=== PATIENT | male | born 1990 | race Caucasian/White ===

== ENCOUNTER 2017-06-13 10:48 | Emergency (ER) | payer OTHER ==
[~2017-06-13] VITALS: Ht 180.3 cm; Wt 117.5 kg
[2017-06-13 10:53] VITALS: BP 128/77; PULSE 64; TEMP 36.7; O2SAT 97; Ht 180.3 cm; Wt 117.5 kg
--- NOTE | 2017-06-13 11:27 | DIAGNOSTIC IMAGING REPORT ---
RIGHT HAND 3 VIEWS HISTORY: Right hand pain. R hand injury Right COMPARISON: None. FINDINGS: There is no fracture or dislocation. Mild soft tissue swelling. No radiopaque foreign bodies. IMPRESSION: No fractures. Electronically signed by: Ole Harman M.D. 06/13/2017 11:26 AM Dictated Date/Time: 06/13/2017 11:24 AM
--- NOTE | 2017-06-13 15:48 | EMERGENCY ROOM VISIT NOTE ---
History First contact with patient: 11:00 Chief Complaint: FINGER PAIN Stated Complaint: FINGERS SHUT IN GARAGE DOOR-WORK RELATED INJURY History of Present Illness The patient is a 27 year old male who presents to the Emergency Room with complaints of injuries after he got his fingers shut in a garage door. This injury did happen at work this morning around 10 AM. He complains of pain of the right second, third and fourth fingers. He denies any pain extending into the fingers or hand. The patient is [id number], and rates his discomfort an 8 out of 10. Review of Systems 10 system review was performed and was negative except for pertinent positives and negatives as indicated in history of present illness Past Medical/Surgical History Medical Problems: (1) No significant past medical history Surgical Problems: (1) No history of previous surgery Family History FH: cancer FH: diabetes mellitus FH: heart disease FH: hypertension Social History Smoking Status: Current Every Day Smoker Alcohol Use: occasionally Marital Status: single Housing Status: lives with family Occupation Status: employed Current/Historical Medications No Active Prescriptions or Reported Meds Physical Exam Vital Signs Date Time Temp Pulse Resp B/P (MAP) Pulse Ox O2 Delivery O2 Flow Rate FiO2 06/13/17 10:53 36.7 64 18 128/77 97 Room Air Pain Rating (0-10): 3.0 Physical Exam CONSTITUTIONAL: Healthy and well nourished. Alert and oriented X 3 with positive affect. Patient appears in mild discomfort from pain. HEENT: Normocephalic, atraumatic. Pupils equal, round and reactive. NECK: Full active range of motion without discomfort. MUSCULOSKELETAL: Examination of the right hand shows mild edema and erythema of the fingertips. However, there is no lacerations or subluxations of the fingertips or nail plates. The refill is less than 2 second of all fingers. INTEGUMENTARY: No rash or other significant dermatologic conditions noted. NEUROLOGIC: Fingertips of the left hand are sensory intact. Medical Decision & Procedures ER Provider Diagnostic Interpretation: My interpretation of right hand x-rays does not show any obvious tuft fractures or DIP dislocations. Radiologist report is as follows: RIGHT HAND 3 VIEWS HISTORY: Right hand pain. R hand injury Right COMPARISON: None. FINDINGS: There is no fracture or dislocation. Mild soft tissue swelling. No radiopaque foreign bodies. IMPRESSION: No fractures. ED Course Patient history and physical exam were performed. Nurse's notes were reviewed. Vital signs were reviewed and were normal. The patient refused any analgesics while in the emergency department. X-rays of the right hand does not show any acute fractures or dislocations. The patient was encouraged to intermittently apply ice. Ibuprofen and Tylenol in alternating fashion as needed for additional pain relief. He was encouraged to follow-up with his Worker's Compensation approved orthopedic surgeon as needed for any persistent pain. The patient was happy with plan of care, voiced understanding of all discharge instructions, and rated his pain a 4 out of 10 at the conclusion of my exam. Medical Decision Medication Reconcilliation Current Medication List: was personally reviewed by me Blood Pressure Screening Patient's blood pressure: Normal blood pressure Impression Primary Impression: Contusion of multiple sites of right hand and fingers Additional Impression: Work related injury Departure Information Dispostion Home / Self-Care Condition GOOD Prescriptions No Active Prescriptions or Reported Meds Forms HOME CARE DOCUMENTATION FORM, IMPORTANT VISIT INFORMATION Patient Instructions My [facility] Additional Instructions Intermittently apply ice for swelling and pain. Perform range of motion exercises to prevent stiffness. Ibuprofen 800 mg and/or Tylenol 1000 mg every 8 hours. You may also alternate these medications for more effective pain relief: Ibuprofen --4 HRS--> Tylenol --4 HRS--> ibuprofen --4 HRS--> Tylenol .... Follow-up with your Worker's Compensation approved orthopedic surgeon if symptoms are not improving within the next 4-5 days. FOR WORK: Limited use of right hand as tolerated until swelling and pain improves. Problem Qualifiers Primary Impression: Contusion of multiple sites of right hand and fingers Encounter type: initial encounter Qualified Codes: S60.221A - Contusion of right hand, initial encounter; S60.00XA - Contusion of unspecified finger without damage to nail, initial encounter
== END 2017-06-13 11:56 | disposition home or self-care (01) ==
LOC: C.EDB 10:50 → C.EDD 11:56
DX: S60.221A Contusion of right hand, initial encounter (principal); W23.1XXA Caught, crushed, jammed, or pinched between stationary objects, initial encounter; Y99.0 Civilian activity done for income or pay; Y92.89 Other specified places as the place of occurrence of the external cause; Z80.9 Family history of malignant neoplasm, unspecified; Z83.3 Family history of diabetes mellitus; Z82.49 Family history of ischemic heart disease and other diseases of the circulatory system; F17.210 Nicotine dependence, cigarettes, uncomplicated

== ENCOUNTER 2023-08-13 19:34 | Inpatient (IN) ==
[2023-08-13] MEDS ORDERED: SODIUM CHLORIDE 0.9% 2,000 ML IV ONE (20:48)
--- NOTE | 2023-08-13 20:51 | Emergency Department Note ---
Impression & Plan Cough, Shortness of breath, Multifocal pneumonia, Fever, Non-ST elevation GA (NSTEMI), Thrombocytopenia ED Provider Note HISTORY OF PRESENT ILLNESS: Patient is a 33-year-old male presenting with shortness of breath, cough and dizziness. Patient reports that he had laboratory work-up done yesterday for monitoring of his chemotherapy treatment and was called today that his platelet count was very low. He was referred to the emergency department given his symptoms of lightheadedness, shortness of breath and cough. Cancer doctor was concerned he may have pneumonia or PE. Patient denies any DVT or PE history. Denies any anticoagulation use. He denies any measured fevers at home, but reports he has been having episodes of feeling hot and then cold. His last dose of chemotherapy was an oral agent last night. He supposed to be on it all week, but was instructed by his oncologist to stop as of yesterday. Patient denies any chest pain. Denies any abdominal pain or diarrhea. He does report some nausea and a few episodes of vomiting earlier today. He took a Zofran just prior to arrival. ROS: as above PHYSICAL EXAM: Constitutional: Patient appears in no acute distress. HENT: Head: Normocephalic and atraumatic. Eyes: EOMI, PERRL Mouth/Throat: Mucous membranes moist. Neck: Trachea midline. Neck supple. Cardiovascular: Tachycardic with regular rhythm. No murmurs, rubs or gallops. Intact distal pulses. Pulmonary/Chest: No respiratory distress. Breath sounds clear and equal bilaterally. No wheezes or rales. Abdominal: Abdomen soft, no tenderness, rebound or guarding. Musculoskeletal: No edema, tenderness or deformity noted. Skin: Warm and dry. No rash, erythema, pallor or cyanosis Psychiatric: Appropriate mood and affect for situation. Neurological: Alert and keenly responsive. CN II-XII grossly intact, moving all extremities equally and fully. MDM: - Vitals signs showed fever. - History obtained via patient. Patient presents with cough, shortness of breath and dizziness. Patient reports he had lab work done yesterday that showed his platelet count was low. His chemotherapy doctor recommended he stop his oral chemo. Patient states for the last few days he has been having a cough, shortness of breath and feeling lightheaded. He reports subjective fevers at home. He denies any chest pain. Denies any abdominal pain or diarrhea. Reports nausea and a few episodes of vomiting earlier today. - Chronic conditions affecting care: [id number]; brain tumor - Differential diagnoses include, but are not limited to: ACS; pneumonia; pulmonary embolism; pulmonary edema; intracranial hemorrhage - Order placed for continuous cardiac monitoring. At this time, monitor showed rate of 80 bpm with normal sinus rhythm, per my interpretation. - External medical records reviewed. Neuro-oncology note dated 08/13/2023 was reviewed. Patient was recommended to present to the ER for further evaluation given his cough, lightheadedness and shortness of breath. He is noted to be on Lomustine and procarbazine, which the pharmacist notes have pulmonary toxicity risks. - EKG reviewed by myself showed normal sinus rhythm. Rate tachycardic at 106 bpm. QTc 417. No acute ischemic changes. - Laboratory workup interpreted by myself showed normal WBC; thrombocytopenia (plt 92); stable electrolytes; normal lactate; normal BNP; elevated troponin (29.8); normal lipase - CXR showed concern for right-sided pneumonia, per my interpretation - Biofire negative - CT head wo contrast negative for intracranial pathology. - CT PE negative for PE, but noted to have multifocal pneumonia. - Blood cultures obtained. - Patient given 2.5L NS. Based on patient's ideal body weight, his sepsis fluid volume resuscitation was reviewed 2427 mL. IV vancomycin and cefepime ordered for antibiotic coverage. - Given patient's immunocompromise state and multifocal pneumonia on CT scan, will admit for IV antibiotics - Discussed was had with resident care provider about need for admission. - Hospitalist consulted for admission - [facility]. ASSESSMENT AND PLAN: Diagnosis: Cough; shortness of breath; multifocal pneumonia; fever; NSTEMI; thrombocytopenia Plan: Admit Past Med/Surg History Medical History Brain cancer Status postcraniotomy, radiation and chemotherapy Xcghqow-Ciojz-Sicck disease GERD (gastroesophageal reflux disease) Surgical History History of craniotomy Social History Smoking Status: Former smoker Tobacco Type: Cigarettes Cigarettes Per Day: 1 pack; Hx Alcohol Use: Yes Hx Substance Use: No Current Living Situation: Family Feels Safe at Home: Yes Allergies Allergies Allergy/AdvReac Type Severity Reaction Status Date / Time No Known Allergies Allergy Unverified 08/13/23 20:35 Home Meds Home Medications Medication Instructions Recorded Confirmed docusate sodium 50 mg capsule 50 mg PO AMHS 08/13/23 08/13/23 levetiracetam 750 mg tablet 1,125 mg PO AMHS 08/13/23 08/13/23 lomustine 100 mg capsule 200 mg PO .EVERY 6 WEEKS 08/13/23 08/13/23 (Gleostine) omeprazole 40 mg capsule,delayed 40 mg PO QAM 08/13/23 08/13/23 release ondansetron HCl 8 mg tablet 8 mg PO Q8 PRN Nausea 08/13/23 08/13/23 procarbazine 50 mg capsule 150 mg PO UD 08/13/23 08/13/23 (Matulane) prochlorperazine maleate 10 mg 10 mg PO Q6 PRN Nausea 08/13/23 08/13/23 tablet Results & Data (ED) Vital Signs Vital Signs - 24 hr 08/13/23 19:53 08/13/23 20:30 08/13/23 21:23 Temperature 38.6 C H Temperature Source Oral Pulse Rate 93 H 89 Pulse Rate [Radial] Respiratory Rate 16 Respiratory Effort / Characteristics Respiratory Depth Respiratory Pattern Blood Pressure 134/83 Blood Pressure [Left Arm] Blood Pressure Mean 100 Blood Pressure Mean [Left Arm] Pulse Oximetry 95 98 Oxygen Delivery Method Room Air Room Air Sepsis Recent Fever Within 48 Hours Yes Sepsis New/Unexplained Change in Mental Status No Sepsis Action Taken by Nursing No Action Required 08/13/23 21:37 08/13/23 23:00 08/14/23 01:00 Temperature Temperature Source Pulse Rate Pulse Rate [Radial] 85 80 92 H Respiratory Rate 17 18 17 Respiratory Effort / Characteristics Non-Labored Spontaneous Non-Labored Spontaneous Respiratory Depth Normal Normal Respiratory Pattern Regular Regular Blood Pressure Blood Pressure [Left Arm] 119/67 133/77 Blood Pressure Mean Blood Pressure Mean [Left Arm] 84 95 Pulse Oximetry 92 91 99 Oxygen Delivery Method Room Air Room Air Room Air Sepsis Recent Fever Within 48 Hours Sepsis New/Unexplained Change in Mental Status Sepsis Action Taken by Nursing Laboratory Data 08/13/23 20:19 08/13/23 20:19 Lab Results 08/13/23 08/13/23 08/13/23 Range/Units 20:19 20:20 21:11 WBC 8.39 (4.8-10.8) K/ul RBC 4.97 (4.70-6.10) M/uL Hgb 15.5 (14.0-18.0) g/dl Hct 43.5 (42.0-52.0) % MCV 87.5 (80.0-100.0) fL MCH 31.2 (25.0-34.0) pg MCHC 35.6 (32.0-36.0) g/dL RDW Std Deviation 38.4 (36.4-46.3) fL RDW Coeff of Domingo 12.1 (11.5-14.5) % Plt Count 92 L (130-400) K/uL MPV 10.4 (9.4-12.4) fL Immature Gran % (Auto) 0.1 % Neut % (Auto) 69.9 % Lymph % (Auto) 15.7 % [place] % (Auto) 13.5 % Eos % (Auto) 0.2 % Baso % (Auto) 0.6 % Neut # (Auto) 5.86 (1.40-6.50) K/uL Lymph # (Auto) 1.32 (1.20-3.40) K/uL [place] # (Auto) 1.13 H (0.11-0.59) K/uL Eos # (Auto) 0.02 (0.00-0.50) K/uL Baso # (Auto) 0.05 (0.00-0.20) K/uL Immature Gran # (Auto) 0.01 (0.01-0.20) K/uL Platelet Estimate Decreased L (Normal) PT 11.1 (9.0-12.0) Seconds INR 1.0 (0.9-1.1) APTT 31.1 H (21.0-31.0) Seconds PTT Ratio 1.1 Sodium 135 L (136-145) mmol/L Potassium 3.5 (3.5-5.1) mmol/L Chloride 102 (98-107) mmol/L Carbon Dioxide 23 (21-32) mmol/L Anion Gap 10 (3-11) BUN 15 (6-23) mg/dl Creatinine 1.07 (0.6-1.4) mg/dl Est Cr Clr Drug Dosing 135.3 ml/min Est GFR ( Amer) 106.6 ml/min Est GFR (Non-Af Amer) 92.0 ml/min BUN/Creatinine Ratio 14.0 (10-20) Glucose 103 H (70-99(Fasting)) mg/dl Lactate 1.3 (0.4-2.0) mmol/L Calcium 9.4 (8.6-10.3) mg/dl Total Bilirubin 1.1 H (0.2-1.0) mg/dl AST 21 (13-39) U/L ALT 32 (7-52) U/L Alkaline Phosphatase 90 (34-104) U/L Troponin I High Sens 29.8 H (0-20) pg/ml B-Natriuretic Peptide 4 (0-100) pg/ml Total Protein 7.8 (6.0-8.3) gm/dl Albumin 4.6 (3.4-5.0) gm/dl Globulin 3.2 (2.5-4.0) gm/dl Albumin/Globulin Ratio 1.4 (0.9-2) Lipase 6 L (11-82) U/L Procalcitonin < 0.05 (0-0.5) ng/ml Adenovirus (PCR) Not Detected (NotDetected) B. pertussis DNA (PCR) Not Detected (NotDetected) B.parapertussis DNA PCR Not Detected (NotDetected) C. pneumoniae DNA (PCR) Not Detected (NotDetected) Coronavirus OC43 (PCR) Not Detected (NotDetected) Coronavirus HKU1 (PCR) Not Detected (NotDetected) Coronavirus 229E (PCR) Not Detected (NotDetected) SARS-CoV-2 (PCR) Not Detected (NotDetected) Coronavirus NL63 (PCR) Not Detected (NotDetected) Human Metapneumovir PCR Not Detected (NotDetected) Influenza Type A (PCR) Not Detected (NotDetected) Influenza Type B (PCR) Not Detected (NotDetected) M. pneumoniae (PCR) Not Detected (NotDetected) Parainfluenza 1 (PCR) Not Detected (NotDetected) Parainfluenza 2 (PCR) Not Detected (NotDetected) Parainfluenza 3 (PCR) Not Detected (NotDetected) Parainfluenza 4 (PCR) Not Detected (NotDetected) RSV (PCR) Not Detected (NotDetected) Entero/Rhino (PCR) Not Detected (NotDetected) 08/13/23 Range/Units 22:34 WBC (4.8-10.8) K/ul RBC (4.70-6.10) M/uL Hgb (14.0-18.0) g/dl Hct (42.0-52.0) % MCV (80.0-100.0) fL MCH (25.0-34.0) pg MCHC (32.0-36.0) g/dL RDW Std Deviation (36.4-46.3) fL RDW Coeff of Domingo (11.5-14.5) % Plt Count (130-400) K/uL MPV (9.4-12.4) fL Immature Gran % (Auto) % Neut % (Auto) % Lymph % (Auto) % [place] % (Auto) % Eos % (Auto) % Baso % (Auto) % Neut # (Auto) (1.40-6.50) K/uL Lymph # (Auto) (1.20-3.40) K/uL [place] # (Auto) (0.11-0.59) K/uL Eos # (Auto) (0.00-0.50) K/uL Baso # (Auto) (0.00-0.20) K/uL Immature Gran # (Auto) (0.01-0.20) K/uL Platelet Estimate (Normal) PT (9.0-12.0) Seconds INR (0.9-1.1) APTT (21.0-31.0) Seconds PTT Ratio Sodium (136-145) mmol/L Potassium (3.5-5.1) mmol/L Chloride (98-107) mmol/L Carbon Dioxide (21-32) mmol/L Anion Gap (3-11) BUN (6-23) mg/dl Creatinine (0.6-1.4) mg/dl Est Cr Clr Drug Dosing ml/min Est GFR ( Amer) ml/min Est GFR (Non-Af Amer) ml/min BUN/Creatinine Ratio (10-20) Glucose (70-99(Fasting)) mg/dl Lactate (0.4-2.0) mmol/L Calcium (8.6-10.3) mg/dl Total Bilirubin (0.2-1.0) mg/dl AST (13-39) U/L ALT (7-52) U/L Alkaline Phosphatase (34-104) U/L Troponin I High Sens 29.3 H (0-20) pg/ml B-Natriuretic Peptide (0-100) pg/ml Total Protein (6.0-8.3) gm/dl Albumin (3.4-5.0) gm/dl Globulin (2.5-4.0) gm/dl Albumin/Globulin Ratio (0.9-2) Lipase (11-82) U/L Procalcitonin (0-0.5) ng/ml Adenovirus (PCR) (NotDetected) B. pertussis DNA (PCR) (NotDetected) B.parapertussis DNA PCR (NotDetected) C. pneumoniae DNA (PCR) (NotDetected) Coronavirus OC43 (PCR) (NotDetected) Coronavirus HKU1 (PCR) (NotDetected) Coronavirus 229E (PCR) (NotDetected) SARS-CoV-2 (PCR) (NotDetected) Coronavirus NL63 (PCR) (NotDetected) Human Metapneumovir PCR (NotDetected) Influenza Type A (PCR) (NotDetected) Influenza Type B (PCR) (NotDetected) M. pneumoniae (PCR) (NotDetected) Parainfluenza 1 (PCR) (NotDetected) Parainfluenza 2 (PCR) (NotDetected) Parainfluenza 3 (PCR) (NotDetected) Parainfluenza 4 (PCR) (NotDetected) RSV (PCR) (NotDetected) Entero/Rhino (PCR) (NotDetected) Administered Medications Vancomycin HCl 2,500 mg/ (Sodium Chloride) 550 mls @ 200 mls/hr IV NOW ONE Stop: 08/14/23 02:00 Last Admin: 08/13/23 23:33 Dose: 200 mls/hr Documented By: MAUDE Discontinued Medications Sodium Chloride (Nss) 2,000 mls @ 999 mls/hr IV .Q2H1M ONE Stop: 08/13/23 22:48 Last Infusion: 08/13/23 23:19 Dose: Infused Documented By: Admin: 08/13/23 21:17 Dose: 999 mls/hr Documented By: MAUDE Cefepime HCl (Maxipime) 2,000 mg in 20 mls @ 5 mls/min IV NOW STA; Protocol Stop: 08/13/23 23:19 Last Admin: 08/13/23 23:32 Dose: 5 mls/min Documented By: MAUDE Ioversol (Optiray 320 500ml) 112 ml IV ONCE ONE Stop: 08/13/23 21:50 Last Admin: 08/13/23 21:49 Dose: 112 ml Documented By: CHICO Imaging Data Radiologist's Impression: Chest CTA 08/13/23 21:04 Exam(s): CTA CHEST IV Amt: 112 ml optiray 320 EXAM: CT Angiography Chest With Intravenous Contrast CLINICAL HISTORY: Reason for exam: PE. TECHNIQUE: Axial computed tomographic angiography images of the chest with intravenous contrast. CTDI is 64.54 mGy and DLP is 961.59 mGy-cm. Automated exposure control was utilized for the study. A dose lowering technique was utilized adhering to the principles of ALARA. MIP reconstructed images were created and reviewed. COMPARISON: No relevant prior studies available. FINDINGS: Pulmonary arteries: No pulmonary embolism. Aorta: No acute findings. Normal caliber. No dissection. Lungs: Scattered airspace opacities involving the upper lobes and lower lobes consistent with pneumonia. Pleural space: Unremarkable. Heart: Unremarkable. Bones/joints: No acute fracture. Soft tissues: Unremarkable. Lymph nodes: Unremarkable. Liver: There is an ill-defined mass within hepatic segment 8 measuring 4.5 cm. IMPRESSION: 1. No pulmonary embolism. 2. Multifocal pneumonia. 3. There is an ill-defined mass within hepatic segment 8 measuring 4.5 cm. Consider characterization with dedicated MRI of the abdomen with contrast. Electronically signed by: Roshan Dahl MD 08/13/23 23:[address] 08/13/23 21:04 Exam(s): CT HEAD Without Contrast EXAM: CT Head Without Intravenous Contrast CLINICAL HISTORY: Reason for exam: dizziness; known brain CA. TECHNIQUE: Axial computed tomography images of the head/brain without intravenous contrast. CTDI is 21.37 mGy and DLP is 972.14 mGy-cm. Automated exposure control was utilized for the study. A dose lowering technique was utilized adhering to the principles of ALARA. COMPARISON: [place] [id number] FINDINGS: Brain: No intracranial hemorrhage, mass-effect, or cerebral edema. Encephalomalacia and calcifications in the inferior left frontal lobe. Ventricles: Unremarkable. Bones/joints: Chronic left frontotemporal craniotomy. Soft tissues: Unremarkable. Sinuses: No acute sinusitis. Mastoid air cells: Unremarkable as visualized. IMPRESSION: 1. No acute intracranial abnormality. 2. Postsurgical changes in the inferior left frontal lobe. Electronically signed by: Roshan Dahl MD 08/13/23 23:10 PM Discharge Plan Visit Data Chief Complaint: Chest Pain Stated Complaint: TESTING REQUEST, DIZZY, COUGH, CHEST CUEVAS, NAUSEA ED Provider: Fiordaliza Davidson Discharge Problem: Cough, Shortness of breath, Multifocal pneumonia, Fever, Non-ST elevation GA (NSTEMI), Thrombocytopenia Forms Stand Alone Forms: [facility] Prescriptions Prescriptions: No Action levetiracetam 750 mg tablet 1,125 mg PO AMHS Rx Instructions: 1.5 tablets in am and hs ondansetron HCl 8 mg tablet 8 mg PO Q8 PRN (Reason: Nausea) prochlorperazine maleate 10 mg tablet 10 mg PO Q6 PRN (Reason: Nausea) Matulane 50 mg capsule 150 mg PO UD Rx Instructions: 3 capsule dose at bedtime on days 8 through 21 every 42 days Gleostine 100 mg capsule 200 mg PO .EVERY 6 WEEKS Rx Instructions: take on an empty stomach at bed time. last dispensed 07/19/23 docusate sodium 50 mg Capsule 50 mg PO AMHS omeprazole 40 mg capsule,delayed release(DR/EC) 40 mg PO QAM Referrals Referrals: Dangelo Juárez DO [Primary Care Provider] -
[2023-08-13 20:55] LABS: Albumin Globulin Ratio 1.4 (0.9-2); Albumin Level 4.6 gm/dl (3.4-5.0); Bilirubin,Total 1.1 mg/dl (0.2-1.0); Calcium 9.4 mg/dl (8.6-10.3); Creatinine Clr Calc Pharmacy 135.3 ml/min; Est GFR (African American) 106.6 ml/min; Globulin 3.2 gm/dl (2.5-4.0); Potassium 3.5 mmol/L (3.5-5.1); Total Protein 7.8 gm/dl (6.0-8.3)
[2023-08-13 21:01] LABS: Troponin I High Sensitivity 29.8 pg/ml (0-20)
[2023-08-13 21:09] LABS: Basophils # (auto) 0.05 K/uL (0.00-0.20); Basophils % (auto) 0.6 %; Eosinophils # (auto) 0.02 K/uL (0.00-0.50); Eosinophils % (auto) 0.2 %; Hematocrit (blood only) 43.5 % (42.0-52.0); Hemoglobin 15.5 g/dl (14.0-18.0); Immature Granulocytes # (auto) 0.01 K/uL (0.01-0.20); Immature Granulocytes % (auto) 0.1 %; Lymphocytes # (auto) 1.32 K/uL (1.20-3.40); Lymphocytes % (auto) 15.7 %; Mean Corpuscular Hemoglobin 31.2 pg (25.0-34.0); Mean Corpuscular Hgb Conc 35.6 g/dL (32.0-36.0); Mean Corpuscular Volume 87.5 fL (80.0-100.0); Mean Platelet Volume 10.4 fL (9.4-12.4); Monocytes # (auto) 1.13 K/uL (0.11-0.59); Monocytes % (auto) 13.5 %; Neutrophils # (auto) 5.86 K/uL (1.40-6.50); Neutrophils % (auto) 69.9 %; Platelet Count 92 K/uL (130-400); Platelet Estimate Decreased (Normal); RDW Coefficient of Variation 12.1 % (11.5-14.5); RDW Standard Deviation 38.4 fL (36.4-46.3); Red Blood Count 4.97 M/uL (4.70-6.10); White Blood Count 8.39 K/ul (4.8-10.8)
[2023-08-13 21:27] LABS: Adenovirus PCR Not Detected (NotDetected); Bordetella parapertussis PCR Not Detected (NotDetected); Bordetella pertussis PCR Not Detected (NotDetected); Chlamydia pneumoniae PCR Not Detected (NotDetected); Coronavirus 229E PCR Not Detected (NotDetected); Coronavirus CoV-2 (COVID19)PCR Not Detected (NotDetected); Coronavirus HKU1 PCR Not Detected (NotDetected); Coronavirus NL63 PCR Not Detected (NotDetected); Coronavirus OC43PCR Not Detected (NotDetected); Human Metapneumovirus PCR Not Detected (NotDetected); Influenza A PCR Not Detected (NotDetected); Influenza B PCR Not Detected (NotDetected); Mycoplasma pneumoniae PCR Not Detected (NotDetected); Parainfluenza Virus 1 PCR Not Detected (NotDetected); Parainfluenza Virus 2 PCR Not Detected (NotDetected); Parainfluenza Virus 3 PCR Not Detected (NotDetected); Parainfluenza Virus 4 PCR Not Detected (NotDetected); Respiratory Syncytial VirusPCR Not Detected (NotDetected); Rhinovirus/Enterovirus PCR Not Detected (NotDetected)
[2023-08-13 21:42] LABS: Partial Thromboplastin Ratio 1.1; Partial Thromboplastin Time 31.1 Seconds (21.0-31.0); Prothrombin Time 11.1 Seconds (9.0-12.0)
[2023-08-13] MEDS ORDERED: OPTIRAY 320 500ml IV ONE (21:49)
--- NOTE | 2023-08-13 23:11 | CT Scan Report ---
Exam(s): CT HEAD Without Contrast EXAM: CT Head Without Intravenous Contrast CLINICAL HISTORY: Reason for exam: dizziness; known brain CA. TECHNIQUE: Axial computed tomography images of the head/brain without intravenous contrast. CTDI is 21.37 mGy and DLP is 972.14 mGy-cm. Automated exposure control was utilized for the study. A dose lowering technique was utilized adhering to the principles of ALARA. COMPARISON: [place] [id number] 18 FINDINGS: Brain: No intracranial hemorrhage, mass-effect, or cerebral edema. Encephalomalacia and calcifications in the inferior left frontal lobe. Ventricles: Unremarkable. Bones/joints: Chronic left frontotemporal craniotomy. Soft tissues: Unremarkable. Sinuses: No acute sinusitis. Mastoid air cells: Unremarkable as visualized. IMPRESSION: 1. No acute intracranial abnormality. 2. Postsurgical changes in the inferior left frontal lobe. Electronically signed by: Roshan Dahl MD 08/13/23 23:10 PM
--- NOTE | 2023-08-13 23:14 | CT Scan Report ---
Exam(s): CTA CHEST IV Amt: 112 ml optiray 320 EXAM: CT Angiography Chest With Intravenous Contrast CLINICAL HISTORY: Reason for exam: PE. TECHNIQUE: Axial computed tomographic angiography images of the chest with intravenous contrast. CTDI is 64.54 mGy and DLP is 961.59 mGy-cm. Automated exposure control was utilized for the study. A dose lowering technique was utilized adhering to the principles of ALARA. MIP reconstructed images were created and reviewed. COMPARISON: No relevant prior studies available. FINDINGS: Pulmonary arteries: No pulmonary embolism. Aorta: No acute findings. Normal caliber. No dissection. Lungs: Scattered airspace opacities involving the upper lobes and lower lobes consistent with pneumonia. Pleural space: Unremarkable. Heart: Unremarkable. Bones/joints: No acute fracture. Soft tissues: Unremarkable. Lymph nodes: Unremarkable. Liver: There is an ill-defined mass within hepatic segment 8 measuring 4.5 cm. IMPRESSION: 1. No pulmonary embolism. 2. Multifocal pneumonia. 3. There is an ill-defined mass within hepatic segment 8 measuring 4.5 cm. Consider characterization with dedicated MRI of the abdomen with contrast. Electronically signed by: Roshan Dahl MD 08/13/23 23:13 PM
[2023-08-13] MEDS ORDERED: VANCOMYCIN CONSULT ACTIVE PRN (23:16)
[2023-08-13] MEDS ORDERED: VANCOMYCIN HCL 2,500 MG in SODIUM CHLORIDE 0.9% 500 ML IV ONE (23:16)
[2023-08-13] MEDS ORDERED: CEFEPIME 2,000 MG/20 ML VIAL IV STA (23:16)
[2023-08-13] MEDS ORDERED: SODIUM CHLORIDE 0.9% 500 ML IV ONE (23:35)
--- NOTE | 2023-08-14 01:44 | History & Physical Report ---
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 Patient was feeling dizzy. Denies any headache. Vision is somewhat blurry. Has some runny nose. Has some sore throat from coughing. No nausea. No abdominal pain. Normal bowel and bladder movements. Currently resting comfortably and hemodynamics stable. Past medical history. As mentioned above. Past surgical history. 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 Quit smoking in August 2023. Smoked 1.75 packs a day for 12 years. Alcohol occasional. No drug use. Family history. Mother had prothrombin [id number]. Diabetes. Aunt and uncle has limb-girdle muscular dystrophy Allergies Allergy/AdvReac Type Severity Reaction Status Date / Time No Known Allergies Allergy Unverified 08/13/23 20:35 Home Medications Medication Instructions Recorded Confirmed Type docusate sodium 50 mg capsule 50 mg PO AMHS 08/13/23 08/13/23 History levetiracetam 750 mg tablet 1,125 mg PO AMHS 08/13/23 08/13/23 History lomustine 100 mg capsule 200 mg PO .EVERY 6 WEEKS 08/13/23 08/13/23 History (Gleostine) omeprazole 40 mg capsule,delayed 40 mg PO QAM 08/13/23 08/13/23 History release ondansetron HCl 8 mg tablet 8 mg PO Q8 PRN Nausea 08/13/23 08/13/23 History procarbazine 50 mg capsule 150 mg PO UD 08/13/23 08/13/23 History ([place]) prochlorperazine maleate 10 mg 10 mg PO Q6 PRN Nausea 08/13/23 08/13/23 History tablet Past Med/Surg History Medical History Brain cancer Status postcraniotomy, radiation and chemotherapy Tjamsye-Oejxw-Ihljz disease GERD (gastroesophageal reflux disease) Surgical History History of craniotomy Social History Smoking Status: Former smoker Tobacco Type: Cigarettes Cigarettes Per Day: 1 pack; Hx Alcohol Use: No Hx Substance Use: No Preferred Language: Palestinian Communication Ability: Effective Trouble Dispatcher Required: No Beliefs That Will Affect Care: None Current Living Situation: Parent Feels Safe at Home: Yes Safety Concerns: Feels Safe At This Time Assistive Devices: Glasses Review of Systems Review of Systems: All systems reviewed & are unremarkable except as noted in HPI & below Physical Exam Physical Exam: General- not in distress Head- atraumatic Eyes- PERRL. ENT- oropharynx clear Neck- supple, no JVD. Lungs- clear to auscultation no wheezing or crackles. Heart- regular rhythm; no murmur, no gallop. Abdomen- normal bowel sounds, soft, nontender, no distension. Extremities- no pretibial edema, no erythema seen. Neuro- alert, oriented x 3; PERRL, no facial palsy; no dysarthria; Skin- warm & dry Results & Data Results & Data Vital Signs (Past 12 Hours) Vital Signs Temp Pulse Pulse Resp BP BP Pulse Ox 08/14/23 01:28 85 08/14/23 01:00 92 H 17 133/77 99 08/13/23 23:00 80 18 119/67 91 08/13/23 21:37 85 17 92 08/13/23 21:23 89 08/13/23 20:30 98 08/13/23 19:53 38.6 C H 93 H 16 134/83 95 O2 Del Method 08/14/23 01:28 08/14/23 01:00 Room Air 08/13/23 23:00 Room Air 08/13/23 21:37 Room Air 08/13/23 21:23 08/13/23 20:30 Room Air 08/13/23 19:53 Room Air Diagnostic Findings Laboratory Results WBC 8.39 K/ul (4.8-10.8) 08/13/23 20:19 RBC 4.97 M/uL (4.70-6.10) 08/13/23 20:19 Hgb 15.5 g/dl (14.0-18.0) 08/13/23 20:19 Hct 43.5 % (42.0-52.0) 08/13/23 20:19 MCV 87.5 fL (80.0-100.0) 08/13/23 20:19 MCH 31.2 pg (25.0-34.0) 08/13/23 20:19 MCHC 35.6 g/dL (32.0-36.0) 08/13/23 20:19 RDW Std Deviation 38.4 fL (36.4-46.3) 08/13/23 20:19 RDW Coeff of Domingo 12.1 % (11.5-14.5) 08/13/23 20:19 Plt Count 92 K/uL (130-400) L 08/13/23 20:19 MPV 10.4 fL (9.4-12.4) 08/13/23 20:19 Immature Gran % (Auto) 0.1 % 08/13/23 20:19 Neut % (Auto) 69.9 % 08/13/23 20:19 Lymph % (Auto) 15.7 % 08/13/23 20:19 Zavala % (Auto) 13.5 % 08/13/23 20:19 Eos % (Auto) 0.2 % 08/13/23 20:19 Baso % (Auto) 0.6 % 08/13/23 20:19 Neut # (Auto) 5.86 K/uL (1.40-6.50) 08/13/23 20:19 Lymph # (Auto) 1.32 K/uL (1.20-3.40) 08/13/23 20:19 Zavala # (Auto) 1.13 K/uL (0.11-0.59) H 08/13/23 20:19 Eos # (Auto) 0.02 K/uL (0.00-0.50) 08/13/23 20:19 Baso # (Auto) 0.05 K/uL (0.00-0.20) 08/13/23 20:19 Immature Gran # (Auto) 0.01 K/uL (0.01-0.20) 08/13/23 20:19 Platelet Estimate Decreased (Normal) L 08/13/23 20:19 PT 11.1 Seconds (9.0-12.0) 08/13/23 20:19 INR 1.0 (0.9-1.1) 08/13/23 20:19 APTT 31.1 Seconds (21.0-31.0) H 08/13/23 20:19 PTT Ratio 1.1 08/13/23 20:19 Sodium 135 mmol/L (136-145) L 08/13/23 20:19 Potassium 3.5 mmol/L (3.5-5.1) 08/13/23 20:19 Chloride 102 mmol/L (98-107) 08/13/23 20:19 Carbon Dioxide 23 mmol/L (21-32) 08/13/23 20:19 Anion Gap 10 (3-11) 08/13/23 20:19 BUN 15 mg/dl (6-23) 08/13/23 20:19 Creatinine 1.07 mg/dl (0.6-1.4) 08/13/23 20:19 Est Cr Clr Drug Dosing 135.3 ml/min 08/13/23 20:19 Est GFR ( Amer) 106.6 ml/min 08/13/23 20:19 Est GFR (Non-Af Amer) 92.0 ml/min 08/13/23 20:19 BUN/Creatinine Ratio 14.0 (10-20) 08/13/23 20:19 Glucose 103 mg/dl (70-99(Fasting)) H 08/13/23 20:19 Lactate 1.3 mmol/L (0.4-2.0) 08/13/23 21:11 Calcium 9.4 mg/dl (8.6-10.3) 08/13/23 20:19 Total Bilirubin 1.1 mg/dl (0.2-1.0) H 08/13/23 20:19 AST 21 U/L (13-39) 08/13/23 20:19 ALT 32 U/L (7-52) 08/13/23 20:19 Alkaline Phosphatase 90 U/L (34-104) 08/13/23 20:19 Troponin I High Sens 29.3 pg/ml (0-20) H 08/13/23 22:34 B-Natriuretic Peptide 4 pg/ml (0-100) 08/13/23 20:19 Total Protein 7.8 gm/dl (6.0-8.3) 08/13/23 20:19 Albumin 4.6 gm/dl (3.4-5.0) 08/13/23 20:19 Globulin 3.2 gm/dl (2.5-4.0) 08/13/23 20:19 Albumin/Globulin Ratio 1.4 (0.9-2) 08/13/23 20:19 Lipase 6 U/L (11-82) L 08/13/23 20:19 Procalcitonin < 0.05 ng/ml (0-0.5) 08/13/23 20:19 Adenovirus (PCR) Not Detected (NotDetected) 08/13/23 20:20 B. pertussis DNA (PCR) Not Detected (NotDetected) 08/13/23 20:20 B.parapertussis DNA PCR Not Detected (NotDetected) 08/13/23 20:20 C. pneumoniae DNA (PCR) Not Detected (NotDetected) 08/13/23 20:20 Coronavirus OC43 (PCR) Not Detected (NotDetected) 08/13/23 20:20 Coronavirus HKU1 (PCR) Not Detected (NotDetected) 08/13/23 20:20 Coronavirus 229E (PCR) Not Detected (NotDetected) 08/13/23 20:20 SARS-CoV-2 (PCR) Not Detected (NotDetected) 08/13/23 20:20 Coronavirus NL63 (PCR) Not Detected (NotDetected) 08/13/23 20:20 Human Metapneumovir PCR Not Detected (NotDetected) 08/13/23 20:20 Influenza Type A (PCR) Not Detected (NotDetected) 08/13/23 20:20 Influenza Type B (PCR) Not Detected (NotDetected) 08/13/23 20:20 M. pneumoniae (PCR) Not Detected (NotDetected) 08/13/23 20:20 Parainfluenza 1 (PCR) Not Detected (NotDetected) 08/13/23 20:20 Parainfluenza 2 (PCR) Not Detected (NotDetected) 08/13/23 20:20 Parainfluenza 3 (PCR) Not Detected (NotDetected) 08/13/23 20:20 Parainfluenza 4 (PCR) Not Detected (NotDetected) 08/13/23 20:20 RSV (PCR) Not Detected (NotDetected) 08/13/23 20:20 Entero/Rhino (PCR) Not Detected (NotDetected) 08/13/23 20:20 Impressions Chest CTA 08/13/23 21:04 Exam(s): CTA CHEST IV Amt: 112 ml optiray 320 EXAM: CT Angiography Chest With Intravenous Contrast CLINICAL HISTORY: Reason for exam: PE. TECHNIQUE: Axial computed tomographic angiography images of the chest with intravenous contrast. CTDI is 64.54 mGy and DLP is 961.59 mGy-cm. Automated exposure control was utilized for the study. A dose lowering technique was utilized adhering to the principles of ALARA. MIP reconstructed images were created and reviewed. COMPARISON: No relevant prior studies available. FINDINGS: Pulmonary arteries: No pulmonary embolism. Aorta: No acute findings. Normal caliber. No dissection. Lungs: Scattered airspace opacities involving the upper lobes and lower lobes consistent with pneumonia. Pleural space: Unremarkable. Heart: Unremarkable. Bones/joints: No acute fracture. Soft tissues: Unremarkable. Lymph nodes: Unremarkable. Liver: There is an ill-defined mass within hepatic segment 8 measuring 4.5 cm. IMPRESSION: 1. No pulmonary embolism. 2. Multifocal pneumonia. 3. There is an ill-defined mass within hepatic segment 8 measuring 4.5 cm. Consider characterization with dedicated MRI of the abdomen with contrast. Electronically signed by: Roshan Dahl MD 08/13/23 23:[address] 08/13/23 21:04 Exam(s): CT HEAD Without Contrast EXAM: CT Head Without Intravenous Contrast CLINICAL HISTORY: Reason for exam: dizziness; known brain CA. TECHNIQUE: Axial computed tomography images of the head/brain without intravenous contrast. CTDI is 21.37 mGy and DLP is 972.14 mGy-cm. Automated exposure control was utilized for the study. A dose lowering technique was utilized adhering to the principles of ALARA. COMPARISON: [place] [address] 18 FINDINGS: Brain: No intracranial hemorrhage, mass-effect, or cerebral edema. Encephalomalacia and calcifications in the inferior left frontal lobe. Ventricles: Unremarkable. Bones/joints: Chronic left frontotemporal craniotomy. Soft tissues: Unremarkable. Sinuses: No acute sinusitis. Mastoid air cells: Unremarkable as visualized. IMPRESSION: 1. No acute intracranial abnormality. 2. Postsurgical changes in the inferior left frontal lobe. Electronically signed by: Roshan Dahl MD 08/13/23 23:10 PM Code Status & VTE Plan VTE Prophylaxis Plan VTE Prophylaxis will be ordered: Yes
[2023-08-14] MEDS ORDERED: POLYETHYLENE (MIRALAX) 17 GM PACK PO PRN (03:53)
[2023-08-14] MEDS ORDERED: NITROGLYCERIN SL 0.4 MG/TAB TAB SL PRN (03:53)
[2023-08-14] MEDS ORDERED: PROCHLORPERAZINE MALEATE 10 MG TAB PO PRN (03:53)
[2023-08-14] MEDS ORDERED: PIPERACILLIN/TAZOBACTAM 4.5 GM in DEXTROSE 5% MINI-B 100 ML IV STA (04:16)
[2023-08-14] MEDS ORDERED: ONDANSETRON 4 MG OD TAB PO PRN (04:25)
[2023-08-14] MEDS: SODIUM CHLORIDE 0.9% 1,000 ML IV SCH ×2 (05:07→14:29)
[2023-08-14] MEDS: ACETAMINOPHEN 325 MG TAB PO PRN ×3 (05:12→20:01)
[2023-08-14] MEDS: DOXYCYCLINE HYCLATE 100 MG in DEXTROSE 5% MINI-B 100 ML IV SCH ×2 (05:52→20:00)
[2023-08-14 06:22] LABS: Appearance Urine Clear (Clear); Bacteria Urine Automated Negative (Negative); Bilirubin Urine Negative (Negative); Blood Urine Negative (Negative); Color Urine Yellow; Glucose Urine UA Negative (Negative); Ketones Urine Negative (Negative); Leukocyte Esterase Urine Negative (Negative); Nitrite Urine Negative (Negative); Protein Urine Trace (Negative); RBC Urine Automated 0-4 /hpf (0-4); Specific Gravity Urine 1.041 (1.000-1.030); Urobilinogen Urine Negative (Negative)
[2023-08-14 07:23] LABS: Basophils # (auto) 0.03 K/uL (0.00-0.20); Basophils % (auto) 0.4 %; Eosinophils # (auto) 0.02 K/uL (0.00-0.50); Eosinophils % (auto) 0.3 %; Hematocrit (blood only) 39.3 % (42.0-52.0); Hemoglobin 13.9 g/dl (14.0-18.0); Immature Granulocytes # (auto) 0.03 K/uL (0.01-0.20); Immature Granulocytes % (auto) 0.4 %; Lymphocytes # (auto) 1.09 K/uL (1.20-3.40); Lymphocytes % (auto) 15.2 %; Mean Corpuscular Hemoglobin 31.2 pg (25.0-34.0); Mean Corpuscular Hgb Conc 35.4 g/dL (32.0-36.0); Mean Corpuscular Volume 88.3 fL (80.0-100.0); Mean Platelet Volume 10.4 fL (9.4-12.4); Monocytes # (auto) 0.95 K/uL (0.11-0.59); Monocytes % (auto) 13.2 %; Neutrophils # (auto) 5.06 K/uL (1.40-6.50); Neutrophils % (auto) 70.5 %; Platelet Count 80 K/uL (130-400); RDW Standard Deviation 39.2 fL (36.4-46.3); Red Blood Count 4.45 M/uL (4.70-6.10); White Blood Count 7.18 K/ul (4.8-10.8)
--- NOTE | 2023-08-14 07:44 | XRay Report ---
XR chest 1V portable HISTORY: 33 years-old Male Chest pain, nonspecific COMPARISON: CTA chest of same day TECHNIQUE: AP view of the chest FINDINGS: Cardiomediastinal and hilar silhouettes are within normal limits. There is no pneumothorax, pleural e ffusion or pulmonary edema. Mild patchy airspace opacities throughout the right lung. Bones appear gr ossly intact. IMPRESSION: Mild patchy likely infectious or inflammatory right lung predominant opacities are better seen on the comparison CTA chest exam of same day. ACT 112: Negative or not required by law. The above report was generated using voice recognition software. It may contain grammatical, syntax o r spelling errors. Electronically signed by: Vik Castro M.D. 08/14/2023 7:43 AM
[2023-08-14 08:09] LABS: Calcium 8.5 mg/dl (8.6-10.3); Magnesium 1.8 mg/dl (1.7-2.4)
[2023-08-14 08:10] LABS: BUN Creatinine Ratio 12.8 (10-20); Creatinine Clr Calc Pharmacy 123.7 ml/min; Est GFR (African American) 95.7 ml/min; Est GFR (Non-African American) 82.6 ml/min; Potassium 3.5 mmol/L (3.5-5.1)
[2023-08-14] MEDS ORDERED: levETIRAcetam 500 MG TAB PO SCH (09:00)
[2023-08-14] MEDS: DOCUSATE SODIUM SYRUP 100 MG/10 ML UDC PO SCH ×2 (09:00→20:01)
[2023-08-14] MEDS: PANTOprazole 40 MG TAB PO SCH (09:01)
[2023-08-14] MEDS: ENOXAPARIN INJ 40 MG/0.4 ML SYR SQ SCH (09:02)
[2023-08-14] MEDS: PIPERACILLIN/TAZOBACTAM 4.5 GM in DEXTROSE 5% MINI-B 100 ML IV SCH ×2 (10:23→18:09)
[2023-08-14] MEDS: levETIRAcetam ORAL SOLN 100MG/ML PO SCH ×2 (10:23→20:01)
[2023-08-14] MEDS ORDERED: guaiFENesin/DEXTROM SYRUP 200MG/20MG 10ML UDC PO PRN (10:52)
--- NOTE | 2023-08-14 13:41 | Communication Note ---
Date of Service: August 14, 2023 Patient is seen and examined in the ED. He reports that he is feeling slightly better compared to yesterday. Still has cough with mucoid sputum. Low-grade fever with Tmax of 38.2 C Continue Zosyn and doxycycline Obtain sputum culture. Also cough syrup ordered for symptomatic care. On physical examination; Constitutional: Alert orient x3; not in distress Respiratory: Bilateral occasional crackles present. Cardiovascular: RRR, no murmur, no edema Vessels: no JVD or carotid bruit Chest: normal inspection of chest Abdomen: normal bowel sounds, soft, nontender, no hepatosplenomegaly Musculoskeletal: no cyanosis or clubbing, extremities motor strength 5/5 Skin: no rashes, warm and dry normal turgor Neurologic: PERRL, EOMI, accommodation nl, no face palsy, no dysarthria CN's II- XI intact bilaterally and moves all extremities Psychiatric: A+Ox3, euthymic affect
[2023-08-15] MEDS: PIPERACILLIN/TAZOBACTAM 4.5 GM in DEXTROSE 5% MINI-B 100 ML IV SCH ×3 (02:04→17:54)
[2023-08-15] MEDS: HYDROcodone/HOMATROPINE SYRUP 5MG/1.5MG 5ML UDP PO PRN ×2 (02:04→20:53)
[2023-08-15] MEDS: DOXYCYCLINE HYCLATE 100 MG in DEXTROSE 5% MINI-B 100 ML IV SCH ×2 (06:22→20:46)
[2023-08-15 06:27] LABS: Basophils # (auto) 0.05 K/uL (0.00-0.20); Eosinophils # (auto) 0.04 K/uL (0.00-0.50); Eosinophils % (auto) 0.8 %; Hematocrit (blood only) 35.5 % (42.0-52.0); Immature Granulocytes # (auto) 0.01 K/uL (0.01-0.20); Immature Granulocytes % (auto) 0.2 %; Lymphocytes # (auto) 1.26 K/uL (1.20-3.40); Mean Corpuscular Hemoglobin 31.2 pg (25.0-34.0); Mean Corpuscular Hgb Conc 36.6 g/dL (32.0-36.0); Mean Corpuscular Volume 85.1 fL (80.0-100.0); Mean Platelet Volume 10.4 fL (9.4-12.4); Monocytes # (auto) 0.86 K/uL (0.11-0.59); Neutrophils # (auto) 2.83 K/uL (1.40-6.50); Platelet Count 77 K/uL (130-400); RDW Coefficient of Variation 12.3 % (11.5-14.5); RDW Standard Deviation 37.6 fL (36.4-46.3); Red Blood Count 4.17 M/uL (4.70-6.10); White Blood Count 5.05 K/ul (4.8-10.8)
[2023-08-15 06:39] LABS: Calcium 8.6 mg/dl (8.6-10.3); Creatinine Clr Calc Pharmacy 144.7 ml/min; Est GFR (African American) 115.7 ml/min; Est GFR (Non-African American) 99.8 ml/min; Potassium 3.4 mmol/L (3.5-5.1)
[2023-08-15] MEDS: PANTOprazole 40 MG TAB PO SCH (08:07)
[2023-08-15] MEDS: ENOXAPARIN INJ 40 MG/0.4 ML SYR SQ SCH (08:07)
[2023-08-15] MEDS: levETIRAcetam ORAL SOLN 100MG/ML PO SCH ×2 (08:07→20:46)
[2023-08-15] MEDS: DOCUSATE SODIUM SYRUP 100 MG/10 ML UDC PO SCH ×2 (08:08→20:46)
[2023-08-15] MEDS ORDERED: POTASSIUM CHLORIDE CRTAB 20 MEQ TABCR PO ONE (09:52)
[2023-08-15] MEDS: ADVANCED PROBIOTIC 1250 MG CAPSULE PO SCH (12:40)
--- NOTE | 2023-08-15 18:49 | Hospitalist Progress Note ---
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 Multifocal pneumonia Immunocompromise state --Chest CTA: No pulmonary embolism. Multifocal pneumonia. There is an ill- defined mass within hepatic segment 8 measuring 4.5 cm. Consider characteri zation with dedicated MRI of the abdomen with contrast. --Negative Biofire -- Blood cultures pending --Sputum cultures pending Continue Zosyn, doxycycline Received IV fluids Oligodendroglioma S/p surgery Currently chemo on hold for thrombocytopenia Follow-up with heme-onc Ill-defined hepatic mass Incidental finding on CT Follow-up as outpatient with oncology Hypertension ? Situational Monitor BP Consider starting antihypertensives if needed Partial complex seizures On Keppra DVT prophylaxis Lovenox SQ CODE STATUS full code Disposition Home as able Admission and Anticipated Discharge Date Admission Date: August 14, 2023 Subjective Patient is seen and examined at bedside States feeling better today Reports cough, some chest pain associated with cough Also reports 1 loose BM today No other complaints Saturating well on room air Review of Systems Review of Systems: All systems reviewed & are unremarkable except as noted in Subjective Physical Exam Physical Exam: Physical Exam: Vitals signs as noted above General Appearance:Obese, no apparent distress Head: normocephalic, Atraumatic Eyes: normal inspection, EOMI Neck: supple, Trachea midline Respiratory/Chest: Normal breath sounds, CTA, No accessory muscle use Cardiovascular: S1, S2, No murmur Abdomen/GI:Soft, Non tender, Bowel sounds present Extremities/Musculoskeletal:normal inspection, no edema Neurologic/Psych:AAOX3, grossly no focal neurological deficits Skin: normal color, warm,+ healed surgical scar on scalp Results & Data Results & Data Vital Signs (Past 12 Hours) Vital Signs Temp Pulse Pulse Resp BP Pulse Ox O2 Del Method 08/15/23 15:13 36.7 C 59 L 16 167/89 H 94 Room Air 08/15/23 15:00 68 08/15/23 12:11 36.7 C 67 16 150/84 H 95 Room Air 08/15/23 07:33 37.4 C 68 16 117/67 94 Room Air 08/15/23 07:00 60 Laboratory Results Short CBC 08/15/23 Range/Units 05:12 WBC 5.05 (4.8-10.8) K/ul Hgb 13.0 L (14.0-18.0) g/dl Hct 35.5 L (42.0-52.0) % Plt Count 77 L (130-400) K/uL BMP 08/15/23 05:12 Sodium 139 Potassium 3.4 L Chloride 107 Carbon Dioxide 23 BUN 11 Creatinine 1.00 Glucose 96 Calcium 8.6
[2023-08-15] MEDS: ACETAMINOPHEN 325 MG TAB PO PRN (20:53)
--- OUTSIDE RECORDS SUMMARY | 2023-08-15 23:39 | External Medical Summary | Summary of Care ---
Author Name Unknown Organization [facility] Address [address] [place] [address] Phone [phone] Care Team Providers Care Senior It Specialist Name Role Phone MarkusDangelo davis Primary Care Provider [phone] Reason for Referral * Ancillary Services (Within 3 days (urgent)) - Pending Review Specialty Diagnoses / Procedures Referred By Candice carlson Referred To Contact Leather Belt Maker Diagnoses Oligodendroglioma (HCC) Bakari Clifford MD [address] [place] [address] Referral ID Status Reason Start Date Expiration Date Visits Requested Visits Authorized [id number] Pending Review Ancillary Services Required 3 [phone] Question Answer Referral Priority Within 3 days (urgent) Where should this appointment be scheduled? Mel Comments Is Patient homebound? Yes All sections of this form must be filled out completely. Forms with missing or illegible information will be returned for completion. This form should not be modified in any way. Forms that have been modified will be returned. This form may not be submitted by a home health agency. It must be complete and submitted by the ordering provider. One full business day lead time is required and service will be scheduled based on the next service day for the [facility] Home Phlebotomy does not service every geographical location on a daily basis. Contact [facility] Client Services at to find out service days for a specific location. Medical Laboratory [facility] Patient Name: Jose Luis Wall : 1990 Sex: male Address [address] [address] Provider: None? Dangelo Juárez, DO? Diagnosis: Tests Requested CBC/diff - weekly starting August 06, 2023 CMP - weekly starting August 06, 2023 Reason for Visit * Reason Onset Date Comments Medication Refill 07/31/2023 Encounter Details Date Type Department Care Team (Late st Contact Info) Description 07/31/2023 Refill Hematology [facility] [address] [place] [address] Bakari Clifford MD [address] [place] [address] Oligodendroglioma (HCC)* Allergies No known active allergiesdocumented as of this encounter (statuses as of 07/31/2023) Medications Medication Sig Dispensed Refills Start Date End Date Status Omeprazole 40 MG Oral Capsule Delayed Release (PriLOSEC)Indicati ons:Gastroesophage al reflux disease without esophagitis Take 1 Capsule by mouth in the morning. 90 Capsule 3 02/21/2023 Active levETIRAcetam 750 MG Oral TabletIndications: Oligodendroglioma (HCC),Partial symptomatic epilepsy with complex partial seizures, not intractable, without status epilepticus (HCC) Take 1.5 Tablets by mouth in the morning and 1.5 Tablets before bedtime. 180 Tablet 3 06/12/2023 Active Docusate Sodium 50 MG Oral Capsule (Colace)Indication s:Oligodendrogliom a (HCC) Take 1 Capsule by mouth in the morning and 1 Capsule before bedtime. 60 Capsule 3 07/05/2023 Active Ondansetron HCl 8 MG Oral Tablet (Zofran)Indication s:Oligodendrogliom a (HCC) Take 1 tablet by mouth 30 minutes prior to procarbazine and lomustine doses and every 8 hours as needed for nausea. Do not exceed 3 tablets per day. 60 Tablet 0 07/05/2023 Active Procarbazine HCl 50 MG Oral Capsule (Matulane)Indicati ons:Oligodendrogli natalia (HCC) Take 3 Capsules by mouth at bedtime on days 8 through 21 every 42 days. 42 Capsule 0 07/18/2023 Active Lomustine 100 MG Oral Capsule (Ceenu)Indications :Oligodendroglioma (HCC) Take 2 Capsules by mouth every 6 weeks. Take on an empty stomach at bed time. 2 Capsule 0 07/18/2023 Active Ondansetron HCl 8 MG Oral TabletIndications: Chemotherapy induced nausea and vomiting Take one tablet every 8 hrs as needed for nausea 30 Tablet 2 07/26/2023 Active Prochlorperazine Maleate 10 MG Oral Tablet (Compazine) Take 1 Tablet by mouth every 6 hours as needed for Nausea. 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 The patient saw me for neuropsychological testing, is symptomatic of his lesion cognitively, but also appears to be a good candidate for awake surgery with relatively intact language function on testing. 2. Dr. Gómez reviewed the patient's imaging, noted left language dominance, and felt as though the lesion was most likely an oligodendroglioma given signal characteristics. 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 gait 03/23/2000 documented as of this encounter (statuses as of 07/31/2023) Resolved Problems Problem Noted Date Diagnosed Date Resolved Date Overweight (BMI 25.0-29.9) 12/13/2005 0 12/23/2009 Overview: Per Obesity Taxonomy Routine child health exam documented as of this encounter (statuses as of 07/31/2023) Immunizations Name Administration Dates Next Due Meningococcal Conjugate Vaccine (Menactra/Menveo ) 02/12/2007 Seasonal Influenza, Split, IIV3, With Preserve, Inj 08/24/2010,07/12/2009 TDAP (age 10 and older)(Boostrix) 02/21/2023,08/2013 Varicella Vaccine (Chicken Pox) 02/17/2008 documented as of this encounter Social History Tobacco Use Types Packs/Day Years Used Date Smoking Tobacco: Former Cigarettes 1 7 Q uit: 2021 Smokeless Tobacco: Former Comments:1 pack a day Alcohol Use Standard Drinks/Week Comments Yes 0 (1 standard drink = 0.6 oz pur e alcohol) occasional AUDIT-C Answer Date Recorded Frequency of Alcohol Consumption Never 12/30/2018 Average Number of Drinks Not on file 019 Frequency of Binge Drinking Not on file 10/2018 Sex and Gender Information Value Date Recorded Sex Assigned at Not on file Gender Identity Not on file Sexual Orientation Not on file Job Start Date Occupation Industry Not on file Not on file Not on file documented as of this encounter Functional Status Functional Status Response Date of Assess ment Are you deaf or do you have serious difficulty h earing? No 08/13/2018 Are you blind or do you have serious difficulty seeing, even when wearing glasses? No 08/13/2018 Do you have serious difficul ty walking or climbing stairs? (5 years old or older) No 08/13/2018 Do you have difficulty dress ing or bathing? (5 years old or older) No 08/13/2018 Because of a physical, menta l, or emotional condition, do you have difficulty doing errands alone such as visiting a doctor s office or shopping? (15 years old or older) No 08/13/20 18 Cognitive Status Response Date of Assessm ent Because of a physical, menta l, or emotional condition, do you have serious difficulty concentrating, remembering, or making decisions? (5 years old or older No 08/13/2018 documented as of this encounter Miscellaneous Notes * Telephone Encounter - Viktoriya Brewer RPh - 07/31/2023 3:35 PM EDT Prochlorperazine prescription sent to [facility]. GML referral placed. Laney HammerD, BCOP Ambulatory Clinical Pharmacist | Oral Chemotherapy Clinic [facility] 07/31/2023, 3:40 PM documented in this encounter Plan of Treatment Upcoming Encounters Date Type Department Care Team (Late st Contact Info) Description 08/13/2023 11:00 AM EST Office Visit Hematology [facility] [address] [place] [address] Ángela Altamirano PA-C [address] [place] [address] 03/26/2024 3:00 PM EDT Office Visit Family Practice [facility] [address] [facility] [address] Dangelo Juárez DO [address] [facility] [place] [address] Scheduled Referrals Name Type Priority Associated Diagnoses Orde r Schedule HOME PHLEBOTOMY REFERRAL OP Referral Within 3 days (urgent) Oligodendroglioma (HCC) Ordered: 07/31/2023 Health Maintenance Due Date Last Done Comments COVID-19 Vaccine (#1) 1997 Pneumococcal Vaccine: Pediatrics (0 to 5 Years) and At-Risk Patients (6 to 64 Years) (1 - PCV) 1998 HIV Screening 2007 Hepatitis C Screening 2010 Depression Screening 11/11/2015 11/11/2014 Influenza Vaccine (FLU shot) (#1) 2023 08/24/2010, 07/12/2009 DTaP,Tdap,and Td Vaccines (8 - Td or Tdap) 02/21/2033 02/21/2023, 11/11/2012, 01/05/2005, Additional history exists Hepatitis B Completed 06/21/1993, 12/1992, 1990 MENINGOCOCCAL (MENACTRA/MENVEO) Aged Out 02/12/2007 No longer eligible based on patient's age to complete this topic GARDASIL-HPV IMMUNIZATION SERIES Aged Out No longer eligible based on patient's age to complete this topic documented as of this encounter Medical Devices Implanted Type Area Night Court Magistrate Device Identifier Shelf Expiration Date Model / Serial / Lot Graft Lyoplant 10.0x12.5cm 4x5 - [id number] Implanted:Qty: 1 on 08/13/2018 by Bacilio Romero MD [place] [facility] [place] : AESCULAP 12/29/2022 [id number] / [id number] / [id number] documented as of this encounter Visit Diagnoses Diagnosis 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 Question Answer Comments Discussion of Advance Directives occurred with: Patient Does the patient have a Living Will? No Does the patient have Health Care Power of Informatics Physician? No Code Status History Code Status Date Activated Date Inactivated Comments Full Code 08/13/2018 6:42 AM 08/13/2018 6:33 PM Thi s order reflects the patients wishes and were consensually agreed upon. Full Code 07/08/2018 10:45 PM 07/09/2018 9:37 PM This order reflects the patients wishes and were consensually agreed upon. Care Teams Senior It Specialist Relationship Specialty Start Date End Date Dangelo Juárez DO [address] [place] [address] PCP - General Family Medicine 07/19/18 documented as of this encounter"
--- OUTSIDE RECORDS SUMMARY | 2023-08-15 23:39 | External Medical Summary | Summary of Care ---
Author Name Unknown Organization [facility] Address [address] [place] [address] Phone [phone] Care Team Providers Care Neon Sign Servicer Name Role Phone MarkusDangelo davis Primary Care Provider [phone] Reason for Visit * Reason Comments Medication Management Encounter Details Date Type Department Care Team (Late st Contact Info) Description 08/06/2023 3:30 PM [facility] Pharmacy Hematology Oncology [facility] [address] [place] [address] [facility] Hem/Onc [address], [place] [id number] Oligodendroglioma (HCC)* Allergies No known active allergiesdocumented as of this encounter (statuses as of 08/06/2023) Medications Medication Sig Dispensed Refills Start Date [...] as of this encounter (statuses as of 08/06/2023) Active Problems Problem Noted Date Diagnosed Date [...] follow-up with Neurosurgery/Neuropsychology 08/13/2018 for awake craniotomy Hlemghx-Chbqx-Typfr disease of demyelinating typ e 12/26/2012 OBESITY, PEDS, BMI 99TH PERCENTL OR GREATER 11/30 Overview: Per Obesity Taxonomy 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 gait 03/23/2000 documented as of this encounter (statuses as of 08/06/2023) Resolved Problems Problem Noted Date Diagnosed Date Resolved Date Overweight (BMI 25.0-29.9) 12/13/2005 0 12/23/2009 Overview: Per Obesity Taxonomy Routine child health exam documented as of this encounter (statuses as of 08/06/2023) Immunizations Name Administration Dates Next Due Meningococcal [...] No 08/13/2018 documented as of this encounter Progress Notes * Erum Herzog, PHARM Student - 08/06/2023 2:09 PM EST MEDICATION THERAPY MANAGEMENT PROCARBAZINE AND LOMUSTINE TREATMENT PROGRESS NOTE Jose Luis Callahanvirgen [id number] Patient Phone Numbers Mobile ([facility]) [phone] Preferred Lab: [facility] Pharm[facility]: [facility] for lomustine; [facility] for procarbazine Communication: Spoke to: Patient Treatment: Medication: Procarbazine (Matulane) Dose Basis: 60 mg/m2 Dose: 150 mg PO daily for days 8-21 every 42 days Administration: at bedtime Medication: Lomustine (CCNU, Gleostine) Dose Basis: 90 mg/m2 Dose: 200 mg PO on day 1 every 42 days Administration: empty stomach at bedtime Indication/Staging/Diagnosis Code: Oligodendroma Start Date: 07/30/23 Primary Long Term Care Phlebotomist/Oncologist: Dr. Clifford Supportive Care Meds: Ondansetron 8 mg 30 min prior to chemotherapy and q8h PRN Docusate Prophylactic Meds: PJP ppx for ALC < 0.5 Cycle Lomustine Procarbazine C1 07/30 08/06 - 08/19 C2 09/10 (Anticipated) 09/17 - 09/30 (Anticipated) The Hematology/Oncology Oral Chemotherapy Clinic will assess medication compliance at each patient encounter Treatment History: Adjuvant Temodar x 12 cycles 01/06/19 - 12/26/19 Interval History: Patient planning to stop smoking due to interaction with procarbazine that can increase risk of lung toxicity. Patient was advised to contact clinic if he needs nicotine replacement therapy 10/31/23 - Patient confirms taking lomustine dose on 07/30 Reports feeling "queasy" and "tired" since taking lomustine Reports taking lomustine dose around 9 PM and then he started vomiting at 1 AM. Reports vomiting every hour throughout the night (~5 episodes) Confirms taking ondansetron prior to lomustine dose. He had to use 2 extra doses of ondansetron 08/06/23 - Patient reports N/V only lasted about one day after lomustine dose and he hasn't had to take the prochlorperazine yet Changes to medication list since last visit? Yes, prescription for prochlorperazine 10 mg q6h PRN sent Assessment and Plan: Pending PFTs due to smoking history Scheduled for 08/08 PLT decreased from 203 to 180 Okay to continue Otherwise weekly labs are stable Continue cycle 1 of lomustine and procarbazine Procarbazine scheduled to have first dose taken today Next weekly labs scheduled for 08/13/23 through [facility] Continue ondansetron prior to chemotherapy doses Prescription previously sent on 07/31 for prochlorperazine 10 mg q6h PRN Discussed dosing/administration and that prochlorperazine can be used for nausea unrelieved with use of ondansetron Noted Category C DDI (Monitor Therapy) with prochlorperazine and procarbazine that can lower seizure threshold and enhance CONSULTING MANAGER depression. There is no data on coadministration of prochlorperazine andother agents with seizure lowering potential. Per UpToDate, Data evaluating coadministration of prochlorperazine and other agents with seizure threshold lowering potential are not available." Will monitor use of prochlorperazine (limit excessive use) Per previous [facility] discussion with Dr. Clifford, can consider use of Olanzapine for CINV Same drug interaction applies as with prochlorperazine and procarbazine If Olanzapine is started, would recommend to stop prochlorperazine to limit seizure threshold lowering Advised contacting clinic if nausea/vomiting worsens or if experiencing s/sx of dehydration Assessment of compliance: compliant Assessment of adverse effects attributed to drug therapy: Nausea/vomiting- present Dose adjustment needed based on lab or adverse drug reaction? No Follow up: 1 week Erum Herzog, PHARM Student Monitoring Parameters: Estimated CrCl Serum creatinine: 0.8 mg/dL 08/06/23 0806 Estimated creatinine clearance: 185.8 mL/min Hepatitis panel 07/26/23 - negative, not immune Suggested lab monitoring Weekly CBCd and CMP Treatment Parameters Please refer to PI Pertinent Labs: Latest Reference Range & Units 07/26/23 12:26 08/06/23 08:06 WBC 4.00 - 10.80 K/uL 6.12 6.71 HGB 14.0 - 16.8 g/dL 16.1 15.7 HCT 40.0 - 48.4 % 44.7 44.7 MCV 82.0 - 99.5 fL 86.6 89.6 PLT 140 - 400 K/uL 203 180 Absolute Neutrophils 1.80 - 7.70 K/uL 3.47 3.75 Absolute Lymphocytes 1.00 - 4.80 K/ul 1.93 1.97 Latest Reference Range & Units 07/26/23 12:26 08/06/23 08:06 Albumin 3.8 - 5.0 g/dL 4.5 4.7 AST 10 - 50 U/L 30 29 ALT 10 - 50 U/L 47 49 Alkaline Phosphatase 35 - 130 U/L 99 100 Bilirubin, Total <=1.2 mg/dL 0.5 0.5 Time Spent on Encounter: 11 - 15 minutes Encounter Group: Neuro-Oncology Encounter Interventions Item Category: Oral Chemotherapy Lomustine Problem/Rationale: Safety: Needs additional monitoring - Medication Requires monitoring Pharmacist Intervention(s): Lab monitoring and Toxicity monitoring Magnitude of Intervention: Monitoring with direction (Level 1) Second Item Second Item Category: Oral Chemotherapy Procarbazine Problem/Rationale: Safety: Needs additional monitoring - Medication Requires monitoring Pharmacist Intervention(s): Care coordination and Lab monitoring Magnitude of Intervention: Modification of medication for asymtomatic patients (Level 2) documented in this encounter Plan of Treatment Upcoming Encounters Date Type Department Care Team (Late st Contact Info) Description 08/08/2023 2:30 PM EST PulmDiagnostic Pulmonary Function Lab, [facility] [address] [facility] [place] [address] [place], [address] [facility] [place] [address] 08/13/2023 9:30 AM EST Laboratory Lab Mobile Phlebotomy [facility] [address] [place] [address] Gmc, [facility] Mobile Home Draw [address] [place] [address] 08/13/2023 11:00 AM EST Office Visit Hematology Oncology [facility] [place] [address] [place] [address] Ángela Altamirano PA-C [address] [place] [address] 08/20/2023 9:30 AM EST Laboratory Lab [facility] [address] [place] [address] Gmc, [facility] Mobile Home Draw [address] [place] [address] 08/27/2023 9:30 AM EST Laboratory Lab Mobile Phlebotomy [facility] [address] [place] [address] Gmc, G[facility] Mobile Home Draw [address] [place] [address] 09/03/2023 9:30 AM EST Laboratory Lab Mobile Phlebotomy [facility] [address] [place] [address] Gmc, Gml Mobile Home Draw [address] [place] [address] 09/10/2023 9:30 AM EST Laboratory Lab Mobile Phlebotomy [facility] [address] [place] [address] Gmc, Gml Mobile Home Draw [address] [place] [address] 09/17/2023 9:30 AM EST Laboratory Lab [facility] [address] [place] [address] Gmc, Gml Mobile Home Draw [address] [place] [address] 03/26/2024 3:00 PM EDT Office Visit Family Practice [facility] [place] [address] [facility] [place] [address] Dangelo Juárez DO [address] [facility] [place] [address] Health Maintenance Due Date Last Done Comments [...] this encounter Medical Devices Implanted Type Area Community Education Coordinator Device Identifier Shelf Expiration Date Model / Serial / Lot Graft Lyoplant 10.0x12.5cm 4x5 - [id number] Implanted:Qty: 1 on 08/13/2018 by Bacilio Romero MD [place] [facility] [place] : AESCULAP 12/29/2022 [id number] / [id number] / [id number] documented as of this encounter Visit Diagnoses Diagnosis 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 Question Answer Comments Discussion of Advance Directives occurred with: Patient Does the patient have a Living Will? No Does the patient have Health Care Power of Enrollment Management Manager? No Code Status History Code Status Date Activated Date Inactivated Comments Full Code 08/13/2018 6:42 AM 08/13/2018 6:33 PM Thi s order reflects the patients wishes and were consensually agreed upon. Full Code 07/08/2018 10:45 PM 07/09/2018 9:37 PM This order reflects the patients wishes and were consensually agreed upon. Care Teams Neon Sign Servicer Relationship Specialty Start Date End Date Dangelo Juárez DO [address] [place] [address] PCP - General Family Medicine 07/19/18 documented as of this encounter
--- OUTSIDE RECORDS SUMMARY | 2023-08-15 23:39 | External Medical Summary ---
Author Name Unknown Address Unknown Organization [id number]:LABORATORY [facility] [place] [address] [place] [address] Laboratory Report Ordering Provider Test Date Status STERLING SOLO 08/13/2023 07:26:00 Final Every week and for 6 weeks a fter finishing treatment Observation Date Value Abnormality Reference (Units ) Status Nucleated erythrocytes/100 leukocytes [Ratio] in Blood by Automated count 08/13/2023 07:26:00 Final [facility] [place] [address]
--- OUTSIDE RECORDS SUMMARY | 2023-08-15 23:39 | External Medical Summary ---
Author Name Unknown Address Unknown Organization [id number]:LABORATORY [facility] [place] [address] [place] [address] Laboratory Report Ordering Provider Test Date Status STERLING SOLO 08/06/2023 08:06:00 Final Every week and for 6 weeks a fter finishing treatment Observation Date Value Abnormality Reference (Units ) Status WBC, Total 08/06/2023 08:06:00 6.71 4.00-10.8 0 (K/uL) Final RBC 08/06/2023 08:06:00 4.99 4.50-5.25 (M/uL) Final Hemoglobin 08/06/2023 08:06:00 15.7 14.0-16.8 (g/dL) Final HCT 08/06/2023 08:06:00 44.7 40.0-48.4 (%) Final MCV 08/06/2023 08:06:00 89.6 82.0-99.5 (fL) Final MCH 08/06/2023 08:06:00 31.5 27.0-34.0 (pg) Final MCHC 08/06/2023 08:06:00 35.1 32.0-36.0 (g/dL) Final RDW 08/06/2023 08:06:00 12.6 11.5-15.5 (%) Final Platelets 08/06/2023 08:06:00 180 140-400 (K /uL) Final MPV 08/06/2023 08:06:00 11.1 6.6-11.1 ( fL) Final Performing Location LABORATORY [facility] [place] [address] [place] [address]
--- OUTSIDE RECORDS SUMMARY | 2023-08-15 23:39 | External Medical Summary | Summary of Care ---
Author Name Unknown Organization [facility] Address [address] [place] [address] Phone [phone] Care Team Providers Care Dynamicist Name Role Phone MarkusDangelo davis Primary Care Provider [phone] Reason for Visit * Reason Onset Date Comments Appointment 07/26/2023 Encounter Details Date Type Department Care Team (Late st Contact Info) Description 07/26/2023 Telephone Hematology Oncology [facility] [address] [place] [address] Bakari Clifford MD [address] [place] [address] Appointment Allergies No known active allergiesdocumented as of [...] for nausea 30 Tablet 2 07/26/2023 Active documented as of this encounter (statuses [...] follow-up with Neurosurgery/Neuropsychology 08/13/2018 for awake craniotomy Jhwbnwm-Ozfhp-Msxnq disease of demyelinating typ e 12/26/2012 OBESITY, [...] 07/31/2023) Immunizations Name Administration Dates Next Due DTP Vaccine 03/13/1994, 3,1992,06/21 DTaP Dipth/Tet/Acell Pertussis (Infanrix), Peds 02/05/1997 Haemophilius B (HIB), unspecified 1992,03/04/1993,1992,06/21 Hepatitis B Vaccine 06/21/1993,03/04/1993,1991 MMR - Measles/Mumps/Rubella Vaccine 02/05/1997,1 Meningococcal Conjugate Vacc ine (Menactra/Menveo) 02/12/2007 OPV - Polio Virus Vaccine (Oral) 997,03/13/1994,1992,06/21 PPD 03/22/2004 Seasonal Influenza, Split, I IV3, With Preserve, Inj 08/24/2010,07/12/2009 TD, Preservative Free 01/05/2005 TDAP (age 10 and older)(Boostrix) 02/21/2023,08/2013 Varicella Vaccine (Chicken Pox) 02/17/2008,08/20 documented as of this encounter Social History [...] encounter Miscellaneous Notes * Telephone Encounter - Sriram Mukherjee - 07/26/2023 4:15 PM EDT Lmom to schedule * Telephone Encounter - Elvira Maza RPh - 07/26/2023 3:59 PM EDT To start lomustine - pt needs PFTs. Orders placed. Please call to schedule Laney BrisenoD, BCOP Ambulatory Clinical Pharmacist | Oral Chemotherapy Clinic [facility] 07/26/2023, 4:00 PM documented in this encounter Plan of Treatment Upcoming Encounters Date Type Department Care Team (Latest Contact Info) Description 07/31/2023 3:45 PM EDT Pharmacy Pharmacy Hematology Oncology [facility] [place] [address] [place] [address] [facility] [place] Hem/Onc [address] [place] [address] Oligodendroglioma (HCC)* 08/13/2023 11:00 AM EST Office Visit Hematology Oncology [facility] [place] [address] [place] [phone] Ángela Altamirano PA-C [address] [place], [place] [id number] 03/26/2024 3:00 PM EDT Office Visit [facility] [address] [facility] [place] [address] Dangelo Juárez, [address] [facility] [place] [address] Health Maintenance Due Date Last Done Comments [...] this encounter Medical Devices Implanted Type Area Brusher Machine Device Identifier Shelf Expiration Date Model / Serial / Lot Graft Lyoplant 10.0x12.5cm 4x5 - [id number] Implanted:Qty: 1 on 08/13/2018 by Bacilio Romero [place] [facility] [place] : SOLANGE 12/29/2022 [id number] / [id number] documented as of this encounter Advance Directives Latest Code Status on File Code Status Date Activated Date Inactivated Comments Full Code 08/13/2018 6:33 PM 08/15/2018 6:31 PM Thi s order reflects the patients wishes and were consensually agreed upon. Question Answer Comments Discussion of Advance Directives occurred with: Patient Does the patient have a Living Will? No Does the patient have Health Care Power of Associate Brand Manager? No Code Status History Code Status Date Activated Date Inactivated Comments Full Code 08/13/2018 6:42 AM 08/13/2018 6:33 PM Thi s order reflects the patients wishes and were consensually agreed upon. Full Code 07/08/2018 10:45 PM 07/09/2018 9:37 PM This order reflects the patients wishes and were consensually agreed upon. Care Teams Dynamicist Relationship Specialty Start Date End Date Dangelo Juárez DO [address] [place] [address] PCP - General Family Medicine 07/19/18 documented as of this encounter"
--- OUTSIDE RECORDS SUMMARY | 2023-08-15 23:39 | External Medical Summary | Summary of Care ---
Author Name Unknown Organization [facility] Address [address] [place] [address] Phone [phone] Care Team Providers Care Hyperion Analyst Name Role Phone MarkusDangelo davis Primary Care Provider [phone] Reason for Visit * Reason Onset Date Comments Appointment 07/26/2023 Encounter Details Date Type Department Care Team (Late st Contact Info) Description 07/26/2023 Telephone Hematology Oncology [facility] [address] [place] [address] Bakari Clifford MD [address] [place] [address] Appointment Allergies No known active allergiesdocumented as of this encounter (statuses as of 07/27/2023) Medications Medication Sig Dispensed Refills Start Date [...] as of this encounter (statuses as of 07/27/2023) Active Problems Problem Noted Date Diagnosed Date [...] follow-up with Neurosurgery/Neuropsychology 08/13/2018 for awake craniotomy Ztlglbk-Ovdqo-Vwcxx disease of demyelinating typ e 12/26/2012 OBESITY, PEDS, BMI 99TH PERCENTL OR GREATER 11/30 Overview: Per Obesity Taxonomy 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 * Telephone Encounter - Elvira Maza RPh - 07/26/2023 4:[address] Clifford, pt needs OV with her or Ángela in ~ 2 weeks (08/10 or 08/13). Prefer in person visitif possible. Elvira Maza, PharmD, BCOP Ambulatory Clinical Pharmacist | Oral Chemotherapy Clinic [facility] 07/26/2023, 4:03 PM documented in this encounter Plan of Treatment Upcoming Encounters Date Type Department Care Team (Late st Contact Info) Description 07/27/2023 3:45 PM EDT Pharmacy Pharmacy Hematology Oncology [facility] [address] [place] [address] [facility] [place], [facility] Hem/Onc [address] [place] [address] 03/26/2024 3:00 PM EDT Office Visit Family Practice [place] [address] [facility] [place] [address] Dangelo Juárez DO [address] [facility] [place] [address] Health Maintenance Due Date Last Done Comments [...] this encounter Medical Devices Implanted Type Area Computer Aide Device Identifier Shelf Expiration Date Model / Serial / Lot Graft Lyoplant 10.0x12.5cm 4x5 - [id number] Implanted:Qty: 1 on 08/13/2018 by Bacilio Romero MD at OR [facility] [place] : AESCULAP 12/29/2022 [id number] / [id number] / [id number] documented as of this encounter Advance Directives [...] the patient have Health Care Power of Rnp? No Code Status History Code Status Date Activated Date Inactivated Comments Full Code 08/13/2018 6:42 AM 08/13/2018 6:33 PM Thi s order reflects the patients wishes and were consensually agreed upon. Full Code 07/08/2018 10:45 PM 07/09/2018 9:37 PM This order reflects the patients wishes and were consensually agreed upon. Care Teams Hyperion Analyst Relationship Specialty Start Date End Date Dangelo Juárez DO [address] [place] [address] PCP - General Family Medicine 07/19/18 documented as of this encounter"
--- OUTSIDE RECORDS SUMMARY | 2023-08-15 23:39 | External Medical Summary ---
Author Name Unknown Address Unknown Organization [facility] [address] [place] [address] Laboratory Report Ordering Provider Test Date Status STERLING SOLO 08/06/2023 08:06:00 Final Observation Date Value Abnormality Reference (Units ) Status BUN 08/06/2023 08:06:00 16 6-20 (mg/dL) Final Creatinine 08/06/2023 08:06:00 0.8 0.6-1.2 (mg/dL) Final Glomerular filtration rate/1.73 sq M.predicted [Volume Rate/Area] in Serum, Plasma or Blood by Creatinine-based formula (CKD-EPI) 08/06/2023 08:06:00 >90 >=60 (mL/min) Final eGFR is calculated based on the CKD-EPI 2020 equation SODIUM 08/06/2023 08:06:00 141 135-146 (m mol/L) Final Potassium 08/06/2023 08:06:00 4.2 3.5-5.1 (m mol/L) Final Cl 08/06/2023 08:06:00 103 98-107 (mm ol/L) Final CO2 08/06/2023 08:06:00 27 22-32 (mmo l/L) Final Anion gap 08/06/2023 08:06:00 11 7-15 (mmol /L) Final Glucose 08/06/2023 08:06:00 96 70-120 (mg /dL) Final Albumin 08/06/2023 08:06:00 4.7 3.8-5.0 (g /dL) Final AST (Aspartate aminotransferase) 08/06/2023 08:06:00 29 10-50 (U/L) Final Alk Phos 08/06/2023 08:06:00 100 35-130 (U/ L) Final Bilirubin, Total 08/06/2023 08:06:00 0.5 <=1 .2 (mg/dL) Final Calcium 08/06/2023 08:06:00 9.4 8.4-10.2 ( mg/dL) Final Protein 08/06/2023 08:06:00 7.0 6.0-8.3 (g /dL) Final ALT (Alanine aminotransferase) 08/06/2023 08:06:00 49 10-50 (U/L) Final [facility] [place] [address]
--- OUTSIDE RECORDS SUMMARY | 2023-08-15 23:39 | External Medical Summary | Summary of Care ---
Author Name Unknown Organization [facility] Address [address] [place] [address] Phone [phone] Care Team Providers Care Commercial Subcontractor Name Role Phone MarkusDangelo davis Primary Care Provider [phone] Reason for Visit * Reason Comments Medication Management Encounter Details Date Type Department Care Team (Late st Contact Info) Description 07/27/2023 3:45 PM EDT Pharmacy Pharmacy Hematology Oncology [facility] [address] [place] [address] [facility] [place], [facility] Hem/Onc [address] [place], [place] [id number] Oligodendroglioma (HCC)* Allergies No known active allergiesdocumented [...] follow-up with Neurosurgery/Neuropsychology 08/13/2018 for awake craniotomy Qaoxxnz-Xaeuw-Exqwr disease of demyelinating typ e 12/26/2012 OBESITY, [...] 07/27/2023) Immunizations Name Administration Dates Next Due Meningococcal [...] as of this encounter Progress Notes * Elvira Maza, [facility] - 07/27/2023 12:05 PM EDT MEDICATION THERAPY MANAGEMENT PROCARBAZINE AND LOMUSTINE TREATMENT PROGRESS NOTE Jose Luis Fabrizio Wall [id number] Patient Phone Numbers Mobile (sister) [phone] Preferred Lab: [facility] Pharmacy: [facility] for lomustine; [facility] for procarbazine Communication: Spoke to: Patient Treatment: Medication: Procarbazine (Matulane) Dose Basis: 60 mg/m2 Dose: 150 mg PO daily for days 8-21 every 42 days Administration: at bedtime Medication: Lomustine (CCNU, Gleostine) Dose Basis: 90 mg/m2 Dose: 200 mg PO on day 1 every 42 days Administration: empty stomach at bedtime Indication/Staging/Diagnosis Code: Oligodendroma Start Date: Primary Cans Vacuum Tester/Oncologist: Dr. Clifford Supportive Care Meds: Ondansetron 8 mg 30 min prior to chemotherapy and q8h PRN Docusate Prophylactic Meds: PJP ppx for ALC < 0.5 Cycle Lomustine Procarbazine C1 07/30 08/06 - 08/19 C2 The Hematology/Oncology Oral Chemotherapy Clinic will assess medication compliance at each patient encounter Treatment History: Adjuvant Temodar x 12 cycles 01/06/19 - 12/26/19 Interval History: N/a Changes to medication list since last visit? No Assessment and plan: Pt counseled regarding need for smoking cessation with procarbazine He agreed to go cold turkey (as previously discussed on 07/26 mtm encounter) Advised him to contact office if he feels he needs nicotine replacement therapy He asked if vaping is okay Due to potential for lung damage with vaping, I advised him that he should avoid this as well Pt verbalized understanding and was in agreement with this plan Pt will be begin treatment on Monday 07/30 Reviewed that he will only administer lomustine on 07/30 Procarbazine will start on 08/06 - 08/19 Pt verbalized understanding Discussed need for PFTs now and every 3-4 months on lomustine Informed him that he should have received a voicemail yesterday and he should call them back to schedule Discussed that Dr. Clifford would an in person visit 2 weeks after treatment initiation Transferred to lead front desk agent to schedule Follow up: 07/31 Elvira Maza, PharmD, BCOP Ambulatory Clinical Pharmacist | Oral Chemotherapy Clinic [facility] 07/27/2023, 12:31 PM Monitoring Parameters: Estimated CrCl Serum creatinine: 0.9 mg/dL 07/26/23 1226 Estimated creatinine clearance: 165.2 mL/min Hepatitis panel 07/26/23 - negative, not immune Suggested lab monitoring Weekly CBCd and CMP Treatment Parameters Please refer to PI Pertinent Labs: Time Spent on Encounter: 11 - 15 minutes documented in this encounter Plan of Treatment Upcoming Encounters Date Type Department Care Team (Late st Contact Info) Description 08/13/2023 11:00 AM EST Office Visit Hematology Oncology [facility] [address] [place] [address] Ángela Altamirano PA-C [address] [place] [address] 03/26/2024 3:00 PM EDT Office Visit Family Practice [facility] [place] [address] [facility] [place] [address] Dangelo Juárez DO [address] [facility] [place] [address] Health Maintenance Due Date Last Done Comments [...] this encounter Medical Devices Implanted Type Area Legislative Aide Device Identifier Shelf Expiration Date Model / Serial / Lot Graft Lyoplant 10.0x12.5cm 4x5 - [id number] Implanted:Qty: 1 on 08/13/2018 by Bacilio Rom[place] [facility] [place] : AESCULAP 12/29/2022 [id number] [id number] / [id number] / [id number] documented as of this encounter Visit Diagnoses [...] the patient have Health Care Power of Broom Handle Dipper? No Code Status History Code Status Date Activated Date Inactivated Comments Full Code 08/13/2018 6:42 AM 08/13/2018 6:33 PM Thi s order reflects the patients wishes and were consensually agreed upon. Full Code 07/08/2018 10:45 PM 07/09/2018 9:37 PM This order reflects the patients wishes and were consensually agreed upon. Care Teams Commercial Subcontractor Relationship Specialty Start Date End Date Dangelo Juárez DO [address] [place], [place] [address]gay[facility] [place] [address] PCP - General Family Medicine 07/19/18 documented as of this encounter"
--- OUTSIDE RECORDS SUMMARY | 2023-08-15 23:39 | External Medical Summary | Summary of Care ---
Author Name Unknown Organization [facility] Address [address] [place] [address] Phone [phone] Care Team Providers Care Machinist Helper Name Role Phone MarkusDangelo davis Primary Care Provider [phone] Reason for Visit * Reason Onset Date Comments Appointment 07/26/2023 Encounter Details Date Type Department Care Team (Late st Contact Info) Description 07/26/2023 Telephone Hematology Oncology [facility] [address] [place] [address] Bakari Clifford MD [address] [place] [address] Appointment Allergies No known active allergiesdocumented as of this encounter (statuses as of 07/26/2023) Medications Medication Sig Dispensed Refills Start Date [...] as of this encounter (statuses as of 07/26/2023) Active Problems Problem Noted Date Diagnosed Date [...] follow-up with Neurosurgery/Neuropsychology 08/13/2018 for awake craniotomy Zwfcphu-Uxyes-Jmatz disease of demyelinating typ e 12/26/2012 OBESITY, PEDS, BMI 99TH PERCENTL OR GREATER 11/30 Overview: Per Obesity Taxonomy 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 Clifford, pt needs OV with her or Ángela in ~ 2 weeks (08/10 or 08/13). Prefer in person visitif possible. Elvira Maza, PharmD, BCOP Ambulatory Clinical Pharmacist | Oral Chemotherapy Clinic [facility] 07/26/2023, 4:03 PM documented in this encounter Plan of Treatment Upcoming Encounters Date Type Department Care Team (Late st Contact Info) Description 07/27/2023 3:45 PM EDT Pharmacy Pharmacy Hematology Oncology [facility] [address] [place] [address] [facility] [place], [facility] Hem/Onc [address] [place] [address] 03/26/2024 3:00 PM EDT Office Visit Family Practice [place] [address] [facility] [place] [address] Dangelo Juárez DO [address] [facility] [place] [address] Health Maintenance Due Date Last Done Comments [...] this encounter Medical Devices Implanted Type Area Bridge Ironworker Helper Device Identifier Shelf Expiration Date Model / Serial / Lot Graft Lyoplant 10.0x12.5cm 4x5 - [id number] Implanted:Qty: 1 on 08/13/2018 by Bacilio Romero MD at [place] [facility] [place] : AESCULAP 12/29/2022 [id number] / [id number] / [id number] documented as of this encounter Advance Directives [...] the patient have Health Care Power of Manager Java? No Code Status History Code Status Date Activated Date Inactivated Comments Full Code 08/13/2018 6:42 AM 08/13/2018 6:33 PM Thi s order reflects the patients wishes and were consensually agreed upon. Full Code 07/08/2018 10:45 PM 07/09/2018 9:37 PM This order reflects the patients wishes and were consensually agreed upon. Care Teams Machinist Helper Relationship Specialty Start Date End Date Dangelo Juárez DO [address] [place] [address] PCP - General Family Medicine 07/19/18 documented as of this encounter"
--- OUTSIDE RECORDS SUMMARY | 2023-08-15 23:39 | External Medical Summary | Summary of Care ---
Author Name Unknown Organization [facility] Address [address] [place] [address] Phone [phone] Care Team Providers Care Production Posting Clerk Name Role Phone MarkusDangelo davis Primary Care Provider [phone] Reason for Visit * Reason Comments Medication Management Encounter Details Date Type Department Care Team (Late st Contact Info) Description 07/31/2023 3:45 PM EDT Pharmacy Pharmacy Hematology Oncology [facility] [address] [place] [address] [facility] Hem/Onc [address] [place], [place] [address] Oligodendroglioma (HCC)* Allergies No known active allergiesdocumented [...] follow-up with Neurosurgery/Neuropsychology 08/13/2018 for awake craniotomy Ulxhlxw-Wejgr-Wqfhl disease of demyelinating typ e 12/26/2012 OBESITY, [...] as of this encounter Progress Notes * Viktoriya Brewer, [facility] - 07/31/2023 3:12 PM EDT MEDICATION THERAPY MANAGEMENT PROCARBAZINE AND LOMUSTINE TREATMENT PROGRESS NOTE Jose Luis Callahanvirgen [id number] Patient Phone Numbers Mobile ([facility]) [phone] Preferred Lab: [facility]: [facility] for lomustine; [facility] for procarbazine Communication: Spoke to: Patient Treatment: Medication: Procarbazine (Matulane) Dose Basis: 60 mg/m2 Dose: 150 mg PO daily for days 8-21 every 42 days Administration: at bedtime Medication: Lomustine (CCNU, Gleostine) Dose Basis: 90 mg/m2 Dose: 200 mg PO on day 1 every 42 days Administration: empty stomach at bedtime Indication/Staging/Diagnosis Code: Oligodendroma Start Date: 07/30/23 Primary Asp Net Software Developer/Oncologist: Dr. Clifford Supportive Care Meds: Ondansetron 8 mg 30 min prior to chemotherapy and q8h PRN Docusate Prophylactic Meds: PJP ppx for ALC < 0.5 Cycle Lomustine Procarbazine C1 07/30 08/06 - 08/19 (Anticipated) C2 09/10 (Anticipated) 09/17 - 09/30 (Anticipated) The Hematology/Oncology Oral Chemotherapy Clinic will assess medication compliance at each patient encounter Treatment History: Adjuvant Temodar x 12 cycles 01/06/19 - 12/26/19 Interval History: Patient planning to stop smoking due to interaction with procarbazine that can increase risk of lung toxicity. Patient was advised to contact clinic if he needs nicotine replacement therapy Patient confirms taking lomustine dose on 07/30 Reports feeling "queasy" and "tired" since taking lomustine Reports taking lomustine dose around 9 PM and then he started vomiting at 1 AM. Reports vomiting every hour throughout the night (~5 episodes) Confirms taking ondansetron prior to lomustine dose. He had to use 2 extra doses of ondansetron Changes to medication list since last visit? No Assessment and Plan: Pending PFTs due to smoking history Scheduling team LM for patient attempting to schedule. Patient reports he does not have a call backnumber to schedule appt Another message sent to scheduling team today to help coordinate Discussed use of ondansetron for CINV Prescription for prochlorperazine 10 mg q6h PRN sent to [facility] Discussed dosing/administration and that prochlorperazine can be used for nausea unrelieved with use of ondansetron Noted Category C DDI (Monitor Therapy) with prochlorperazine and procarbazine that can lower seizure threshold and enhance INKING MACHINE TENDER depression. There is no data on coadministration of prochlorperazine andother agents with seizure lowering potential. Per UpToDate, Data evaluating coadministration of prochlorperazine and other agents with seizure threshold lowering potential are not available." Will monitor use of prochlorperazine (limit excessive use) SM sent to Dr. Clifford and Renato Altamirano PA-C regarding above Recommended to increase oral hydration Advised contacting clinic if nausea/vomiting worsens or if experiencing s/sx of dehydration Discussed weekly lab monitoring Patient interested in using GML Referral placed and requested labs for 08/06 Assessment of compliance: compliant Assessment of adverse effects attributed to drug therapy: Nausea/vomiting- present Dose adjustment needed based on lab or adverse drug reaction? No Follow up: 1 week Viktoriya Brewer, LaneyD, BCOP Ambulatory Clinical Pharmacist | Oral Chemotherapy Clinic [facility] 07/31/2023, 3:45 PM Monitoring Parameters: Estimated CrCl Serum creatinine: 0.9 mg/dL 07/26/23 1226 Estimated creatinine clearance: 165.2 mL/min Hepatitis panel 07/26/23 - negative, not immune Suggested lab monitoring Weekly CBCd and CMP Treatment Parameters Please refer to PI Pertinent Labs: Time Spent on Encounter: > 31 minutes Encounter Group: Neuro-Oncology Encounter Interventions Item Category: Oral Chemotherapy Lomustine Problem/Rationale: Safety: Adverse medication event - Undesirable effect Safety: Needs additional monitoring - Medication Requires monitoring Pharmacist Intervention(s): Education provided, Lab work requested, Non- pharmacological intervention provided, and Toxicity monitoring Magnitude of Intervention: Monitoring with direction (Level 1) Second Item Second Item Category: Anti-Emetic Prochlorperazine Problem/Rationale: Indication: Needs additional medication therapy - Preventive therapy Pharmacist Intervention(s): Education provided and Medication prescribed Magnitude of Intervention: Modification of medication for asymtomatic patients (Level 2) Third Item Third Item Category: Anti-Emetic Ondansetron Problem/Rationale: Effectiveness: Needs additional monitoring - Medication Requires monitoring Safety: Needs additional monitoring - Medication Requires monitoring Pharmacist Intervention(s): Education provided Magnitude of Intervention: Monitoring with direction (Level 1) documented in this encounter Plan of Treatment Upcoming Encounters Date Type Department Care Team (Late st Contact Info) Description 08/13/2023 11:00 AM EST Office Visit Hematology Oncology [facility] [address] [place] [address] Ángela Altamirano PA-C [address] [place] [address] 03/26/2024 3:00 PM EDT Office Visit Family Practice [facility] [address] [facility] [place] [id number] Dangelo Juárez DO [address] [facility] [place] [address] Health Maintenance Due Date Last Done Comments [...] this encounter Medical Devices Implanted Type Area Deburrer Device Identifier Shelf Expiration Date Model / Serial / Lot Graft Lyoplant 10.0x12.5cm 4x5 - [id number] Implanted:Qty: 1 on 08/13/2018 by Bacilio Romero MD [place] [facility] [place] : AESCULAP 12/29/2022 [id number] / [id number] / [id number] documented as of this encounter Visit Diagnoses [...] the patient have Health Care Power of Sales Activity Manager? No Code Status History Code Status Date Activated Date Inactivated Comments Full Code 08/13/2018 6:42 AM 08/13/2018 6:33 PM Thi s order reflects the patients wishes and were consensually agreed upon. Full Code 07/08/2018 10:45 PM 07/09/2018 9:37 PM This order reflects the patients wishes and were consensually agreed upon. Care Teams Production Posting Clerk Relationship Specialty Start Date End Date Dangelo Juárez DO [address] [place] [address] PCP - General Family Medicine 07/19/18 documented as of this encounter
--- OUTSIDE RECORDS SUMMARY | 2023-08-15 23:39 | External Medical Summary | Summary of Care ---
Author Name Unknown Organization [facility] Address [address] [place] [address] Phone [phone] Care Team Providers Care Battery Plate Remover Name Role Phone MarkusDangelo davis Primary Care Provider [phone] Reason for Visit * Reason Onset Date Comments Appointment 07/26/2023 Encounter Details Date Type Department Care Team (Late st Contact Info) Description 07/26/2023 Telephone Hematology Oncology [facility] [address] [place] [address] Bakari Clifford MD [address] [place] [address] Appointment Allergies No known active [...] follow-up with Neurosurgery/Neuropsychology 08/13/2018 for awake 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 Orders placed. Please call to schedule Elvira Maza PharmD, BCOP Ambulatory Clinical Pharmacist | Oral Chemotherapy Clinic [facility] 07/26/2023, 4:00 PM documented in this encounter Plan of Treatment Upcoming Encounters Date Type Department Care Team (Late st Contact Info) Description 07/27/2023 3:45 PM EDT Pharmacy Pharmacy Hematology Oncology [facility] [place] [address] [place] [address] [facility] [place] Hem/Onc [address] [place] [address] 03/26/2024 3:00 PM EDT Office Visit Family Practice [place] [address] [facility] [place] [address] Dangelo Juárez DO [address] [facility] [place] [address] Health Maintenance Due Date Last Done Comments [...] this encounter Medical Devices Implanted Type Area Cloth Desizing Range Tender Device Identifier Shelf Expiration Date Model / Serial / Lot Graft Lyoplant 10.0x12.5cm 4x5 - [id number] Implanted:Qty: 1 on 08/13/2018 by Bacilio Romero MD at [place] [facility] [place] : AESCULAP 12/29/2022 [id number] / [id number] / [id number] documented as of this encounter Advance Directives [...] the patient have Health Care Power of Machine Veneer Repairer? No Code Status History Code Status Date Activated Date Inactivated Comments Full Code 08/13/2018 6:42 AM 08/13/2018 6:33 PM Thi s order reflects the patients wishes and were consensually agreed upon. Full Code 07/08/2018 10:45 PM 07/09/2018 9:37 PM This order reflects the patients wishes and were consensually agreed upon. Care Teams Battery Plate Remover Relationship Specialty Start Date End Date Dangelo Juárez DO [address] [place] [address] PCP - General Family Medicine 07/19/18 documented as of this encounter"
--- OUTSIDE RECORDS SUMMARY | 2023-08-15 23:39 | External Medical Summary ---
Author Name Unknown Address Unknown Organization K0G:LAB[facility]ORY [facility] [address] [place] [address] Laboratory Report Ordering Provider Test Date Status STERLING SOLO 08/06/2023 08:06:00 Final Every week and for 6 weeks a fter finishing treatment Observation Date Value Abnormality Reference (Units ) Status SYNC LEUKOCYTES IN BLOOD BY AUTOMATED COUNT 08/06/2023 08:06:00 6.71 4.00-10.80 (K/uL) Final Segs 08/06/2023 08:06:00 55.9 40.0-75.0 (%) Final Lymphs % 08/06/2023 08:06:00 29.4 18.0-42.0 (%) Final Monos 08/06/2023 08:06:00 13.3 Above high normal 1.0-11.0 (%) Final Eosinophils 08/06/2023 08:06:00 1.3 0.0-6.0 (%) Final Basos 08/06/2023 08:06:00 0.1 0.0-2.0 (%) Final Absolute Segs 08/06/2023 08:06:00 3.75 1.80-7.70 (K/uL) Final Lymphs, absolute 08/06/2023 08:06:00 1.97 1.00-4.80 (K/ul) Final Monos, Abs 08/06/2023 08:06:00 0.89 0.00-1.10 (K/uL) Final Eos, Abs 08/06/2023 08:06:00 0.09 0.00-0.70 (K/uL) Final Basos, Abs 08/06/2023 08:06:00 0.01 0.00-0.20 (K/uL) Final Performing Location [facility]ORY [facility] [address] [place] [address]
--- OUTSIDE RECORDS SUMMARY | 2023-08-15 23:39 | External Medical Summary ---
Author Name Unknown Address Unknown Organization [id number]:LABORATORY [facility] [place] [address] [place] [address] Laboratory Report Ordering Provider Test Date Status STERLING SOLO 08/13/2023 07:26:00 Final Every week and for 6 weeks a fter finishing treatment Observation Date Value Abnormality Reference (Units ) Status SYNC LEUKOCYTES IN BLOOD BY AUTOMATED COUNT 08/13/2023 07:26:00 8.43 4.00-10.80 (K/uL) Final Segs 08/13/2023 07:26:00 68.9 40.0-75.0 (%) Final Lymphs % 08/13/2023 07:26:00 16.5 Below low normal 18.0-42.0 (%) Final Monos 08/13/2023 07:26:00 13.6 Above high normal 1.0-11.0 (%) Final Eosinophils 08/13/2023 07:26:00 0.6 0.0-6.0 (%) Final Basos 08/13/2023 07:26:00 0.4 0.0-2.0 (%) Final Absolute Segs 08/13/2023 07:26:00 5.81 1.80-7.70 (K/uL) Final Lymphs, absolute 08/13/2023 07:26:00 1.39 1.00-4.80 (K/ul) Final Monos, Abs 08/13/2023 07:26:00 1.15 Above high normal 0.00-1.10 (K/uL) Final Eos, Abs 08/13/2023 07:26:00 0.05 0.00-0.70 (K/uL) Final Basos, Abs 08/13/2023 07:26:00 0.03 0.00-0.20 (K/uL) Final Performing Location LABORATORY [facility] [address] [place] [address]
--- OUTSIDE RECORDS SUMMARY | 2023-08-15 23:39 | External Medical Summary ---
Author Name Unknown Address Unknown Organization K0G:[facility] [address] [place] [address] Laboratory Report Ordering Provider Test Date Status STERLING SOLO 08/13/2023 07:26:00 Final Observation Date Value Abnormality Reference (Units ) Status BUN 08/13/2023 07:26:00 15 6-20 (mg/dL) Final Creatinine 08/13/2023 07:26:00 1.1 0.6-1.2 (mg/dL) Final Glomerular filtration rate/1.73 sq M.predicted [Volume Rate/Area] in Serum, Plasma or Blood by Creatinine-based formula (CKD-EPI) 08/13/2023 07:26:00 >90 >=60 (mL/min) Final eGFR is calculated based on the CKD-EPI 2020 equation SODIUM 08/13/2023 07:26:00 139 135-146 (m mol/L) Final Potassium 08/13/2023 07:26:00 4.0 3.5-5.1 (m mol/L) Final Cl 08/13/2023 07:26:00 103 98-107 (mm ol/L) Final CO2 08/13/2023 07:26:00 24 22-32 (mmo l/L) Final Anion gap 08/13/2023 07:26:00 12 7-15 (mmol /L) Final Glucose 08/13/2023 07:26:00 112 70-120 (mg /dL) Final Albumin 08/13/2023 07:26:00 4.4 3.8-5.0 (g /dL) Final AST (Aspartate aminotransferase) 08/13/2023 07:26:00 22 10-50 (U/L) Final Alk Phos 08/13/2023 07:26:00 102 35-130 (U/ L) Final Bilirubin, Total 08/13/2023 07:26:00 0.7 <=1 .2 (mg/dL) Final Calcium 08/13/2023 07:26:00 9.1 8.4-10.2 ( mg/dL) Final Protein 08/13/2023 07:26:00 6.9 6.0-8.3 (g /dL) Final ALT (Alanine aminotransferase) 08/13/2023 07:26:00 37 10-50 (U/L) Final Performing Location LABORATORY [facility] [address] [place] [address]
--- OUTSIDE RECORDS SUMMARY | 2023-08-15 23:39 | External Medical Summary ---
Author Name Unknown Address Unknown Organization K0G:LABORATORY [facility] [address] [place] [address] Laboratory Report Ordering Provider Test Date Status STERLING SOLO 08/13/2023 07:26:00 Final Every week and for 6 weeks a fter finishing treatment Observation Date Value Abnormality Reference (Units ) Status WBC, Total 08/13/2023 07:26:00 8.43 4.00-10.8 0 (K/uL) Final RBC 08/13/2023 07:26:00 4.78 4.50-5.25 (M/uL) Final Hemoglobin 08/13/2023 07:26:00 15.3 14.0-16.8 (g/dL) Final HCT 08/13/2023 07:26:00 42.9 40.0-48.4 (%) Final MCV 08/13/2023 07:26:00 89.7 82.0-99.5 (fL) Final MCH 08/13/2023 07:26:00 32.0 27.0-34.0 (pg) Final MCHC 08/13/2023 07:26:00 35.7 32.0-36.0 (g/dL) Final RDW 08/13/2023 07:26:00 12.7 11.5-15.5 (%) Final Platelets 08/13/2023 07:26:00 96 Below low normal 140 -400 (K/uL) Final MPV 08/13/2023 07:26:00 10.8 6.6-11.1 ( fL) Final Performing Location LABORATORY [facility] [address] [place] [address]
--- OUTSIDE RECORDS SUMMARY | 2023-08-15 23:39 | External Medical Summary | Summary of Care ---
Author Name Unknown Organization [facility] Address [address] [place] [address] Phone [phone] Care Team Providers Care Coil Tester Name Role Phone MarkusDangelo davis Primary Care Provider [phone] Reason for Visit * Reason Onset Date Comments Appointment 07/26/2023 Encounter Details Date Type Department Care Team (Late st Contact Info) Description 07/26/2023 Telephone Hematology Oncology [facility] [address] [place] [address] Bakari Clifford MD [address] [place] [address] Appointment Allergies No known active allergiesdocumented as of this encounter (statuses as of 08/01/2023) Medications Medication Sig Dispensed Refills Start Date [...] as of this encounter (statuses as of 08/01/2023) Active Problems Problem Noted Date Diagnosed Date [...] follow-up with Neurosurgery/Neuropsychology 08/13/2018 for awake craniotomy Gdpndgx-Iuwre-Mboyv disease of demyelinating typ e 12/26/2012 OBESITY, PEDS, BMI 99TH PERCENTL OR GREATER 11/30 Overview: Per Obesity Taxonomy 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 * Telephone Encounter - Sriram Mukherjee - 07/26/2023 4:15 PM EDT Lmom to schedule * Telephone Encounter - Elvira Maza RPh - 07/26/2023 3:59 PM EDT To start lomustine - pt needs PFTs. Orders placed. Please call to schedule Elvira D. Link, PharmD, BCOP Ambulatory Clinical Pharmacist | Oral Chemotherapy Clinic [facility] 07/26/2023, 4:00 PM documented in this encounter Plan of Treatment Upcoming Encounters Date Type Department Care Team (Late st Contact Info) Description 08/06/2023 3:30 PM EST Pharmacy Pharmacy Hematology Oncology [facility] [place] [address] [place] [address] [facility] [place] [facility] Hem/Onc [address] [place] [address] 08/08/2023 2:30 PM EST PulmDiagnostic Pulmonary Function Lab, [facility] [address] [place] [address] [place], [address] [place] [address] 08/13/2023 11:00 AM EST Office Visit Hematology Oncology [facility] [place] [address] [place] [address] Ángela Altamirano PA-C [address] [place], [place] [id number] 03/26/2024 3:00 PM EDT Office Visit Family Practice [facility] [address] [place] [address] Dangelo Juárez, DO [address] [place] [address] Health Maintenance Due Date Last Done Comments [...] this encounter Medical Devices Implanted Type Area Mobile Qa Tester Device Identifier Shelf Expiration Date Model / Serial / Lot Graft Lyoplant 10.0x12.5cm 4x5 - [id number] Implanted:Qty: 1 on 08/13/2018 by Bacilio Romero MD [place] [facility] [place] AESCULAP 12/29/2022 [id number] [id number] / [id number] / [id number] documented as of this encounter Advance Directives [...] the patient have Health Care Power of Fleet Technician? No Code Status History Code Status Date Activated Date Inactivated Comments Full Code 08/13/2018 6:42 AM 08/13/2018 6:33 PM Thi s order reflects the patients wishes and were consensually agreed upon. Full Code 07/08/2018 10:45 PM 07/09/2018 9:37 PM This order reflects the patients wishes and were consensually agreed upon. Care Teams Coil Tester Relationship Specialty Start Date End Date Dangelo Juárez DO [address] [place] [address] [place] [address] PCP - General Family Medicine 07/19/18 documented as of this encounter"
--- OUTSIDE RECORDS SUMMARY | 2023-08-15 23:39 | External Medical Summary | Summary of Care ---
Author Name Unknown Organization [facility] Address [address] [place] [address] Phone [phone] Care Team Providers Care Woodworker Name Role Phone MarkusDangelo davis Primary Care Provider [phone] Reason for Visit * Reason Comments Pulmonary Function Test PFT without bron chodilator per provider's request. Encounter Details Date Type Department Care Team (Latest Contact Info) Description 08/08/2023 2:30 PM EST PulmDiagnostic Pulmonary Function Lab, [facility] [address] [facility] [place] [address] [place], [address] [facility] [place] [address] Oligodendroglioma (HCC)* Allergies No known active allergiesdocumented as of this encounter (statuses as of 08/08/2023) Medications Medication Sig Dispensed Refills Start Date [...] as of this encounter (statuses as of 08/08/2023) Active Problems Problem Noted Date Diagnosed Date [...] follow-up with Neurosurgery/Neuropsychology 08/13/2018 for awake craniotomy Mqcdnnx-Zjzlf-Binpn disease of demyelinating typ e 12/26/2012 OBESITY, PEDS, BMI 99TH PERCENTL OR GREATER 11/30 Overview: Per Obesity Taxonomy 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 gait 03/23/2000 documented as of this encounter (statuses as of 08/08/2023) Resolved Problems Problem Noted Date Diagnosed Date Resolved Date Overweight (BMI 25.0-29.9) 12/13/2005 0 12/23/2009 Overview: Per Obesity Taxonomy Routine child health exam documented as of this encounter (statuses as of 08/08/2023) Immunizations Name Administration Dates Next Due Meningococcal Conjugate Vaccine (Menactra/Menveo ) 02/12/2007 Seasonal Influenza, Split, IIV3, With Preserve, Inj 08/24/2010,07/12/2009 TDAP (age 10 and older)(Boostrix) 02/21/2023,08/2013 Varicella Vaccine (Chicken Pox) 02/17/2008 documented as of this encounter Social History Tobacco Use Types Packs/Day Years Used Date Smoking Tobacco: Former Cigarettes 1.8 12 Q uit: 08/03/2023 Smokeless Tobacco: Former Tobacco Cessation:Counseling Given: Not Answered Comments:Quit a couple days ago when started Chemo Alcohol Use Standard Drinks/Week Comments Yes 0 [...] on file documented as of this encounter Last Filed Vital Signs Vital Sign Reading Time Taken Comments Blood Pressure - - Pulse - - Temperature 36.2 C (97.1 F) 08/08/2023 2:30 PM ES T Respiratory Rate - - Oxygen Saturation - - Inhaled Oxygen Concentration - - Weight 130.7 kg (288 lb 2.3 oz) 08/08/2023 2:30 PM EST Height 179.5 cm (5' 10.67") 08/08/2023 2:[address] Body Mass Index 40.56 08/08/2023 2:30 PM EST documented in this encounter Functional Status Functional Status Response [...] No 08/13/2018 documented as of this encounter Nursing Notes * Grover Reyna RRT - 08/08/2023 2:35 PM EST Jose Luis Wall was identified by name, Date of : (1990), and . Vitals were obtained for testing. Body mass index is 40.56 kg/m. Pt is not currently employed. Pt has a 1.75 ppd for 12 years smoking history and quit a couple days ago when started Chemo. Spirometry and DLCO performed without bronchodilator per provider's request. documented in this encounter Plan of Treatment Upcoming Encounters Date Type Department Care Team (Late st Contact Info) Description 08/13/2023 9:30 AM EST Laboratory Lab [facility] [address] [place] [address] Gmc, Gml Mobile Home Draw [address] [place] [address] 08/13/2023 11:00 AM EST Office Visit Hematology Oncology [facility] [place] [address] [place] [address] Ángela Altamirano PA-C [address] [place] [address] 08/13/2023 3:30 PM EST Pharmacy Pharmacy Hematology Oncology [facility] [address] [place] [address] [facility] [place] [facility] Hem/Onc [address] [place] [address] 08/20/2023 9:30 AM EST Laboratory Lab Mobile Phlebotomy C [address] [place] [address] Gmc, Gml Mobile Home Draw [address] [place] [address] 08/27/2023 9:30 AM EST Laboratory Lab Mobile Phlebotomy C [address] [place] [address] Gmc, Gml Mobile Home Draw [address] [place] [address] 09/03/2023 9:30 AM EST Laboratory Lab Mobile Phlebotomy C [address] [place] [address] Gmc, Gml Mobile Home Draw [address] [place] [address] 09/10/2023 9:30 AM EST Laboratory Lab [facility] [address] [place] [address] Gmc, Gml Mobile Home Draw [address] [place] [address] 09/17/2023 9:30 AM EST Laboratory Lab [place] [facility] [place] [address] [place] [address] [facility] [place] [facility] Mobile Home Draw [address] [place] [address] 03/26/2024 3:00 PM EDT [facility] [address] [place] [address] Dangelo Juárez DO [address] [place] [address] Pending Results Name Type Priority Associated Diagnoses Date /Time DIFFUSION CAPACITY (DLCO) Procedures Routine Oligodendroglioma (HCC) 08/08/2023 2:26 PM EST BASIC SPIROMETRY Procedures Routine Oligodendroglioma (HCC) 08/08/2023 2:26 PM EST Health Maintenance Due Date Last Done Comments [...] this encounter Medical Devices Implanted Type Area Systems Auditor Device Identifier Shelf Expiration Date Model / Serial / Lot Graft Lyoplant 10.0x12.5cm 4x5 - [id number] Implanted:Qty: 1 on 08/13/2018 by Bacilio Romero [place] [facility] [place] STANLEY : SOLANGE 12/29/2022 [id number] / [id number] / [id number] documented as of this encounter Procedures Procedure Name Priority Date/Time Associated Diagnosis Comments DIFFUSION CAPACITY (DLCO) Routine 08/08/2023 2:26 PM EST Oligodendroglioma (HCC) BASIC SPIROMETRY Routine 08/08/2023 2:26 PM EST Oligodendroglioma (HCC) documented in this encounter Visit Diagnoses Diagnosis Oligodendroglioma (HCC)- [...] the patient have Health Care Power of Grocery Stock Clerk? No Code Status History Code Status Date Activated Date Inactivated Comments Full Code 08/13/2018 6:42 AM 08/13/2018 6:33 PM Thi s order reflects the patients wishes and were consensually agreed upon. Full Code 07/08/2018 10:45 PM 07/09/2018 9:37 PM This order reflects the patients wishes and were consensually agreed upon. Care Teams Woodworker Relationship Specialty Start Date End Date Dangelo Juárez DO [address] [place] [address] PCP - General Family Medicine 07/19/18 documented as of this encounter
--- OUTSIDE RECORDS SUMMARY | 2023-08-15 23:40 | External Medical Summary | Summary of Care ---
Author Name Unknown Organization [facility] Address [address] [place] [address] Phone [phone] Care Team Providers Care Care Nurse Rn Name Role Phone MarquitaDangelo Kilo CORDERO Primary Care Provider [phone] Reason for Visit * Reason Onset Date Comments Medication Refill 07/17/2023 Encounter Details Date Type Department Care Team Description 07/17/2023 Refill Hematology Oncology [facility] [address] [place] [address] Bakari Clifford MD [address] [place] [address] Oligodendroglioma (HCC) Allergies No known active allergiesdocumented as of this encounter (statuses as of 07/18/2023) Medications Medication Sig Dispensed Refills Start Date End Date Status Omeprazole 40 MG Oral Capsule Delayed Release (PriLOSEC)Indicat ions:Gastroesopha geal reflux disease without esophagitis Take 1 Capsule by mouth in the morning. 90 Capsule 3 02/21/2023 Active levETIRAcetam 750 MG Oral TabletIndications :Oligodendrogliom a (HCC),Partial symptomatic epilepsy with complex partial seizures, not intractable, without status epilepticus (HCC) Take 1.5 Tablets by mouth in the morning and 1.5 Tablets before bedtime. 180 Tablet 3 06/12/2023 Active Docusate Sodium 50 MG Oral Capsule (Colace)Indicatio ns:Oligodendrogli natalia (HCC) Take 1 Capsule by mouth in the morning and 1 Capsule before bedtime. 60 Capsule 3 07/05/2023 Active Ondansetron HCl 8 MG Oral Tablet (Zofran)Indicatio ns:Oligodendrogli natalia (HCC) Take 1 tablet by mouth 30 minutes prior to procarbazine and lomustine doses and every 8 hours as needed for nausea. Do not exceed 3 tablets per day. 60 Tablet 0 07/05/2023 Active Lomustine 100 MG Oral Capsule (Ceenu)Indication s:Oligodendroglio ma (HCC) Take 2 Capsules by mouth every 6 weeks. Take on an empty stomach at bed time. 2 Capsule 0 07/17/2023 Active Procarbazine HCl 50 MG Oral Capsule (Matulane)Indicat ions:Oligodendrog lioma (HCC) Take 3 Capsules by mouth at bedtime on days 8 through 21 every 42 days. 42 Capsule 0 07/18/2023 Active Procarbazine HCl 50 MG Oral Capsule (Matulane)Indicat ions:Oligodendrog lioma (HCC) Take 3 Capsules by mouth at bedtime on days 8 through 21 of each chemotherapy cycle. 42 Capsule 0 07/05/2023 3 Discontinue d(Refill) Lomustine 100 MG Oral Capsule (Ceenu)Indication s:Oligodendroglio ma (HCC) Take 2 Capsules by mouth every 6 weeks. Take on an empty stomach at bed time. 2 Capsule 0 07/05/2023 3 Discontinue d(Refill) Procarbazine HCl 50 MG Oral Capsule (Matulane)Indicat ions:Oligodendrog lioma (HCC) Take 3 Capsules by mouth at bedtime. 42 Capsule 0 07/17/2023 3 Discontinue d(Medicatio n/Dose Changed) Procarbazine HCl 50 MG Oral Capsule (Matulane)Indicat ions:Oligodendrog lioma (HCC) Take 3 Capsules by mouth at bedtime on days 8 through 21 every 42 days. 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: Jose Luis Wall's case [...] follow-up with Neurosurgery/Neuropsychology 08/13/2018 for awake 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 12/26/2012 OBESITY, PEDS, BMI 99TH PERCENTL OR GREA TER 12/23/2009 Overview: Per Obesity Taxonomy 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 Never 12/30/2018 How many drinks containing a lcohol do you have on a typical day when you are drinking? Not asked How often do you have six or more drinks on one occasion? Not asked Sex Assigned at Date Recorded Not on file Job Start Date Occupation [...] as of this encounter Miscellaneous Notes * Addendum Note - Elvira Torres [facility] - 07/18/2023 10:58 AM EDT Addended by: ELVIRA TORRES on: 07/18/2023 10:58 AM Modules accepted: Orders * Telephone Encounter - Elvira Torres [facility] - 07/18/2023 10:56 AM EDT [facility] stating they did not receive corrected script for Matulane. Forwarding script again Elvira Torres PharmD, [facility] Ambulatory Clinical Pharmacist | Oral Chemotherapy [facility] 07/18/2023, 10:57 AM * Addendum Note - Uzair Brewer [facility] - 07/17/2023 4:04 PM EDTAddended by: UZAIR BREWER on: 07/17/2023 04:04 PM Modules accepted: Orders * Telephone Encounter - Uzair Brewer [facility] - 07/17/2023 4:03 PM EDT Updated procarbazine 50 mg capsule sig - "Take 3 Capsules by mouth at bedtime on days 8 through 21 every 42 days." Sent to [facility]. Uzair Brewer PharmD, [facility] Ambulatory Clinical Pharmacist | Oral Chemotherapy [facility] 07/17/2023, 4:04 PM * Telephone Encounter - Vlad Whitten [facility] - 07/17/2023 11:46 AM EDT [facility] cannot fill matulane due to restricted access of medication. [facility] is the preferred pharmacy with access to drug. Forwarding prescriptions to [facility] due to this limitation Vlad Whitten, Cheng Clinical Pharmacist [facility] 11:47 AM, 07/17/2023 documented in this encounter Plan of Treatment Upcoming Encounters Date Type Specialty Care Team Description 07/18/2023 Pharmacy Pharmacy [facility] [place] Hem/Onc [address] [place] [address] 07/23/2023 Pharmacy Pharmacy [facility] [place] Hem/Onc [address] [place] [address] 03/26/2024 Office Visit Family Medicine Dangelo Juárez, DO [address] [place] [address] Health Maintenance Due Date Last Done Comments COVID-19 Vaccine (#1) 1997 HIV Screening 2007 Hepatitis C Screening 2010 [...] on patient's age to complete this topic Pneumococcal Vaccine: Pediatrics (0 to 5 Years) and At-Risk Patients (6 to 64 Years) Aged Out No longer eligible based on patient's age to complete this topic documented as of this encounter Medical Devices Implanted Type Area Continuous Dryout Operator Helper Device Identifier Shelf Expiration Date Model / Serial / Lot Graft Lyoplant 10.0x12.5cm 4x5 - [id number] Implanted:Qty: 1 on 08/13/2018 by Bacilio Romero MD [place] [facility] [place] STANLEY : SOLANGE 12/29/2022 [id number] [id number] / [id number] / [id number] documented as of this encounter Visit Diagnoses Diagnosis Oligodendroglioma (HCC) Malignant neoplasm of brain, unspecified site documented [...] the patient have Health Care Power of Urban Planning Teacher? No Code Status History Code Status Date Activated Date Inactivated Comments Full Code 08/13/2018 6:42 AM 08/13/2018 6:33 PM Thi s order reflects the patients wishes and were consensually agreed upon. Full Code 07/08/2018 10:45 PM 07/09/2018 9:37 PM This order reflects the patients wishes and were consensually agreed upon. Care Teams Care Nurse Rn Relationship Specialty Start Date End Date Dangelo Juárez, DO [address] [place] [address] PCP - General Family Medicine 07/19/18 documented as of this encounter
--- OUTSIDE RECORDS SUMMARY | 2023-08-15 23:40 | External Medical Summary ---
Author Name Unknown Address Unknown Organization [id number]:[facility] [address] [place] [address] Laboratory Report Ordering Provider Test Date Status STERLING SOLO 07/26/2023 12:26:03 Final Observation Date Value Abnormality Reference (Units ) Status BUN 07/26/2023 12:26:03 15 6-20 (mg/dL) Final Creatinine 07/26/2023 12:26:03 0.9 0.6-1.2 (mg/dL) Final Glomerular filtration rate/1.73 sq M.predicted [Volume Rate/Area] in Serum, Plasma or Blood by Creatinine-based formula (CKD-EPI) 07/26/2023 12:26:03 >90 >=60 (mL/min) Final eGFR is calculated based on the CKD-EPI 2020 equation SODIUM 07/26/2023 12:26:03 140 135-146 (m mol/L) Final Potassium 07/26/2023 12:26:03 4.1 3.5-5.1 (m mol/L) Final Cl 07/26/2023 12:26:03 104 98-107 (mm ol/L) Final CO2 07/26/2023 12:26:03 25 22-32 (mmo l/L) Final Anion gap 07/26/2023 12:26:03 11 7-15 (mmol /L) Final Glucose 07/26/2023 12:26:03 98 70-120 (mg /dL) Final Albumin 07/26/2023 12:26:03 4.5 3.8-5.0 (g /dL) Final AST (Aspartate aminotransferase) 07/26/2023 12:26:03 30 10-50 (U/L) Final Alk Phos 07/26/2023 12:26:03 99 35-130 (U/ L) Final Bilirubin, Total 07/26/2023 12:26:03 0.5 <=1 .2 (mg/dL) Final Calcium 07/26/2023 12:26:03 9.5 8.4-10.2 ( mg/dL) Final Protein 07/26/2023 12:26:03 7.4 6.0-8.3 (g /dL) Final ALT (Alanine aminotransferase) 07/26/2023 12:26:03 47 10-50 (U/L) Final Performing Location [facility] [address] [place] [address]
--- OUTSIDE RECORDS SUMMARY | 2023-08-15 23:40 | External Medical Summary | Summary of Care ---
Author Name Unknown Organization [facility] Address [address] [place] [address] Phone [phone] Care Team Providers Care Shift Mgr Name Role Phone MarkusbrittaneynannetteDangelo Kilo CORDERO Primary Care Provider [phone] Reason for Visit * Reason Onset Date Comments FYI 07/18/2023 Encounter Details Date Type Department Care Team Description 07/18/2023 Telephone Hematology Oncology [facility] [address] [place] [address] Bakari Clifford MD [address] [place] [address] FYI Allergies No known active allergiesdocumented as of [...] 07/18/2023 Active Lomustine 100 MG Oral Capsule (Ceenu)Indication s:Oligodendroglio ma (HCC) Take 2 Capsules by mouth every 6 weeks. Take on an empty stomach at bed time. 2 Capsule 0 07/18/2023 Active Lomustine 100 MG Oral Capsule (Ceenu)Indication s:Oligodendroglio ma (HCC) Take 2 Capsules by mouth every 6 weeks. Take on an empty stomach at bed time. 2 Capsule 0 07/17/2023 3 Discontinue d(Refill) documented [...] follow-up with Neurosurgery/Neuropsychology 08/13/2018 for awake craniotomy Knddwrw-Jpagi-Panfy disease of demyelina ting type 12/26/2012 OBESITY, [...] 07/18/2023) Immunizations Name Administration Dates Next Due Meningococcal [...] (15 years old or older) No 08/13/20 Cognitive Status Response Date of Assessm ent Because of a physical, menta l, or emotional condition, do you have serious difficulty concentrating, remembering, or making decisions? (5 years old or older No 08/13/2018 documented as of this encounter Miscellaneous Notes * Telephone Encounter - Elvira Maza [facility] - 07/18/2023 10:59 AM EDT Matulane rx re-sent to [facility]ra forwarded to [facility] Elvira Maza, PharmD, BCOP Ambulatory Clinical Pharmacist | Oral Chemotherapy Clinic [facility] 07/18/2023, 10:59 AM * Telephone Encounter - SISSY Gomez - 07/18/2023 10:52 AM EDT Treatment: Medication: Procarbazine (Matulane) Dose Basis: 60 mg/m2 Dose: 150 mg PO daily for days 8-21 every 42 days Administration: at bedtime Medication: Lomustine Dose Basis: 90 mg/m2 Dose: 200 mg PO on day 1 every 24 days Administration: empty stomach at bedtime Indication/Staging/Diagnosis Code: Oligodendroma Start Date: TBD Primary Poising Inspector/Oncologist: Dr. Clifford Spoke with Dulce Ogluin today to check status of Procarbazine and lomustine prescriptions Was informed that PA was required for Lomustine and that they received a cancellation notice from the provider's office for the Procarbazine. I then conferenced in [facility] Nory to assist with these issues. She confirmed that patient needs both medications for treatment so she will resend Rx. We requested further information regarding the PA on the Lomustine. Was placed on hold for Rep to look into. Was told that [place] is OON for Lomustine. Will need to fill internally (Lomustine) Requested that Matulane please be marked stat when received. Kylee Stapleton Trains Service Conductor Pharmacy Hematology Oncology Oral Chemotherapy Clinic Medication Therapy Disease Management [facility] 07/18/23 10:57 AM Time Spent on Encounter: 11 - 15 minutes documented in this encounter Plan of Treatment Upcoming Encounters Date Type Specialty Care Team Description 07/19/2023 Pharmacy Pharmacy [facility] [place], [facility] Hem/Onc [address] [place] [address] 07/23/2023 Pharmacy Pharmacy [facility] [place], [facility] Hem/Onc [address] [place] [address] 03/26/2024 Office Visit Family Medicine Dangelo Juárez, DO [address] [place] [address] Health Maintenance Due Date Last Done Comments [...] this encounter Medical Devices Implanted Type Area Justowriter Operator Device Identifier Shelf Expiration Date Model / Serial / Lot Graft Lyoplant 10.0x12.5cm 4x5 - [id number] Implanted:Qty: 1 on 08/13/2018 by Bacilio Romero MD at [place] [facility] [place] : SOLANGE 12/29/2022 [id number] [id number] / [id number] / [id number] documented as of this encounter Visit Diagnoses [...] the patient have Health Care Power of Incinerator Operator? No Code Status History Code Status Date Activated Date Inactivated Comments Full Code 08/13/2018 6:42 AM 08/13/2018 6:33 PM Thi s order reflects the patients wishes and were consensually agreed upon. Full Code 07/08/2018 10:45 PM 07/09/2018 9:37 PM This order reflects the patients wishes and were consensually agreed upon. Care Teams Shift Mgr Relationship Specialty Start Date End Date Dangelo Juárez, DO [address] [facility] [place] [place] [address] PCP - General Family Medicine 07/19/18 documented as of this encounter"
--- OUTSIDE RECORDS SUMMARY | 2023-08-15 23:40 | External Medical Summary ---
Author Name Unknown Address Unknown Organization K01:[facility] [address] [address] Laboratory Report Ordering Provider Test Date Status STERLING SOLO 07/26/2023 12:26:03 Final Observation Date Value Abnormality Reference (Units) Status Hepatitis B virus surface Ab [Units/volume] in Serum or Plasma by Immunoassay 07/26/2023 12:26:03 <3.5 (mIU/mL) Final Hepatitis B virus surface Ab [Presence] in Serum by Immunoassay 07/26/2023 12:26:03 Negative Final HEPATITIS B SURFACE ANTIBODY, INTERPRETATION 07/26/2023 12:26:03 NOT immune to Hepatitis B Virus Final POSITIVE: >=11.5 mIU/mL
INDETERMINATE: 8.5-<11.5 mIU/mL
NEGATIVE: <8.5 mIU/mL Performing Location [facility] [place] [facility] [place] [address]
--- OUTSIDE RECORDS SUMMARY | 2023-08-15 23:40 | External Medical Summary | Summary of Care ---
Author Name Unknown Organization [facility] Address [address] [place] [address] Phone [phone] Care Team Providers Care Health Education Aide Name Role Phone MarkusDangelo davis Primary Care Provider [phone] Encounter Details Date Type Department Care Team (Late st Contact Info) Description 07/26/2023 Orders Only Hematology Oncology [facility] [address] [place] [address] Bakari Clifford MD [address] [place] [address] Oligodendroglioma (HCC)* Allergies No known [...] follow-up with Neurosurgery/Neuropsychology 08/13/2018 for awake craniotomy Wadwtvo-Qjggl-Cmmlt disease of demyelinating typ e 12/26/2012 OBESITY, [...] No 08/13/2018 documented as of this encounter Plan of Treatment Upcoming Encounters Date Type Department Care Team (Late st Contact Info) Description 07/27/2023 3:45 PM EDT Pharmacy Pharmacy Hematology Oncology [facility] [address] [place] [address] [facility] [place] [facility] Hem/Onc [address] [place] [address] 03/26/2024 3:00 PM EDT Office Visit [facility] [address] [facility] [place] [address] Dangelo Juárez, [address] [facility] [place] [address] Scheduled Orders Name Type Priority Associated Diagnoses Orde r Schedule DIFFUSION CAPACITY (DLCO) Procedures Routine Oligodendroglioma (HCC) Expected: 08/02/2023, Expires: 10/26/2023 BASIC SPIROMETRY Procedures Routine Oligodendroglioma (HCC) Expected: 08/02/2023, Expires: 10/26/2023 Health Maintenance Due Date Last Done Comments [...] this encounter Medical Devices Implanted Type Area Tubing Mill Operator Device Identifier Shelf Expiration Date Model / Serial / Lot Graft Lyoplant 10.0x12.5cm 4x5 - [id number] Implanted:Qty: 1 on 08/13/2018 by Bacilio Romero MD at OR [facility] B [place] : AESCULAP 12/29/2022 [id number] / [id number] / [id number] documented as of this encounter Visit Diagnoses [...] the patient have Health Care Power of Social And Human Services Assistant? No Code Status History Code Status Date Activated Date Inactivated Comments Full Code 08/13/2018 6:42 AM 08/13/2018 6:33 PM Thi s order reflects the patients wishes and were consensually agreed upon. Full Code 07/08/2018 10:45 PM 07/09/2018 9:37 PM This order reflects the patients wishes and were consensually agreed upon. Care Teams Health Education Aide Relationship Specialty Start Date End Date Dangelo Juárez DO [address] [place] [address] PCP - General Family Medicine 07/19/18 documented as of this encounter
--- OUTSIDE RECORDS SUMMARY | 2023-08-15 23:40 | External Medical Summary | Summary of Care ---
Author Name Unknown Organization [facility] Address [address] [place] [address] Phone [phone] Care Team Providers Care Head Of Biology Name Role Phone MarkusDangelo davis Primary Care Provider [phone] Reason for Visit * Reason Onset Date Comments Filling Problem 07/18/2023 Dr. Clifford Encounter Details Date Type Department Care Team Description 07/18/2023 Telephone Hematology Oncology [facility] [address] [place] [address] Bakari Clifford MD [address] [place] [address] Filling Problem (Dr. Clifford) Allergies No known active allergiesdocumented as of [...] bed time. 2 Capsule 0 07/18/2023 Active documented as of this encounter (statuses [...] follow-up with Neurosurgery/Neuropsychology 08/13/2018 for awake craniotomy Ihleysm-Inewb-Qfqze disease of demyelina ting type 12/26/2012 OBESITY, [...] Telephone Encounter - Viktoriya Brewer RPh - 07/18/2023 11:41 AM EDT Please refer to other TE from today. Viktoriya Brewer PharmD, BCOP Ambulatory Clinical Pharmacist | Oral Chemotherapy Clinic [facility] 07/18/2023, 11:42 AM * Telephone Encounter - SISSY De La Paz - 07/18/2023 11:01 AM EDT Sean from [facility] calling to advise that according to Pt's [facility] Family insurance, they are not able to fill Pt's Lomustine (Gleostine) 100 MG oral chemo tablets because Dr. Clifford "is not authorized" to prescribed this medication. The NPI number given was correct for Dr. Clifford. Would this script need to go through the [facility]? Callback number for Sean is [phone] documented in this encounter Plan of Treatment Upcoming Encounters Date Type Specialty Care Team Description 07/19/2023 Pharmacy Pharmacy [facility] Hem/Onc [address] [place] [address] 07/23/2023 Pharmacy Pharmacy [facility] [place] Hem/Onc [address] [place] [address] 03/26/2024 Office Visit Family Medicine Dangelo Juárez, DO [address] [facility] [place] [address] Health Maintenance Due Date Last Done Comments [...] this encounter Medical Devices Implanted Type Area Lining Feller Blindstitch Device Identifier Shelf Expiration Date Model / Serial / Lot Graft Lyoplant 10.0x12.5cm 4x5 - [id number] Implanted:Qty: 1 on 08/13/2018 by Bacilio Romero MD at OR [facility] [place] B [place] : AESCULAP 12/29/2022 [id number] / [id number] / [id number] documented as of this encounter Advance Directives [...] the patient have Health Care Power of C Iron Worker? No Code Status History Code Status Date Activated Date Inactivated Comments Full Code 08/13/2018 6:42 AM 08/13/2018 6:33 PM Thi s order reflects the patients wishes and were consensually agreed upon. Full Code 07/08/2018 10:45 PM 07/09/2018 9:37 PM This order reflects the patients wishes and were consensually agreed upon. Care Teams Head Of Biology Relationship Specialty Start Date End Date Dangelo Juárez, DO [address] [place] [address] PCP - General Family Medicine 07/19/18 documented as of this encounter
--- OUTSIDE RECORDS SUMMARY | 2023-08-15 23:40 | External Medical Summary | Summary of Care ---
Author Name Unknown Organization [facility] Address [address] [place] [address] Phone [phone] Care Team Providers Care Ui Software Engineer Name Role Phone MarquitaDangelo Kilo CORDERO Primary Care Provider [phone] Encounter Details Date Type Department Care Team Description 07/17/2023 Telemedicine Hematology Oncology [facility] [address] [place] [address] Bakari Clifford MD [address] [place] [address] Oligodendroglioma (HCC)* Allergies No known active allergiesdocumented as of this encounter (statuses as of 07/17/2023) Medications Medication Sig Dispensed Refills Start Date [...] 0 07/17/2023 3 Discontinue d(Medicatio n/Dose Changed) documented as of this encounter (statuses as of 07/17/2023) Active Problems Problem Noted Date Encounter for [...] follow-up with Neurosurgery/Neuropsychology 08/13/2018 for awake craniotomy Iaulpye-Jipmn-Zwhtl disease of demyelina ting type 12/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 OBESITY, PEDS, BMI 99TH PERCENTL OR GREA TER 12/23/2009 Overview: Per Obesity Taxonomy 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 I was in a hospital or clinic location. After connecting through televideo,patient was verified with two unique identifiers. Patient (or authorized legal credit resolution representative) was then informed that this was a Telemedicine visit and being conducted confidentially over secure lines. Methods to assure confidentiality were taken. Patient acknowledged consent and understanding of pr ivacy and security of the Telemedicine visit. The patient agreed to participate. Follow Up Visit Note: Hematology/Oncology Patient Name: Jose Luis Wall Date of : 1990 Patient Encounter: HEMATOLOGY ONCOLOGY [facility] Oncologic History (Copied from prior): Treatment Summary Jose Luis Wall is a 28 year old, right handed male with a PMHx significant for charcot tabitha tooth, who presents to clinic for evaluation of previously discovered L frontal lobe lesion. The patient wasevaluated in the [facility] ED 07/08 for a new onset seizure like activity. It was witnessed by his coworker and reportedly the patient had L sided facial droop and slurred speech. The episode lasted severalminutes and resolved spontaneously. The patient woke up with mild, non focal LUE paresthesias at that time. A CT head and MRI were obtained which revealed a L frontal brain tumor. He was discharged on keppra 500 mg BID, dexamethasone 4 mg QID, and pepcid for GI ppx, with return to clinic today to anthony fletcher surgical management. He reports that he has had 2 similar episodes of seizure activity since discharge. One of the episodes appeared with violent shaking and stiffness in his extremities. 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 The patient saw me for neuropsychological testing, is symptomatic of his lesion cognitively, butalso appears to be a good candidate for awake surgery with relatively intact language function on testing. 2. Dr. Gómez reviewed the patient's imaging, noted left language dominance, and felt as though the lesion was most likely an oligodendroglioma given signal characteristics. Patient to follow-up with Neurosurgery/Neuropsychology 08/13/2018 for awake craniotomy 08/08/2018 Initial Diagnosis Oligodendroglioma (HCC) 08/13/[address] Romero - awake craniotomy resection 08/13/2018 Molecular Testing Results A: Left frontal lobe mass, biopsy: Oligodendroglioma, WHO grade II. IDH-1 mutated. B: Left frontal lobe mass, resection: Oligodendroglioma, WHO grade II. IDH-1 mutated. Clinical History Mass of left frontal lobe. Synoptic Data Procedure: awake craniotomy Specimen Handling: Squash / smear / touch preparation Frozen section Unfrozen, formalin-fixed for permanent paraffin sections Specimen Size: Greatest dimension: 0.9 cm Laterality: Left Tumor Site: Cerebral lobes (specify precise location, if known: (Frontal lobe) Histologic Type: Specify: Oligodendroglioma Histologic Grade: Specify: WHO grade II Ancillary Studies: Designate block for future studies: B2 Immunohistochemistry: IDH-1: mutated; ATRX: wild type; p53: wild type; Mib-1: 7-8% Molecular genetic studies: 1p/19q status testing is pending Focality: Unifocal Microscopic Findings Sections show an infiltrative glial tumor composed of monomorphic cells with round to oval hyperchromatic nuclei. Mitoses are rare. Tumor demonstrates delicate capillary network, microcalcifications and pericellular clearing artifacts. There is no vascular endothelial proliferation or necrosis. Immu nostains show tumor is positive for mIDH-1 [R132H], retained ATRX expression and negative for p53. The Mib-1 labeling index is moderately elevated focally (7-8%). 1p19q FISH FISH Analysis: 1p19q Deletion Specimen: Left frontal lobe mass, biopsy Adequacy: Adequately Cellular Specimen Block: A1 POSITIVE for the DELETION OF 1p POSITIVE for the DELETION OF 19q Interpretation and comments: FISH results did reveal deletion of 1p and 19q: The ratio results are less than the normal range and suggest deletions of 1p and 19q. 09/09/2018 Discussion WHO grade II gliomas are considered low grade glioma (LGG) but might have high risk for aggressive presentation and progression based on the presence of the these below noted features and might be considered when guiding care/treatment of these patients with high risk LGG: Based on the literature (April et al 2002. J Clin Onc 20:2089-3182) some of the high risk features for LGG would include: 1. Astrocytic histology NO 2. Size > 6 cm YES 3. Age > 40 yo NO 4. Midline tumor EQUIVOCAL - frontal midline 5. Neurologic deficit attributed to tumor only (not surgery) NO A high risk tumor would involve 3 of the above 5 characteristics. For this trial the overall risk is determined to be LOW. Another clinical trial RTOG [id number] published (Fabrizio Almeida et al [facility] 374:6492-2144) 2016. Patients with low grade glioma (in general astrocytic or oligodendroglioma) were higher risk if they did not have gross total resection and were age greater than 40 at time of diagnosis. This trial determined that patient treated with radiation therapy and chemotherapy had prolonged progression free survival ascompared to radiation treatment along. There was no group included for observation only. 1. Gross total resection NO 2. Age YOUNGER THAN 40 yo YES A high risk tumor would involve answer yes for both of above characteristics. For this trial the overall risk is determined to be LOW. One feature not listed above would be also to consider the MIB or proliferative index in either of these trials. MIB is measure of tumor proliferation rate and this was also determined to be 7-9% HIGH. I personally use this feature as well to help guide decision-making when there are questionable factors or patients with borderline determining factors. 10/15/2018 - 11/25/2018 Radiation 5400 cGy in 30 fractions 12/06/2018 Discussion Per Office Visit Note: Notes that he has been weaning off steroid per Dr. Arndt's orders and henotes since going down to 2mg once a day he has been having difficulty with being tired and having slurred speech. Advised to go back up to 2mg twice daily at 8am and 12pm. I sent this script to his pharmacy. I also advised that if he had worsening of symptoms over the weekend that he should be seen in the ED. 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 Subsequent cycles dosed at 200mg/m2 unless otherwise specified. C1D1 01/06/19 C2D1 02/03/19 C3D1 originally planned for 03/03/19 but held x 1 week due to platelets. Started 03/10/19 -[facility] 03/31/19 -Office visit 03/31/19 C4D1 planned for 04/07/19 -[facility] 04/28/19 C5D1 planned 05/05/19 -[facility] 05/26/19 C6D1 06/18/19 -[facility] 07/21/19 -Office visit 07/22/19 wt MRI C7D1 07/28/19 -[facility] 08/11/19 C8D1 09/01/19 -[facility] 09/23/19 C9D1 09/29/19 -[facility] 10/27/19 -Office visit 11/05/19 with MR perfusion C10D1 10/31/19 (delayed due to labs not done on time) -[facility] 11/21/19 C11D1 planned for 11/28/19 -[facility] 12/19/19 C12D1 planned for 12/26/19 06/17/2023 - 06/18/2023 Chemotherapy PCV (Procarbazine + Lomustine + NO Vincristine) every 6 weeks [id number] 07/05/2023 - Chemotherapy PCV (Procarbazine + Lomustine + NO Vincristine) C/c: pt with rec oligodendroglioma, f/u visit Interval History: Reports being tired. Has had some headaches, not worse with noise/light etc, no obv triggers. Not assoc with neurologic deficits, but are up to 8-9 in severity. No new numbness/weakness etc REVIEW OF SYSTEMS: pertinent positives/negatives as noted above. 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 90Capsule 3 levETIRAcetam 750 MG Oral Tablet Take 1.5 Tablets by mouth in the morning and 1.5 Tablets before bedtime. 180 Tablet 3 Docusate Sodium 50 MG Oral Capsule (Colace) Take 1 Capsule by mouth in the morning and 1 Capsule before bedtime. 60 Capsule 3 Ondansetron HCl 8 MG Oral Tablet (Zofran) Take 1 tablet by mouth 30 minutes prior to procarbazine and lomustine doses and every 8 hours as needed for nausea. Do not exceed 3 tablets per day. 60 Tablet 0 Lomustine 100 MG Oral Capsule (Ceenu) Take 2 Capsules by mouth every 6 weeks. Take on an empty stomach at bed time. 2 Capsule 0 Procarbazine HCl 50 MG Oral Capsule (Matulane) Take 3 Capsules by mouth at bedtime. 42 Capsule 0 No current facility-administered medications for this visit. Social History Tobacco Use Smoking status: Former Packs/day: 1.00 Years: 7.00 Pack years: 7.00 Types: Cigarettes Quit date: 2021 Years since quittin.7 Smokeless tobacco: Former Tobacco comments: 1 pack a day Vaping Use Vaping Use: Every day Substance Use Topics Alcohol use: Yes Comment: occasional Drug use: No Review of patient's allergies indicates: No Known Allergies PHYSICAL EXAMINATION: Limited Exam due to remote visit LABS; Reviewed in EMR Results for orders placed or performed in visit on 01/11/05 CBC Result Value Ref Range WBC 9.16 4.00 - 13.50 K/uL RBC 4.89 4.50 - 5.30 M/uL HGB 14.3 13.0 - 16.0 g/dL HCT 41.3 37.0 - 49.0 % MCV 84.6 78.0 - 98.0 fL MCH 29.2 25.0 - 35.0 pg MCHC 34.5 32.0 - 36.0 g/dL RDW 12.5 11.5 - 15.5 % PLT 244 150 - 400 K/uL MPV 9.0 6.6 - 11.1 fL Results for orders placed or performed in visit on 02/21/23 COMPREHENSIVE METABOLIC PANEL Result Value Ref Range BUN 19 6 - 20 mg/dL Creatinine 0.8 0.6 - 1.2 mg/dL Estimated Glomerular Filtration Rate >90 >=60 mL/min Sodium 142 135 - 146 mmol/L Potassium 4.2 3.5 - 5.1 mmol/L Chloride 107 98 - 107 mmol/L CO2 23 22 - 32 mmol/L Anion Gap 12 7 - 15 mmol/L Glucose 108 70 - 120 mg/dL Albumin 4.7 3.8 - 5.0 g/dL AST 31 10 - 50 U/L Alkaline Phosphatase 100 35 - 130 U/L Bilirubin, Total 0.3 <=1.2 mg/dL Calcium 9.5 8.4 - 10.2 mg/dL Protein 7.2 6.0 - 8.3 g/dL ALT 51 (H) 10 - 50 U/L PATHOLOGY/IMAGING AND PROCEDURES: Reviewed in EMR ASSESSMENT and PLAN: Jose Luis Wall is a 33 year old male with Left frontal Oligodendroglioma,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 Seizures MRI shows signs of progression, albeit very slow, however with clinical symptoms Plan to start Rx with Procarbazine/CCNU. We reviewed imaging in [facility] and recommendation was that there is no role for surgery or RT at this time .Could consider surgery if seizures are refractory to medical mgt. For now, start chemorx and assess response He hasn't recd his medications yet, note sent to pharmacy again I reviewed s/s mgt with him He is taking keppra 1125mg po BID; still having episodes of phasing out although much improved. Still no appt with neurology. I advised him to increase keppra to 1500mg po BID and sent message to neurology as well He renita call sooner for any change in s/s I spent over 25mins on the date of service in the care of this patient including preparation, delivery and documentation of the care provided. Excluding any time spent in the performance of separately billed services. Bakari Clifford MD Hematology Oncology [address] [address] documented in this encounter Plan of Treatment Upcoming Encounters Date Type Specialty Care Team Description 07/18/2023 Pharmacy Pharmacy [facility] [place], [facility] Hem/Onc [address] [place] [address] 07/23/2023 Pharmacy Pharmacy [facility] [place], [facility] Hem/Onc [address] [facility] [place] [address] 03/26/2024 Office Visit Family Medicine Dangelo Juárez, DO [address] [place] [address] Health Maintenance Due Date Last Done Comments [...] this encounter Medical Devices Implanted Type Area Fire Equipment Inspector Helper Device Identifier Shelf Expiration Date Model / Serial / Lot Graft Lyoplant 10.0x12.5cm 4x5 - [id number] Implanted:Qty: 1 on 08/13/2018 by Bacilio Romero MD at OR [facility] [place] : AESCULAP 12/29/2022 [id number] [id number] / [id number] / [id number] documented as of this encounter Visit Diagnoses [...] the patient have Health Care Power of Weather Strip Mechanic? No Code Status History Code Status Date Activated Date Inactivated Comments Full Code 08/13/2018 6:42 AM 08/13/2018 6:33 PM Thi s order reflects the patients wishes and were consensually agreed upon. Full Code 07/08/2018 10:45 PM 07/09/2018 9:37 PM This order reflects the patients wishes and were consensually agreed upon. Care Teams Ui Software Engineer Relationship Specialty Start Date End Date Dangelo Juárez, DO [address] [place] [address] PCP - General Family Medicine 07/19/18 documented as of this encounter
--- OUTSIDE RECORDS SUMMARY | 2023-08-15 23:40 | External Medical Summary | Summary of Care ---
Author Name Unknown Organization [facility] Address [address] [place] [address] Phone [phone] Care Team Providers Care System Controller Name Role Phone MarkusbrittaneynannetteDangelo Kilo CORDERO Primary Care Provider [phone] Reason for Visit * Reason Onset Date Comments FYI 07/18/2023 Encounter Details Date Type Department Care Team Description 07/18/2023 Telephone Hematology Oncology [facility] [address] [place] [address] Bakari Clifford MD [address] [place] [address] FYI Allergies No known active allergiesdocumented as of this encounter (statuses as of 07/20/2023) Medications Medication Sig Dispensed Refills Start Date [...] as of this encounter (statuses as of 07/20/2023) Active Problems Problem Noted Date Encounter for [...] follow-up with Neurosurgery/Neuropsychology 08/13/2018 for awake craniotomy Azuunks-Ekemk-Xjcar disease of demyelina ting type 12/26/2012 OBESITY, PEDS, BMI 99TH PERCENTL OR GREA TER 12/23/2009 Overview: Per Obesity Taxonomy 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 They will not get paid via insurance until tomorrow's date. They do have a team that works on and that once they receive the paid claim they can reach out to the patient to schedule delivery. At the latest this would be completed by Sunday. Kylee Stapleton Financial Institution Manager Pharmacy Hematology Oncology Oral Chemotherapy Clinic Medication Therapy Disease Management [facility] 07/20/23 1:14 PM Time Spent on Encounter: 6 - 10 minutes * Telephone Encounter - SISSY Gomez - 07/19/2023 1:20 PM EDT Spoke with Dulce today. Matulane Rx is in process at this time-they are verifying the patient's benefits. Will check Rx again tomorrow prior to the weekend to make sure there are no issues with filling. Kylee Stapleton Financial Institution Manager Pharmacy Hematology Oncology Oral Chemotherapy Clinic Medication Therapy Disease Management [facility] 07/19/23 1:20 PM Time Spent on Encounter: 6 - 10 minutes * Telephone Encounter - Elvira Maza RPh - 07/18/2023 10:59 AM EDT Matulane rx re-sent to [facility] forwarded to [facility] Elvira Maza, PharmD, BCOP Ambulatory Clinical Pharmacist | Oral Chemotherapy Clinic [facility] 07/18/2023, 10:59 AM * Telephone Encounter - SISSY Gomez - 07/18/2023 10:52 AM EDT Treatment: Medication: Procarbazine (Matulane) Dose Basis: 60 mg/m2 Dose: 150 mg PO daily for days 8-21 every 42 days Administration: at bedtime Medication: Lomustine Dose Basis: 90 mg/m2 Dose: 200 mg PO on day 1 every 24 days Administration: empty stomach at bedtime Indication/Staging/Diagnosis Code: Oligodendroma Start Date: Primary Sorting Cows Worker/Oncologist: Dr. Clifford Spoke with Dulce Olguin today to check status of Procarbazine and lomustine prescriptions Was informed that PA was required for Lomustine and that they received a cancellation notice from the provider's office for the Procarbazine. I then conferenced in [facility] to assist with these issues. She confirmed that patient needs both medications for treatment so she will resend Rx. We requested further information regarding the PA on the Lomustine. Was placed on hold for Rep to look into. Was told that [place] is OON for Lomustine. Will need to fill internally (Lomustine) Requested that Matulane please be marked stat when received. Kylee Stapleton Financial Institution Manager Pharmacy Hematology Oncology Oral Chemotherapy Clinic Medication Therapy Disease Management [facility] 07/18/23 10:57 AM Time Spent on Encounter: 11 - 15 minutes documented in this encounter Plan of Treatment Upcoming Encounters Date Type Specialty Care Team Description 07/23/2023 Pharmacy Pharmacy [facility]c [address] [place] [address] 03/26/2024 Office Visit Family Medicine Dangelo Juárez, DO [address] [place] [address] Health Maintenance Due Date Last Done Comments [...] this encounter Medical Devices Implanted Type Area Well Driller Device Identifier Shelf Expiration Date Model / Serial / Lot Graft Lyoplant 10.0x12.5cm 4x5 - [id number] Implanted:Qty: 1 on 08/13/2018 by Bacilio Romero [place] [facility] [place] : MONICAMOISÉS 12/29/2022 [id number] / [id number] / [id number] documented as of this encounter Visit Diagnoses [...] the patient have Health Care Power of Tin Flipper? No Code Status History Code Status Date Activated Date Inactivated Comments Full Code 08/13/2018 6:42 AM 08/13/2018 6:33 PM Thi s order reflects the patients wishes and were consensually agreed upon. Full Code 07/08/2018 10:45 PM 07/09/2018 9:37 PM This order reflects the patients wishes and were consensually agreed upon. Care Teams System Controller Relationship Specialty Start Date End Date Dangelo Juárez, DO [address] [place] [address] PCP - General Family Medicine 07/19/18 documented as of this encounter
--- OUTSIDE RECORDS SUMMARY | 2023-08-15 23:40 | External Medical Summary | Summary of Care ---
Author Name Unknown Organization [facility] Address [address] [place] [address] Phone [phone] Care Team Providers Care Cobbler Mckay Name Role Phone MarkusDangelo davis Primary Care Provider Reason for Visit * Reason Onset Date Comments Advice 07/26/2023 Encounter Details Date Type Department Care Team (Late st Contact Info) Description 07/26/2023 Telephone Hematology Oncology [facility] [address] [place] [address] Bakari Clifford MD [address] [place] [address] Advice () Allergies No known active allergiesdocumented as of [...] follow-up with Neurosurgery/Neuropsychology 08/13/2018 for awake craniotomy Rypagqr-Uodhi-Zcmlb disease of demyelinating typ e 12/26/2012 OBESITY, [...] encounter Miscellaneous Notes * Telephone Encounter - Joselin Peña RN - 07/26/2023 3:38 PM EDT Called left message that zofran script has been sent [facility]. Asked to call us with any questions, number given. * Telephone Encounter - SISSY Balbuena - 07/26/2023 10:38 AM EDT Patient would like to know that he just received the chemo pills that were prescribed. Patient would like to know if zofran would be able to be prescribed for his nausea. documented in this encounter Plan of Treatment Upcoming Encounters Date Type Department Care Team (Late st Contact Info) Description 07/27/2023 3:45 PM EDT Pharmacy Pharmacy Hematology Oncology [facility] [address] [place] [address] [facility] [place] [facility] Hem/Onc [address] [place] [address] 03/26/2024 3:00 PM EDT Office Visit Family Practice [facility] [address] [place] [address] Dangelo Juárez DO [address] [place] [address] Health Maintenance Due Date Last Done Comments [...] this encounter Medical Devices Implanted Type Area Brand Sales Manager Device Identifier Shelf Expiration Date Model / Serial / Lot Graft Lyoplant 10.0x12.5cm 4x5 - [id number] Implanted:Qty: 1 on 08/13/2018 by Bacilio Romero MD [place] [facility] [place] : AESCULAP 12/29/2022 [id number] [id number] / [id number] / [id number] documented as of this encounter Visit Diagnoses Diagnosis Chemotherapy induced nausea and vomiting- Primary Nausea with vomiting documented in this encounter Advance Directives Latest [...] the patient have Health Care Power of Service Center Technician? No Code Status History Code Status Date Activated Date Inactivated Comments Full Code 08/13/2018 6:42 AM 08/13/2018 6:33 PM Thi s order reflects the patients wishes and were consensually agreed upon. Full Code 07/08/2018 10:45 PM 07/09/2018 9:37 PM This order reflects the patients wishes and were consensually agreed upon. Care Teams Cobbler Mckay Relationship Specialty Start Date End Date Dangelo Juárez DO [address] [place], [place] [id number] PCP - General Family Medicine 07/19/18 documented as of this encounter
--- OUTSIDE RECORDS SUMMARY | 2023-08-15 23:40 | External Medical Summary | Summary of Care ---
Author Name Unknown Organization [facility] Address [address] [place] [address] Phone [phone] Care Team Providers Care Tooth Cutter Pinion Name Role Phone MarquitaDangelo Kilo CORDERO Primary Care Provider [phone] Reason for Visit * Reason Comments Outpatient Testing Encounter Details Date Type Department Care Team (Latest Contact Info) Description 07/26/2023 12:20 PM EDT Laboratory Laboratory [facility] [place] [address] [place] [id number] [place], [facility] [address] [place] [address] Oligodendroglioma (HCC) Allergies No known active allergiesdocumented [...] follow-up with Neurosurgery/Neuropsychology 08/13/2018 for 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 12/26/2012 OBESITY, [...] Department Care Team (Latest Contact Info) Description 07/26/2023 3:45 PM EDT Pharmacy Pharmacy Hematology Oncology [address] [address] [facility] Hem/Onc [address] [place] [address] Oligodendroglioma (HCC)* 07/27/2023 3:45 PM EDT Pharmacy Pharmacy Hematology Oncology [address] [address] [facility] [place] Hem/Onc [address] [place] [address] 03/26/2024 3:00 PM EDT Office Visit [facility] [address] [place] [address] Dangelo Juárez, [address] [place] [address] Pending Results Name Type Priority Associated Diagnoses Date /Time HEPATITIS B SURFACE ANTIGEN Lab Routine Oligodendroglioma (HCC) 07/26/2023 12:26 PM EDT HEPATITIS B CORE ANTIBODIES IGG AND IGM Lab Routine Oligodendroglioma (HCC) 07/26/2023 12:26 PM EDT HEPATITIS B SURFACE ANTIBODY Lab Routine Oligodendroglioma (HCC) 07/26/2023 12:26 PM EDT COMPREHENSIVE METABOLIC PANEL Lab STAT Oligodendroglioma (HCC) 07/26/2023 12:26 PM EDT Health Maintenance Due Date Last Done Comments [...] this encounter Medical Devices Implanted Type Area Award Clerk Device Identifier Shelf Expiration Date Model / Serial / Lot Graft Lyoplant 10.0x12.5cm 4x5 - [id number] Implanted:Qty: 1 on 08/13/2018 by Bacilio Romero [place] [facility] [place] AESCULAP 12/29/2022 1067 [id number] / [id number] / [id number] documented as of this encounter Procedures Procedure Name Priority Date/Time Associated Diagnosis Comments DIFFERENTIAL, AUTOMATED STAT 07/26/2023 12:26 PM EDT Oligodendroglioma (HCC) CBC STAT 07/26/2023 12:26 PM EDT Oligodendroglioma (HCC) CBC STAT 07/26/2023 12:26 PM EDT Oligodendroglioma (HCC) documented in this encounter Results * DIFFERENTIAL, AUTOMATED (07/26/2023 12:26 PM EDT) WBC 6.12 4.00 - 10.80 K/uL 07/26/2023 12:32 PM EDT [facility] 56-02 Neutrophils % 56.7 40.0 - 75.0 % 07/26/2023 12:32 PM EDT [facility] 56-02 Lymphocytes % 31.5 18.0 - 42.0 % 07/26/2023 12:32 PM EDT [facility] 56-02 Monocytes % 8.5 1.0 - 11.0 % 07/26/2023 12:32 PM EDT [facility] 56 Eosinophils % 2.6 0.0 - 6.0 % 07/26/2023 12:32 PM EDT [facility] Basophils % 0.7 0.0 - 2.0 % 07/26/2023 12:32 PM EDT [facility] 56 Absolute Neutrophils 3.47 1.80 - 7.70 K/uL 07/26/2023 12:32 PM EDT [facility] Absolute Lymphocytes 1.93 1.00 - 4.80 K/ul 07/26/2023 12:32 PM EDT [facility] Absolute Monocytes 0.52 0.00 - 1.10 K/uL 07/26/2023 12:32 PM EDT [facility] Absolute Eosinophils 0.16 0.00 - 0.70 K/uL 07/26/2023 12:32 PM EDT [facility] Absolute Basophils 0.04 0.00 - 0.20 K/uL 07/26/2023 12:32 PM EDT [facility] Blood Venous blood specimen / Unknown Venipuncture / Unknown 07/26/2023 12:26 PM EDT 07/26/2023 12:26 PM EDT Bakari Clifford MD LAB BLOOD ORDERABLES [facility] [address] [place] [address] * CBC (07/26/2023 12:26 PM EDT) WBC 6.12 4.00 - 10.80 K/uL 07/26/2023 12:32 PM EDT [facility] RBC 5.16 4.50 - 5.25 M/uL 07/26/2023 12:32 PM EDT [facility] 56 HGB 16.1 14.0 - 16.8 g/dL 07/26/2023 12:32 PM EDT [facility] 56 HCT 44.7 40.0 - 48.4 % 07/26/2023 12:32 PM EDT [facility] 56 MCV 86.6 82.0 - 99.5 fL 07/26/2023 12:32 PM EDT LABORATORY [address] MCH 31.2 27.0 - 34.0 pg 07/26/2023 12:32 PM EDT LABORATORY [address] MCHC 36.0 32.0 - 36.0 g/dL 07/26/2023 12:32 PM EDT LABORATORY [address] RDW 12.0 11.5 - 15.5 % 07/26/2023 12:32 PM EDT LABORATORY [address] PLT 203 140 - 400 K/uL 07/26/2023 12:32 PM EDT [address] MPV 10.2 6.6 - 11.1 fL 07/26/2023 12:32 PM EDT [address] Blood Venous blood specimen / Unknown Venipuncture / Unknown 07/26/2023 12:26 PM EDT 07/26/2023 12:26 PM EDT Bakari Clifford MD LAB BLOOD ORDERABLES [place] [address] [place] [address] documented in this encounter Visit Diagnoses Diagnosis 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 No Code Status History Code Status Date Activated Date Inactivated Comments Full Code 08/13/2018 6:42 AM 08/13/2018 6:33 PM Thi s order reflects the patients wishes and were consensually agreed upon. Full Code 07/08/2018 10:45 PM 07/09/2018 9:37 PM This order reflects the patients wishes and were consensually agreed upon. Care Teams Tooth Cutter Pinion Relationship Specialty Start Date End Date Dangelo Juárez DO [address] [place] [address] PCP - General Family Medicine 07/19/18 documented as of this encounter
--- OUTSIDE RECORDS SUMMARY | 2023-08-15 23:40 | External Medical Summary | Summary of Care ---
Author Name Unknown Organization [facility] Address [address] [place] [address] Phone [phone] Care Team Providers Care Carton Forming Machine Operator Name Role Phone MarkusDangelo davis Primary Care Provider [phone] Reason for Visit * Reason Comments Medication Management Encounter Details Date Type Department Care Team (Late st Contact Info) Description 07/23/2023 3:45 PM EDT Pharmacy Pharmacy Hematology Oncology [facility] [address] [place] [address] [facility] 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 gait 03/23/2000 documented as of this encounter (statuses as of 07/24/2023) Resolved Problems Problem Noted Date Diagnosed Date Resolved Date Overweight (BMI 25.0-29.9) 12/13/2005 0 12/23/2009 Overview: Per Obesity Taxonomy Routine child health exam documented as of this encounter (statuses as of 07/24/2023) Immunizations Name Administration Dates Next Due Meningococcal [...] of this encounter Progress Notes * Viktoriya Denise Brewer, [facility] - 07/24/2023 10:50 AM EDT MEDICATION THERAPY MANAGEMENT PROCARBAZINE AND LOMUSTINE TREATMENT EDUCATION NOTE Jose Luis Fabrizio Wall [phone] Patient Phone Numbers Communication: Left message Treatment: Medication: Procarbazine (Matulane) Dose Basis: 60 mg/m2 Dose: 150 mg PO daily for days 8-21 every 42 days Administration: at bedtime Medication: Lomustine (CCNU, Gleostine) Dose Basis: 90 mg/m2 Dose: 200 mg PO on day 1 every 24 days Administration: empty stomach at bedtime Indication/Staging/Diagnosis Code: Oligodendroma Start Date: TBD Primary Pneumatic Press Hand/Oncologist: Dr. Clifford Supportive Care Meds: Ondansetron 8 mg 30 min prior to chemotherapy and q8h PRN Docusate Prophylactic Meds: PJP ppx for ALC < 0.5 Cycle Lomustine Procarbazine C1 C2 The Hematology/Oncology Oral Chemotherapy Clinic will assess medication compliance at each patient encounter Treatment History: Adjuvant Temodar x 12 cycles 01/06/19 - 12/26/19 Medication education: Need to complete Confirmed pt has received information regarding goals and duration of therapy: yes Reviewed dosing and administration: yes Reviewed importance of medication compliance (document recommendations if barriers identified): yes Reviewed appropriate storage conditions: yes Reviewed handling precautions: yes Reviewed handling body fluids and waste: yes Reviewed side effects, monitoring, and supportive care measures: yes Lomustine Nausea/vomiting This medication may cause nausea or vomiting Low/Minimal emetic risk: Zofran/Compazine PRN, but if consistently nauseated, can administer [id number] minutes prior to chemotherapy Moderate/high emetic risk: Zofran 30 minutes prior to chemotherapy and q8h PRN. Compazine for breakthrough N/V Dietary modifications: avoid spicy, greasy, fatty foods If vomiting, increase water intake to avoid dehydration When to call clinic: N/V refractory to antiemetics or if unable to keep up with oral intake Cytopenias Procarbazine Nausea/vomiting This medication may cause nausea or vomiting Low/Minimal emetic risk: Zofran/Compazine PRN, but if consistently nauseated, can administer [id number] minutes prior to chemotherapy Moderate/high emetic risk: Zofran 30 minutes prior to chemotherapy and q8h PRN. Compazine for breakthrough N/V Dietary modifications: avoid spicy, greasy, fatty foods If vomiting, increase water intake to avoid dehydration When to call clinic: N/V refractory to antiemetics or if unable to keep up with oral intake Diarrhea This medication can cause loose stools You can purchase OTC loperamide (Imodium A-D) to help manage this side effect (4 mg x 1, followed by 2 mg Q4H or after every loose stool, not to exceed 16 mg/day) Drink plenty of fluids to prevent dehydration, ideally 8-10 glasses per day (unless a healthcare provider has instructed you to limit your fluid intake due to other health conditions) Dietary modifications: eat bland, low fiber foods such as bananas, rice, applesauce, and toast (BRAT diet), avoid dairy, avoid spicy, greasy or fatty foods When to call clinic: If approaching maximum dose of loperamide and still having diarrhea or if you have any s/sx of dehydration; if there is a concern for infectious diarrhea (especially in setting of neutropenia) Constipation This medication may cause constipation Increase your water intake and fiber in your diet by eating fresh fruits and vegetables A daily stool softener, such as docusate (Colace), and/or a laxative, such as senna (Senokot) or polyethylene glycol (Miralax), may be helpful. When to call clinic: If these do not help within 48 hours or you develop abdominal pain, vomiting Rash This medication may cause a rash. Severity can vary from being mild to severe, necessitating interruption of your chemotherapy treatment Moisturize your skin Avoid scented lotions, perfumes, colognes Avoid extreme heat Minimize sun exposure and wear sunscreen and protective clothing When to call clinic: If rash develops Hearing changes FOUNDATION DIRECTOR toxicity (paresthesias, neuropathies, confusion) Confirmed pt has received written information about drug therapy: yes Changes to medication list since last visit: no Drug interaction assessment: Treatment plan and current medication list evaluated for drug-drug interactions. No clinically significant drug interaction identified Does patient rely on caregiver for medication management? no Assessment and plan: Attempted to contact patient today (second attempt) for chemotherapy education. Left message to return call to [facility] Lomustine shipped from [facility] on 07/19 Procarbazine anticipated to ship from [facility] today Will follow-up again on 07/26 for chemotherapy education Follow up: 07/26 Laney HammerD, BCOP Ambulatory Clinical Pharmacist | Oral Chemotherapy Clinic [facility] 07/24/2023, 10:59 AM Monitoring Parameters: Estimated CrCl Serum creatinine: 0.8 mg/dL 02/21/23 1527 Estimated creatinine clearance: 185.8 mL/min Hepatitis panel Ordered to be complete Suggested lab monitoring Weekly CBCd and CMP Treatment Parameters Please refer to PI Pertinent Labs: Time Spent on Encounter: 11 - 15 minutes Encounter Group: Neuro-Oncology Encounter Interventions Item Category: Oral Chemotherapy Lomustine Problem/Rationale: Education: Initial education Pharmacist Intervention(s): Care coordination Magnitude of Intervention: Monitoring with direction (Level 1) Second Item Second Item Category: Oral Chemotherapy Procarbazine Problem/Rationale: Education: Initial education Pharmacist Intervention(s): Care coordination Magnitude of Intervention: Monitoring with direction (Level 1) documented in this encounter Plan of Treatment Upcoming Encounters Date Type Department Care Team (Late st Contact Info) Description 03/26/2024 3:00 PM EDT Office Visit Family Practice [facility] [place] [address] [facility] [place] [address] Dangelo Juárez, DO [address] [facility] [place] [address] Health Maintenance Due Date Last Done Comments [...] this encounter Medical Devices Implanted Type Area Monomer Recovery Operator Device Identifier Shelf Expiration Date Model / Serial / Lot Graft Lyoplant 10.0x12.5cm 4x5 - [id number] Implanted:Qty: 1 on 08/13/2018 by Bacilio Romero MD at [place] [facility] [place] : AESCULAP 12/29/2022 [id number] [id number] / [id number] / [id number] documented as of this encounter Visit Diagnoses [...] the patient have Health Care Power of Component Assembler? No Code Status History Code Status Date Activated Date Inactivated Comments Full Code 08/13/2018 6:42 AM 08/13/2018 6:33 PM Thi s order reflects the patients wishes and were consensually agreed upon. Full Code 07/08/2018 10:45 PM 07/09/2018 9:37 PM This order reflects the patients wishes and were consensually agreed upon. Care Teams Carton Forming Machine Operator Relationship Specialty Start Date End Date Dangelo Juárez DO [address] [place] [address] PCP - General Family Medicine 07/19/18 documented as of this encounter"
--- OUTSIDE RECORDS SUMMARY | 2023-08-15 23:40 | External Medical Summary ---
Author Name Unknown Address Unknown Organization K01:[facility] [address] [place] [address] Laboratory Report Ordering Provider Test Date Status STERLING SOLO 07/26/2023 12:26:03 Final Observation Date Value Abnormality Reference (Units ) Status Hep B surface Ag 07/26/2023 12:26:03 Negative Neg ative Final Performing Location [facility] [address] [facility] [address]
--- OUTSIDE RECORDS SUMMARY | 2023-08-15 23:40 | External Medical Summary | Summary of Care ---
Author Name Unknown Organization [facility] Address [address] [place] [address] Phone [phone] Care Team Providers Care Services Engineer Name Role Phone MarkusbrittaneynannetteDangelo Kilo CORDERO Primary Care Provider [phone] Reason for Visit * Reason Onset Date Comments FYI 07/18/2023 Encounter Details Date Type Department Care Team Description 07/18/2023 Telephone Hematology Oncology [facility] [address] [place] [address] Bakari Clifford MD [address] [place] [address] FYI Allergies No known active allergiesdocumented as of this encounter (statuses as of 07/19/2023) Medications Medication Sig Dispensed Refills Start Date [...] as of this encounter (statuses as of 07/19/2023) Active Problems Problem Noted Date Encounter for [...] follow-up with Neurosurgery/Neuropsychology 08/13/2018 for awake craniotomy Uymnpje-Opqvc-Wmkgf disease of demyelina ting type 12/26/2012 OBESITY, PEDS, BMI 99TH PERCENTL OR GREA TER 12/23/2009 Overview: Per Obesity Taxonomy 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 Matulane Rx is in process at this time-they are verifying the patient's benefits. Will check Rx again tomorrow prior to the weekend to make sure there are no issues with filling. Kylee Stapleton [facility] Hematology Oncology Oral Chemotherapy Clinic Medication Therapy Disease Management [facility] 07/19/23 1:20 PM Time Spent on Encounter: 6 - 10 minutes * Telephone Encounter - Elvira Maza [facility] - 07/18/2023 10:59 AM EDT Matulane rx re-sent to [facility]ises forwarded to [facility] Elvira Maza, PharmD, BCOP Ambulatory Clinical Pharmacist | Oral Chemotherapy Clinic [facility] 07/18/2023, 10:59 AM * Telephone Encounter - [...] Indication/Staging/Diagnosis Code: Oligodendroma Start Date: TBD Primary Legal Billing Analyst/Oncologist: Dr. Clifford Spoke with Dulce Olguin today to check status of Procarbazine and lomustine prescriptions Was informed that PA was required for Lomustine and that they received a cancellation notice from the provider's office for the Procarbazine. I then conferenced in [facility] Nory to assist with these issues. She confirmed that patient needs both medications for treatment so she will resend Rx. We requested further information regarding the PA on the Lomustine. Was placed on hold for Rep to look into. Was told that Early is OON for Lomustine. Will need to fill internally (Lomustine) Requested that Matulane please be marked stat when received. Kylee Stapleton [facility] Hematology Oncology Oral Chemotherapy Clinic Medication Therapy Disease Management [facility] 07/18/23 10:57 AM Time Spent on Encounter: 11 - 15 minutes documented in this encounter Plan of Treatment Upcoming Encounters Date Type Specialty Care Team Description 07/23/2023 Pharmacy Pharmacy [facility] Hem[facility]Onc [address] [place] [address] 03/26/2024 Office Visit Family Medicine Dangelo Juárez, DO [address] [place] [address] Health Maintenance Due Date Last Done Comments [...] this encounter Medical Devices Implanted Type Area Customer Service Sales Consultant Device Identifier Shelf Expiration Date Model / Serial / Lot Graft Lyoplant 10.0x12.5cm 4x5 - [id number] Implanted:Qty: 1 on 08/13/2018 by Bacilio Romero MD at OR [facility] [place] B [place] : AESCULAP 12/29/2022 1067 [id number] / [id number] / [id number] documented as of this encounter Visit Diagnoses [...] the patient have Health Care Power of Yield Improvement Engineer? No Code Status History Code Status Date Activated Date Inactivated Comments Full Code 08/13/2018 6:42 AM 08/13/2018 6:33 PM Thi s order reflects the patients wishes and were consensually agreed upon. Full Code 07/08/2018 10:45 PM 07/09/2018 9:37 PM This order reflects the patients wishes and were consensually agreed upon. Care Teams Services Engineer Relationship Specialty Start Date End Date Dangelo Juárez, DO [address] [facility] [place] [address] PCP - General Family Medicine 07/19/18 documented as of this encounter"
--- OUTSIDE RECORDS SUMMARY | 2023-08-15 23:40 | External Medical Summary | Summary of Care ---
Author Name Unknown Organization [facility] Address [address] [place] [address] Phone [phone] Care Team Providers Care Police Manager Name Role Phone MarkusDangelo davis Primary Care Provider [phone] Reason for Visit * Reason Onset Date Comments Appointment 07/26/2023 Encounter Details Date Type Department Care Team (Late st Contact Info) Description 07/26/2023 Telephone Hematology Oncology [facility] [address] [place] [address] Bakari Clifford MD [address] [place] [address] Appointment Allergies No known active [...] follow-up with Neurosurgery/Neuropsychology 08/13/2018 for awake craniotomy Boxsceo-Wbgji-Yabqk disease of demyelinating typ e 12/26/2012 OBESITY, [...] Ambulatory Clinical Pharmacist | Oral Chemotherapy Clinic [facility] 07/26/2023, 4:00 PM documented in this encounter Plan of Treatment Upcoming Encounters Date Type Department Care Team (Late st Contact Info) Description 07/27/2023 3:45 PM EDT Pharmacy Pharmacy Hematology Oncology [facility] [place] [address] [place] [address] [facility] [place] Hem/Onc [address] [place] [address] 03/26/2024 3:00 PM EDT Office Visit Family Practice [place] [address] [facility] [place] [address] Dangelo Juárez DO [address] [facility] [place] [address] Health Maintenance Due Date Last Done Comments [...] this encounter Medical Devices Implanted Type Area Color Maker Dyer Device Identifier Shelf Expiration Date Model / Serial / Lot Graft Lyoplant 10.0x12.5cm 4x5 - [id number] Implanted:Qty: 1 on 08/13/2018 by Bacilio Romero MD at [place] [facility] B [place] : AESCULAP 12/29/2022 1067 [id number] / [id number] / [id number] documented as of this encounter Advance Directives [...] the patient have Health Care Power of Gis Coordinator? No Code Status History Code Status Date Activated Date Inactivated Comments Full Code 08/13/2018 6:42 AM 08/13/2018 6:33 PM Thi s order reflects the patients wishes and were consensually agreed upon. Full Code 07/08/2018 10:45 PM 07/09/2018 9:37 PM This order reflects the patients wishes and were consensually agreed upon. Care Teams Police Manager Relationship Specialty Start Date End Date Dangelo Juárez DO [address] [place] [address] PCP - General Family Medicine 07/19/18 documented as of this encounter"
--- OUTSIDE RECORDS SUMMARY | 2023-08-15 23:40 | External Medical Summary | Summary of Care ---
Author Name Unknown Organization [facility] Address [address] [place] [address] Phone [phone] Care Team Providers Care Home Health Lvn Name Role Phone MarquitaDangelo Kilo CORDERO Primary Care Provider [phone] Reason for Visit * Reason Onset Date Comments Medication Refill 07/17/2023 Encounter Details Date Type Department Care Team Description 07/17/2023 Refill Hematology Oncology [facility] [address] [place] [address] Bakari Cliffrod MD [address] [place] [address] Oligodendroglioma (HCC) Allergies No known [...] mouth at bedtime. 42 Capsule 0 07/17/2023 Active Procarbazine HCl 50 [...] 2 Capsule 0 07/05/2023 3 Discontinue d(Refill) documented as of this [...] follow-up with Neurosurgery/Neuropsychology 08/13/2018 for awake craniotomy Xplqxpy-Uccio-Ybsla disease of demyelina ting type 12/26/2012 OBESITY, [...] encounter Miscellaneous Notes * Telephone Encounter - Vlad Whitten RPh - 07/17/2023 11:46 AM EDT [facility] cannot fill matulane due to restricted access of medication. [facility] is the preferred pharmacy with access to drug. Forwarding prescriptions to [facility] due to this limitation Vlad Whitten PharmD Clinical Pharmacist [facility] 11:47 AM, 07/17/2023 documented in this encounter Plan of Treatment Upcoming Encounters Date Type Specialty Care Team Description 07/17/2023 Telemedicine Hematology Oncology Bakari Clifford MD [address] [place] [address] 07/17/2023 Pharmacy Pharmacy [facility] [place] Hem/Onc [address] [place] [address] 03/26/2024 Office Visit Family Medicine Dangelo Juárez, DO [address] [place] [address] Health Maintenance Due Date Last Done Comments [...] this encounter Medical Devices Implanted Type Area Financial Sales Consultant Device Identifier Shelf Expiration Date Model / Serial / Lot Graft Lyoplant 10.0x12.5cm 4x5 - [id number] Implanted:Qty: 1 on 08/13/2018 by Bacilio Rom[place] [facility] [place] : AESCULAP 12/29/2022 1067 050 / [id number] / [id number] documented as of this encounter Visit Diagnoses [...] the patient have Health Care Power of Tissue Recovery Technician? No Code Status History Code Status Date Activated Date Inactivated Comments Full Code 08/13/2018 6:42 AM 08/13/2018 6:33 PM Thi s order reflects the patients wishes and were consensually agreed upon. Full Code 07/08/2018 10:45 PM 07/09/2018 9:37 PM This order reflects the patients wishes and were consensually agreed upon. Care Teams Home Health Lvn Relationship Specialty Start Date End Date Dangelo Juárez, DO [address] [place] [address] PCP - General Family Medicine 07/19/18 documented as of this encounter
--- OUTSIDE RECORDS SUMMARY | 2023-08-15 23:40 | External Medical Summary | Summary of Care ---
Author Name Unknown Organization [facility] Address [address] [place] [address] Phone [phone] Care Team Providers Care Extrusion Die Repair Manager Name Role Phone MarkusDangelo davis Primary Care Provider [phone] Reason for Visit * Reason Comments Medication Management Encounter Details Date Type Department Care Team (Late st Contact Info) Description 07/26/2023 3:45 PM EDT Pharmacy Pharmacy Hematology Oncology [facility] [address] [place] [address] [facility] Hem/Onc [address] [place], [place] [id number] Oligodendroglioma (HCC)* Allergies No known active allergiesdocumented [...] follow-up with Neurosurgery/Neuropsychology 08/13/2018 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 12/26/2012 OBESITY, [...] this encounter Progress Notes * Elvira Maza, [facility] - 07/26/2023 8:49 AM EDT MEDICATION THERAPY MANAGEMENT PROCARBAZINE AND LOMUSTINE TREATMENT EDUCATION NOTE Jose Luis Wall [phone] Patient Phone Numbers Communication: Spoke to: Other: Grandmother Lissette Treatment: Medication: Procarbazine (Matulane) Dose Basis: 60 mg/m2 Dose: 150 mg PO daily for days 8-21 every 42 days Administration: at bedtime Medication: Lomustine (CCNU, Gleostine) Dose Basis: 90 mg/m2 Dose: 200 mg PO on day 1 every 42 days Administration: empty stomach at bedtime Indication/Staging/Diagnosis Code: Oligodendroma Start Date: TBD Primary Finish Filer/Oncologist: Dr. Clifford Supportive Care Meds: Ondansetron 8 [...] PRN, but if consistently nauseated, can administer Ltaqgf02 minutes prior to chemotherapy Moderate/high emetic risk: [...] PRN, but if consistently nauseated, can administer Cirnjn51 minutes prior to chemotherapy Moderate/high emetic risk: [...] call clinic: If rash develops Hearing changes ANESTHESIOLOGIST AND CRITICAL CARE toxicity (paresthesias, neuropathies, confusion) Confirmed pt has received written information about drug therapy: yes Changes to medication list since last visit: no Drug interaction assessment: Treatment plan and current medication list evaluated for drug-drug interactions. No clinically significant drug interaction identified Does patient rely on caregiver for medication management? no Assessment and plan: Attempted to contact patient today (third attempt) for chemotherapy education Seems that voicemail was forwarded to his father Jose A's phone (which is full) Called father (Jose A's) number directly - did not leave voicemail as the name on voicemail did not match any names listed in the patient's contacts Called and spoke to Grandmother Lissette - requested that she have Jose Luis get in touch with us for education. Also requested she pass along message that we need to speak with Jose Luis before he begins his treatment Lomustine shipped from [facility] on 07/19 Procarbazine anticipated to ship from [facility] 07/24 Will follow-up again on 07/27 for chemotherapy education. Pt should obtain new baseline labs beforestarting. May need GML referral Per 07/05/23 documentation, "Can forgo PFTs per discussion with Dr. Clifford. Orders canceled " Follow up: 07/27 Elvira Maza, PharmD, BCOP Ambulatory Clinical Pharmacist | Oral Chemotherapy Clinic [facility] 07/26/2023, 9:13 AM Monitoring Parameters: Estimated CrCl Serum creatinine: 0.8 mg/dL 02/21/23 1527 Estimated creatinine clearance: 185.8 mL/min Hepatitis panel Ordered to be complete Suggested lab monitoring Weekly CBCd and CMP Treatment Parameters Please refer to PI Pertinent Labs: documented in this encounter Plan of Treatment Upcoming Encounters Date Type Department Care Team (Late st Contact Info) Description 03/26/2024 3:00 PM EDT Office Visit Family Practice [place] [facility] [address] [place] [address] Dangelo Juárez DO [address] [place] [address] Health Maintenance Due Date Last Done Comments [...] this encounter Medical Devices Implanted Type Area Stranding Machine Operator Device Identifier Shelf Expiration Date Model / Serial / Lot Graft Lyoplant 10.0x12.5cm 4x5 - [id number] Implanted:Qty: 1 on 08/13/2018 by Bacilio Romero MD at OR [facility] [place] B [place] : AESCULAP 12/29/2022 1067 050 / [id number] / [id number] documented as of this encounter Visit Diagnoses [...] patient have Health Care Power of Manager Target? No Code Status History Code Status Date Activated Date Inactivated Comments Full Code 08/13/2018 6:42 AM 08/13/2018 6:33 PM Thi s order reflects the patients wishes and were consensually agreed upon. Full Code 07/08/2018 10:45 PM 07/09/2018 9:37 PM This order reflects the patients wishes and were consensually agreed upon. Care Teams Extrusion Die Repair Manager Relationship Specialty Start Date End Date Dangelo Juárez DO [address] [place], [place] [address]gay[facility] [address] PCP - General Family Medicine 07/19/18 documented as of this encounter
--- OUTSIDE RECORDS SUMMARY | 2023-08-15 23:40 | External Medical Summary ---
Author Name Unknown Address Unknown Organization K09:[facility] [place] [address] Laboratory Report Ordering Provider Test Date Status STERLING SOLO 07/26/2023 12:26:03 Final Every week and for 6 weeks a fter finishing treatment Observation Date Value Abnormality Reference (Units ) Status SYNC LEUKOCYTES IN BLOOD BY AUTOMATED COUNT 07/26/2023 12:26:03 6.12 4.00-10.80 (K/uL) Final Segs 07/26/2023 12:26:03 56.7 40.0-75.0 (%) Final Lymphs % 07/26/2023 12:26:03 31.5 18.0-42.0 (%) Final Monos 07/26/2023 12:26:03 8.5 1.0-11.0 (%) Final Eosinophils 07/26/2023 12:26:03 2.6 0.0-6.0 (%) Final Basos 07/26/2023 12:26:03 0.7 0.0-2.0 (%) Final Absolute Segs 07/26/2023 12:26:03 3.47 1.80-7.70 (K/uL) Final Lymphs, absolute 07/26/2023 12:26:03 1.93 1.00-4.80 (K/ul) Final Monos, Abs 07/26/2023 12:26:03 0.52 0.00-1.10 (K/uL) Final Eos, Abs 07/26/2023 12:26:03 0.16 0.00-0.70 (K/uL) Final Basos, Abs 07/26/2023 12:26:03 0.04 0.00-0.20 (K/uL) Final Performing Location [facility] [place] [address]
--- OUTSIDE RECORDS SUMMARY | 2023-08-15 23:40 | External Medical Summary ---
Author Name Unknown Address Unknown Organization K09:[facility] [place] [address] Laboratory Report Ordering Provider Test Date Status STERLING SOLO 07/26/2023 12:26:03 Final Every week and for 6 weeks a fter finishing treatment Observation Date Value Abnormality Reference (Units ) Status WBC, Total 07/26/2023 12:26:03 6.12 4.00-10.8 0 (K/uL) Final RBC 07/26/2023 12:26:03 5.16 4.50-5.25 (M/uL) Final Hemoglobin 07/26/2023 12:26:03 16.1 14.0-16.8 (g/dL) Final HCT 07/26/2023 12:26:03 44.7 40.0-48.4 (%) Final MCV 07/26/2023 12:26:03 86.6 82.0-99.5 (fL) Final MCH 07/26/2023 12:26:03 31.2 27.0-34.0 (pg) Final MCHC 07/26/2023 12:26:03 36.0 32.0-36.0 (g/dL) Final RDW 07/26/2023 12:26:03 12.0 11.5-15.5 (%) Final Platelets 07/26/2023 12:26:03 203 140-400 (K /uL) Final MPV 07/26/2023 12:26:03 10.2 6.6-11.1 ( fL) Final Performing Location [facility] [place] [address]
--- OUTSIDE RECORDS SUMMARY | 2023-08-15 23:40 | External Medical Summary | Summary of Care ---
Author Name Unknown Organization [facility] Address [address] [place] [address] Phone [phone] Care Team Providers Care Treasury Director Name Role Phone MarkusDangelo davis Primary Care Provider [phone] Reason for Visit * Reason Onset Date Comments Appointment 07/26/2023 Encounter Details Date Type Department Care Team (Late st Contact Info) Description 07/26/2023 Telephone Hematology Oncology [facility] [address] [place] [address] Bakari Clifford MD [address] [place] [address] Appointment Allergies No known active [...] follow-up with Neurosurgery/Neuropsychology 08/13/2018 for awake craniotomy Aefqzev-Azyvb-Dkzxt disease of demyelinating typ e 12/26/2012 OBESITY, [...] Ambulatory Clinical Pharmacist | Oral Chemotherapy Clinic [facility] 07/26/2023, 4:00 PM documented in this encounter Plan of Treatment Upcoming Encounters Date Type Department Care Team (Late st Contact Info) Description 07/27/2023 3:45 PM EDT Pharmacy Pharmacy Hematology Oncology [facility] [address] [place] [address] [facility] [place] Hem/Onc [address] [place] [address] 03/26/2024 3:00 PM EDT Office Visit Family Practice [place] [address] [facility] [place] [address] Dangelo Juárez DO [address] [facility] [place] [address] Health Maintenance Due Date Last Done Comments [...] this encounter Medical Devices Implanted Type Area Icu Tech Device Identifier Shelf Expiration Date Model / Serial / Lot Graft Lyoplant 10.0x12.5cm 4x5 - [id number] Implanted:Qty: 1 on 08/13/2018 by Bacilio Romero [place] [facility] [place] AESCULAP 12/29/2022 1067 050 / [id number] / [id number] documented as of this encounter Advance Directives [...] the patient have Health Care Power of Marriage And Family Therapist? No Code Status History Code Status Date Activated Date Inactivated Comments Full Code 08/13/2018 6:42 AM 08/13/2018 6:33 PM Thi s order reflects the patients wishes and were consensually agreed upon. Full Code 07/08/2018 10:45 PM 07/09/2018 9:37 PM This order reflects the patients wishes and were consensually agreed upon. Care Teams Treasury Director Relationship Specialty Start Date End Date Dangelo Juárez DO [address] [place] [address] PCP - General Family Medicine 07/19/18 documented as of this encounter"
--- OUTSIDE RECORDS SUMMARY | 2023-08-15 23:40 | External Medical Summary | Summary of Care ---
Author Name Unknown Organization [facility] Address [address] [place] [address] Phone [phone] Care Team Providers Care Shadow Graph Weight Operator Name Role Phone MarquitaDangelo Kilo CORDERO Primary Care Provider [phone] Reason for Visit * Reason Comments Medication Management Encounter Details Date Type Department Care Team Description 07/17/2023 Pharmacy Pharmacy Hematology Oncology [facility] [address] [place], [place] [phone] [facility] [place], [facility] Hem/Onc [address] [place], [place] [phone] Oligodendroglioma (HCC)* Allergies No known active allergiesdocumented [...] 07/05/2023 Active Lomustine 100 MG Oral Capsule (Ceenu)Indications :Oligodendroglioma (HCC) Take 2 Capsules by mouth every 6 weeks. Take on an empty stomach at bed time. 2 Capsule 0 07/17/2023 Active Procarbazine HCl 50 MG Oral Capsule (Matulane)Indicati ons:Oligodendrogli natalia (HCC) Take 3 Capsules by mouth at bedtime on days 8 through 21 every 42 days. 42 Capsule 0 07/17/2023 Active documented as of this encounter (statuses [...] follow-up with Neurosurgery/Neuropsychology 08/13/2018 for awake craniotomy Bbhojpj-Zhvqa-Xptmc disease of demyelina ting type 12/26/2012 OBESITY, [...] shopping? (15 years old or older) No 11/13/20 18 Cognitive Status Response Date of Assessm ent Because of a physical, menta l, or emotional condition, do you have serious difficulty concentrating, remembering, or making decisions? (5 years old or older No 08/13/2018 documented as of this encounter Progress Notes * Viktoriya Brewer RPh - 07/17/2023 4:05 PM EDT Per discussion with [facility], probarbazine unable to be ordered due to restricted access. Procarbazine and lomustine prescriptions were forwarded to [facility] today. Will follow-up tomorrow to check on prescription status and expedite prescriptions if possible. Following confirmation of shipment, [facility] will attempt to contact patient again for education (left voicemail on 07/12 to returncall for chemotherapy education). Viktoriya Brewer, PharmD, BCOP Ambulatory Clinical Pharmacist | Oral Chemotherapy Clinic [facility] 07/17/2023, 4:06 PM documented in this encounter Plan of Treatment Upcoming Encounters Date Type Specialty Care Team Description 07/18/2023 Pharmacy Pharmacy [facility] [place] Hem/Onc [address] [place] [address] 07/23/2023 Pharmacy Pharmacy [facility] [place], [facility] Hem/Onc [address] [place] [address] 03/26/2024 Office Visit Family Medicine Dangelo Juárez, DO [address] [place] [address] Health Maintenance Due Date Last Done Comments [...] this encounter Medical Devices Implanted Type Area Geomagnetist Device Identifier Shelf Expiration Date Model / Serial / Lot Graft Lyoplant 10.0x12.5cm 4x5 - [id number] Implanted:Qty: 1 on 08/13/2018 by Bacilio Romero [place] [facility] : AESCULAP 12/29/2022 1067 050 / [id number] / [id number] documented as of this encounter Visit Diagnoses [...] the patient have Health Care Power of Automatic Serging Machine Operator? No Code Status History Code Status Date Activated Date Inactivated Comments Full Code 08/13/2018 6:42 AM 08/13/2018 6:33 PM Thi s order reflects the patients wishes and were consensually agreed upon. Full Code 07/08/2018 10:45 PM 07/09/2018 9:37 PM This order reflects the patients wishes and were consensually agreed upon. Care Teams Shadow Graph Weight Operator Relationship Specialty Start Date End Date Dangelo Juárez, DO [address] [place] [address] PCP - General Family Medicine 07/19/18 documented as of this encounter"
--- OUTSIDE RECORDS SUMMARY | 2023-08-15 23:40 | External Medical Summary | Summary of Care ---
Author Name Unknown Organization [facility] Address [address] [place] [address] Phone [phone] Care Team Providers Care Deputy County Clerk Name Role Phone MarquitaDangelo Kilo CORDERO Primary Care Provider [phone] Reason for Visit * Reason Onset Date Comments Medication Refill 07/17/2023 Encounter Details Date Type Department Care Team Description 07/17/2023 Refill Hematology Oncology [facility] [address] [place] [address] Bakari Clifford MD [address] [place] [address] Oligodendroglioma (HCC) Allergies No known [...] HCl 8 MG Oral Tablet (Zofran)Indicatio ns:Oligodendrogli natlaia (HCC) Take 1 tablet by mouth 30 [...] 42 days. 42 Capsule 0 07/17/2023 Active Procarbazine HCl [...] without status epilepticus 12/08/2022 Gastroesophageal reflux disease 11/11/20 19 Oligodendroglioma 08/08/2018 Overview: Jose Luis Wall's [...] follow-up with Neurosurgery/Neuropsychology 08/13/2018 for awake craniotomy Yraperi-Mbpam-Kkxza disease of demyelina ting type 12/26/2012 OBESITY, [...] 07/17/2023) Immunizations Name Administration Dates Next Due DTP [...] encounter Miscellaneous Notes * Addendum Note - Vitkoriya Brewer RPh - 07/17/2023 4:04 PM EDTAddended by: VIKTORIYA BREWER on: 07/17/2023 04:04 PM Modules accepted: Orders * Telephone Encounter - Viktoriya Brewer RPh - 07/17/2023 4:03 PM EDT Updated procarbazine 50 mg capsule sig - "Take 3 Capsules by mouth at bedtime on days 8 through 21 every 42 days." Sent to [facility] Viktoriya Brewer PharmD, BCOP Ambulatory Clinical Pharmacist | Oral Chemotherapy Clinic [facility] 07/17/2023, 4:04 PM * Telephone Encounter - Vlad Whitten RPh - 07/17/2023 11:46 AM EDT P cannot fill matulane due to restricted access of medication. [facility] is the preferred pharmacy with access to drug. Forwarding prescriptions to [facility] due to this limitation Vlad Whitten PharmD Clinical Pharmacist [facility] 11:47 AM, 07/17/2023 documented in this encounter Plan of Treatment Upcoming Encounters Date Type Specialty Care Team Description 03/26/2024 Office Visit Family Medicine Dangelo Juárez, DO [address] [place] [address] Health Maintenance Due Date Last Done Comments [...] this encounter Medical Devices Implanted Type Area Manufacturing Advisor Device Identifier Shelf Expiration Date Model / Serial / Lot Graft Lyoplant 10.0x12.5cm 4x5 - [id number] Implanted:Qty: 1 on 08/13/2018 by Baiclio Romero MD at [facility] B [place] : AESCULAP 12/29/2022 [id number] [id number] / [id number] / [id number] documented as of this encounter Visit Diagnoses [...] the patient have Health Care Power of Health Data Administrator? No Code Status History Code Status Date Activated Date Inactivated Comments Full Code 08/13/2018 6:42 AM 08/13/2018 6:33 PM Thi s order reflects the patients wishes and were consensually agreed upon. Full Code 07/08/2018 10:45 PM 07/09/2018 9:37 PM This order reflects the patients wishes and were consensually agreed upon. Care Teams Deputy County Clerk Relationship Specialty Start Date End Date Dangelo Juárez, DO [address] [place] [address] PCP - General Family Medicine 07/19/18 documented as of this encounter
--- OUTSIDE RECORDS SUMMARY | 2023-08-15 23:40 | External Medical Summary ---
Author Name Unknown Address Unknown Organization K01:[facility] [place] - [address] [facility] [place] [address] Laboratory Report Ordering Provider Test Date Status STERLING SOLO 07/26/2023 12:26:03 Final Observation Date Value Abnormality Reference (Units ) Status Hepatitis B virus core Ab [Presence] in Serum 07/26/2023 12:26:03 Negative Negative Final Performing Location [facility] - [address] [facility] [place] [address]
--- OUTSIDE RECORDS SUMMARY | 2023-08-15 23:40 | External Medical Summary | Summary of Care ---
Author Name Unknown Organization [facility] Address [address] [place] [address] Phone [phone] Care Team Providers Care Steam Fitter Supervisor Name Role Phone MarkusDangelo davis Primary Care Provider [phone] Reason for Visit * Reason Comments Medication Management Encounter Details Date Type Department Care Team (Late st Contact Info) Description 07/26/2023 3:45 PM EDT Pharmacy Pharmacy Hematology Oncology [facility] [address] [place] [address] [facility] [place] Hem/Onc [address] [place], [place] [id number] Oligodendroglioma (HCC)* Allergies No known active allergiesdocumented [...] follow-up with Neurosurgery/Neuropsychology 08/13/2018 for awake craniotomy Jhoagkv-Utanp-Yfuxs disease of demyelinating typ e 12/26/2012 OBESITY, [...] of this encounter Progress Notes * Elvira Leandro Maza, [facility] - 07/26/2023 8:49 AM EDT MEDICATION THERAPY MANAGEMENT PROCARBAZINE AND LOMUSTINE TREATMENT EDUCATION NOTE Jose Luis Wall [id number] Patient Phone Numbers Mobile (sister) [phone] Preferred Lab: [facility] Pharmacy: [facility] for lomustine; [facility] for procarbazine Communication: Spoke to: Other: Grandmother Lissette Treatment: Medication: Procarbazine (Matulane) Dose Basis: 60 mg/m2 Dose: 150 mg PO daily for days 8-21 every 42 days Administration: at bedtime Medication: Lomustine (CCNU, Gleostine) Dose Basis: 90 mg/m2 Dose: 200 mg PO on day 1 every 42 days Administration: empty stomach at bedtime Indication/Staging/Diagnosis Code: Oligodendroma Start Date: TBD Primary Dobie Man/Oncologist: Dr. Clifford Supportive Care Meds: Ondansetron 8 [...] PRN, but if consistently nauseated, can administer Irlvkd86 minutes prior to chemotherapy Moderate/high emetic risk: [...] PRN, but if consistently nauseated, can administer Jahjiw16 minutes prior to chemotherapy Moderate/high emetic risk: [...] eat bland, low fiber foods such as rice, applesauce, and toast (RAT diet), avoid dairy, avoid spicy, greasy or [...] call clinic: If rash develops Hearing changes [facility] [facility] toxicity (paresthesias, neuropathies, confusion) Confirmed pt has [...] he begins his treatment Lomustine shipped from [facility] on 07/19 Procarbazine anticipated to ship from [place] 07/24 Will follow-up again on 07/27 for chemotherapy education. Pt should obtain new baseline labs beforestarting. May need GML referral Per 07/05/23 documentation, "Can forgo PFTs per discussion with Dr. Clifford. Orders canceled " ADDENDUM: Spoke to patient via sister's cell and provided counseling as above Mailed list of high tyramine foods and education sheets Pt reports he smokes 10-15 cigarettes a day There is a warning for procarbzine to avoid tobacco products as it may increase risk of developing lung cancer in the future Discussed this with pt and he is willing to go cold turkey as he has done this in the past Discussed with Dr. Clifford Schedule PFTs but do not need to delay start of treatment TE sent to Pulmonary pool Orders placed Pt can trial cold turkey, but can offer nicotine replacement if desired Will defer use of other pharmacologic cessation tools (chantix, wellbutrin) at this time Pt will obtain weekly labs at [facility] - will go this afternoon for baseline labs CBCd/CMP within parameters to proceed with cycle Hep b screening in process Pt will pick up attendant ondansetron, zofran, and loperamide Pt should RTC in 2 weeks for in person visit with Dr. Clifford or Renato PRINCE sent to scheduling ADDENDUM: Attempted to contact pt again via sister's cell to discuss smoking cessation and lab results with patient. No answer, no voicemail set up Follow up: 07/27 Elvira Maza PharmD, NORA Ambulatory Clinical Pharmacist | Oral Chemotherapy Clinic [facility] 07/26/2023, 9:13 AM Elvira Maza PharmD, NORA Ambulatory Clinical Pharmacist | Oral Chemotherapy Clinic [facility] 07/26/2023, 11:54 AM Elvira Maza PharmD, NORA Ambulatory Clinical Pharmacist | Oral Chemotherapy [facility] 07/26/2023, 2:07 PM Monitoring Parameters: Estimated CrCl Serum creatinine: 0.8 mg/dL 02/21/23 1527 Estimated creatinine clearance: 185.8 mL/min Hepatitis panel Ordered to be complete Suggested lab monitoring Weekly CBCd and CMP Treatment Parameters Please refer to PI Pertinent Labs: Time Spent on Encounter: > 31 minutes Encounter Group: Neuro-Oncology Encounter Interventions Item Category: Oral Chemotherapy Procarbazine Problem/Rationale: Safety: Needs additional monitoring - Medication Requires monitoring Education: Initial education Pharmacist Intervention(s): Clarification with Provider, Education provided, Lab monitoring, and Non-pharmacological intervention provided Magnitude of Intervention: Monitoring with direction (Level 1) Second Item Second Item Category: Oral Chemotherapy Lomustine Problem/Rationale: Safety: Needs additional monitoring - Medication Requires monitoring Education: Initial education Pharmacist Intervention(s): Care coordination, Clarification with Provider, Education provided, andLab monitoring Magnitude of Intervention: Monitoring with direction (Level 1) documented in this encounter Plan of Treatment Upcoming Encounters Date Type Department Care Team (Late st Contact Info) Description 07/27/2023 3:45 PM EDT Pharmacy Pharmacy Hematology Oncology [facility] [address] [place] [address] [facility] Hem/Onc [address] [place] [address] 03/26/2024 3:00 PM EDT Office Visit [facility] [address] [facility] [place] [address] Dangelo Juárez DO [address] [facility] [place] [address] Health Maintenance Due Date Last Done Comments [...] this encounter Medical Devices Implanted Type Area Educational Technologist Device Identifier Shelf Expiration Date Model / Serial / Lot Graft Lyoplant 10.0x12.5cm 4x5 - [id number] Implanted:Qty: 1 on 08/13/2018 by Bacilio Romero MD [place] [facility] [place] : AESCULAP 12/29/2022 1067 [id number] / [id number] / [id number] documented as of this encounter Visit Diagnoses [...] the patient have Health Care Power of Talent Acquisition Lead? No Code Status History Code Status Date Activated Date Inactivated Comments Full Code 08/13/2018 6:42 AM 08/13/2018 6:33 PM Thi s order reflects the patients wishes and were consensually agreed upon. Full Code 07/08/2018 10:45 PM 07/09/2018 9:37 PM This order reflects the patients wishes and were consensually agreed upon. Care Teams Steam Fitter Supervisor Relationship Specialty Start Date End Date Dangelo Juárez DO [address] [place] [address] PCP - General Family Medicine 07/19/18 documented as of this encounter
--- OUTSIDE RECORDS SUMMARY | 2023-08-15 23:40 | External Medical Summary | Summary of Care ---
Author Name Unknown Organization [facility] Address [address] [place] [address] Phone [phone] Care Team Providers Care Polymerization Helper Name Role Phone MarquitaDangelo Kilo CORDERO Primary Care Provider [phone] Reason for Visit * Reason Comments Medication Management Encounter Details Date Type Department Care Team Description 07/13/2023 Pharmacy Pharmacy Hematology Oncology [facility] [address], [place] [id number] [facility] Hem/Onc [address] [place], [place] [phone] Oligodendroglioma (HCC)* Allergies No known active allergiesdocumented as of this encounter (statuses as of 07/13/2023) Medications Medication Sig Dispensed Refills Start Date [...] each chemotherapy cycle. 42 Capsule 0 07/05/2023 Active Lomustine 100 MG Oral Capsule (Ceenu)Indications :Oligodendroglioma (HCC) Take 2 Capsules by mouth every 6 weeks. Take on an empty stomach at bed time. 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 gait 03/23/2000 documented as of this encounter (statuses as of 07/13/2023) Resolved Problems Problem Noted Date Resolved Date Overweight (BMI 25.0-29.9) 12/13/200512/23 Overview: Per Obesity Taxonomy Routine child health exam 2012 documented as of this encounter (statuses as of 07/13/2023) Immunizations Name Administration Dates Next Due Meningococcal [...] as of this encounter Progress Notes * Elizabeth Pavon, vacuum form operator - 07/13/2023 1:35 PM EDT NEW REFERRAL TO ORAL CHEMO CLINIC/MEDICATION RECONCILIATION NOTE Jose Luis Wall [id number] Patient Phone Numbers Communication: Spoke to: Patient Treatment: Medication: Procarbazine (Matulane) Dose Basis: 60 mg/m2 Dose: 150 mg PO daily for days 8-21 every 42 days Administration: at bedtime Medication: Lomustine Dose Basis: 90 mg/m2 Dose: 200 mg PO on day 1 every 24 days Administration: empty stomach at bedtime Provider has consented patient: Yes Patient was introduced to Oral Chemotherapy Clinic: OCC is a free service for patients receiving oral chemo therapy. We are Pharmacists & Pharmacy Technicians, who are a part of hematology & oncology care across the [facility] offering telephone based appointments from the comfort of your own home. Pharmacists are available Sunday-Sunday from 8am - 4pm. After 4pm, non-urgent messages can be left on the pharmacist voicemail, and urgent calls/questions/concerns should be directed totheir oncologist office directly. In case of an emergency, patient is aware to call 911 or travel to nearest emergency department. Communicated to patient: Pharmacists will provide education about your medication, manage oral chemotherapy side effects & review labs. All information will be shared & available to your oncologist. Explained to patient: once they decide on a treatment with their Oncologist, a Pharmacist will review the treatment plan to ensure correct dosing, review labs & medications to prevent any interactions. Medication authorization is submitted to your insurance. Once approved, your Rx will be sent to the Pharmacy determined by your insurance plan. Specialty Pharmacy will contact you to arrange delivery & discuss co-payment and any assistance options, if required. A Pharmacist will contact you to provide medication education, follow up periodically to review lab results & to assess/manage side effects. Patient was reassured the process to obtain medication can take several days-weeks. - [facility] $0 co-payment Patient was informed that hepatitis B screening must be completed prior to initiation of treatment.- patient consented with next lab draw. Patient has given verbal consent that staff from the Oral Chemotherapy Clinic can speak to Other: Father Jose A Wall regarding their treatment Patient has given verbal consent that staff from the Oral Chemotherapy Clinic can leave a voicemailwith treatment-related information: Yes This information can be left on Cell Performed medication reconciliation with patient; pharmacist will be in touch if there are any druginteractions with oral chemo. Patient voiced understanding on all accounts. FELIPA Harmon Tech Forging Dies Final Finisher Oral Chemotherapy Clinic 07/13/23,1:39 PM Time Spent on Encounter: 11 - 15 minutes Encounter Group: Hematology Encounter Interventions Item Category: Oral Chemotherapy Other: Procarbazine & Lomustine Problem/Rationale: Effectiveness: Needs additional monitoring - Medication Requires monitoring Pharmacist Intervention(s): Medication reconciliation Magnitude of Intervention: Monitoring with no interventions (Level 0) documented in this encounter Plan of Treatment Upcoming Encounters Date Type Specialty Care Team Description 07/17/2023 Telemedicine Hematology Oncology Bakari Clifford MD [address] [place] [address] 07/17/2023 Pharmacy Pharmacy [facility] Hem/Onc [address] [place] [address] 03/26/2024 Office Visit Family Medicine Dangelo Juárez, DO [address] [facility] [place] [address] Health Maintenance Due Date Last Done Comments [...] this encounter Medical Devices Implanted Type Area Flooring Mechanic Device Identifier Shelf Expiration Date Model / Serial / Lot Graft Lyoplant 10.0x12.5cm 4x5 - [id number] Implanted:Qty: 1 on 08/13/2018 by Bacilio Romero MD at [place] [facility] [place] : AESCULAP 12/29/2022 [id number] [id number] / [id number] / [id number] documented as of this encounter Visit Diagnoses [...] the patient have Health Care Power of Remodeler? No Code Status History Code Status Date Activated Date Inactivated Comments Full Code 08/13/2018 6:42 AM 08/13/2018 6:33 PM Thi s order reflects the patients wishes and were consensually agreed upon. Full Code 07/08/2018 10:45 PM 07/09/2018 9:37 PM This order reflects the patients wishes and were consensually agreed upon. Care Teams Polymerization Helper Relationship Specialty Start Date End Date Dangelo Juárez, DO [address] [facility] [place] [address] PCP - General Family Medicine 07/19/18 documented as of this encounter
--- OUTSIDE RECORDS SUMMARY | 2023-08-15 23:41 | External Medical Summary | Summary of Care ---
Author Name Unknown Organization [facility] Address [address] [place] [address] Phone [phone] Care Team Providers Care Pest Control Specialist Name Role Phone MarquitaDangelo Kilo CORDERO Primary Care Provider [phone] Reason for Visit * Reason Comments Medication Management Encounter Details Date Type Department Care Team Description 06/28/2023 Pharmacy Pharmacy Hematology [facility] [address], [place] [phone] [facility] Hem/Onc [address] [place], [place] [phone] Oligodendroglioma (HCC)* Allergies No known active allergiesdocumented as of this encounter (statuses as of 06/28/2023) Medications Medication Sig Dispensed Refills Start Date End Date Status Omeprazole 40 MG Oral Capsule Delayed Release (PriLOSEC)Indications :Gastroesophageal reflux disease without esophagitis Take 1 Capsule by mouth in the morning. 90 Capsule 3 02/21/2023 Active levETIRAcetam 750 MG Oral TabletIndications:Jamshid godendroglioma (HCC),Partial symptomatic epilepsy with complex partial seizures, not intractable, without status epilepticus (HCC) Take 1.5 Tablets by mouth in the morning and 1.5 Tablets before bedtime. 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 gait 03/23/2000 documented as of this encounter (statuses as of 06/28/2023) Resolved Problems Problem Noted Date Resolved Date Overweight (BMI 25.0-29.9) 12/13/200512/23 Overview: Per Obesity Taxonomy Routine child health exam 2012 documented as of this encounter (statuses as of 06/28/2023) Immunizations Name Administration Dates Next Due Meningococcal [...] as of this encounter Progress Notes * Ángela Rhodes CPhT - 06/28/2023 12:52 PM EDT MEDICATION THERAPY MANAGEMENT PROCARBAZINE/CCNU TREATMENT STATUS NOTE Jose Luis Wall [id number] Patient Phone Numbers Communication: Chart review Treatment: Medication: Procarbazine (Matulane) Dose Basis: 60 mg/m2 Dose: 150 mg PO daily for days 8-21 every 42 days Administration: at bedtime Medication: Lomustine Dose Basis: 90 mg/m2 Dose: 200 mg PO on day 1 every 24 days Administration: empty stomach at bedtime Indication/Staging/Diagnosis Code: Oligodendroma Start Date: TBD Primary Lawyer Probate/Oncologist: Dr. Clifford Supportive Care Meds: Ondansetron 8 mg 30 min prior to chemotherapy and q8h PRN Docusate Prophylactic Meds: PJP ppx for ALC < 0.5 Cycle Lomustine Procarbazine C1 C2 The Hematology/Oncology Oral Chemotherapy Clinic will assess medication compliance at each patient encounter Yes/no Date Action Taken [place] plan entered? Yes 06/17/23 Consent completed? No Intro/med rec completed? Precert completed? Yes 06/18/23 Approved Test claim completed? Yes 06/19/23 [facility] can fill for $0 Financial assistance needed? N/A Physician signature? No Rx released? Education completed? Will follow up in 2 days to check on physician approval,consent for H/O tech to introduce patient to services of the Oral Chemotherapy Clinic and complete medication reconciliation, and consent. [facility] will contact patient once med shipped/received to complete medication education Please refer to initial intake note for detailed review of regimen and patient- specific education points. Ángela Rhodes Vice President Education II [facility] Oral Chemotherapy Clinic 06/28/2023 12:53 PM Time Spent on Encounter: < 5 minutes documented in this encounter Plan of Treatment Upcoming Encounters Date Type Specialty Care Team Description 07/17/2023 Telemedicine Hematology Oncology Bakari Clifford MD [address] [place] [address] 03/26/2024 Office Visit Family Medicine Dangelo Juárez, DO [address] [place] [address] Health Maintenance Due Date Last Done Comments COVID-19 Vaccine (#1) 1992 HIV Screening 2007 Hepatitis C Screening 2010 [...] this encounter Medical Devices Implanted Type Area Custodian Device Identifier Shelf Expiration Date Model / Serial / Lot Graft Lyoplant 10.0x12.5cm 4x5 - [id number] Implanted:Qty: 1 on 08/13/2018 by Bacilio Romero MD at OR [facility] B [place] : AESCULAP 12/29/2022 1067 [id number] / [id number] / [id number] documented as of this encounter Visit Diagnoses [...] the patient have Health Care Power of Blueprint Processor? No Code Status History Code Status Date Activated Date Inactivated Comments Full Code 08/13/2018 6:42 AM 08/13/2018 6:33 PM Thi s order reflects the patients wishes and were consensually agreed upon. Full Code 07/08/2018 10:45 PM 07/09/2018 9:37 PM This order reflects the patients wishes and were consensually agreed upon. Care Teams Pest Control Specialist Relationship Specialty Start Date End Date Dangelo Juárez, DO [address] [place] [address] PCP - General Family Medicine 07/19/18 documented as of this encounter
--- OUTSIDE RECORDS SUMMARY | 2023-08-15 23:41 | External Medical Summary | Summary of Care ---
Author Name Unknown Organization [facility] Address [address] [place] [address] Phone [phone] Care Team Providers Care House Player Name Role Phone MarquitaDangelo Kilo CORDERO Primary Care Provider [phone] Reason for Visit * Reason Comments Medication Management Encounter Details Date Type Department Care Team Description 07/05/2023 Pharmacy Pharmacy Hematology Oncology [facility] [address], [place] [id number] [facility], [facility] Hem/Onc [address] [place], [place] [id number] Oligodendroglioma (HCC)* Allergies No known active allergiesdocumented as of this encounter (statuses as of 07/05/2023) Medications Medication Sig Dispensed Refills Start Date [...] Take 3 Capsules by mouth at bedtime. On days 8 through 21 of each chemotherapy cycle. 42 Capsule 0 07/05/2023 Active Lomustine 100 MG Oral Capsule (Gleostine)Indicat ions:Oligodendrogl ioma (HCC) Take 2 Capsules by mouth every 6 weeks. Take on an empty stomach at bed time. 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 - 07/05/2023 12:14 PM EDT MEDICATION THERAPY MANAGEMENT PROCARBAZINE/CCNU TREATMENT STATUS NOTE Jose Luis Wall [id number] Patient Phone Numbers Headroom [phone] Communication: Chart review Treatment: Medication: Procarbazine (Matulane) Dose Basis: 60 mg/m2 Dose: 150 mg PO daily for days 8-21 every 42 days Administration: at bedtime Medication: Lomustine Dose Basis: 90 mg/m2 Dose: 200 mg PO on day 1 every 24 days Administration: empty stomach at bedtime Indication/Staging/Diagnosis Code: Oligodendroma Start Date: TBD Primary Sdc Teacher/Oncologist: Dr. Clifford Supportive Care Meds: Ondansetron 8 mg 30 min prior to chemotherapy and q8h PRN Docusate Prophylactic Meds: PJP ppx for ALC < 0.5 Cycle Lomustine Procarbazine C1 C2 The Hematology/Oncology Oral Chemotherapy Clinic will assess medication compliance at each patient encounter Yes/no Date Action Taken [place] plan entered? Yes 06/17/23 Consent completed? Yes 07/02/23 Intro/med rec completed? Precert completed? Yes 06/18/23 Approved Test claim completed? Yes 06/19/23 [facility] can fill for $0 Financial assistance needed? N/A Physician signature? Yes 07/05/23 Rx released? Yes 07/05/23 Education completed? Lomustine and procarbazine released to [facility] today. Ondansetron and docusate sent to [facility]. Will follow-up on 07/09 for intro to OCC/medication reconciliation and medication education Patient does not have history of respiratory disease. He does have smoking history. sent to Dr. Clifford to confirm if PFTs needed for lomustine monitoring Will follow-up as appropriate ADDENDUM: Can forgo PFTs per discussion with Dr. Clifford. Orders canceled Viktroiya Brewer, PharmD, BCOP Ambulatory Clinical Pharmacist | Oral Chemotherapy Clinic [facility] 07/05/2023, 12:18 PM Time Spent on Encounter: 11 - 15 minutes Encounter Group: Neuro-Oncology Encounter Interventions Item Category: Oral Chemotherapy Lomustine Problem/Rationale: [place] Plan Review: Clinical Review Pharmacist Intervention(s): Medication prescribed, Referral review, and Referral to [facility] Magnitude of Intervention: Modification of medication for asymtomatic patients (Level 2) Second Item Second Item Category: Oral Chemotherapy Procarbazine Problem/Rationale: [place] Plan Review:Clinical Review Pharmacist Intervention(s): Medication prescribed, Referral review, and Referral to [facility] Magnitude of Intervention: Modification of medication for asymtomatic patients (Level 2) Third Item Third Item Category: Anti-Emetic Ondansetron Problem/Rationale: Indication: Needs additional medication therapy - Preventive therapy Pharmacist Intervention(s): Medication prescribed Magnitude of Intervention: Modification of medication for asymtomatic patients (Level 2) Fourth Item Fourth Item Category: Laxatives Docusate Problem/Rationale: Indication: Needs additional medication therapy - Preventive therapy Pharmacist Intervention(s): Medication prescribed Magnitude of Intervention: Modification of medication for asymtomatic patients (Level 2) documented in this encounter Miscellaneous Notes * Addendum Note - Viktoriya Brewer RPh - 07/05/2023 12:44 PM EDTAddended by: VIKTORIYA BREWER on: 07/05/2023 12:44 PM Modules accepted: Orders documented in this encounter Plan of Treatment Upcoming Encounters Date Type Specialty Care Team Description 07/17/2023 Telemedicine Hematology Oncology Bakari Clifford MD [address] [place] [address] 03/26/2024 Office Visit Family Medicine Dangelo Juárez, DO [address] [place] [address] Health Maintenance Due Date Last Done Comments [...] this encounter Medical Devices Implanted Type Area Radiology Physician Device Identifier Shelf Expiration Date Model / Serial / Lot Graft Lyoplant 10.0x12.5cm 4x5 - [id number] Implanted:Qty: 1 on 08/13/2018 by Bacilio Romero MD at OR [facility] Ann STANLEY : AESCULAP 12/29/2022 [id number] / [id number] / [id number] documented as of this encounter Visit Diagnoses [...] the patient have Health Care Power of Asset Liability Analyst? No Code Status History Code Status Date Activated Date Inactivated Comments Full Code 08/13/2018 6:42 AM 08/13/2018 6:33 PM Thi s order reflects the patients wishes and were consensually agreed upon. Full Code 07/08/2018 10:45 PM 07/09/2018 9:37 PM This order reflects the patients wishes and were consensually agreed upon. Care Teams House Player Relationship Specialty Start Date End Date Dangelo Juárez, DO [address] [place] [address] PCP - General Family Medicine 07/19/18 documented as of this encounter"
--- OUTSIDE RECORDS SUMMARY | 2023-08-15 23:41 | External Medical Summary | Summary of Care ---
Author Name Unknown Organization [facility] Address [address] [place] [address] Phone [phone] Care Team Providers Care Cardiac Tech Name Role Phone MarquitaDangelo Kilo CORDERO Primary Care Provider [phone] Reason for Visit * Reason Comments Medication Management Encounter Details Date Type Department Care Team Description 07/03/2023 Pharmacy Pharmacy Hematology Oncology [facility] [address] [place], [place] [phone] [facility], [facility] Clinic Hem/Onc [address] [place], [place] [phone] Oligodendroglioma (HCC)* Allergies No known active allergiesdocumented as of this encounter (statuses as of 07/04/2023) Medications Medication Sig Dispensed Refills Start Date [...] as of this encounter (statuses as of 07/04/2023) Active Problems Problem Noted Date Encounter for [...] follow-up with Neurosurgery/Neuropsychology 08/13/2018 for awake craniotomy Jifynqg-Blove-Ifvxj disease of demyelina ting type 12/26/2012 OBESITY, PEDS, BMI 99TH PERCENTL OR GREA TER 12/23/2009 Overview: Per Obesity Taxonomy 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 Clifford requesting signature on [place] plan. Will follow-up again tomorrow. Laney HammerD, BCOP Ambulatory Clinical Pharmacist | Oral Chemotherapy Clinic [facility] 07/04/2023, 11:15 AM documented in this encounter Plan of Treatment Upcoming Encounters Date Type Specialty Care Team Description 07/17/2023 Telemedicine Hematology Oncology Bakari Clifford MD [address] [place] [address] 03/26/2024 Office Visit Family Medicine Dangelo Juárez, DO [address] [facility] [place] [address] Health Maintenance Due Date Last Done Comments [...] this encounter Medical Devices Implanted Type Area Developer Advisor Device Identifier Shelf Expiration Date Model / Serial / Lot Graft Lyoplant 10.0x12.5cm 4x5 - [id number] Implanted:Qty: 1 on 08/13/2018 by Bacilio Romero MD at OR [facility] Ann STANLEY : AESCULAP 12/29/2022 [id number] [id number] / [id number] / [id number] documented as of this encounter Visit Diagnoses [...] the patient have Health Care Power of Cabinetmaker Apprentice? No Code Status History Code Status Date Activated Date Inactivated Comments Full Code 08/13/2018 6:42 AM 08/13/2018 6:33 PM Thi s order reflects the patients wishes and were consensually agreed upon. Full Code 07/08/2018 10:45 PM 07/09/2018 9:37 PM This order reflects the patients wishes and were consensually agreed upon. Care Teams Cardiac Tech Relationship Specialty Start Date End Date Dangelo Juárez, DO [address] [place] [address] PCP - General Family Medicine 07/19/18 documented as of this encounter"
--- OUTSIDE RECORDS SUMMARY | 2023-08-15 23:41 | External Medical Summary | Summary of Care ---
Author Name Unknown Organization [facility] Address [address] [place] [address] Phone [phone] Care Team Providers Care Smoking Tobacco Packing Machine Hand Name Role Phone Marquita Dangelo Kilo CORDERO Primary Care Provider [phone] Reason for Referral * Evaluate & Treat - Unlimited Visits (Within 10 days (routine)) - Pending Review Specialty Diagnoses / Procedures Referred By Candice carlson Referred To Contact Pharmacist / Pharmacy Diagnoses Oligodendroglioma (HCC) Viktoriya Brewer, [facility] [address] [place] [address] Referral ID Status Reason Start Date Expiration Date Visits Requested Visits Authorized [id number] Pending Review Specialty Services Required 07/05/2023 99 99 Question Answer Referral Priority Within 10 days (routine) Department: Specialist Specialty: Heme/Onc Reason for Referral: Oral Chemo Has consent been obtained for new oral chemo agent(s)? Yes Where should this appointment be scheduled? Mel Comments ORAL CHEMOTHERAPY [facility] MONITORING REFERRAL This patient is being referred to the Oral Chemotherapy Clinic for medication co-management. The planned duration of treatment is: 6 cycles Please start oral chemotherapy: Once therapy has arrived from specialty pharmacy Oral Chemotherapy Monitoring will continue until one of the following discharge criteria has been met. The provider will be informed if any of these occur. 1. Disease progression. 2. Patient non-compliance 3. Compliance and tolerating treatment well without major toxicities with routine provider follow up. 4. Completion of therapy. Additional Comments: n/A By my signature, I understand that my patient will have their medication therapy managed by the [facility] Medication Therapy Disease Management Clinic (MTDM) per established policies, procedures, and protocols. I also certify that this referral may serve as an initiation of service for the management of drug therapy in the above noted patient. [facility] providers will be responsible for scheduling patient visits, obtaining appropriate laboratory studies, and adjusting medication management therapy per patient's need, in addition to those roles spelled out in the clinic policy, procedures, and drug management protocols. I understand that the service provided by the [facility] is voluntary and have informed patient that they can refuse the service at their discretion. I am aware that the [facility] will provide me with a copy of the patient encounter via my [employer]. I authorize the [facility] to carry out these activities on my behalf. I consider this program to be a necessary part of the patient's medical care. Encounter Details Date Type Department Care Team Description 07/05/2023 Orders Only Hematology Oncology [address] [address] Bakari Clifford MD [address] [place] [address] Oligodendroglioma (HCC)* Allergies No known [...] follow-up with Neurosurgery/Neuropsychology 08/13/2018 for awake craniotomy Swlxxdd-Zzqto-Izhdj disease of demyelina ting type 12/26/2012 OBESITY, [...] 07/05/2023) Immunizations Name Administration Dates Next Due Meningococcal [...] Encounters Date Type Specialty Care Team Description 07/05/2023 Pharmacy Pharmacy [facility] Hem[facility]Onc [address] [place] [address] Oligodendroglioma (HCC)* 07/17/2023 Telemedicine Hematology Oncology Bakari Clifford MD [address] [place] [address] 03/26/2024 Office Visit Family Medicine Dangelo Juárez, DO [address] [place] [address] Scheduled Orders Name Type Priority Associated Diagnoses Orde r Schedule CBC WITH WBC DIFFERENTIAL Lab STAT Oligodendroglioma (HCC) Other, Please specify in Comments field for 12 Occurrences starting 07/05/2023 until 07/05/2024 COMPREHENSIVE METABOLIC PANEL Lab STAT Oligodendroglioma (HCC) Every Month for 12 Occurrences starting 07/05/2023 until 07/05/2024 Scheduled Referrals Name Type Priority Associated Diagnoses Orde r Schedule PHARMACIST MEDS THERAPY MGMT REFERRAL OP Referral Within 10 days (routine) Oligodendroglioma (HCC) Ordered: 07/05/2023 Health Maintenance Due Date Last Done Comments COVID-19 Vaccine (#1) 1992 HIV Screening 2007 Hepatitis C Screening 2010 Depression Screening 11/11/2015 11/11/2014 Influenza Vaccine (FLU shot) (#1) 2023 08/24/2010, 07/12/2009 DTaP,Tdap,and Td Vaccines (8 - Td or Tdap) 02/21/2033 02/21/2023, 11/11/2012, 01/05/2005, Additional history exists Hepatitis B Completed 06/21/1993, 0612/1992, 1992 MENINGOCOCCAL (MENACTRA/MENVEO) Aged Out 02/12/2007 No [...] this encounter Medical Devices Implanted Type Area Taffy Candy Maker Device Identifier Shelf Expiration Date Model / Serial / Lot Graft Lyoplant 10.0x12.5cm 4x5 - [id number] Implanted:Qty: 1 on 08/13/2018 by Bacilio Romero MD at OR [facility] [place] STANLEY : AESCULAP 12/29/2022 [id number] [id number] / [id number] / [id number] documented as of this encounter Visit Diagnoses Diagnosis 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 No Code Status History Code Status Date Activated Date Inactivated Comments Full Code 08/13/2018 6:42 AM 08/13/2018 6:33 PM Thi s order reflects the patients wishes and were consensually agreed upon. Full Code 07/08/2018 10:45 PM 07/09/2018 9:37 PM This order reflects the patients wishes and were consensually agreed upon. Care Teams Smoking Tobacco Packing Machine Hand Relationship Specialty Start Date End Date Dangelo Juárez, DO [address] [place] [address] PCP - General Family Medicine 07/19/18 documented as of this encounter
--- OUTSIDE RECORDS SUMMARY | 2023-08-15 23:41 | External Medical Summary | Summary of Care ---
Author Name Unknown Organization [facility] Address [address] [place] [address] Phone [phone] Care Team Providers Care Concreting Supervisor Name Role Phone MarkusbrittaneynannetteDangelo Kilo CORDERO Primary Care Provider [phone] Reason for Visit * Reason Onset Date Comments Appointment 06/26/2023 Today's video vi sit Encounter Details Date Type Department Care Team Description 06/26/2023 Telephone Hematology Oncology [facility] [address] [place] [address] Ángela Altamirano PA-C [address] [place] [address] Appointment (Today's video visit ) Allergies No known active allergiesdocumented as of this encounter (statuses as of 06/29/2023) Medications Medication Sig Dispensed Refills Start Date [...] as of this encounter (statuses as of 06/29/2023) Active Problems Problem Noted Date Encounter for [...] follow-up with Neurosurgery/Neuropsychology 08/13/2018 for awake craniotomy Tymosqo-Mujzq-Wkvzd disease of demyelina ting type 12/26/2012 OBESITY, PEDS, BMI 99TH PERCENTL OR GREA TER 12/23/2009 Overview: Per Obesity Taxonomy 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 He accepted apt on Mon 07/02 with Ángela for video apt at 2:30. He expressed thanks for our call to reschedule apt. * Telephone Encounter - Ángela Altamirano PA-C - 06/26/2023 3:47 PM EDT Patient no showed to video visit for 3pm Attempted to call number on chart - went straight to voicemail and voicemail identified as his father's Jose A's number - left message that I was trying to reach them for scheduled video visit. Upon chart review - he had a telemed visit with Neurology recently that was completed Call placed to other number on chart - pt grandmother Lissette. She notes that sometimes their cell service is terrible at the house especially with the rainy weather so that might be why I didn't get through. She notes that she will try to get a message to them that we are trying to reach them. Notified front desk agent. Ángela Altamirano PA-C 06/26/23 3:49 PM documented in this encounter Plan of Treatment Upcoming Encounters Date Type Specialty Care Team Description 07/02/2023 Pharmacy Pharmacy [facility], [facility] Clinic Hem/Onc [address] [facility] [place] [address] 07/02/2023 Telemedicine Hematology Oncology Ángela Altamirano PA-C [address] [facility] [place] [address] 07/17/2023 Telemedicine Hematology Oncology Bakari Clifford MD [address] [facility] [place] [address] 03/26/2024 Office Visit Family Medicine Dangelo Juárez, DO [address] [place] [address] Health Maintenance Due Date Last Done Comments [...] this encounter Medical Devices Implanted Type Area Supervisor Buffing And Pasting Device Identifier Shelf Expiration Date Model / Serial / Lot Graft Lyoplant 10.0x12.5cm 4x5 - [id number] Implanted:Qty: 1 on 08/13/2018 by Bacilio Romero MD at [place] [facility] [place] : AESCULAP 12/29/2022 [id number] 050 / [id number] / [id number] documented as of this encounter Advance Directives [...] the patient have Health Care Power of Regrinder? No Code Status History Code Status Date Activated Date Inactivated Comments Full Code 08/13/2018 6:42 AM 08/13/2018 6:33 PM Thi s order reflects the patients wishes and were consensually agreed upon. Full Code 07/08/2018 10:45 PM 07/09/2018 9:37 PM This order reflects the patients wishes and were consensually agreed upon. Care Teams Concreting Supervisor Relationship Specialty Start Date End Date Dangelo Juráez, DO [address] [place] [address] PCP - General Family Medicine 07/19/18 documented as of this encounter
--- OUTSIDE RECORDS SUMMARY | 2023-08-15 23:41 | External Medical Summary | Summary of Care ---
Author Name Unknown Organization [facility] Address [address] [place] [address] Phone [phone] Care Team Providers Care Pastry Cook Apprentice Name Role Phone MarquitaDangelo Kilo CORDERO Primary Care Provider [phone] Reason for Visit * Reason Comments Medication Management Encounter Details Date Type Department Care Team Description 07/11/2023 Pharmacy Pharmacy Hematology Oncology [facility] [address] [place], [place] [id number] [facility] [place], [facility] Hem/Onc [address], [place] [id number] Oligodendroglioma (HCC)* Allergies No known active allergiesdocumented as of this encounter (statuses as of 07/12/2023) Medications Medication Sig Dispensed Refills Start Date [...] as of this encounter (statuses as of 07/12/2023) Active Problems Problem Noted Date Encounter for [...] follow-up with Neurosurgery/Neuropsychology 08/13/2018 for awake craniotomy Zwqabst-Ydqbp-Lqpik disease of demyelina ting type 12/26/2012 OBESITY, PEDS, BMI 99TH PERCENTL OR GREA TER 12/23/2009 Overview: Per Obesity Taxonomy 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 gait 03/23/2000 documented as of this encounter (statuses as of 07/12/2023) Resolved Problems Problem Noted Date Resolved Date Overweight (BMI 25.0-29.9) 12/13/200512/23 Overview: Per Obesity Taxonomy Routine child health exam 2012 documented as of this encounter (statuses as of 07/12/2023) Immunizations Name Administration Dates Next Due Meningococcal [...] this encounter Progress Notes * Viktoriya Brewer, [facility] - 07/12/2023 3:59 PM EDT MEDICATION THERAPY MANAGEMENT PROCARBAZINE/CCNU TREATMENT STATUS NOTE Jose Luis Wall [id number] Patient Phone Numbers Communication: Left message Treatment: Medication: Procarbazine (Matulane) Dose Basis: 60 mg/m2 Dose: 150 mg PO daily for days 8-21 every 42 days Administration: at bedtime Medication: Lomustine Dose Basis: 90 mg/m2 Dose: 200 mg PO on day 1 every 24 days Administration: empty stomach at bedtime Indication/Staging/Diagnosis Code: Oligodendroma Start Date: TBD Primary Commercial Door Installer/Oncologist: Dr. Clifford Supportive Care Meds: Ondansetron 8 mg 30 min prior to chemotherapy and q8h PRN Docusate Prophylactic Meds: PJP ppx for ALC < 0.5 Cycle Lomustine Procarbazine C1 C2 The Hematology/Oncology Oral Chemotherapy Clinic will assess medication compliance at each patient encounter Yes/no Date Action Taken [place] plan entered? Yes 06/17/23 Consent completed? Yes 07/02/23 Intro/med rec completed? Precert completed? Yes 06/18/23 Approved Test claim completed? Yes 06/19/23 [facility] can fill for $0 Financial assistance needed? N/A Physician signature? Yes 07/05/23 Rx released? Yes 07/05/23 Education completed? Received message from [facility] that procarbazine unable to ordered in until likely early next week. Advised ok to wait to ship lomustine until procarbazine available so that patient has both medications in hand prior to starting therapy LM today to return call to [facility] to provide chemotherapy education Will follow-up again on 07/17 Viktoriya Brewer, LaneyD, BCOP Ambulatory Clinical Pharmacist | Oral Chemotherapy Clinic [facility] 07/12/2023, 4:02 PM Time Spent on Encounter: 6 - 10 minutes Encounter Group: Neuro-Oncology Encounter Interventions Item [...] Hematology Oncology Bakari Clifford MD [address] [place] [address] 07/17/2023 Pharmacy Pharmacy [facility] [place], [facility] Hem/Onc [address] [place] [address] 03/26/2024 Office Visit Family Medicine Dangelo Juárez, DO [address] [place] [address] Health Maintenance Due Date Last Done Comments [...] encounter Medical Devices Implanted Type Area Bridge Club Manager Device Identifier Shelf Expiration Date Model / Serial / Lot Graft Lyoplant 10.0x12.5cm 4x5 - [id number] Implanted:Qty: 1 on 08/13/2018 by Bacilio Romero [place] [facility] [place]ANLEY : MONICAMOISÉS 12/29/2022 [id number] [id number] / [id number] / [id number] documented as of this encounter Visit Diagnoses [...] the patient have Health Care Power of Commissioned Defence Force Officer? No Code Status History Code Status Date Activated Date Inactivated Comments Full Code 08/13/2018 6:42 AM 08/13/2018 6:33 PM Thi s order reflects the patients wishes and were consensually agreed upon. Full Code 07/08/2018 10:45 PM 07/09/2018 9:37 PM This order reflects the patients wishes and were consensually agreed upon. Care Teams Pastry Cook Apprentice Relationship Specialty Start Date End Date Dnagelo Juárez, DO [address] [place] [address] PCP - General Family Medicine 07/19/18 documented as of this encounter"
--- OUTSIDE RECORDS SUMMARY | 2023-08-15 23:41 | External Medical Summary | Summary of Care ---
Author Name Unknown Organization [facility] Address [address] [place] [address] Phone [phone] Care Team Providers Care Hand Embroiderer Name Role Phone MarquitaDangelo Kilo CORDERO Primary Care Provider [phone] Reason for Visit * Reason Comments Medication Management Encounter Details Date Type Department Care Team Description 07/10/2023 Pharmacy Pharmacy Hematology Oncology [facility] [address] [place], [place] [phone] [facility], [facility] Hem/Onc [address] [place], [place] [phone] Oligodendroglioma (HCC)* Allergies No known active allergiesdocumented as of this encounter (statuses as of 07/10/2023) Medications Medication Sig Dispensed Refills Start Date [...] as of this encounter (statuses as of 07/10/2023) Active Problems Problem Noted Date Encounter for [...] follow-up with Neurosurgery/Neuropsychology 08/13/2018 for awake craniotomy Xyqddir-Nstti-Gkfng disease of demyelina ting type 12/26/2012 OBESITY, PEDS, BMI 99TH PERCENTL OR GREA TER 12/23/2009 Overview: Per Obesity Taxonomy 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 gait 03/23/2000 documented as of this encounter (statuses as of 07/10/2023) Resolved Problems Problem Noted Date Resolved Date Overweight (BMI 25.0-29.9) 12/13/200512/23 Overview: Per Obesity Taxonomy Routine child health exam 2012 documented as of this encounter (statuses as of 07/10/2023) Immunizations Name Administration Dates Next Due Meningococcal [...] Progress Notes * Ángela Rhodes CPhT - 07/10/2023 2:07 PM EDT NEW REFERRAL TO ORAL CHEMO CLINIC/MEDICATION RECONCILIATION NOTE Jose Luis Wall [id number] Patient Phone Numbers Communication: Left message Treatment: Medication: Procarbazine (Matulane) Dose Basis: 60 mg/m2 Dose: 150 mg PO daily for days 8-21 every 42 days Administration: at bedtime Medication: Lomustine Dose Basis: 90 mg/m2 Dose: 200 mg PO on day 1 every 24 days Administration: empty stomach at bedtime Provider has consented patient: Yes Called for OCC introduction and complete medication reconciliation. Left message asking for return call. Ángela Rhodes Core Stripper II [facility] Oral Chemotherapy Clinic 07/10/2023 2:43 PM Time Spent on Encounter: < 5 minutes documented in this encounter Plan of Treatment Upcoming Encounters Date Type Specialty Care Team Description 07/11/2023 Pharmacy Pharmacy [facility] Hem/Onc [address] [place] [address] 07/17/2023 Telemedicine Hematology Oncology Bakari Clifford MD [address] [place] [address] 03/26/2024 Office Visit Family Medicine Dangelo Juárez, DO [address] [place] [address] Health Maintenance Due Date Last Done Comments [...] this encounter Medical Devices Implanted Type Area Marine Habitat Resource Specialist Device Identifier Shelf Expiration Date Model / Serial / Lot Graft Lyoplant 10.0x12.5cm 4x5 - [id number] Implanted:Qty: 1 on 08/13/2018 by Bacilio Romero MD [place] [facility] [place] AESCULAP 12/29/2022 [id number] [id number] / [id number] / [id number] documented as of this encounter Visit Diagnoses [...] the patient have Health Care Power of Clinic Supervisor? No Code Status History Code Status Date Activated Date Inactivated Comments Full Code 08/13/2018 6:42 AM 08/13/2018 6:33 PM Thi s order reflects the patients wishes and were consensually agreed upon. Full Code 07/08/2018 10:45 PM 07/09/2018 9:37 PM This order reflects the patients wishes and were consensually agreed upon. Care Teams Hand Embroiderer Relationship Specialty Start Date End Date Dangelo Juárez, DO [address] [place] [address] PCP - General Family Medicine 07/19/18 documented as of this encounter
--- OUTSIDE RECORDS SUMMARY | 2023-08-15 23:41 | External Medical Summary | Summary of Care ---
Author Name Unknown Organization [facility] Address [address] [place] [address] Phone [phone] Care Team Providers Care Process Control Supervisor Name Role Phone MarquitaDangelo Kilo CORDERO Primary Care Provider [phone] Reason for Visit * Reason Comments Medication Management Encounter Details Date Type Department Care Team Description 07/09/2023 Pharmacy Pharmacy Hematology Oncology [facility] [address], [place] [phone] [facility] [place] [facility] Hem/Onc [address] [place], [place] [phone] Oligodendroglioma (HCC)* Allergies No known active allergiesdocumented as of this encounter (statuses as of 07/09/2023) Medications Medication Sig Dispensed Refills Start Date [...] as of this encounter (statuses as of 07/09/2023) Active Problems Problem Noted Date Encounter for [...] follow-up with Neurosurgery/Neuropsychology 08/13/2018 for awake craniotomy Gnzjhci-Spihk-Ppsrf disease of demyelina ting type 12/26/2012 OBESITY, PEDS, BMI 99TH PERCENTL OR GREA TER 12/23/2009 Overview: Per Obesity Taxonomy 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 gait 03/23/2000 documented as of this encounter (statuses as of 07/09/2023) Resolved Problems Problem Noted Date Resolved Date Overweight (BMI 25.0-29.9) 12/13/200512/23 Overview: Per Obesity Taxonomy Routine child health exam 2012 documented as of this encounter (statuses as of 07/09/2023) Immunizations Name Administration Dates Next Due Meningococcal [...] as of this encounter Progress Notes * FELIPA Harmon - 07/09/2023 10:50 AM EDT NEW REFERRAL TO ORAL CHEMO CLINIC/MEDICATION RECONCILIATION NOTE Jose Luis Wall [id number] Patient Phone Numbers Communication: Spoke to: Patient Treatment: Medication: Procarbazine (Matulane) Dose Basis: 60 mg/m2 Dose: 150 mg PO daily for days 8-21 every 42 days Administration: at bedtime Medication: Lomustine Dose Basis: 90 mg/m2 Dose: 200 mg PO on day 1 every 24 days Administration: empty stomach at bedtime Indication/Staging/Diagnosis Code: Oligodendroma Start Date: TBD Primary Sandwich Counter Attendant/Oncologist: Dr. Clifford Provider has consented patient: Yes Attempted to provide introduction to the OCC. Patient stated that now was not a good time and requested we call back tomorrow around 1430. FELIPA Harmon [employer] Oral Chemotherapy Clinic 07/09/23,2:47 PM Time Spent on Encounter: 6 - 10 minutes Encounter Group: Oncology Encounter Interventions Item Category: Oral Chemotherapy Other: Procarbazine & Lomustine Problem/Rationale: Effectiveness: Needs additional monitoring - Medication Requires monitoring Pharmacist Intervention(s): Medication reconciliation Magnitude of Intervention: Monitoring with no interventions (Level 0) documented in this encounter Plan of Treatment Upcoming Encounters Date Type Specialty Care Team Description 07/10/2023 Pharmacy Pharm[place] [facility] [place] [facility] Hem/Onc [address] [place] [address] 07/17/2023 Telemedicine Hematology Oncology Bakari Clifford MD [address] [place] [address] 03/26/2024 Office Visit Family Medicine Dangelo Juárez, DO [address] [place] [address] Health Maintenance Due Date Last Done Comments [...] this encounter Medical Devices Implanted Type Area Brickmason Apprentice Device Identifier Shelf Expiration Date Model / Serial / Lot Graft Lyoplant 10.0x12.5cm 4x5 - [id number] Implanted:Qty: 1 on 08/13/2018 by Bacilio Romero [place] [facility] [place] : AESCULAP 12/29/2022 1067 050 / [id number] / [id number] documented as of this encounter Visit Diagnoses [...] the patient have Health Care Power of Electrical Products Sales Engineer? No Code Status History Code Status Date Activated Date Inactivated Comments Full Code 08/13/2018 6:42 AM 08/13/2018 6:33 PM Thi s order reflects the patients wishes and were consensually agreed upon. Full Code 07/08/2018 10:45 PM 07/09/2018 9:37 PM This order reflects the patients wishes and were consensually agreed upon. Care Teams Process Control Supervisor Relationship Specialty Start Date End Date Dangelo Juárez, DO [address] [place] [address] PCP - General Family Medicine 07/19/18 documented as of this encounter
--- OUTSIDE RECORDS SUMMARY | 2023-08-15 23:41 | External Medical Summary | Summary of Care ---
Author Name Unknown Organization [facility] Address [address] [place] [address] Phone [phone] Care Team Providers Care Topper Packer Name Role Phone MarquitaDangelo Kilo CORDREO Primary Care Provider [phone] Reason for Visit * Reason Comments Medication Management Encounter Details Date Type Department Care Team Description 07/02/2023 Pharmacy Pharmacy Hematology Oncology [facility] [address], [place] [phone] [facility] [place], [facility] Hem/Onc [address], [place] [phone] Oligodendroglioma (HCC)* Allergies No known active allergiesdocumented as of this encounter (statuses as of 07/02/2023) Medications Medication Sig Dispensed Refills Start Date [...] as of this encounter (statuses as of 07/02/2023) Active Problems Problem Noted Date Encounter for [...] follow-up with Neurosurgery/Neuropsychology 08/13/2018 for awake craniotomy Jbwqznq-Nvyuy-Bckep disease of demyelina ting type 12/26/2012 OBESITY, PEDS, BMI 99TH PERCENTL OR GREA TER 12/23/2009 Overview: Per Obesity Taxonomy 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 [place] plan sent to Dr. Clifford for signature. Will follow-up again tomorrow. Laney HammerD, BCOP Ambulatory Clinical Pharmacist | Oral Chemotherapy Clinic [facility] 07/02/2023, 4:11 PM * Ángela Rhodes CPhT - 07/02/2023 1:58 PM EDT Images from the original note were not included. MEDICATION THERAPY MANAGEMENT PROCARBAZINE/CCNU TREATMENT STATUS NOTE Jose Luis Wall [id number] Patient Phone Numbers Communication: Chart review Treatment: Medication: Procarbazine (Matulane) Dose Basis: 60 mg/m2 Dose: 150 mg PO daily for days 8-21 every 42 days Administration: at bedtime Medication: Lomustine Dose Basis: 90 mg/m2 Dose: 200 mg PO on day 1 every 24 days Administration: empty stomach at bedtime Indication/Staging/Diagnosis Code: Oligodendroma Start Date: TBD Primary Project Engineer Chemicals/Oncologist: Dr. Clifford Supportive Care Meds: Ondansetron 8 mg 30 min prior to chemotherapy and q8h PRN Docusate Prophylactic Meds: PJP ppx for ALC < 0.5 Cycle Lomustine Procarbazine C1 C2 The Hematology/Oncology Oral Chemotherapy Clinic will assess medication compliance at each patient encounter Yes/no Date Action Taken [place] plan entered? Yes 06/17/23 Consent completed? No Intro/med rec completed? Precert completed? Yes 06/18/23 Approved Test claim completed? Yes 06/19/23 [facility] can fill for $0 Financial assistance needed? N/A Physician signature? No Rx released? Education completed? Will follow up in 2 days to check on physician approval, consent for H/O tech to introduce patient to services of the Oral Chemotherapy Clinic and complete medication reconciliation, and consent. [facility] will contact patient once med shipped/received to complete medication education Please refer to initial intake note for detailed review of regimen and patient- specific education points. Ángela Rhodes Leather Cleaner II [facility] Oral Chemotherapy Clinic 07/02/2023 1:58 PM Time Spent on Encounter: < 5 minutes documented in this encounter Plan of Treatment Upcoming Encounters Date Type Specialty Care Team Description 07/03/2023 Pharmacy Pharmacy [facility] [place] Hem/Onc [address] [place] [address] 07/17/2023 Telemedicine Hematology Oncology Bakari Clifford MD [address] [place] [address] 03/26/2024 Office Visit Family Medicine Dangelo Juárez, DO [address] [place] [address] Health Maintenance Due Date Last Done Comments [...] this encounter Medical Devices Implanted Type Area Local Hazmat Driver Device Identifier Shelf Expiration Date Model / Serial / Lot Graft Lyoplant 10.0x12.5cm 4x5 - [id number] Implanted:Qty: 1 on 08/13/2018 by Bacilio Rom[place] [facility] [place] : AESCULAMolly 12/29/2022 1067 050 / [id number] / [id number] documented as of this encounter Visit Diagnoses [...] the patient have Health Care Power of Char Conveyor Tender Cellar? No Code Status History Code Status Date Activated Date Inactivated Comments Full Code 08/13/2018 6:42 AM 08/13/2018 6:33 PM Thi s order reflects the patients wishes and were consensually agreed upon. Full Code 07/08/2018 10:45 PM 07/09/2018 9:37 PM This order reflects the patients wishes and were consensually agreed upon. Care Teams Topper Packer Relationship Specialty Start Date End Date Dangelo Juárez, DO [address] [place] [address] PCP - General Family Medicine 07/19/18 documented as of this encounter"
--- OUTSIDE RECORDS SUMMARY | 2023-08-15 23:41 | External Medical Summary | Summary of Care ---
Author Name Unknown Organization [facility] Address [address] [place] [address] Phone [phone] Care Team Providers Care Rail Operations Controller Name Role Phone MarquitaDangelo Kilo CORDERO Primary Care Provider [phone] Reason for Visit * Reason Comments Medication Management Encounter Details Date Type Department Care Team Description 07/05/2023 Pharmacy Pharmacy Hematology Oncology [facility] [address], [place] [phone] [facility] [place] Hem/Onc [address] [place], [place] [phone] Oligodendroglioma (HCC)* Allergies No known active allergiesdocumented [...] follow-up with Neurosurgery/Neuropsychology 08/13/2018 for awake craniotomy Wwdgtkg-Gyzxh-Wxmkx disease of demyelina ting type 12/26/2012 OBESITY, [...] this encounter Progress Notes * Viktoriya Brewer, [facility] - 07/05/2023 12:14 PM EDT MEDICATION THERAPY MANAGEMENT PROCARBAZINE/CCNU TREATMENT STATUS NOTE Jose Luis Wall [id number] Patient Phone Numbers [employer] [phone] Communication: Chart review Treatment: Medication: Procarbazine (Matulane) Dose Basis: 60 mg/m2 Dose: 150 mg PO daily for days 8-21 every 42 days Administration: at bedtime Medication: Lomustine Dose Basis: 90 mg/m2 Dose: 200 mg PO on day 1 every 24 days Administration: empty stomach at bedtime Indication/Staging/Diagnosis Code: Oligodendroma Start Date: TBD Primary Electrician Apprentice/Oncologist: Dr. Clifford Supportive Care Meds: Ondansetron 8 mg 30 min prior to chemotherapy and q8h PRN Docusate Prophylactic Meds: PJP ppx for ALC < 0.5 Cycle Lomustine Procarbazine C1 C2 The Hematology/Oncology Oral Chemotherapy Clinic will assess medication compliance at each patient encounter Yes/no Date Action Taken [place] plan entered? Yes 06/17/23 Consent completed? Yes 07/02/23 Intro/med rec completed? Precert completed? Yes 06/18/23 Approved Test claim completed? Yes 06/19/23 [facility] can fill for $0 Financial assistance needed? N/A Physician signature? Yes 07/05/23 Rx released? Yes 07/05/23 Education completed? Lomustine and procarbazine released to [facility] today. Ondansetron and docusate sent to [facility]. Will follow-up on 07/09 for intro to OCC/medication reconciliation and medication education Patient does not have history of respiratory disease. He does have smoking history. sent to Dr. Clifford to confirm if PFTs needed for lomustine monitoring Will follow-up as appropriate ADDENDUM: Can forgo PFTs per discussion with Dr. Clifford. Orders canceled Viktoriya Brewer, PharmD, BCOP Ambulatory Clinical Pharmacist | Oral Chemotherapy Clinic [facility] 07/05/2023, 12:18 PM Time Spent on Encounter: 11 - 15 minutes Encounter Group: Neuro-Oncology Encounter Interventions Item Category: Oral Chemotherapy Lomustine Problem/Rationale: [place] Plan Review: Clinical Review Pharmacist Intervention(s): Medication prescribed, Referral review, and Referral to [facility] Magnitude of Intervention: Modification of medication for asymtomatic patients (Level 2) Second Item Second Item Category: Oral Chemotherapy Procarbazine Problem/Rationale: [place] Plan Review:Clinical Review Pharmacist Intervention(s): Medication prescribed, Referral review, and Referral to [facility] Magnitude of Intervention: Modification of medication [...] Hematology Oncology Bakari Clifford MD [address] [place] [address] 03/26/2024 Office Visit Family Medicine Dangelo Juárez, DO [address] [place] [address] Health Maintenance Due Date Last Done Comments [...] this encounter Medical Devices Implanted Type Area Hog Ringer Device Identifier Shelf Expiration Date Model / Serial / Lot Graft Lyoplant 10.0x12.5cm 4x5 - [id number] Implanted:Qty: 1 on 08/13/2018 by Bacilio Romero [place] [facility] [place] : AESCULAP 12/29/2022 1067 [id number] / [id number] / [id number] documented as of this encounter Visit Diagnoses [...] the patient have Health Care Power of Document Control Assistant? No Code Status History Code Status Date Activated Date Inactivated Comments Full Code 08/13/2018 6:42 AM 08/13/2018 6:33 PM Thi s order reflects the patients wishes and were consensually agreed upon. Full Code 07/08/2018 10:45 PM 07/09/2018 9:37 PM This order reflects the patients wishes and were consensually agreed upon. Care Teams Rail Operations Controller Relationship Specialty Start Date End Date Dangelo Juárez, DO [address] [place] [address] PCP - General Family Medicine 07/19/18 documented as of this encounter"
--- OUTSIDE RECORDS SUMMARY | 2023-08-15 23:42 | External Medical Summary | Summary of Care ---
Author Name Unknown Organization [facility] Address [address] [place] [address] Phone [phone] Care Team Providers Care Shampoo Assistant Name Role Phone MarquitaDangelo Kilo CORDERO Primary Care Provider [phone] Reason for Referral * (Within 10 days (routine)) - Authorized Specialty Diagnoses / Procedures [facility] Referred To Contact Radiology Diagnoses Oligodendroglioma (HCC) White matter abnormality on MRI of brain Procedures MRI NEURO 3-D RECONSTRUCTION MRI NEURO 3-D RECONSTRUCTION Bakari Clifford MD [address] [place] [address] Referral ID Status Reason Start Date Expiration Date V isits Requested Visits Authorized [id number] Authorized 09/11/2023 999 999 * Precert (Within 10 days (routine)) - Pending Review Specialty Diagnoses / Procedures [facility] Referred To Contact Radiology Diagnoses Oligodendroglioma (HCC) White matter abnormality on MRI of brain Procedures MRI BRAIN W WO CONTRAST MRI BRAIN W WO CONTRAST Bakari Clifford MD [address] [place] [address] Referral ID Status Reason Start Date Expiration Date V isits Requested Visits Authorized [id number] Pending Review 09/11/2023 999 999 Reason for Visit * Reason Comments Follow Up * Evaluate & Treat - Unlimited Visits (Within 30 days (routine)) - Authorized Specialty Diagnoses / Procedures Referred By Contac t Referred To Contact Hematology/Oncology / Hematology Oncology Diagnoses Oligodendroglioma (HCC) Dangelo Juárez, DO [address] [place] [address] Referral ID Status Reason Start Date Expiration Date Visits Requested Visits Authorized [id number] Authorized Specialty Services Required 02/21/2023 999 999 Encounter Details Date Type Department Care Team Description 03/12/2023 Office Visit Hematology Oncology [facility] [address] [place] [address] Bakari Clifford MD [address] [place] [address] Oligodendroglioma (HCC)*; White matter abnormality on MRI of brain Allergies No known active allergiesdocumented as of this encounter (statuses as of 03/13/2023) Medications Medication Sig Dispensed Refills Start Date End Date Status levETIRAcetam 750 MG Oral TabletIndications:Par tial symptomatic epilepsy with complex partial seizures, not intractable, without status epilepticus (HCC) Take by mouth 1 Tablet in the morning AND 1 Tablet before bedtime. 180 Tablet 3 05/30/2022 Active Omeprazole 40 MG Oral Capsule Delayed Release (PriLOSEC)Indications :Gastroesophageal reflux disease without esophagitis Take 1 Capsule by mouth in the morning. 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 gait 03/23/2000 documented as of this encounter (statuses as of 03/13/2023) Resolved Problems Problem Noted Date Resolved Date Overweight (BMI 25.0-29.9) 12/13/200512/23 Overview: Per Obesity Taxonomy Routine child health exam 2012 documented as of this encounter (statuses as of 03/13/2023) Immunizations Name Administration Dates Next Due Meningococcal Conjugate Vaccine (Menactra/Menveo ) 02/12/2007 Seasonal Influenza, Split, IIV3, With Preserve, Inj 08/24/2010,07/12/2009 TDAP (age 10 and older)(Boostrix) 02/21/2023,08/2013 Varicella Vaccine (Chicken Pox) 02/17/2008 documented as of this encounter Social History Tobacco Use Types Packs/Day Years Used Date Smoking Tobacco: Former Cigarettes 1 7 Q uit: 2021 Smokeless Tobacco: Former Tobacco Cessation:Counseling Given: Not Answered Comments:1 pack a day Alcohol Use Standard [...] Sign Reading Time Taken Comments Blood Pressure 128/76 03/12/2023 2:34 PM EDT manual Pulse 73 03/12/2023 2:34 PM EDT Temperature 36.2 C (97.2 F) 03/12/2023 2 :34 PM EDT Respiratory Rate 18 03/12/2023 2:34 PM EDT Oxygen Saturation 95% 03/12/2023 2:3 4 PM EDT ra at rest Inhaled Oxygen Concentration - - Weight 130.5 kg (287 lb 9.6 oz) 023 2:34 PM EDT Height 180.3 cm (5' 10.98") 03/12/2023 2:34 PM EDT Body Mass Index 40.13 03/12/2023 2:34 PM EDT documented in this encounter Functional Status Functional [...] Progress Notes * Bakari Clifford MD - 03/12/2023 3:16 PM EDT Follow Up Visit Note: Hematology/Oncology Patient Name: Jose Luis Wall Date of : 1990 Patient Encounter: [facility]AT[facility] ONCOL[facility]Y [facility] Oncologic History (Copied from prior): Treatment Summary Jose Luis Wall is a 28 year old, right handed male with a PMHx significant for charcot tabitha tooth, who presents to clinic for evaluation of previously discovered L frontal lobe lesion. The patient waseval[facility] 07/08 for a new onset seizure [...] Oligodendroglioma (HCC) 08/13/[address] Romero - resection 08/13/2018 Molecular Testing Results A: Left frontal lobe mass, biopsy: Oligodendroglioma, WHO grade II. IDH-1 mutated. B: Left frontal lobe mass, biopsy: Oligodendroglioma, WHO grade II. IDH-1 mutated. Clinical History Mass of left frontal lobe. Synoptic Data Procedure: Stereotactic biopsy Specimen Handling: Squash / smear / touch [...] (April et al 2002. J Clin Onc 20:8214-3986) some of the high risk features for [...] LOW. Another clinical trial [id number] published (Tasia Almeida al [facility] 374:7591-5717) 2016. Patients with low grade glioma (in general astrocytic or oligodendroglioma) were higher risk if they did not have gross total resection and were age greater than 40 at time of diagnosis. This trial determined that patient treated with radiation therapy and chemotherapy had prolonged progression free survival as compared to radiation treatment along. There was no [...] 06/18/19 -[facility] 07/21/19 -Office visit 07/22/19 [facility] MRI C7D1 07/28/19 -[facility] 08/11/19 C8D1 09/01/19 -[facility] 09/23/19 C9D1 09/29/19 -[facility] 10/27/19 -Office visit 11/05/19 with MR perfusion C10D1 10/31/19 (delayed due to labs not done on time) -[facility] 11/21/19 C11D1 planned for 11/28/19 -[facility] 12/19/19 C12D1 planned for 12/26/19 C/c: pt with left frontal oligo, gd 2 Interval History: He is here with his mother, overall he is doing ok, feels like he has too much going on work-choe. He notes that he occ sees spots and diff with word findings.He feels slowed down. Forgetful. Maybe more frequent headaches. REVIEW OF SYSTEMS: pertinent positives/negatives as noted above. 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 180 Tablet 3 Omeprazole 40 MG Oral Capsule Delayed Release (PriLOSEC) Take 1 Capsule by mouth in the morning. 90 Capsule 3 No current facility-administered medications for this visit. Social History Tobacco Use Smoking status: Former Packs/day: 1.00 Years: 7.00 Pack years: 7.00 Types: Cigarettes Quit date: 2021 Years since quittin.4 Smokeless tobacco: Former Tobacco comments: 1 pack a day Vaping Use Vaping Use: Every day Substance Use Topics Alcohol use: Yes Comment: occasional Drug use: No Review of patient's allergies indicates: No Known Allergies PHYSICAL EXAMINATION: BP 128/76 Comment: manual | Pulse 73 | Temp 36.2 C (97.2 F) (Tympanic) | Resp 18 | Ht 1.803 m (5' 10.98") | Wt 130.5 kg (287 lb 9.6 oz) | SpO2 95% Comment: ra at rest | BMI 40.13 kg/m | BSA 2.56 m Vitals reviewed. Vitals Reviewed as documented in the chart GEN: Well nourished, sitting up comfortably in NAD HEENT: NCAT, No pallor, conjunctival injection, sclerae anicteric. No thrush/erythema/leukoplakia. Neck supple, no JVD, thryomegaly Chest: non labored breathing, symm expansion Extr: warm , well perfused, no CC. Edema- Neuro: AAOX3, Psych: appropriate mood and affect LABS; Reviewed in EMR Results for orders [...] U/L PATHOLOGY/IMAGING AND PROCEDURES: Reviewed in EMR MRI brain 03/09/23: IMPRESSION Postsurgical and posttreatment changes with known residual left insular and inferior frontal lobe tumor. Although focal patchy enhancement is slightly increased involving regions previously involved by tumor, findings may be treatment-related, and there is no convincing evidence of tumor progression. 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 Follow up advised. No rx changes at this time. I spent over 40 mins on the date of service in the care of this patient including preparation, delivery and documentation of the care provided. Excluding any time spent in the performance of separately billed services. Bakari Clifford MD Hematology Oncology [facility] [address] [facility] [address] documented in this encounter Nursing Notes * LOUIS Baig - 03/12/2023 2:34 PM EDT Patient was instructed to not get up on the exam table/exam chair until directed and assisted by their provider; patient is to remain seated in the chair/ wheelchair/ exam table/ exam chair for fall prevention and safety reasons. Patient is aware to have assistance to step down off exam table/exam chair with personnel. Patient voiced full comprehension of instructions. Room 1 documented in this encounter Plan of Treatment Upcoming Encounters Date Type Specialty Care Team Description 06/12/2023 Office Visit Hematology Oncology Bakari Clifford MD [address] [place] [address] 03/26/2024 Office Visit Family Medicine Dangelo Juárez, DO [address] [place] [address] Scheduled Orders Name Type Priority Associated Diagnoses Orde r Schedule MRI BRAIN W WO CONTRAST Medical Imaging Routine Oligodendroglioma (HCC) White matter abnormality on MRI of brain Expected: 06/12/2023, Expires: 04/11/2024 MRI NEURO 3-D RECONSTRUCTION Medical Imaging Routine Oligodendroglioma (HCC) White matter abnormality on MRI of brain Expected: 06/12/2023, Expires: 04/11/2024 Health Maintenance Due Date Last Done Comments COVID-19 Vaccine (#1) 1990 HIV Screening 2007 Hepatitis C Screening 2010 Depression Screening, Annual for Pts 12 and Over 11/11/2015 11/11/2014 Influenza Vaccine (FLU shot) (Season Ended) 2023 08/24/2010, 07/12/2009 DTaP,Tdap,and Td Vaccines (8 [...] this encounter Medical Devices Implanted Type Area Eye Specialist Device Identifier Shelf Expiration Date Model / Serial / Lot Graft Lyoplant 10.0x12.5cm 4x5 - [id number] Implanted:Qty: 1 on 08/13/2018 by Bacilio Romero MD at OR [facility] B [place] : AESCULAP 12/29/2022 [id number] / [id number] / [id number] documented as of this encounter Visit Diagnoses Diagnosis Oligodendroglioma (HCC)- Primary Malignant neoplasm of brain, unspecified site White matter abnormality on MRI of brain Nonspecific (abnormal) findings on radiological and other examination of skull and head documented in this encounter Advance Directives Latest [...] the patient have Health Care Power of Administrative Court Justice? No Code Status History Code Status Date Activated Date Inactivated Comments Full Code 08/13/2018 6:42 AM 08/13/2018 6:33 PM Thi s order reflects the patients wishes and were consensually agreed upon. Full Code 07/08/2018 10:45 PM 07/09/2018 9:37 PM This order reflects the patients wishes and were consensually agreed upon. Care Teams Shampoo Assistant Relationship Specialty Start Date End Date Dangelo Juárez, DO [address] [place] [address] PCP - General Family Medicine 07/19/18 documented as of this encounter
--- OUTSIDE RECORDS SUMMARY | 2023-08-15 23:42 | External Medical Summary | Summary of Care ---
Author Name Unknown Organization [facility] Address [address] [place] [address] Phone [phone] Care Team Providers Care Director Cost Name Role Phone MarquitaDangelo Kilo CORDERO Primary Care Provider [phone] Reason for Visit * Evaluate & Treat - Unlimited Visits (Within 10 days (routine)) - Pending Review Specialty Diagnoses / Procedures Referred By Candice t Referred To Contact Neurology Diagnoses Oligodendroglioma (HCC) Partial symptomatic epilepsy with complex partial seizures, not intractable, without status epilepticus (HCC) Bakari Katz MD [address] [place] [address] Referral ID Status Reason Start Date Expiration Date Visits Requested Visits Authorized [id number] Pending Review Specialty Services Required 06/12/2023 999 999 Encounter Details Date Type Department Care Team Description [facility] [address] [place] [address] Esperanza Hernandez MD [address] [place] [address] Partial symptomatic epilepsy with complex partial seizures, not intractable, with status epilepticus (HCC)* Allergies No known active allergiesdocumented as of this encounter (statuses as of 06/22/2023) Medications Medication Sig Dispensed Refills Start Date [...] as of this encounter (statuses as of 06/22/2023) Active Problems Problem Noted Date Encounter for [...] follow-up with Neurosurgery/Neuropsychology 08/13/2018 for awake craniotomy Tyribdf-Yvpbv-Bjkhw disease of demyelina ting type 12/26/2012 OBESITY, PEDS, BMI 99TH PERCENTL OR GREA TER 12/23/2009 Overview: Per Obesity Taxonomy 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 I was not in a hospital or clinic location. After connecting through televideo, patient was verified with two unique identifiers. Patient (or authorized legal workforce services representative) was then informed that this was a Telemedicine visit and being conducted confidentially over secure lines. Methods to assure confidentiality were taken. Patient acknowledged consent and understanding of privacy and security of the Telemedicine visit. The patient agreed to participate. 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 It was witnessed by his coworker and reportedly the patient had L sided facial droop and slurred speech. The episode lasted several minutes and resolved spontaneously. The patient woke up with mild, non focal LUE paresthesias at that time. A CT head and MRI were obtained which revealed a L frontal brain tumor. He was discharged on keppra 500 mg BID, dexamethasone 4 mg QID, and pepcid for GI ppx, with returnto clinic today to discuss surgical management. He reports that he has had 2 similar episodes of seizure activity since discharge. One of the episodes appeared with violent shaking and stiffness in his extremities. 07/2018- underwent resection He was on LEV 750mg bid until surgery. He was having long GTCs after surgery and his dose was increased to 750mg bid [id number] Since then he was relatively seizure free with the exception of few breakthrough seizures that havehappened as a result of missed doses. He was on chemo and radiation until 03/2023- Recently since a month or two he has been having spells of blacking out where he is losing time. Realizes he is losing 10mins to an hour. He is confused when he comes back. Denies GTCs, TB, UI Freq- couple times per week He has been driving and found 2 weeks ago he was seen Currently there is recurrence of tumor and he is supposed to start chemo again MEDICATION TIMELINE: LEV 1125mg bid PREVIOUS EVALUATIONS: Previous EEG 06/2023-This is an abnormal awake and drowsy routine EEG due to continuous focal slowing in the left frontal head region suggestive of an underlying structural abnormality. No epileptiform discharges are seen. Previous MRI IMPRESSION Further increase in patchy contrast enhancement in residual left frontal insular tumor, which a represent post treatment changes versus tumor progression. Otherwise no new findings. Continued follow-up recommended. 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 The recent episodes of KENNY seem very concerning for seizures and neurology has increased his dose of LEV. So farhe has not noted any further episodes since the dose increase. He will continue to monitor these episodes. A short EEG did not show IEDs, if the episodes continue he will need a longer EEG for confirmation of diagnosis. Explained driving restriction for 6 months Epilepsy Classification: epilepsy Etiology: oligodendroglioma Seizure Classification: GTC, KENNY Related Condition: see HPI Previous neurosurgery: yes 2018 L frontal resection PLAN: - AED LEV 1125mg bid - Follow up in 3 months Seizure precautions and safety, driving restrictions, seizure first aid , importance of medication compliance were discussed and given in writing to patient after the visit. cc: DO Esperanza Emery MD [facility] Epilepsy department Time spent in visit and chart completion:45 mins documented in this encounter Plan of Treatment Upcoming Encounters Date Type Specialty Care Team Description 06/26/2023 Telemedicine Hematology Oncology Ángela Altamirano PA-C [address] [place] [address] 07/17/2023 Telemedicine Hematology Oncology Bakari Katz MD [address] [place] [address] 03/26/2024 Office Visit Family Medicine Dangelo Juárez, DO [address] [place] [address] Scheduled Referrals Name Type Priority Associated Diagnoses Orde r Schedule NEUROLOGY REFERRAL OP Referral Within 10 days (routine) Oligodendroglioma (HCC) Partial symptomatic epilepsy with complex partial seizures, not intractable, without status epilepticus (HCC) Ordered: 06/12/2023 Health Maintenance Due Date Last Done Comments [...] this encounter Medical Devices Implanted Type Area Seeing Eye Dog Teacher Device Identifier Shelf Expiration Date Model / Serial / Lot Graft Lyoplant 10.0x12.5cm 4x5 - [id number] Implanted:Qty: 1 on 08/13/2018 by Bacilio Romero MD at OR [facility] B [place] : AESCULAP 12/29/2022 [id number] / [id number] / [id number] documented as of this encounter Visit Diagnoses Diagnosis Partial symptomatic epilepsy with complex partial seizures, not intractable, with status epilepticus (HCC)- Primary documented in this encounter Advance Directives Latest [...] the patient have Health Care Power of Electric Shovel Operator? No Code Status History Code Status Date Activated Date Inactivated Comments Full Code 08/13/2018 6:42 AM 08/13/2018 6:33 PM Thi s order reflects the patients wishes and were consensually agreed upon. Full Code 07/08/2018 10:45 PM 07/09/2018 9:37 PM This order reflects the patients wishes and were consensually agreed upon. Care Teams Director Cost Relationship Specialty Start Date End Date Dangelo Juárez, DO [address] [place] [address] PCP - General Family Medicine 07/19/18 documented as of this encounter
--- OUTSIDE RECORDS SUMMARY | 2023-08-15 23:42 | External Medical Summary | Summary of Care ---
Author Name Unknown Organization [facility] Address [address] [place] [address] Phone [phone] Care Team Providers Care Purchasing Assistant Name Role Phone Dangelo Juárez DO Primary Care Provider [phone] Reason for Visit * Reason Onset Date Comments NEW PATIENT 02/28/2023 PACHECO SEEN SOONER Encounter Details Date Type Department Care Team Description 02/28/2023 Telephone Hematology/Oncology [facility] [address] [place] [address] Kat Cardenas MD [address] [place] [address] NEW PATIENT (PACHECO SEEN SOONER) Allergies No known active allergiesdocumented as of this encounter (statuses as of 02/28/2023) Medications Medication Sig Dispensed Refills Start Date [...] as of this encounter (statuses as of 02/28/2023) Active Problems Problem Noted Date Partial symptomatic [...] follow-up with Neurosurgery/Neuropsychology 08/13/2018 for awake craniotomy Qtpausj-Dfgbt-Jnhmz disease of demyelina ting type 12/26/2012 OBESITY, PEDS, BMI 99TH PERCENTL OR GREA TER 12/23/2009 Overview: Per Obesity Taxonomy 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 Message returned from Dr. Gareth Cardenas: MD Aubree Simpson CMA; Alton Betancur MD He was treated with radiation and temozolomide completed in 2018. He should continue follow with Neuro-Oncology Previous Messages Sending this message back to referring provider * Telephone Encounter - Aubree Browning CMA - 02/28/2023 7:21 AM EDT Images from the original note were not included. Referral received for patient to be seen for New Oncology Consult. Staff message sent to Dr. Cardenas and Dr. Betancur to advise if patient should be seen here or by previous Neuro-Oncologist. ----- Message ----- From: Aubree Browning CMA Sent: 02/27/2023 10:55 AM EDT To: Alton Betancur MD, Kat Cardenas MD Subject: New consult Good morning, Received this referral for this patient to follow up with HemOnc for Oligodendroglioma. Patient was not seen by our practice. Was seen by Neuro Oncology and looks like prescribed Temodar. Should this referral be sent on to Neuro Onc or be scheduled here with our office? Please review and let me know Thank you, Aubree Browning CMA documented in this encounter Plan of Treatment Upcoming Encounters Date Type Specialty Care Team Description 03/26/2024 Office Visit Family Medicine Dangelo Juárez, DO [address] [place] [address] Health Maintenance Due Date Last Done Comments [...] this encounter Medical Devices Implanted Type Area Biomedical Manager Device Identifier Shelf Expiration Date Model / Serial / Lot Graft Lyoplant 10.0x12.5cm 4x5 - [id number] Implanted:Qty: 1 on 08/13/2018 by Bacilio Romero MD at OR [facility] [place] Ann STANLEY : LISETTEBILLYLAMolly 12/29/2022 1067 050 / [id number] / [id number] documented as of this encounter Advance Directives [...] the patient have Health Care Power of Simulation Technician? No Code Status History Code Status Date Activated Date Inactivated Comments Full Code 08/13/2018 6:42 AM 08/13/2018 6:33 PM Thi s order reflects the patients wishes and were consensually agreed upon. Full Code 07/08/2018 10:45 PM 07/09/2018 9:37 PM This order reflects the patients wishes and were consensually agreed upon. Care Teams Purchasing Assistant Relationship Specialty Start Date End Date Dangelo uJárez, DO [address] [place] [address] PCP - General Family Medicine 07/19/18 documented as of this encounter
--- OUTSIDE RECORDS SUMMARY | 2023-08-15 23:42 | External Medical Summary | Summary of Care ---
Author Name Unknown Organization [facility] Address [address] [place] [address] Phone [phone] Care Team Providers Care Software Product Manager Name Role Phone MarkusDangelo davis Primary Care Provider [phone] Encounter Details Date Type Department Care Team Description 03/13/2023 Abstract Hematology Oncology [facility] [address] [place] [address] Bakari Clifford MD [address] [place] [address] Allergies No known active allergiesdocumented as of [...] follow-up with Neurosurgery/Neuropsychology 08/13/2018 for awake craniotomy Ehsdibf-Yidhx-Pgqil disease of demyelina ting type 12/26/2012 OBESITY, [...] Progress Notes * Bakari Clifford MD - 03/13/2023 1:15 PM EDT MULTIDISCIPLINARY NEURO-ONCOLOGY TUMOR BOARD We discussed that case of Jose Luis Wall on 03/13/23 in our tumor board with goals to evaluate the patient clinical presentation, review available brain/spine imaging, discuss differential diagnoses and management options as well as any potential barriers to care. Our team of providers routinely includes staff from the following disciplines: neuro-oncology, neurosurgery, radiation oncology, neuropsychology, neuroradiology, neuropathology, and there is usually a combination of clinical trainees, nurses, and physician extenders from our local and regional [facility] centers for an open discussion of the cases presented. While all input is considered in patient decision-making, this tumor board meeting is designed to provide evidence based and best practice options for our patients and is not intended to represent all possible approaches or conclusions. We alsooffer these tumor board meetings for multidisciplinary discussion, education, and evaluation for potential clinical trials when appropriate. Based on the clinical exam findings, review of imaging and noted comorbid conditions, our multidisciplinary team arrived at the following approaches as the best practice next steps in care for Jose Luis Wall: 32yo WM with h/o Left frontal Oligodendroglioma, IDH mutated, 1p/19q Codeleted. S/p STR then Radiation and chemorx with Temodar. Now with some speech diff, MYERS. MRI showed " focal patchy enhancement is slightly increased involving regions previously involved by tumor, findings may be treatment-related, and there is no convincing evidence of tumor progression." MRI was reviewed in [facility] and it was felt that areas of new enhancement are within the area of prior tumor--expansile non enhancing tumor. Perfusion hasnt changed and overall . Recommend short interval followup MRI in 3months The above is subject to change based on new clinical data or input from other expert advisors. Bakari Clifford MD Department of Neurosurgery 03/13/2023 1:15 PM documented in this encounter Plan of Treatment Upcoming Encounters Date Type Specialty Care Team Description 06/12/2023 Office Visit Hematology Oncology Bakari Clifford MD [address] [place], [place] [id number] 03/26/2024 Office Visit Family Medicine Dangelo Juárez, DO [address] [place] [address] Health Maintenance Due Date Last Done Comments [...] this encounter Medical Devices Implanted Type Area Furniture Mover Helper Device Identifier Shelf Expiration Date Model / Serial / Lot Graft Lyoplant 10.0x12.5cm 4x5 - [id number] Implanted:Qty: 1 on 08/13/2018 by Bacilio Romero MD at OR [facility] [place] B ST[place]LEY : AESCULAP 12/29/2022 1067 [id number] / [id number] / [id number] documented as of this encounter Advance Directives [...] the patient have Health Care Power of Adding Machine Operator? No Code Status History Code Status Date Activated Date Inactivated Comments Full Code 08/13/2018 6:42 AM 08/13/2018 6:33 PM Thi s order reflects the patients wishes and were consensually agreed upon. Full Code 07/08/2018 10:45 PM 07/09/2018 9:37 PM This order reflects the patients wishes and were consensually agreed upon. Care Teams Software Product Manager Relationship Specialty Start Date End Date Dangelo Juárez, DO [address] [facility] [place] [address] PCP - General Family Medicine 07/19/18 documented as of this encounter
--- OUTSIDE RECORDS SUMMARY | 2023-08-15 23:42 | External Medical Summary | Summary of Care ---
Author Name Unknown Organization [facility] Address [address] [place] [address] Phone [phone] Care Team Providers Care Office Auditor Name Role Phone MarkusbrittaneynannetteDangelo Kilo CORDERO Primary Care Provider [phone] Reason for Visit * Reason Onset Date Comments Appointment 06/26/2023 Today's video vi sit Encounter Details Date Type Department Care Team Description 06/26/2023 Telephone Hematology Oncology [facility] [address] [place] [address] Ángela Altamirano PA-C [address] [place] [address] Appointment (Today's video visit ) Allergies No known active allergiesdocumented as of this encounter (statuses as of 06/26/2023) Medications Medication Sig Dispensed Refills Start Date [...] as of this encounter (statuses as of 06/26/2023) Active Problems Problem Noted Date Encounter for [...] follow-up with Neurosurgery/Neuropsychology 08/13/2018 for awake craniotomy Mjrypic-Yupyx-Ddzfv disease of demyelina ting type 12/26/2012 OBESITY, PEDS, BMI 99TH PERCENTL OR GREA TER 12/23/2009 Overview: Per Obesity Taxonomy 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 Notified front end software engineer. Ángela Altamirano PA-C 06/26/23 3:49 PM documented in this encounter Plan of Treatment Upcoming Encounters Date Type Specialty Care Team Description 06/28/2023 Pharmacy Pharmacy [facility] Hem[facility]Onc [address] [place] [address] 07/17/2023 Telemedicine Hematology Oncology Bakari Clifford MD [address] [place] [address] 03/26/2024 Office Visit Family Medicine Dangelo Juárez, DO [address] [place] [address] Health Maintenance Due Date Last Done Comments [...] this encounter Medical Devices Implanted Type Area Otolaryngology Nurse Device Identifier Shelf Expiration Date Model / Serial / Lot Graft Lyoplant 10.0x12.5cm 4x5 - [id number] Implanted:Qty: 1 on 08/13/2018 by Bacilio Romero MD at OR [facility] [place] B STANLEY : SOLANGE 12/29/2022 1067 050 / [id number] / [id number] documented as of this encounter Advance Directives [...] the patient have Health Care Power of Wet End Helper? No Code Status History Code Status Date Activated Date Inactivated Comments Full Code 08/13/2018 6:42 AM 08/13/2018 6:33 PM Thi s order reflects the patients wishes and were consensually agreed upon. Full Code 07/08/2018 10:45 PM 07/09/2018 9:37 PM This order reflects the patients wishes and were consensually agreed upon. Care Teams Office Auditor Relationship Specialty Start Date End Date Dangelo Juárez, DO [address] [place] [address] PCP - General Family Medicine 07/19/18 documented as of this encounter
--- OUTSIDE RECORDS SUMMARY | 2023-08-15 23:42 | External Medical Summary | Summary of Care ---
Author Name Unknown Organization [facility] Address [address] [place] [address] Phone [phone] Care Team Providers Care Advanced Nursing Professor Name Role Phone Dangelo Juárez DO Primary Care Provider [phone] Reason for Visit * Reason Comments Outpatient Testing Encounter Details Date Type Department Care Team Description 02/21/2023 Laboratory Laboratory [facility] [address] [place] [address] [facility] [address] [place] [address] Malaise and fatigue; Partial symptomatic epilepsy with complex partial seizures, not intractable, without status epilepticus (HCC) Allergies No known active allergiesdocumented as of this encounter (statuses as of 02/21/2023) Medications Medication Sig Dispensed Refills Start Date [...] as of this encounter (statuses as of 02/21/2023) Active Problems Problem Noted Date Partial symptomatic [...] follow-up with Neurosurgery/Neuropsychology 08/13/2018 for 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 12/26/2012 OBESITY, PEDS, BMI 99TH PERCENTL OR GREA TER 12/23/2009 Overview: Per Obesity Taxonomy 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 gait 03/23/2000 documented as of this encounter (statuses as of 02/21/2023) Resolved Problems Problem Noted Date Resolved Date Overweight (BMI 25.0-29.9) 12/13/200512/23 Overview: Per Obesity Taxonomy Routine child health exam 2012 documented as of this encounter (statuses as of 02/21/2023) Immunizations Name Administration Dates Next Due Meningococcal [...] Visit Family Medicine Dangelo Juárez, DO [address] [place] [address] Pending Results Name Type Priority Associated Diagnoses Date /Time TSH WITH FREE T4 IF INDICATED Lab Routine Malaise and fatigue 02/21/2023 3:27 PM EDT ERYTHROCYTE SEDIMENTATION RATE (ESR) Lab Routine Malaise and fatigue 02/21/2023 3:27 PM EDT LYME DISEASE ANTIBODY SCREEN WITH REFLEX TO WESTERN BLOT Lab Routine Malaise and fatigue 02/21/2023 3:27 PM EDT CBC WITH WBC DIFFERENTIAL AND ANEMIA REFLEX WORKUP Lab Routine Malaise and fatigue Partial symptomatic epilepsy with complex partial seizures, not intractable, without status epilepticus (HCC) 02/21/2023 3:27 PM EDT COMPREHENSIVE METABOLIC PANEL Lab Routine Malaise and fatigue Partial symptomatic epilepsy with complex partial seizures, not intractable, without status epilepticus (HCC) 02/21/2023 3:27 PM EDT ANTINUCLEAR ANTIBODY (HELENA) EIA SCREEN WITH REFLEX AB QUANT Lab Routine Malaise and fatigue 02/21/2023 3:27 PM EDT LEVETIRACETAM LEVEL Lab Routine Partial symptomatic epilepsy with complex partial seizures, not intractable, without status epilepticus (HCC) 02/21/2023 3:27 PM EDT HEMOGLOBIN A1C Lab Routine Malaise and fatigue 02/21/2023 3:27 PM EDT LYME DISEASE ANTIBODY SCREEN Lab Routine Malaise and fatigue 02/21/2023 3:27 PM EDT ANEMIA CBC Lab Routine Malaise and fatigue Partial symptomatic epilepsy with complex partial seizures, not intractable, without status epilepticus (HCC) 02/21/2023 3:27 PM EDT DIFFERENTIAL, AUTOMATED Lab Routine Malaise and fatigue Partial symptomatic epilepsy with complex partial seizures, not intractable, without status epilepticus (HCC) 02/21/2023 3:27 PM EDT ANEMIA REFLEX CHEMISTRY HOLD Lab Routine Malaise and fatigue Partial symptomatic epilepsy with complex partial seizures, not intractable, without status epilepticus (HCC) 02/21/2023 3:27 PM EDT ANTINUCLEAR ANTIBODY (HELENA) SCREEN, PRAVEEN Lab Routine Malaise and fatigue 02/21/2023 3:27 PM EDT Health Maintenance Due Date Last Done Comments COVID-19 Vaccine (#1) 1992 Pneumococcal Vaccine: Pediatrics (0 to 5 Years) [...] this encounter Medical Devices Implanted Type Area Superintendent Division Device Identifier Shelf Expiration Date Model / Serial / Lot Graft Lyoplant 10.0x12.5cm 4x5 - [id number] Implanted:Qty: 1 on 08/13/2018 by Bacilio Romero MD at OR [facility] [place] B STANLEY : AESCULAP 12/29/2022 1067 050 / [id number] / [id number] documented as of this encounter Visit Diagnoses Diagnosis Malaise and fatigue Other malaise and fatigue Partial symptomatic epilepsy with complex partial seizures, not intractable, without status epilepticus (HCC) documented in this encounter Advance Directives Latest [...] the patient have Health Care Power of Mutuel Department Manager? No Code Status History Code Status Date Activated Date Inactivated Comments Full Code 08/13/2018 6:42 AM 08/13/2018 6:33 PM Thi s order reflects the patients wishes and were consensually agreed upon. Full Code 07/08/2018 10:45 PM 07/09/2018 9:37 PM This order reflects the patients wishes and were consensually agreed upon. Care Teams Advanced Nursing Professor Relationship Specialty Start Date End Date Dangelo Juárez, DO [address] [facility] [place] [address] PCP - General Family Medicine 07/19/18 documented as of this encounter
--- OUTSIDE RECORDS SUMMARY | 2023-08-15 23:42 | External Medical Summary | Summary of Care ---
Author Name Unknown Organization [facility] Address [address] [place] [address] Phone [phone] Care Team Providers Care Retail Business Analyst Name Role Phone Dangelo Juárez DO Primary Care Provider [phone] Reason for Visit * Reason Comments EEG Encounter Details Date Type Department Care Team Description 06/14/2023 NeuroDiagnostic Study Neurophysiology [facility] [address] [place] [address] Sp, Neurophys Tech [address] 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 gait 03/23/2000 documented as of this encounter (statuses as of 06/18/2023) Resolved Problems Problem Noted Date Resolved Date Overweight (BMI 25.0-29.9) 12/13/200512/23 Overview: Per Obesity Taxonomy Routine child health exam 2012 documented as of this encounter (statuses as of 06/18/2023) Immunizations Name Administration Dates Next Due Meningococcal [...] as of this encounter Progress Notes * Rafael Power, DO - 06/15/2023 6:20 AM EDT ROUTINE EEG REPORT Name: Jose Luis Wall Date of study: 06/14/23 Age: [age] year old Outpatient Referring Physician: Bakari Clifford MD TECHNICAL REMARKS: This is a technically satisfactory eighteen channel record employing 21 disc electrodes applied according to a measured international 10-20 electrode placement system. There were no significant technical difficulties. 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 EEG performed for evaluation of epileptiform activity. MEDICATIONS: Current Outpatient Medications Medication Sig Dispense Refill Omeprazole 40 MG Oral Capsule Delayed Release (PriLOSEC) Take 1 Capsule by mouth in the morning. 90Capsule 3 levETIRAcetam 750 MG Oral Tablet Take 1.5 Tablets by mouth in the morning and 1.5 Tablets before bedtime. 180 Tablet 3 No current facility-administered medications for this visit. REPORT: At the onset of the EEG, the patient is awake. The background is asymmetric. There is a loss of a normal anterior to posterior gradient particularly on the left side. The background predominantly consists of low amplitude indeterminate activity with continuous focal slowing in the left front al head region consisting of an admixture of alpha and theta frequencies. Drowsiness is characterized by reduced blink rate and decreased myogenic artifact. No stage 2 sleep transients are seen. Photic stimulation does not induce any additional abnormalities. IMPRESSION: This is an abnormal awake and drowsy routine EEG due to continuous focal slowing in theleft frontal head region suggestive of an underlying structural abnormality. No epileptiform discharges are seen. Rafael Power DO documented in this encounter Plan of Treatment Upcoming Encounters Date Type Specialty Care Team Description 06/20/2023 Pharmacy Pharmacy [facility] Hem[facility]Onc [address] [place] [address] 06/22/2023 Telemedicine Neurology Esperanza Hernandez MD [address] [place] [address] 06/26/2023 Telemedicine Hematology Oncology Ángela Altamirano PA-C [address] [place] [address] 07/17/2023 Telemedicine Hematology Oncology Bakari Clifford MD [address] [place] [address] 03/26/2024 Office Visit Family Medicine Dangelo Juárez DO 200 [facility] [address] Health Maintenance Due Date Last Done Comments [...] this encounter Medical Devices Implanted Type Area Campus Recruiting Internship Device Identifier Shelf Expiration Date Model / Serial / Lot Graft Lyoplant 10.0x12.5cm 4x5 - [id number] Implanted:Qty: 1 on 08/13/2018 by Bacilio Romero MD at OR [facility] [place] B STANLEY : AESCULAP 12/29/2022 1067 050 / [id number] / [id number] documented as of this encounter Visit Diagnoses Diagnosis 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 No Code Status History Code Status Date Activated Date Inactivated Comments Full Code 08/13/2018 6:42 AM 08/13/2018 6:33 PM Thi s order reflects the patients wishes and were consensually agreed upon. Full Code 07/08/2018 10:45 PM 07/09/2018 9:37 PM This order reflects the patients wishes and were consensually agreed upon. Care Teams Retail Business Analyst Relationship Specialty Start Date End Date Dangelo Juárez, DO [address] [facility] [place] [address] PCP - General Family Medicine 07/19/18 documented as of this encounter
--- OUTSIDE RECORDS SUMMARY | 2023-08-15 23:42 | External Medical Summary | Summary of Care ---
Author Name Unknown Organization [facility] Address [address] [place] [address] Phone [phone] Care Team Providers Care Winterizer Name Role Phone MarquitaDangelo Kilo CORDERO Primary Care Provider [phone] Reason for Visit * Reason Comments Medication Management Encounter Details Date Type Department Care Team Description 06/22/2023 Pharmacy Pharmacy Hematology Oncology [facility] [address], [place] [id number] [facility] Hem/Onc [address], [place] [id number] Oligodendroglioma (HCC)* Allergies No known active allergiesdocumented [...] follow-up with Neurosurgery/Neuropsychology 08/13/2018 for awake craniotomy Jpwxtrp-Humop-Ykxfu disease of demyelina ting type 12/26/2012 OBESITY, [...] this encounter Progress Notes * Elizabeth Pavon, finance professor - 06/22/2023 8:55 AM EDT MEDICATION THERAPY MANAGEMENT PROCARBAZINE/CCNU TREATMENT STATUS NOTE Jose Luis Callahanvirgen [phone] Patient Phone Numbers Communication: Chart review Treatment: Medication: Procarbazine (Matulane) Dose Basis: 60 mg/m2 Dose: 150 mg PO daily for days 8-21 every 42 days Administration: at bedtime Medication: Lomustine Dose Basis: 90 mg/m2 Dose: 200 mg PO on day 1 every 24 days Administration: empty stomach at bedtime Indication/Staging/Diagnosis Code: Oligodendroma Start Date: TBD Primary Application Performance Engineer/Oncologist: Dr. Clifford Supportive Care Meds: Ondansetron 8 mg 30 min prior to chemotherapy and q8h PRN Docusate Prophylactic Meds: PJP ppx for ALC < 0.5 Cycle Lomustine Procarbazine C1 C2 The Hematology/Oncology Oral Chemotherapy Clinic will assess medication compliance at each patient encounter Assessment and Plan: Per Dr. Clifford, pt to be discussed in [facility] next week Yes/no Date Action Taken [place] plan entered? Yes 06/17/23 Consent completed? No Intro/med rec completed? Precert completed? Yes 06/18/23 Approved Test claim completed? Yes 06/19/23 [facility] can fill for $0 Financial assistance needed? N/A Physician signature? No Rx released? Education completed? Will follow up in 3 days to check on physician approval, for H/O tech to introduce patient to services of the Oral Chemotherapy Clinic and complete medication reconciliation, and consent. [facility] will contact patient once med shipped/received to complete medication education Please refer to initial intake note for detailed review of regimen and patient- specific education points. FELIPA Harmon Interactive Video Technician Oral Chemotherapy Clinic 06/22/23,1:28 PM Time Spent on Encounter: 6 - 10 minutes documented in this encounter Plan of Treatment Upcoming Encounters Date Type Specialty Care Team Description 06/26/2023 Telemedicine Hematology Oncology Ángela Altamirano PA-C [address] [place] [address] 07/17/2023 Telemedicine Hematology Oncology Bakari Clifford MD [address] [place] [address] 03/26/2024 Office Visit Family Medicine Dangelo Juárez, DO [address] [facility] [place] [address] Health Maintenance Due Date Last Done Comments [...] this encounter Medical Devices Implanted Type Area Health Science Writer Device Identifier Shelf Expiration Date Model / Serial / Lot Graft Lyoplant 10.0x12.5cm 4x5 - [id number] Implanted:Qty: 1 on 08/13/2018 by Bacilio Romero MD at OR [facility] [place] : AESCULAP 12/29/2022 [id number] / [id number] / [id number] documented as of this encounter Visit Diagnoses [...] the patient have Health Care Power of Hematology Oncology Consultant? No Code Status History Code Status Date Activated Date Inactivated Comments Full Code 08/13/2018 6:42 AM 08/13/2018 6:33 PM Thi s order reflects the patients wishes and were consensually agreed upon. Full Code 07/08/2018 10:45 PM 07/09/2018 9:37 PM This order reflects the patients wishes and were consensually agreed upon. Care Teams Winterizer Relationship Specialty Start Date End Date [facility], [facility] [id number] P[facility] - General Family Medicine 07/19/18 documented as of this encounter
--- OUTSIDE RECORDS SUMMARY | 2023-08-15 23:42 | External Medical Summary | Summary of Care ---
Author Name Unknown Organization [facility] Address [address] [place] [address] Phone [phone] Care Team Providers Care Experimental Rocketsled Mechanic Name Role Phone Dangelo Juárez DO Primary Care Provider [phone] Reason for Referral * Evaluate & Treat - Unlimited Visits (Within 30 days (routine)) - Authorized Specialty Diagnoses / Procedures Referred By Candice carlson Referred To Contact Hematology/Oncology / Hematology Oncology Diagnoses Oligodendroglioma (HCC) Dangelo Juárez DO [address] [place] [id number] Referral ID Status Reason Start Date Expiration Date Visits Requested Visits Authorized [id number] Authorized Specialty Services Required 02/21/[phone] Question Answer Referral Priority Within 30 days (routine) Reason for Referral Malignant Oncology (Solid Organ Cancer) Reason for Visit * Reason Comments Well Adult Exam Encounter Details Date Type Department Care Team Description 02/21/2023 Office Visit Family Practice [facility] [address] [place] [id number] Dangelo Juárez DO [address] [place] [id number] Routine medical exam*; Malaise and fatigue; Oligodendroglioma (HCC); Partial symptomatic epilepsy with complex partial seizures, not intractable, without status epilepticus (HCC); Need for pgqodvvofi-tfthdof-cnf tussis (Tdap) vaccine; Gastroesophageal reflux disease without esophagitis Allergies No known active allergiesdocumented as of this encounter (statuses as of 02/27/2023) Medications Medication Sig Dispensed Refills Start Date End Date Status levETIRAcetam 750 MG Oral TabletIndications: Partial symptomatic epilepsy with complex partial seizures, not intractable, without status epilepticus (HCC) Take by mouth 1 Tablet in the morning AND 1 Tablet before bedtime. 180 Tablet 3 05/30/2022 Active Omeprazole 40 MG Oral Capsule Delayed Release (PriLOSEC)Indicati ons:Gastroesophage al reflux disease without esophagitis Take 1 Capsule by mouth in the morning. 90 Capsule 3 02/21/2023 Active Omeprazole 40 MG Oral Capsule Delayed Release (PriLOSEC)Indicati ons:Gastroesophage al reflux disease without esophagitis Take by mouth 1 Capsule in the morning. 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 gait 03/23/2000 documented as of this encounter (statuses as of 02/27/2023) Resolved Problems Problem Noted Date Resolved Date Overweight (BMI 25.0-29.9) 12/13/200512/23 Overview: Per Obesity Taxonomy Routine child health exam 2012 documented as of this encounter (statuses as of 02/27/2023) Immunizations Name Administration Dates Next Due Meningococcal [...] Sign Reading Time Taken Comments Blood Pressure 124/86 02/21/2023 2:42 PM EDT Pulse 77 02/21/2023 2:42 PM EDT Temperature 37.2 C (99 F) 02/21/2023 2:42 PM EDT Respiratory Rate 16 02/21/2023 2:42 PM EDT Oxygen Saturation 95% 02/21/2023 2:42 PM EDT Inhaled Oxygen Concentration - - Weight 131 kg (288 lb 12.8 oz) 02/21/2023 2:42 P M EDT Height - - Body Mass Index 40.3 12/08/2022 1:51 PM EST documented in this encounter Functional [...] as of this encounter Progress Notes * Dangelo Juárez, - 02/21/2023 2:44 PM EDT Subjective: Jose Luis Wall is a 32 year old male. Chief Complaint Patient presents with Well Adult Exam HPI: Pt here for a physical. PMHx, PSHx, SHx, FHx, Medications, and Allergies fully reviewed He feels generally tired and warn out. Takes more coordiation. Sleeping more. Some joint pain. 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 Not taking anything for it. Doesn't feel like NSAIDs help. Diet has not been great. Sometimes better. Sounds like a good luis of carbs. On his feet a lot with work. He is cooking there now. We discussed getting back in with hematology. 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 90 Capsule 3 levETIRAcetam 750 MG Oral Tablet Take by mouth 1 Tablet in the morning AND 1 Tablet before bedtime. 180 Tablet 3 No current facility-administered medications for this visit. Review of patient's allergies indicates: No Known Allergies OBJECTIVE: BP 124/86 | Pulse 77 | Temp 37.2 C (99 F) (Tympanic) | Resp 16 | Wt 131 kg (288 lb 12.8 oz) | SpO2 95% | BMI 40.30 kg/m | BSA 2.56 m Estimated body mass index is 40.3 kg/m as calculated from the following: Height as of 12/08/22: 1.803 m (5' 10.98"). Weight as of this encounter: 131 kg (288 lb 12.8 oz). BP Readings from Last 3 Encounters: 02/21/23 124/86 12/08/22 128/84 11/11/21 120/76 Wt Readings from Last 3 Encounters: 02/21/23 131 kg (288 lb 12.8 oz) 11/11/21 116.8 kg (257 lb 9.6 oz) 07/08/21 114.1 kg (251 lb 8 oz) ROS: General: No change in weight, No weakness, some fatigue and No fevers, sweats, or chills Head: No significant headache and No recent significant head injury Eyes: Eyes worsening, says he needs to get in with eye doctor Ears: No recent change in hearing, No tinnitus or vertigo, No ear pain and No ear discharge Nose: No h/o frequent colds or sinusitis, No nasal stuffiness, No h/o hay fever and No significant epistaxis Throat/Oropharynx: No teeth or gum problems, No bleeding gums, No tongue complaints, No sore throatand No recent change in voice or hoarseness Neck: No complaint of lumps in neck, No swollen glands, No recent swelling in thyroid area and No significant pain in neck Respiratory: No cough, sputum, or hemoptysis, No wheezing, No shortness of breath and No recent change in breathing Cardiac: No chest pain, No shortness of breath, No dyspnea on exertion, No orthopnea, No paroxysmalnocturnal dyspnea, No edema, No palpitations and No syncope Gastrointestinal: No dysphagia, No significant heartburn, No significant change in appetite, No nausea, vomiting, diarrhea, or constipation, No hematemesis, No blood in stools or black tarry stools, No abdominal bloating or early satiety and No abdominal pain Urinary: No urinary frequency, No dysuria, No hematuria, No urinary urgency, No polyuria, No nocturia, No incontinence, No hesitancy and No sensation of incomplete voiding Musculoskeletal: No joint pain or stiffness, No arthritis, No backache, No muscle pains or cramps and No joint swelling Hematologic: No anemia, No easy bruising or abnormal bleeding and No history of transfusion Neurologic: No fainting or blackouts, No seizures, No paralysis or focal weakness, No numbness or tingling, No tremors and No significant problems with memory PHYSICAL EXAM: General: alert, healthy and no distress Head: Normocephalic, No masses, lesions, tenderness or abnormalities Ears: External ears normal, Canals clear, TM's Normal Nose: no mucosal erythema, no mucosal edema, no purulent discharge Oropharynx: no exudate, no erythema, lips, buccal mucosa, and tongue normal and mucous membranes are moist Heart: regular rate & rhythm, no murmurs and no gallops Lungs: chest symmetric with normal AP diameter, no chest deformities noted, no chest wall tenderness, lungs clear to auscultation Abdomen: abdomen soft, non-tender, normal bowel sounds and no masses or organomegaly Extremities: less than 2 second capillary refill, no joint deformities, effusion, or inflammation ASSESSMENT/Plan Routine medical exam (Primary) Malaise and fatigue - TSH WITH FREE T4 IF INDICATED; Future; Expected date: 02/21/2023 - ERYTHROCYTE SEDIMENTATION RATE (ESR); Future; Expected date: 02/21/2023 - LYME DISEASE ANTIBODY SCREEN WITH REFLEX TO WESTERN BLOT; Future; Expected date: 02/21/2023 - CBC WITH WBC DIFFERENTIAL AND ANEMIA REFLEX WORKUP; Future; Expected date: 02/21/2023 - COMPREHENSIVE METABOLIC PANEL; Future; Expected date: 02/21/2023 - ANTINUCLEAR ANTIBODY (HELENA) EIA SCREEN WITH REFLEX AB QUANT; Future; Expected date: 02/21/2023 - HEMOGLOBIN A1C; Future; Expected date: 02/21/2023 Oligodendroglioma (HCC) - HEMATOLOGY/ONCOLOGY REFERRAL OP Partial symptomatic epilepsy with complex partial seizures, not intractable, without status epilepticus (HCC) - CBC WITH WBC DIFFERENTIAL AND ANEMIA REFLEX WORKUP; Future; Expected date: 02/21/2023 - COMPREHENSIVE METABOLIC PANEL; Future; Expected date: 02/21/2023 - LEVETIRACETAM LEVEL; Future; Expected date: 02/21/2023 Need for ajntwyftoy-hszthwc-yobugcvxw (Tdap) vaccine - TDAP (AGE 10 AND OLDER)(BOOSTRIX) Gastroesophageal reflux disease without esophagitis - Omeprazole 40 MG Oral Capsule Delayed Release (PriLOSEC); Take 1 Capsule by mouth in the morning. Dental and sun care discussed along with weight. Will work-up symptoms. The above was discussed and understanding was expressed. Dangelo Juárez DO documented in this encounter Nursing Notes * Viktoriya Leon LPN - 02/21/2023 2:38 PM EDT Jose Luis Wall presents for annual wellness exam. Medications & HM reviewed. documented in this encounter Plan of Treatment Upcoming Encounters Date Type Specialty Care Team Description 03/26/2024 Office Visit Family Medicine Dangelo Juárez DO [address] [place] [address] Scheduled Referrals Name Type Priority Associated Diagnoses Orde r Schedule HEMATOLOGY/ONCOLOGY REFERRAL OP Referral Within 30 days (routine) Oligodendroglioma (HCC) Ordered: 02/21/2023 Health Maintenance Due Date Last Done Comments [...] this encounter Medical Devices Implanted Type Area Manager Of Financial Device Identifier Shelf Expiration Date Model / Serial / Lot Graft Lyoplant 10.0x12.5cm 4x5 - [id number] Implanted:Qty: 1 on 08/13/2018 by Bacilio Romero MD at OR [facility] [place] : AESCULAP 12/29/2022 [id number] / [id number] / [id number] documented as of this encounter Results * HEMOGLOBIN A1C (02/21/2023 3:27 PM EDT) Hemoglobin A1C 5.4 4.0 - 5.6 % 02/22/2023 12:11 AM EDT LAB[facility] Comment:The use of HbA1c to monitor glycemic status is based on normal hemoglobin and HbA composition. This test should not be used in patients with abnormal hemoglobin that affects the half life of the red blood cell or the in vivo glycation rates. Estimated Average Glucose 108 <126 mg/dL 02/22/2023 12:11 AM EDT [facility] Blood Venous blood specimen / Unknown Venipuncture / Unknown 02/21/2023 3:27 PM EDT 02/21/2023 3:27 PM EDT Dangelo Juárez DO LAB BLOOD ORDERABLE S LABORATORY [facility] [address] [place] [address] * LEVETIRACETAM LEVEL (02/21/2023 3:27 PM EDT) Levetiracetam 8 3 - 63 ug/mL 02/22/2023 9:18 AM EDT LAB[facility]ATORY [facility] Blood Venous blood specimen / Unknown Venipuncture / Unknown 02/21/2023 3:27 PM EDT 02/21/2023 3:27 PM EDT Dangelo Aparicioowossonannette LAB BLOOD ORDERABLE S LABORATORY [facility] [address] [place] [address] * (ABNORMAL) COMPREHENSIVE METABOLIC PANEL (02/21/2023 3:27 PM EDT) BUN 19 6 - 20 mg/dL 02/21/2023 4:31 PM EDT [facility] 56 Creatinine 0.8 0.6 - 1.2 mg/dL 02/21/2023 4:31 PM EDT [facility] 56 Estimated Glomerular Filtration Rate >90 >=60 mL/min 02/21/2023 4:31 PM EDT [facility] 56 Comment:eGFR is calculated b ased on the CKD-EPI 2020 equation Sodium 142 135 - 146 mmol/L 02/21/2023 4:31 PM EDT [facility] 56- Potassium 4.2 3.5 - 5.1 mmol/L 02/21/2023 4:31 PM EDT [facility] 56- Chloride 107 98 - 107 mmol/L 02/21/2023 4:31 PM EDT [facility] 56- CO2 23 22 - 32 mmol/L 02/21/2023 4:31 PM EDT [facility] 56- Anion Gap 12 7 - 15 mmol/L 02/21/2023 4:31 PM EDT [facility] 56- Glucose 108 70 - 120 mg/dL 02/21/2023 4:31 PM EDT [facility] 56- Albumin 4.7 3.8 - 5.0 g/dL 02/21/2023 4:31 PM EDT [facility] 56- AST 31 10 - 50 U/L 02/21/2023 4:31 PM EDT [facility] 56- Alkaline Phosphatase 100 35 - 130 U/L 02/21/2023 4:31 PM EDT [facility] 56- Bilirubin, Total 0.3 <=1.2 mg/dL 02/21/2023 4:31 PM EDT [facility] 56- Calcium 9.5 8.4 - 10.2 mg/dL 02/21/2023 4:31 PM EDT [facility] 56- Protein 7.2 6.0 - 8.3 g/dL 02/21/2023 4:31 PM EDT [facility] [place] 56- ALT 51(H) 10 - 50 U/L 02/21/2023 4:31 PM EDT [facility] [place] 56-02 Blood Venous blood specimen / Unknown Venipuncture / Unknown 02/21/2023 3:27 PM EDT 02/21/2023 3:27 PM EDT Dangelo Kilo Marquita DO LAB BLOOD ORDERABLE S [facility] [place] 56-[address] [place] [address] * ERYTHROCYTE SEDIMENTATION RATE (ESR) (02/21/2023 3:27 PM EDT) ESR 8 <15 mm/hour 02/21/2023 10:28 PM EDT [facility] Blood Venous blood specimen / Unknown Venipuncture / Unknown 02/21/2023 3:27 PM EDT 02/21/2023 3:27 PM EDT Dangelo Boateng Marquita CORDERO LAB BLOOD ORDERABLE S Performing Organization Address City/[facility]/ZIP Co de Phone Number LABORATORY [facility] [address] [place] [address] * TSH WITH FREE T4 IF INDICATED (02/21/2023 3:27 PM EDT) TSH 2.55 0.27 - 4.20 uIU/mL 02/22/2023 12:19 AM EDT LAB[facility] Blood Venous blood specimen / Unknown Venipuncture / Unknown 02/21/2023 3:27 PM EDT 02/21/2023 3:27 PM EDT Dangelo Boateng Marquita DO LAB BLOOD ORDERABLE S LAB[facility]ATORY [facility] [address] [place] [address] documented in this encounter Visit Diagnoses Diagnosis Routine medical exam- Primary Routine general medical examination at a health care facility Malaise and fatigue Other malaise and fatigue Oligodendroglioma (HCC) Malignant neoplasm of brain, unspecified site Partial symptomatic epilepsy with complex partial seizures, not intractable, without status epilepticus (HCC) Need for aclmiemayk-urkudyr-lxqqrgyqh (Tdap) vaccine Need for prophylactic vaccination with combined brgkkhhumh-joczely-uyxgbtieo (DTP) vaccine Gastroesophageal reflux disease without esophagitis Esophageal reflux documented in this encounter Advance Directives Latest [...] the patient have Health Care Power of County Agricultural Agent? No Code Status History Code Status Date Activated Date Inactivated Comments Full Code 08/13/2018 6:42 AM 08/13/2018 6:33 PM Thi s order reflects the patients wishes and were consensually agreed upon. Full Code 07/08/2018 10:45 PM 07/09/2018 9:37 PM This order reflects the patients wishes and were consensually agreed upon. Care Teams Experimental Rocketsled Mechanic Relationship Specialty Start Date End Date Dangelo Juárez, DO [address] [place] [address] PCP - General Family Medicine 07/19/18 documented as of this encounter
--- OUTSIDE RECORDS SUMMARY | 2023-08-15 23:42 | External Medical Summary | Summary of Care ---
Author Name Unknown Organization [facility] Address [address] [place] [address] Phone [phone] Care Team Providers Care Jig Filler Name Role Phone MarquitaDangelo Kilo CORDERO Primary Care Provider [phone] Reason for Visit * Reason Comments Medication Management Encounter Details Date Type Department Care Team Description 06/20/2023 Pharmacy Pharmacy Hematology Oncology [facility] [address], [place] [id number] [facility] [place], [facility] Hem/Onc [address], [place] [id number] Oligodendroglioma (HCC)* Allergies No known active allergiesdocumented as of this encounter (statuses as of 06/20/2023) Medications Medication Sig Dispensed Refills Start Date [...] as of this encounter (statuses as of 06/20/2023) Active Problems Problem Noted Date Encounter for [...] follow-up with Neurosurgery/Neuropsychology 08/13/2018 for awake craniotomy Qzsowas-Oymri-Vnsbm disease of demyelina ting type 12/26/2012 OBESITY, PEDS, BMI 99TH PERCENTL OR GREA TER 12/23/2009 Overview: Per Obesity Taxonomy 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 gait 03/23/2000 documented as of this encounter (statuses as of 06/20/2023) Resolved Problems Problem Noted Date Resolved Date Overweight (BMI 25.0-29.9) 12/13/200512/23 Overview: Per Obesity Taxonomy Routine child health exam 2012 documented as of this encounter (statuses as of 06/20/2023) Immunizations Name Administration Dates Next Due Meningococcal [...] this encounter Progress Notes * Elizabeth Pavon, bond broker - 06/20/2023 9:05 AM EDT MEDICATION THERAPY MANAGEMENT PROCARBAZINE/CCNU TREATMENT STATUS NOTE Jose Luis Callahanvirgen [phone] Patient Phone Numbers Communication: Chart review Treatment: Medication: Procarbazine (Matulane) Dose Basis: 60 mg/m2 Dose: 150 mg PO daily for days 8-21 every 42 days Administration: at bedtime Medication: Lomustine Dose Basis: 90 mg/m2 Dose: 200 mg PO on day 1 every 24 days Administration: empty stomach at bedtime Indication/Staging/Diagnosis Code: Oligodendroma Start Date: TBD Primary Inbound Ingredient Logistics Specialist/Oncologist: Dr. Clifford Supportive Care Meds: Ondansetron 8 mg 30 min prior to chemotherapy and q8h PRN Docusate Prophylactic Meds: PJP ppx for ALC < 0.5 Cycle Lomustine Procarbazine C1 C2 The Hematology/Oncology Oral Chemotherapy Clinic will assess medication compliance at each patient encounter Assessment and Plan: Per Dr. Clifford, pt to be discussed in [facility] next week Yes/no Date Action Taken [place] plan entered? Yes 06/17/23 Consent completed? No [...] Chemotherapy Clinic and complete medication reconciliation, and consent [facility] will contact patient once med shipped/received to complete medication education Please refer to initial intake note for detailed review of regimen and patient- specific education points FELIPA Harmon Pickling Solution Maker Oral Chemotherapy Clinic 06/20/23,9:09 AM Time Spent on Encounter: < 5 minutes documented in this encounter Plan of Treatment Upcoming Encounters Date Type Specialty Care Team Description 06/22/2023 Telemedicine Neurology Esperanza Hernandez MD [address] [place] [address] 06/22/2023 Pharmacy Pharmacy [facility] [place], [facility] Hem/Onc [address] [place] [address] 06/26/2023 Telemedicine Hematology Oncology Ángela Altamirano PA-C [address] [place] [address] 07/17/2023 Telemedicine Hematology Oncology Bakari Clifford MD [address], [place] [phone] 03/26/2024 Office Visit Family Medicine Dangelo Juárez, DO [address] [place] [address] Health Maintenance Due Date Last Done Comments [...] this encounter Medical Devices Implanted Type Area Guest Associate Device Identifier Shelf Expiration Date Model / Serial / Lot Graft Lyoplant 10.0x12.5cm 4x5 - [id number] Implanted:Qty: 1 on 08/13/2018 by Bacilio Romero MD at OR [facility] [place] [facility] [place] : MONICALAMolly 12/29/2022 [id number] [id number] / [id number] / [id number] documented as of this encounter Visit Diagnoses [...] the patient have Health Care Power of Wax Room Supervisor? No Code Status History Code Status Date Activated Date Inactivated Comments Full Code 08/13/2018 6:42 AM 08/13/2018 6:33 PM Thi s order reflects the patients wishes and were consensually agreed upon. Full Code 07/08/2018 10:45 PM 07/09/2018 9:37 PM This order reflects the patients wishes and were consensually agreed upon. Care Teams Jig Filler Relationship Specialty Start Date End Date Dangelo Juárez, DO [address] [place] [address] PCP - General Family Medicine 07/19/18 documented as of this encounter
--- OUTSIDE RECORDS SUMMARY | 2023-08-15 23:42 | External Medical Summary | Summary of Care ---
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 SOONER Encounter Details Date Type Department Care Team Description 02/28/2023 Telephone Hematology/Oncology [facility] [address] [place] [address] Kat Cardenas MD [address] [place] [address] NEW PATIENT (PACHECO SEEN SOONER) Allergies No [...] follow-up with Neurosurgery/Neuropsychology 08/13/2018 for awake craniotomy Tndvyiu-Vlvxi-Bmhbu disease of demyelina ting type 12/26/2012 OBESITY, [...] 02/28/2023) Immunizations Name Administration Dates Next Due DTP Vaccine 03/13/1994, 3,1992,06/21 DTaP - Dipth/Tet/Acell Pertussis 02/05/1997 Haemophilus B (HIB) 07/21/1993, 3,1992,06/21 Hepatitis B Vaccine 06/21/1993,03/04/1993,1991 MMR - Measles/Mumps/Rubella [...] Miscellaneous Notes * Telephone Encounter - SISSY Lu - 02/28/2023 3:02 PM EDT Printed and faxed 02/28 * Telephone Encounter - Dangelo Juárez DO - 02/28/2023 12:42 PM EDT There is no neuro-oncology referral, only an inpatient consult. When I placed this referral I specified to [facility]. Can you please forward this referral to someone who can help him schedule at [facility]? * Telephone Encounter - Aubree Browning CMA [...] Visit Family Medicine Dangelo Juárez, DO [address] [place] [address] Health Maintenance Due Date Last Done Comments [...] this encounter Medical Devices Implanted Type Area Extractor Filler Device Identifier Shelf Expiration Date Model / Serial / Lot Graft Lyoplant 10.0x12.5cm 4x5 - [id number] Implanted:Qty: 1 on 08/13/2018 by Bacilio Romero MD at [place] [facility] [place] [facility] [place] : [employer]ULAP 12/29/2022 [id number] / [id number] / [id number] documented as of this encounter Advance Directives [...] patient have Health Care Power of Manager Corporate Strategy? No Code Status History Code Status Date Activated Date Inactivated Comments Full Code 08/13/2018 6:42 AM 08/13/2018 6:33 PM Thi s order reflects the patients wishes and were consensually agreed upon. Full Code 07/08/2018 10:45 PM 07/09/2018 9:37 PM This order reflects the patients wishes and were consensually agreed upon. Care Teams Central Office Associate Relationship Specialty Start Date End Date Dangelo Juárez, DO [address] [place] [address] PCP - General Family Medicine 07/19/18 documented as of this encounter
--- OUTSIDE RECORDS SUMMARY | 2023-08-15 23:42 | External Medical Summary | Summary of Care ---
Author Name Unknown Organization [facility] Address [address] [place] [address] Phone [phone] Care Team Providers Care Cottage Cheese Maker Name Role Phone MarkusDangelo davis Kilo CORDERO Primary Care Provider [phone] Reason for Visit * Reason Onset Date Comments Appointment 03/03/2023 Encounter Details Date Type Department Care Team Description 03/03/2023 Telephone [address] [place] [address] [facility] [address] [place] TECH Appointment (/) Allergies No known active allergiesdocumented as of this encounter (statuses as of 03/03/2023) Medications Medication Sig Dispensed Refills Start Date [...] as of this encounter (statuses as of 03/03/2023) Active Problems Problem Noted Date Partial symptomatic [...] follow-up with Neurosurgery/Neuropsychology 08/13/2018 for awake craniotomy 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 OBESITY, PEDS, BMI 99TH PERCENTL OR GREA TER 12/23/2009 Overview: Per Obesity Taxonomy 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 gait 03/23/2000 documented as of this encounter (statuses as of 03/03/2023) Resolved Problems Problem Noted Date Resolved Date Overweight (BMI 25.0-29.9) 12/13/200512/23 Overview: Per Obesity Taxonomy Routine child health exam 2012 documented as of this encounter (statuses as of 03/03/2023) Immunizations Name Administration Dates Next Due Meningococcal [...] Encounters Date Type Specialty Care Team Description 03/09/2023 Imaging Radiology 03/09/2023 Imaging Radiology 03/12/2023 Office Visit Hematology Oncology Bakari Clifford MD [address] [place] [address] 03/26/2024 Office Visit Family Medicine Dangelo Juárez, DO [address] [place] [address] Health Maintenance Due Date Last Done Comments [...] this encounter Medical Devices Implanted Type Area Operator Assistant I Cementing Device Identifier Shelf Expiration Date Model / Serial / Lot Graft Lyoplant 10.0x12.5cm 4x5 - [id number] Implanted:Qty: 1 on 08/13/2018 by Bacilio Romero MD at OR [facility] [place] [facility] [place] : AESCULAP 12/29/2022 [id number] / [id number] / [id number] documented as of this encounter Advance Directives [...] the patient have Health Care Power of Digital Imager? No Code Status History Code Status Date Activated Date Inactivated Comments Full Code 08/13/2018 6:42 AM 08/13/2018 6:33 PM Thi s order reflects the patients wishes and were consensually agreed upon. Full Code 07/08/2018 10:45 PM 07/09/2018 9:37 PM This order reflects the patients wishes and were consensually agreed upon. Care Teams Cottage Cheese Maker Relationship Specialty Start Date End Date Dangelo Juárez, DO [address] [place] [address] PCP - General Family Medicine 07/19/18 documented as of this encounter
--- OUTSIDE RECORDS SUMMARY | 2023-08-15 23:42 | External Medical Summary | Summary of Care ---
Author Name Unknown Organization [facility] Address [address] [place] [address] Phone [phone] Care Team Providers Care Traveling Secretary Name Role Phone Dangelo Juárez DO Primary Care Provider [phone] Reason for Visit * Reason Comments Outpatient Testing Encounter Details Date Type Department Care Team Description 02/21/2023 Laboratory Laboratory [facility] [place] [address] [place] [address] [facility] [address] [place] [address] Malaise and fatigue; Partial symptomatic epilepsy with complex partial seizures, not intractable, without status epilepticus (HCC) Allergies No known active allergiesdocumented as of this encounter (statuses as of 03/08/2023) Medications Medication Sig Dispensed Refills Start Date [...] as of this encounter (statuses as of 03/08/2023) Active Problems Problem Noted Date Partial symptomatic [...] follow-up with Neurosurgery/Neuropsychology 08/13/2018 for awake craniotomy Epxvtrl-Nbhnj-Jsade disease of demyelina ting type 12/26/2012 OBESITY, PEDS, BMI 99TH PERCENTL OR GREA TER 12/23/2009 Overview: Per Obesity Taxonomy 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 All of your blood work came back looking great. documented in this encounter Plan of Treatment Upcoming Encounters Date Type Specialty Care Team Description 03/09/2023 Imaging Radiology 03/09/2023 Imaging Radiology 03/12/2023 [facility] Visit [facility] [address] [facility] [address] [facility]/26/2024 Office Visit Family Medicine Dangelo Juárez DO [address] [place] [address] Health Maintenance Due Date Last Done Comments [...] this encounter Medical Devices Implanted Type Area Cut Off Machine Unloader Device Identifier Shelf Expiration Date Model / Serial / Lot Graft Lyoplant 10.0x12.5cm 4x5 - [id number] Implanted:Qty: 1 on 08/13/2018 by Bacilio Romero MD at OR [facility] B ST[place] : AESCULAP 12/29/2022 [id number] / [id number] / [id number] documented as of this encounter Procedures Procedure Name Priority Date/Time Associated Diagnosis Comments ANEMIA REFLEX CHEMISTRY HOLD Routine 02/21/2023 3:27 PM EDT Malaise and fatigue Partial symptomatic epilepsy with complex partial seizures, not intractable, without status epilepticus (HCC) LYME DISEASE ANTIBODY SCREEN Routine 02/21/2023 3:27 PM EDT Malaise and fatigue ANTINUCLEAR ANTIBODY (HELENA) SCREEN, PRAVEEN Routine 02/21/2023 3:27 PM EDT Malaise and fatigue ANEMIA CBC Routine 02/21/2023 3:27 PM EDT Malaise and fatigue Partial symptomatic epilepsy with complex partial seizures, not intractable, without status epilepticus (HCC) DIFFERENTIAL, AUTOMATED Routine 02/21/2023 3:27 PM EDT Malaise and fatigue Partial symptomatic epilepsy with complex partial seizures, not intractable, without status epilepticus (HCC) CBC WITH WBC DIFFERENTIAL AND ANEMIA REFLEX WORKUP Routine 02/21/2023 3:27 PM EDT Malaise and fatigue Partial symptomatic epilepsy with complex partial seizures, not intractable, without status epilepticus (HCC) LEVETIRACETAM LEVEL Routine 02/21/2023 3 :27 PM EDT Partial symptomatic epilepsy with complex partial seizures, not intractable, without status epilepticus (HCC) TSH WITH FREE T4 IF INDICATED Routine 02/21/2023 3:27 PM EDT Malaise and fatigue ANTINUCLEAR ANTIBODY (HELENA) EIA SCREEN WITH REFLEX AB QUANT Routine 02/21/2023 3:27 PM EDT Malaise and fatigue LYME DISEASE ANTIBODY SCREEN WITH REFLEX TO CONFIRMATION Routine 02/21/2023 3:27 PM EDT Malaise and fatigue HEMOGLOBIN A1C Routine 02/21/2023 3:27 PM EDT Malaise and fatigue COMPREHENSIVE METABOLIC PANEL Routine 02/21/2023 3:27 PM EDT Malaise and fatigue Partial symptomatic epilepsy with complex partial seizures, not intractable, without status epilepticus (HCC) ERYTHROCYTE SEDIMENTATION RATE (ESR) Routine 02/21/2023 3:27 PM EDT Malaise and fatigue documented in this encounter Results * ANTINUCLEAR ANTIBODY (HELENA) SCREEN, PRAVEEN (02/21/2023 3:27 PM EDT) HELENA Screen Negative Negative 02/22/2023 11:01 AM EDT [facility] dsDNA Antibody Interpretation Negative Negative 02/22/2023 11:01 AM EDT [facility] dsDNA Antibody Value 1.1 <20 IU/mL 02/22/2023 11:01 AM EDT LABORATORY [facility] KENYETTA Antibodies Screen Interpretation Negative Negative 02/22/2023 11:01 AM EDT LABORATORY [facility] [place] Antibodies Screen Value 0.1 <0.7 Ratio 02/22/2023 11:01 AM EDT LABORATORY [facility] Comment: Screening is based on detection of the following antibodies: dsDNA, U1-UNDERGROUND REPAIRER (RNP70, A, C), SS-A/Ro, SS-B / La, Diane-1, Scl-70, Centromere B proteins and Sm proteins. In conjunction with clinical findings, this can aid in the diagnosis of systemic lupus erythematosous (SLE), mixed connective tissue disease (MCTD), Sjogren's syndrome, scleroderma and polymyositis/dermatomyositis. However, a negative result does not rule out systemic rheumatic or other autoimmune disease. If clinically suspected, further evaluation and testing may be necessary. Please consult with Rheumatology Department. Methodology: Fluorescent Enzyme Immunoassay. Blood Venous blood specimen / Unknown Venipuncture / Unknown 02/21/2023 3:27 PM EDT 02/21/2023 3:27 PM EDT [facility] LAB BLOOD ORDERABLE S Performing Organization Address [facility] de Phone Number LABORATORY [facility] [address] [place] [address] * ANEMIA REFLEX CHEMISTRY HOLD (02/21/2023 3:27 PM EDT) Blood Venous blood specimen / Unknown Venipuncture / Unknown 02/21/2023 3:27 PM EDT 02/21/2023 3:27 PM EDT [facility] LAB BLOOD ORDERABLE S Performing Organization Address [facility]/ZIP Co de Phone Number LABORATORY [facility] [address] [place] [address] * DIFFERENTIAL, AUTOMATED (02/21/2023 3:27 PM EDT) WBC 7.59 4.00 - 10.80 K/uL 02/21/2023 10:22 PM EDT LAB[facility]ORY [facility] Neutrophils % 56.7 40.0 - 75.0 % 02/21/2023 10:22 PM EDT LABORATORY GM Lymphocytes % 30.0 18.0 - 42.0 % 02/21/2023 10:22 PM EDT [facility] Monocytes % 10.1 1.0 - 11.0 % 02/21/2023 10:22 PM EDT [facility] Eosinophils % 2.0 0.0 - 6.0 % 02/21/2023 10:22 PM EDT [facility] Basophils % 0.7 0.0 - 2.0 % 02/21/2023 10:22 PM EDT [facility] Immature Granulocytes % 0.5 0.0 - 2.0 % 02/21/2023 10:22 PM EDT [facility] Absolute Neutrophils 4.30 1.80 - 7.70 K/uL 02/21/2023 10:22 PM EDT [facility] Absolute Lymphocytes 2.28 1.00 - 4.80 K/ul 02/21/2023 10:22 PM EDT [facility] Absolute Monocytes 0.77 0.00 - 1.10 K/uL 02/21/2023 10:22 PM EDT [facility] Absolute Eosinophils 0.15 0.00 - 0.70 K/uL 02/21/2023 10:22 PM EDT [facility] Absolute Basophils 0.05 0.00 - 0.20 K/uL 02/21/2023 10:22 PM EDT [facility] Absolute Immature Granulocytes 0.04 0.00 - 0.20 K/uL 02/21/2023 10:22 PM EDT [facility] Blood Venous blood specimen / Unknown Venipuncture / Unknown 02/21/2023 3:27 PM EDT 02/21/2023 3:27 PM EDT Dangelo Juárez DO LAB BLOOD ORDERABLE S [facility] [address] [place] [address] * ANEMIA CBC (02/21/2023 3:27 PM EDT) WBC 7.59 4.00 - 10.80 K/uL 02/21/2023 10:22 PM EDT [facility] RBC 5.35 4.50 - 5.25 M/uL 02/21/2023 10:22 PM EDT [facility] HGB 16.5 14.0 - 16.8 g/dL 02/21/2023 10:22 PM EDT [facility] Comment: Anemia reflex testing triggers on a HGB < 12.0 for Females and HGB < 13.0 for Males in accordance with the WHO Anemia Guidelines Anemia reflex testing triggers on a HGB < 12.0 for Females and HGB < 13.0 for Males in accordance with the WHO Anemia Guidelines HCT 47.4 40.0 - 48.4 % 02/21/2023 10:22 PM EDT [facility] MCV 88.6 82.0 - 99.5 fL 02/21/2023 10:22 PM EDT [facility] MCH 30.8 27.0 - 34.0 pg 02/21/2023 10:22 PM EDT [facility] MCHC 34.8 32.0 - 36.0 g/dL 02/21/2023 10:22 PM EDT [facility] RDW 11.9 11.5 - 15.5 % 02/21/2023 10:22 PM EDT [facility] PLT 231 140 - 400 K/uL 02/21/2023 10:22 PM EDT [facility] MPV 10.8 6.6 - 11.1 fL 02/21/2023 10:22 PM EDT [facility] nRBCs 0 <=0 /100 WBCs 02/21/2023 10:22 PM EDT [facility] Blood Venous blood specimen / Unknown Venipuncture / Unknown 02/21/2023 3:27 PM EDT 02/21/2023 3:27 PM EDT Dangelo Juárez DO LAB BLOOD ORDERABLE S [facility] [address] [place] [address] * LYME DISEASE ANTIBODY SCREEN (02/21/2023 3:27 PM EDT) [facility] Lyme Disease Antibody Screen Negative Negative 02/22/2023 8:55 AM EDT [facility] Comment:Lyme screen negative , per CDC guidelines Western blot testing not ordered. Blood Venous blood specimen / Unknown Venipuncture / Unknown 02/21/2023 3:27 PM EDT 02/21/2023 3:27 PM EDT Dangelo Juárez DO LAB BLOOD ORDERABLE S Performing Organization Address [facility]/ZIP Co de Phone Number LABORATORY [facility] [address] [place] [address] * HEMOGLOBIN A1C (02/21/2023 3:27 PM EDT) [facility] Hemoglobin A1C 5.4 4.0 - 5.6 % 02/22/2023 12:11 AM EDT LABORATORY [facility] Comment:The use of HbA1c to monitor glycemic status is based on normal hemoglobin and HbA composition. This test should not be used in patients with abnormal hemoglobin that affects the half life of the red blood cell or the in vivo glycation rates. Estimated Average Glucose 108 <126 mg/dL 02/22/2023 12:11 AM EDT LABORATORY [facility] Blood Venous blood specimen / Unknown Venipuncture / Unknown 02/21/2023 3:27 PM EDT 02/21/2023 3:27 PM EDT Dangelo Apariciogeorgenannette LAB BLOOD ORDERABLE S Performing Organization Address [facility] Co de Phone Number LABORATORY [facility] [address] [place] [address] * LEVETIRACETAM LEVEL (02/21/2023 3:27 PM EDT) [facility] Levetiracetam 8 3 - 63 ug/mL 02/22/2023 9:18 AM EDT LABORATORY [facility] Blood Venous blood specimen / Unknown Venipuncture / Unknown 02/21/2023 3:27 PM EDT 02/21/2023 3:27 PM EDT Dangelo Apariciogeorgenannette LAB BLOOD ORDERABLE S Performing Organization Address [facility] Co de Phone Number LABORATORY [facility] [address] [place] [address] * (ABNORMAL) COMPREHENSIVE METABOLIC PANEL (02/21/2023 3:27 PM EDT) [facility] BUN 19 6 - 20 mg/dL 02/21/2023 4:31 PM [facility] 56 Creatinine 0.8 0.6 - 1.2 mg/dL 02/21/2023 4:[address] Estimated Glomerular Filtration Rate >90 >=60 mL/min 02/21/2023 4:31 PM [facility] 56 Comment:eGFR is calculated b ased on the CKD-EPI 2020 equation Sodium 142 135 - 146 mmol/L 02/21/2023 4:31 PM [facility] 56 Potassium 4.2 3.5 - 5.1 mmol/L 02/21/2023 4:31 PM [facility] 56 Chloride 107 98 - 107 mmol/L 02/21/2023 4:31 PM [facility] 56 CO2 23 22 - 32 mmol/L 02/21/2023 4:31 PM [facility] 56 Anion Gap 12 7 - 15 mmol/L 02/21/2023 4:[address] Glucose 108 70 - 120 mg/dL 02/21/2023 4:[address] Albumin 4.7 3.8 - 5.0 g/dL 02/21/2023 4:31 PM [facility] 56 AST 31 10 - 50 U/L 02/21/2023 4:31 PM [facility] 56 Alkaline Phosphatase 100 35 - 130 U/L 02/21/2023 4:31 PM [facility] 56 Bilirubin, Total 0.3 <=1.2 mg/dL 02/21/2023 4:31 PM [facility] 56 Calcium 9.5 8.4 - 10.2 mg/dL 02/21/2023 4:31 PM [facility] 56 Protein 7.2 6.0 - 8.3 g/dL 02/21/2023 4:31 PM [facility] 56 ALT 51(H) 10 - 50 U/L 02/21/2023 4:31 PM [facility] 56 Blood Venous blood specimen / Unknown Venipuncture / Unknown 02/21/2023 3:27 PM EDT 02/21/2023 3:27 PM EDT Dangelo Juárez DO LAB BLOOD ORDERABLE S LAB[facility]ATORY [place] [address] [place] [address] * ERYTHROCYTE SEDIMENTATION RATE (ESR) (02/21/2023 3:27 PM EDT) ESR 8 <15 mm/hour 02/21/2023 10:28 PM EDT [facility] Blood Venous blood specimen / Unknown Venipuncture / Unknown 02/21/2023 3:27 PM EDT 02/21/2023 3:27 PM EDT Dangelo Juárez DO LAB BLOOD ORDERABLE S Performing Organization Address [facility] Co de Phone Number LABORATORY [facility] [address] [place] [address] * TSH WITH FREE T4 IF INDICATED (02/21/2023 3:27 PM EDT) TSH 2.55 0.27 - 4.20 uIU/mL 02/22/2023 12:19 AM EDT [facility] Blood Venous blood specimen / Unknown Venipuncture / Unknown 02/21/2023 3:27 PM EDT 02/21/2023 3:27 PM EDT Dangelo Juárez DO LAB BLOOD ORDERABLE S Performing Organization Address City/[facility] Co de Phone Number [facility] [address] [place] [address] documented in this encounter Visit Diagnoses Diagnosis Malaise and [...] the patient have Health Care Power of Turning Machine Operator Helper? No Code Status History Code Status Date Activated Date Inactivated Comments Full Code 08/13/2018 6:42 AM 08/13/2018 6:33 PM Thi s order reflects the patients wishes and were consensually agreed upon. Full Code 07/08/2018 10:45 PM 07/09/2018 9:37 PM This order reflects the patients wishes and were consensually agreed upon. Care Teams Traveling Secretary Relationship Specialty Start Date End Date Dangelo Juárez, DO [address] [place] [address] PCP - General Family Medicine 07/19/18 documented as of this encounter
--- OUTSIDE RECORDS SUMMARY | 2023-08-15 23:42 | External Medical Summary ---
Author Name Unknown Address Unknown Organization K09:[facility] [address] [place] [address] Laboratory Report Ordering Provider Test Date Status JUAN JOSE LANG 02/21/2023 15:27:11 Final Observation Date Value Abnormality Reference (Units ) Status BUN 02/21/2023 15:27:11 19 6-20 (mg/dL) Final Creatinine 02/21/2023 15:27:11 0.8 0.6-1.2 (mg/dL) Final Glomerular filtration rate/1.73 sq M.predicted [Volume Rate/Area] in Serum, Plasma or Blood by Creatinine-based formula (CKD-EPI) 02/21/2023 15:27:11 >90 >=60 (mL/min) Final eGFR is calculated based on the CKD-EPI 2020 equation SODIUM 02/21/2023 15:27:11 142 135-146 (m mol/L) Final Potassium 02/21/2023 15:27:11 4.2 3.5-5.1 (m mol/L) Final Cl 02/21/2023 15:27:11 107 98-107 (mm ol/L) Final CO2 02/21/2023 15:27:11 23 22-32 (mmo l/L) Final Anion gap 02/21/2023 15:27:11 12 7-15 (mmol /L) Final Glucose 02/21/2023 15:27:11 108 70-120 (mg /dL) Final Albumin 02/21/2023 15:27:11 4.7 3.8-5.0 (g /dL) Final AST (Aspartate aminotransferase) 02/21/2023 15:27:11 31 10-50 (U/L) Fin al Alk Phos 02/21/2023 15:27:11 100 35-130 (U/ L) Final Bilirubin, Total 02/21/2023 15:27:11 0.3 <=1 .2 (mg/dL) Final Calcium 02/21/2023 15:27:11 9.5 8.4-10.2 ( mg/dL) Final Protein 02/21/2023 15:27:11 7.2 6.0-8.3 (g /dL) Final ALT (Alanine aminotransferase) 02/21/2023 15:27:11 51 Above high normal 10-50 (U/L) Final Performing Location [facility] [address] [place] [address]
--- OUTSIDE RECORDS SUMMARY | 2023-08-15 23:42 | External Medical Summary | Summary of Care ---
Author Name Unknown Organization [facility] Address [address] [place] [address] Phone [phone] Care Team Providers Care Office Analyst Name Role Phone Dangelo Juárez DO Primary Care Provider [phone] Reason for Visit * Reason Onset Date Comments NEW PATIENT 02/28/2023 PACHECO SEEN SOONER Encounter Details Date Type Department Care Team Description 02/28/2023 Telephone Hematology/Oncology [facility] [address] [place] [address] Kat Cardenas MD [address] [place] [address] NEW PATIENT (PACHECO SEEN SOONER) Allergies No [...] follow-up with Neurosurgery/Neuropsychology 08/13/2018 for awake craniotomy Qpzrmfr-Rmnko-Oesjb disease of demyelina ting type 12/26/2012 OBESITY, [...] encounter Miscellaneous Notes * Telephone Encounter - Dangelo Juárez DO - 02/28/2023 12:42 PM EDT There is no neuro-oncology referral, only an inpatient consult. When I placed this referral I specified to [facility]. Can you please forward this referral to someone who can help him schedule at [facility]? * Telephone Encounter - Aubree Browning CMA [...] Visit Family Medicine Dangelo Juárez DO [address] [place], [place] [address] Health Maintenance Due Date Last Done Comments [...] this encounter Medical Devices Implanted Type Area Canvas Cutter Device Identifier Shelf Expiration Date Model / Serial / Lot Graft Lyoplant 10.0x12.5cm 4x5 - [id number] Implanted:Qty: 1 on 08/13/2018 by Bacilio Romero MD at OR [facility] B [place] : AESCULAP 12/29/2022 [id number] [id number] / [id number] / [id number] documented as of this encounter Advance Directives [...] the patient have Health Care Power of Supervisor Poultry Hatchery? No Code Status History Code Status Date Activated Date Inactivated Comments Full Code 08/13/2018 6:42 AM 08/13/2018 6:33 PM Thi s order reflects the patients wishes and were consensually agreed upon. Full Code 07/08/2018 10:45 PM 07/09/2018 9:37 PM This order reflects the patients wishes and were consensually agreed upon. Care Teams Office Analyst Relationship Specialty Start Date End Date Dangelo Juárez, DO [address] [place] [address] PCP - General Family Medicine 07/19/18 documented as of this encounter
--- OUTSIDE RECORDS SUMMARY | 2023-08-15 23:42 | External Medical Summary | Summary of Care ---
Author Name Unknown Organization [facility] Address [address] [place] [address] Phone [phone] Care Team Providers Care Assessment Clinician Name Role Phone Marquita Dangelo Boateng DO Primary Care Provider [phone] Encounter Details Date Type Department Care Team Description 06/19/2023 Abstract Hematology Oncology [facility] [address] [place] [address] Ángela Altamirano PA-C [address] [place] [address] Allergies No known active allergiesdocumented as of this encounter (statuses as of 06/19/2023) Medications Medication Sig Dispensed Refills Start Date [...] as of this encounter (statuses as of 06/19/2023) Active Problems Problem Noted Date Encounter for [...] follow-up with Neurosurgery/Neuropsychology 08/13/2018 for awake craniotomy Iobakkd-Bmhzn-Coxjm disease of demyelina ting type 12/26/2012 OBESITY, PEDS, BMI 99TH PERCENTL OR GREA TER 12/23/2009 Overview: Per Obesity Taxonomy 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 gait 03/23/2000 documented as of this encounter (statuses as of 06/19/2023) Resolved Problems Problem Noted Date Resolved Date Overweight (BMI 25.0-29.9) 12/13/200512/23 Overview: Per Obesity Taxonomy Routine child health exam 2012 documented as of this encounter (statuses as of 06/19/2023) Immunizations Name Administration Dates Next Due Meningococcal [...] of this encounter Progress Notes * Ángela Altamirano PA-C - 06/19/2023 1:00 PM EDT MULTIDISCIPLINARY NEURO-ONCOLOGY TUMOR BOARD We discussed that case of Jose Luis Wall on 06/19/23 in our tumor board with goals to evaluate the patient clinical presentation, review available brain/spine imaging, discuss differential diagnoses and management options as well as any potential barriers to care. Our team of providers routinely includes staff from the following disciplines: neuro-oncology, neurosurgery, radiation oncology, neuropsychiatry/psychology, medical oncology, neuroradiology, neuro-pathology, and there is usually a combination of clinical trainees, nurses, and physician extenders from our local and regional care centers for an open discussion of the cases presented. While all input is considered in patient decision-making, this tumor board meeting is designed to provide evidencebased and best practice options for our patients and is not intended to represent all possible approaches or conclusions. We also offer these tumor board meetings for multidisciplinary discussion, education, and evaluation for potential clinical trials when appropriate. 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 Clifford increased keppra, referred to Neurology and got an EEG 1. Plan - no role for surgery at this time as it wouldn't change treatment plan for chemotherapy, could consider surgery if seizures are refractory to anti- epileptic therapy, RadOn agrees to start chemo first, could consider RT if there is a surgery done or further progression outside of original radiation site Contact was made with patient and/or primary team to notify of the above. The above is subject to change based on new clinical data or input from other expert advisors. Ángela Altamirano PA-C 06/19/23 1:01 PM documented in this encounter Plan of Treatment Upcoming Encounters Date Type Specialty Care Team Description 06/20/2023 Pharmacy Pharmacy [facility] Hem/Onc [address] [facility] [place] [address] 06/22/2023 Telemedicine Neurology Esperanza Hernandez MD [address] [facility] [place] [address] 06/26/2023 Telemedicine Hematology Oncology Ángela Altamirano PA-C [address] [facility] [place] [address] 07/17/2023 Telemedicine Hematology Oncology Bakari Clifford MD [address] [place] [address] 03/26/2024 Office Visit Family Medicine Dangelo Juárez, [address] [place] [address] Health Maintenance Due Date Last Done Comments [...] encounter Medical Devices Implanted Type Area Manager Mba Device Identifier Shelf Expiration Date Model / Serial / Lot Graft Lyoplant 10.0x12.5cm 4x5 - [id number] Implanted:Qty: 1 on 08/13/2018 by Bacilio Romero MD at OR [facility] B [place] : AESCULAP 12/29/2022 [id number] [id number] / [id number] / [id number] documented as of this encounter Advance Directives [...] the patient have Health Care Power of Transition Assistant? No Code Status History Code Status Date Activated Date Inactivated Comments Full Code 08/13/2018 6:42 AM 08/13/2018 6:33 PM Thi s order reflects the patients wishes and were consensually agreed upon. Full Code 07/08/2018 10:45 PM 07/09/2018 9:37 PM This order reflects the patients wishes and were consensually agreed upon. Care Teams Assessment Clinician Relationship Specialty Start Date End Date Dangelo Juárez, DO [address] [place] [address] PCP - General Family Medicine 07/19/18 documented as of this encounter
--- OUTSIDE RECORDS SUMMARY | 2023-08-15 23:42 | External Medical Summary | Summary of Care ---
Author Name Unknown Organization [facility] Address [address] [place] [address] Phone [phone] Care Team Providers Care Digital Photo Printer Name Role Phone MarkusDangelo davis Kilo CORDERO Primary Care Provider [phone] Reason for Referral * (Within 24 hrs (call dept; emergent)) - Authorized Specialty Diagnoses / Procedures Referred By Contac t Referred To Contact Radiology Diagnoses Oligodendroglioma (HCC) Procedures MRI NEURO 3-D RECONSTRUCTION Bakari Clifford MD [address] [place] [address] Referral ID Status Reason Start Date Expiration Date V isits Requested Visits Authorized [id number] Authorized 03/09/2023 999 999 * Precert (Within 24 hrs (call dept; emergent)) - Pending Review Specialty Diagnoses / Procedures Referred By Contitz t Referred To Contact Radiology Diagnoses Oligodendroglioma (HCC) Procedures MRI BRAIN W WO CONTRAST Bakari Clifford MD [address] [place] [address] Referral ID Status Reason Start Date Expiration Date V isits Requested Visits Authorized [id number] Pending Review 03/09/[phone] Encounter Details Date Type Department Care Team Description 03/02/2023 Orders Only Hematology Oncology [facility] [address] [place] [address] Bakari Clifford MD [address] [place] [address] Oligodendroglioma (HCC)* Allergies No known active allergiesdocumented as of this encounter (statuses as of 03/02/2023) Medications Medication Sig Dispensed Refills Start Date [...] as of this encounter (statuses as of 03/02/2023) Active Problems Problem Noted Date Partial symptomatic [...] follow-up with Neurosurgery/Neuropsychology 08/13/2018 for awake craniotomy Fgfevth-Nqkta-Lgors disease of demyelina ting type 12/26/2012 OBESITY, PEDS, BMI 99TH PERCENTL OR GREA TER 12/23/2009 Overview: Per Obesity Taxonomy 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 gait 03/23/2000 documented as of this encounter (statuses as of 03/02/2023) Resolved Problems Problem Noted Date Resolved Date Overweight (BMI 25.0-29.9) 12/13/200512/23 Overview: Per Obesity Taxonomy Routine child health exam 2012 documented as of this encounter (statuses as of 03/02/2023) Immunizations Name Administration Dates Next Due Meningococcal [...] Hematology Oncology [facility] [address] [facility] [address] 03/26/2024 Office Visit Family Medicine Dangelo Juárez, DO [address] [place] [address] Scheduled Orders Name Type Priority Associated Diagnoses Order Schedule MRI BRAIN W WO CONTRAST Medical Imaging STAT Oligodendroglioma (HCC) Expected: 03/09/2023, Expires: 04/01/2024 MRI NEURO 3-D RECONSTRUCTION Medical Imaging STAT Oligodendroglioma (HCC) Expected: 03/09/2023, Expires: 04/01/2024 Health Maintenance Due Date Last Done Comments [...] this encounter Medical Devices Implanted Type Area Flight Line Service Attendant Device Identifier Shelf Expiration Date Model / Serial / Lot Graft Lyoplant 10.0x12.5cm 4x5 - [id number] Implanted:Qty: 1 on 08/13/2018 by Bacilio Romero MD at [place] [facility] [place] Ann STANLEY : SOLANGE 12/29/2022 [id number] / [id number] / [id number] documented as of this encounter Visit Diagnoses [...] the patient have Health Care Power of Computed Tomography Technologist? No Code Status History Code Status Date Activated Date Inactivated Comments Full Code 08/13/2018 6:42 AM 08/13/2018 6:33 PM Thi s order reflects the patients wishes and were consensually agreed upon. Full Code 07/08/2018 10:45 PM 07/09/2018 9:37 PM This order reflects the patients wishes and were consensually agreed upon. Care Teams Digital Photo Printer Relationship Specialty Start Date End Date Dangelo Juárez, DO [address] [place] [address] PCP - General Family Medicine 07/19/18 documented as of this encounter
--- OUTSIDE RECORDS SUMMARY | 2023-08-15 23:42 | External Medical Summary | Summary of Care ---
Author Name Unknown Organization [facility] Address [address] [place] [address] Phone [phone] Care Team Providers Care Ground Mixer Name Role Phone MarquitaDangelo Kilo CORDERO Primary Care Provider [phone] Reason for Visit * Reason Comments Medication Management Encounter Details Date Type Department Care Team Description 06/13/2023 Pharmacy Pharmacy Hematology Oncology [facility] [address] [place], [place] [id number] [facility] [place] Hem/Onc [address], [place] [id number] Oligodendroglioma (HCC)* Allergies No known active allergiesdocumented as of this encounter (statuses as of 06/17/2023) Medications Medication Sig Dispensed Refills Start Date [...] as of this encounter (statuses as of 06/17/2023) Active Problems Problem Noted Date Encounter for [...] follow-up with Neurosurgery/Neuropsychology 08/13/2018 for awake craniotomy Iwsbqnc-Eunyx-Auupm disease of demyelina ting type 12/26/2012 OBESITY, PEDS, BMI 99TH PERCENTL OR GREA TER 12/23/2009 Overview: Per Obesity Taxonomy 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 gait 03/23/2000 documented as of this encounter (statuses as of 06/17/2023) Resolved Problems Problem Noted Date Resolved Date Overweight (BMI 25.0-29.9) 12/13/200512/23 Overview: Per Obesity Taxonomy Routine child health exam 2012 documented as of this encounter (statuses as of 06/17/2023) Immunizations Name Administration Dates Next Due Meningococcal [...] encounter Progress Notes * Elvira Maza, [facility] - 06/13/2023 4:25 PM EDT MEDICATION THERAPY MANAGEMENT PROCARBAZINE/CCNU INITIAL INTAKE NOTE Jose Luis Wall [id number] Patient Phone Numbers Communication: Chart review Treatment: Medication: Procarbazine (Matulane) Dose Basis: 60 mg/m2 Dose: 150 mg PO daily for days 8-21 every 42 days Administration: at bedtime Medication: Lomustine Dose Basis: 90 mg/m2 Dose: 200 mg PO on day 1 every 24 days Administration: empty stomach at bedtime Indication/Staging/Diagnosis Code: Oligodendroma Start Date: TBD Primary Cutter In/Oncologist: Dr. Clifford Supportive Care Meds: Ondansetron 8 mg 30 min prior to chemotherapy and q8h PRN Docusate Prophylactic Meds: PJP ppx for ALC < 0.5 Cycle Lomustine Procarbazine C1 C2 Review of therapy: Line of therapy: 2nd Previous therapy: Adjuvant temodar x 12 cycles 01/06/19 - 12/26/19 Reviewed dosage prescribed for appropriateness (based on indication, hepatic function,renal function, etc): no changes Are appropriate supportive care medications prescribed? Yes Are appropriate prophylactic medications prescribed? Yes Have baseline labs/tests been obtained? No, no needs baseline CBCd CMP PFTs Has hepatitis B screening been completed? No, ordered Potential drug-drug drug-herbal, drug-food, drug-disease interactions: Yes Levetiracetam/Procarbazine: may increase CODING ASSISTANT depressant effect of Levetiracetam Recommendation: Monitor for increased CODING ASSISTANT depression (eg, somnolence, fatigue, lethargy) Action: Pt will be counseled The Hematology/Oncology Oral Chemotherapy Clinic will assess medication compliance at each patient encounter Assessment and Plan: Discussed above dosing with Dr. Clifford Per Dr. Clifford, pt to be discussed in BTB next week Needs new baseline labs, PFTs and hep b screening Orders placed Needs consent Yes/no Date Action Taken Hayti plan entered? Yes 06/17/23 Consent completed? Intro/med rec completed? Precert completed? Test claim completed? Financial assistance needed? Physician signature? Rx released? Education completed? Follow up: 1 week Elvira Maza, PharmD, BCOP Ambulatory Clinical Pharmacist | Oral Chemotherapy Clinic [facility] 06/17/2023, 10:23 AM Monitoring Parameters: Estimated CrCl Hepatitis panel test Suggested lab monitoring Treatment Parameters documented in this encounter Plan of Treatment Upcoming Encounters Date Type Specialty Care Team Description 06/22/2023 Telemedicine Neurology Esperanza Hernandez MD [address] [place] [address] 06/26/2023 Telemedicine Hematology Oncology Ángela Altamirano PA-C [address] [place] [address] 07/17/2023 Telemedicine Hematology Oncology Bakari Clifford MD [address] [facility] [place] [address] 03/26/2024 Office Visit Family Medicine Dangelo Juárez, DO [address] [place] [address] Health Maintenance Due Date Last Done Comments [...] this encounter Medical Devices Implanted Type Area Bed Control Specialist Device Identifier Shelf Expiration Date Model / Serial / Lot Graft Lyoplant 10.0x12.5cm 4x5 - [id number] Implanted:Qty: 1 on 08/13/2018 by Bacilio Romero MD at OR [facility] [place] Ann STANLEY : SOLANGE 12/29/2022 1067 [id number] / [id number] / [id number] documented as of this encounter Visit Diagnoses [...] the patient have Health Care Power of Flat Knitter? No Code Status History Code Status Date Activated Date Inactivated Comments Full Code 08/13/2018 6:42 AM 08/13/2018 6:33 PM Thi s order reflects the patients wishes and were consensually agreed upon. Full Code 07/08/2018 10:45 PM 07/09/2018 9:37 PM This order reflects the patients wishes and were consensually agreed upon. Care Teams Ground Mixer Relationship Specialty Start Date End Date Dangelo Juárez, DO [address] [facility] [place] [address] PCP - General Family Medicine 07/19/18 documented as of this encounter"
--- OUTSIDE RECORDS SUMMARY | 2023-08-15 23:42 | External Medical Summary | Summary of Care ---
Author Name Unknown Organization [facility] Address [address] [place] [address] Phone [phone] Care Team Providers Care Ramp Service Employee Name Role Phone MarkusDangelo davis Kilo CORDERO Primary Care Provider [phone] Reason for Referral * Evaluate & Treat - Unlimited Visits (Within 10 days (routine)) - Pending Review Specialty Diagnoses / Procedures Referred By Candice t Referred To Contact Neurology Diagnoses Oligodendroglioma (HCC) Partial symptomatic epilepsy with complex partial seizures, not intractable, without status epilepticus (HCC) Bakari Clifford MD [address] [place] [address] Referral ID Status Reason Start Date Expiration Date Visits Requested Visits Authorized [id number] Pending Review Specialty Services Required 06/12/2023 999 999 Question Answer Referral Priority Within 10 days (routine) [facility] NEUROLOGY REFERRAL QUESTIONS Seizure Reason for Visit * Reason Comments Follow Up Encounter Details Date Type Department Care Team Description 06/12/2023 Office Visit Hematology Oncology [facility] [address] [place] [address] Bakari Clifford MD [address] [place] [address] Oligodendroglioma (HCC)*; Partial symptomatic epilepsy with complex partial seizures, not intractable, without status epilepticus (HCC) Allergies No known active allergiesdocumented as of this encounter (statuses as of 06/12/2023) Medications Medication Sig Dispensed Refills Start Date [...] before bedtime. 180 Tablet 3 06/12/2023 Active levETIRAcetam 750 MG Oral TabletIndications: Partial symptomatic epilepsy with complex partial seizures, not intractable, without status epilepticus (HCC) Take by mouth 1 Tablet in the morning AND 1 Tablet before bedtime. 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 gait 03/23/2000 documented as of this encounter (statuses as of 06/12/2023) Resolved Problems Problem Noted Date Resolved Date Overweight (BMI 25.0-29.9) 12/13/200512/23 Overview: Per Obesity Taxonomy Routine child health exam 2012 documented as of this encounter (statuses as of 06/12/2023) Immunizations Name Administration Dates Next Due Meningococcal [...] Sign Reading Time Taken Comments Blood Pressure 124/78 06/12/2023 4:30 PM EDT Pulse 79 06/12/2023 4:30 PM EDT Temperature 37.1 C (98.8 F) 06/12/2023 4:30 PM ED T Respiratory Rate 18 06/12/2023 4:30 PM EDT Oxygen Saturation 96% 06/12/2023 4:30 PM EDT Inhaled Oxygen Concentration - - Weight 132.6 kg (292 lb 4.8 oz) 06/12/2023 4:30 PM EDT Height - - Body Mass Index 40.79 03/12/2023 2:34 PM EDT documented in this [...] Progress Notes * Bakari Clifford MD - 06/12/2023 4:46 PM EDT Follow Up Visit Note: Hematology/Oncology Patient Name: Jose Luis Wall Date of : 1990 Patient Encounter: HEMATOLOGY ONCOLOGY [facility] Oncologic History (Copied from prior): Treatment Summary Jose Luis Wall is a 28 year old, right handed male with a PMHx significant for charcot tabitha tooth, who presents to clinic for evaluation of previously discovered L frontal lobe lesion. The [facility] [facility] [place] for a new onset seizure [...] (April et al 2002. J Clin Onc 20:6994-1073) some of the high risk features for [...] RTOG [id number] published (Fabrizio Almeida et al [facility] 374:6384-0502) 2016. Patients with low grade glioma (in [...] 06/18/19 -[facility] 07/21/19 -Office visit 07/22/19 [facility] MRI C7D1 07/28/19 -[facility] 08/11/19 C8D1 09/01/19 -[facility] 09/23/19 C9D1 09/29/19 -[facility] 10/27/19 -Office visit 11/05/19 with MR perfusion C10D1 10/31/19 (delayed due to labs not done on time) -[facility] 11/21/19 C11D1 planned for 11/28/19 -[facility] 12/19/19 C12D1 planned for 12/26/19 C/c: pt with left frontotemporal oligodendroglioma gd 2, f/u Interval History: He reports tht he has been having a hard time with speech, harder to figure out words. Has bad vertigo some days. Episodes where he is " phasing out" although they are not as bad as " pre surgery". 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 REVIEW OF SYSTEMS: pertinent positives/negatives as noted above. 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 90Capsule 3 No current facility-administered medications for this visit. Social History Tobacco Use Smoking status: Former Packs/day: 1.00 Years: 7.00 Pack years: 7.00 Types: Cigarettes Quit date: 2021 Years since quittin.6 Smokeless tobacco: Former Tobacco comments: 1 pack a day Vaping Use Vaping Use: Every day Substance Use Topics Alcohol use: Yes Comment: occasional Drug use: No Review of patient's allergies indicates: No Known Allergies PHYSICAL EXAMINATION: BP 124/78 | Pulse 79 | Temp 37.1 C (98.8 F) (Tympanic) | Resp 18 | Wt 132.6 kg (292 lb 4.8 oz) | SpO2 96% | BMI 40.79 kg/m | BSA 2.58 m Vitals reviewed. Vitals Reviewed as documented in the chart GEN: Ypung WM, sitting up comfortably in NAD HEENT: NCAT, No pallor, conjunctival injection, sclerae anicteric. No thrush/erythema/leukoplakia. Neck supple, no JVD, thryomegaly Chest: non labored breathing, symm expansion Extr: warm , well perfused, no CC. Edema- Neuro: AAOX3,speech fluent. Face symm. No obv CN deficits. no focal motor weakness. Psych: appropriate mood and affect LABS; Reviewed [...] AND PROCEDURES: Reviewed in EMR MRI brain Jun 2023: IMPRESSION Further increase in patchy contrast enhancement in residual left frontal insular tumor, which a represent post treatment changes versus tumor progression. Otherwise no new findings. Continued follow-up recommended. 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 Seizures MRI shows signs of progression, albeit very slow. This coupled with clinical symptoms--would warrant intervention Review in BTB to reconsider role of surgery or radiation From a systemic therapy perspective, I believe this pt would benefit immensely from IDH targeted therapy like vorasidenib, however it is not available yet. Other options such as Clinical trials vs rechallenge witih chemorx. ( Temodar or PCV regimens)reviewed. He is unable to travel for trials. I gave him info about Procarbazine/CCNU and About temodar too Probably not much benefit from addition of vincristine, increase toxicity and barrier to compliance--transport etc RTC in few weeks to review. Ok to do video visit Taking keppra 750 mg 1 tab po BID, will increase to 1.5 tabs po BID and neurology referral placed Plan reviewed all quest answered and he will call us sooner for change in s/s I spent over 40 mins on the date of service in the care of this patient including preparation, delivery and documentation of the care provided. Excluding any time spent in the performance of separately billed services. Bakari Clifford MD Hematology Oncology [facility] [address] [address] documented in this encounter Nursing Notes * Bette Nieves LPN - 06/12/2023 4:32 PM EDT Room 2 Patient was instructed to not get up on the exam table/exam chair until directed and assisted by their provider; patient is to remain seated in the chair/ wheelchair/ exam table/ exam chair for fall prevention and safety reasons. Patient is aware to have assistance to step down off exam table/exam chair with personnel. Patient voiced full comprehension of instructions. documented in this encounter Plan of Treatment Upcoming Encounters Date Type Specialty Care Team Description 03/26/2024 Office Visit Family Medicine Dangelo Juárez, DO [address] [place] [address] Scheduled Orders Name Type Priority Associated Diagnoses Orde r Schedule EEG ROUTINE Procedures Routine Oligodendroglioma (HCC) Partial symptomatic epilepsy with complex partial seizures, not intractable, without status epilepticus (HCC) Ordered: 06/12/2023 Scheduled Referrals Name Type Priority Associated Diagnoses [...] this encounter Medical Devices Implanted Type Area Occupational Health Coordinator Device Identifier Shelf Expiration Date Model / Serial / Lot Graft Lyoplant 10.0x12.5cm 4x5 - [id number] Implanted:Qty: 1 on 08/13/2018 by Bacilio Rom[place] [facility] [place] : AESCULAP 12/29/2022 1067 [id number] / [id number] / [id number] documented as of this encounter Visit Diagnoses Diagnosis Oligodendroglioma (HCC)- Primary Malignant neoplasm of brain, unspecified site Partial [...] the patient have Health Care Power of Logging Superintendent? No Code Status History Code Status Date Activated Date Inactivated Comments Full Code 08/13/2018 6:42 AM 08/13/2018 6:33 PM Thi s order reflects the patients wishes and were consensually agreed upon. Full Code 07/08/2018 10:45 PM 07/09/2018 9:37 PM This order reflects the patients wishes and were consensually agreed upon. Care Teams Ramp Service Employee Relationship Specialty Start Date End Date Dangelo Juárez, DO [address] [facility] [place] [address] PCP - General Family Medicine 07/19/18 documented as of this encounter
--- OUTSIDE RECORDS SUMMARY | 2023-08-15 23:42 | External Medical Summary | Summary of Care ---
Author Name Unknown Organization [facility] Address [address] [place] [address] Phone [phone] Care Team Providers Care Wire Temperer Name Role Phone MarquitaDangelo Kilo CORDERO Primary Care Provider [phone] Encounter Details Date Type Department Care Team Description 06/17/2023 Orders Only Hematology Oncology [facility] [address] [place] [address] Bakari Clifford MD [address] [place] [address] Oligodendroglioma (HCC)* Allergies No known [...] follow-up with Neurosurgery/Neuropsychology 08/13/2018 for awake craniotomy Uegdwdo-Dsrik-Qomjj disease of demyelina ting type 12/26/2012 OBESITY, [...] Telemedicine Neurology Esperanza Hernandez MD [address] [place] [address] 06/26/2023 Telemedicine Hematology Oncology Ángela Altamirano PA-C [address], [place] [phone] 07/17/2023 Telemedicine Hematology Oncology Bakari Clifford MD [address] [place] [address] 03/26/2024 Office Visit Family Medicine Dangelo Juárez, DO [address] [place] [address] Scheduled Orders Name Type Priority Associated Diagnoses Orde r Schedule HEPATITIS B SURFACE ANTIGEN Lab Routine Oligodendroglioma (HCC) Expected: 06/24/2023, Expires: 09/16/2023 HEPATITIS B CORE ANTIBODIES IGG AND IGM Lab Routine Oligodendroglioma (HCC) Expected: 06/24/2023, Expires: 09/16/2023 HEPATITIS B SURFACE ANTIBODY Lab Routine Oligodendroglioma (HCC) Expected: 06/24/2023, Expires: 09/16/2023 CBC WITH WBC DIFFERENTIAL Lab Routine Oligodendroglioma (HCC) Every Month for 12 Occurrences starting 06/17/2023 until 07/17/2024 COMPREHENSIVE METABOLIC PANEL Lab Routine Oligodendroglioma (HCC) Every 3 Months for 4 Occurrences starting 06/17/2023 until 06/16/2024 DIFFUSION CAPACITY (DLCO) Procedures Routine Oligodendroglioma (HCC) Expected: 06/24/2023, Expires: 07/17/2024 BASIC SPIROMETRY Procedures Routine Oligodendroglioma (HCC) Expected: 06/24/2023, Expires: 07/17/2024 Health Maintenance Due Date Last Done Comments [...] this encounter Medical Devices Implanted Type Area Therapist'S Assistant Device Identifier Shelf Expiration Date Model / Serial / Lot Graft Lyoplant 10.0x12.5cm 4x5 - [id number] Implanted:Qty: 1 on 08/13/2018 by Bacilio Romero MD at OR [facility] [place] B ST[place] : LISETTERACHELE 12/29/2022 1067 050 / [id number] / [id number] documented as of this encounter Visit Diagnoses [...] the patient have Health Care Power of College Admissions Counselor? No Code Status History Code Status Date Activated Date Inactivated Comments Full Code 08/13/2018 6:42 AM 08/13/2018 6:33 PM Thi s order reflects the patients wishes and were consensually agreed upon. Full Code 07/08/2018 10:45 PM 07/09/2018 9:37 PM This order reflects the patients wishes and were consensually agreed upon. Care Teams Wire Temperer Relationship Specialty Start Date End Date Dangelo Juárez, DO [address] [facility] [place] [address] PCP - General Family Medicine 07/19/18 documented as of this encounter
--- OUTSIDE RECORDS SUMMARY | 2023-08-15 23:42 | External Medical Summary | Summary of Care ---
Author Name Unknown Organization [facility] Address [address] [place] [address] Phone [phone] Care Team Providers Care Agricultural Researcher Name Role Phone MarquitaDangelo Kilo CORDERO Primary Care Provider [phone] Reason for Visit * Reason Comments Medication Management Encounter Details Date Type Department Care Team Description 06/26/2023 Pharmacy Pharmacy Hematology Oncology [facility] [address], [place] [id number] [facility] [place] [place] [facility] Hem/Onc [address], [place] [id number] Oligodendroglioma (HCC)* Allergies No known active allergiesdocumented [...] follow-up with Neurosurgery/Neuropsychology 08/13/2018 for awake craniotomy Mlbwiix-Dglaz-Xlxqa disease of demyelina ting type 12/26/2012 OBESITY, [...] Progress Notes * Ángela Rhodes CPhT - 06/26/2023 9:15 AM EDT MEDICATION THERAPY MANAGEMENT PROCARBAZINE/CCNU TREATMENT STATUS NOTE Jose Luis Wall [phone] Patient Phone Numbers Communication: Chart review Treatment: Medication: Procarbazine ([place]) Dose Basis: 60 mg/m2 Dose: 150 mg PO daily for days 8-21 every 42 days Administration: at bedtime Medication: Lomustine Dose Basis: 90 mg/m2 Dose: 200 mg PO on day 1 every 24 days Administration: empty stomach at bedtime Indication/Staging/Diagnosis Code: Oligodendroma Start Date: TBD Primary Remote Sensing Surveyor/Oncologist: Dr. Clifford Supportive Care Meds: Ondansetron 8 mg 30 min prior to chemotherapy and q8h PRN Docusate Prophylactic Meds: PJP ppx for ALC < 0.5 Cycle Lomustine Procarbazine C1 C2 The Hematology/Oncology Oral Chemotherapy Clinic will assess medication compliance at each patient encounter Yes/no Date Action Taken [place] plan entered? Yes 06/17/23 Consent completed? No Intro/med rec completed? Precert completed? Yes 06/18/23 Approved Test claim completed? Yes 06/19/23 [facility] can fill for $0 Financial assistance needed? N/A Physician signature? No Rx released? Education completed? Will follow up in 3 days to check on physician approval,consent for H/O tech to introduce patient to services of the Oral Chemotherapy Clinic and complete medication reconciliation, and consent. [facility] will contact patient once med shipped/received to complete medication education Please refer to initial intake note for detailed review of regimen and patient- specific education points. Ángela Rhodes Nub Card Tender II [facility] Oral Chemotherapy Clinic 06/26/2023 9:17 AM Time Spent on Encounter: < 5 minutes documented in this encounter Plan of Treatment Upcoming Encounters Date Type Specialty Care Team Description 06/26/2023 Telemedicine Hematology Oncology Ángela Altamirano PA-C [address] [place] [address] 06/28/[address] [facility] [place] [place] [facility] Hem/Onc [address] [place] [address] 07/17/2023 Telemedicine Hematology Oncology Bakari Clifford MD [address] [place] [address] 03/26/2024 Office Visit Family Medicine Dangelo Juárez, DO [address] [facility] [place] [address] Health Maintenance Due Date Last Done Comments [...] this encounter Medical Devices Implanted Type Area Carpenter Rough Device Identifier Shelf Expiration Date Model / Serial / Lot Graft Lyoplant 10.0x12.5cm 4x5 - [id number] Implanted:Qty: 1 on 08/13/2018 by Bacilio Romero MD at OR [facility] [place] [facility] B [place] : AESCULAP 12/29/2022 [id number] / [id number] / [id number] documented as of this encounter Visit Diagnoses [...] the patient have Health Care Power of Inspector Bicycle? No Code Status History Code Status Date Activated Date Inactivated Comments Full Code 08/13/2018 6:42 AM 08/13/2018 6:33 PM Thi s order reflects the patients wishes and were consensually agreed upon. Full Code 07/08/2018 10:45 PM 07/09/2018 9:37 PM This order reflects the patients wishes and were consensually agreed upon. Care Teams Agricultural Researcher Relationship Specialty Start Date End Date Dangelo Juárez, DO [address] [place] [address] PCP - General Family Medicine 07/19/18 documented as of this encounter
--- OUTSIDE RECORDS SUMMARY | 2023-08-15 23:42 | External Medical Summary | Summary of Care ---
Author Name Unknown Organization [facility] Address [address] [place] [address] Phone [phone] Care Team Providers Care Congressional Assistant Name Role Phone Dangelo Juárez DO Primary Care Provider [phone] Reason for Visit * Reason Onset Date Comments Appointment 06/02/2023 Encounter Details Date Type Department Care Team Description 06/02/2023 Telephone Radiology [address] [facility] [place] [address] [place] TECH Appointment Allergies No known active allergiesdocumented as of this encounter (statuses as of 06/02/2023) Medications Medication Sig Dispensed Refills Start Date [...] as of this encounter (statuses as of 06/02/2023) Active Problems Problem Noted Date Body mass [...] follow-up with Neurosurgery/Neuropsychology 08/13/2018 for awake craniotomy Igxflzg-Rbina-Ioiom disease of demyelina ting type 12/26/2012 OBESITY, PEDS, BMI 99TH PERCENTL OR GRE[address] TER 12/23/2009 Overview: Per Obesity Taxonomy 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 gait 03/23/2000 documented as of this encounter (statuses as of 06/02/2023) Resolved Problems Problem Noted Date Resolved Date Overweight (BMI 25.0-29.9) 12/13/200512/23 Overview: Per Obesity Taxonomy Routine child health exam 2012 documented as of this encounter (statuses as of 06/02/2023) Immunizations Name Administration Dates Next Due Meningococcal [...] Encounters Date Type Specialty Care Team Description 06/06/2023 Imaging Radiology 06/12/2023 Office Visit Hematology Oncology Bakari Clifford MD [address] [place] [address] 03/26/2024 Office Visit Family Medicine Dangelo Juárez, DO [address] [place] [address] Health Maintenance Due Date Last Done Comments COVID-19 Vaccine (#1) 1992 HIV Screening 2007 Hepatitis C Screening 2010 Depression Screening, Annual for Pts 12 and Over 11/11/2015 11/11/2014 Influenza Vaccine (FLU shot) (#1) [...] this encounter Medical Devices Implanted Type Area Thread Tool Grinder Set Up Operator Device Identifier Shelf Expiration Date Model / Serial / Lot Graft Lyoplant 10.0x12.5cm 4x5 - [id number] Implanted:Qty: 1 on 08/13/2018 by Bacilio Romero MD at OR [facility] [place] B [place] : AESCULAP 12/29/2022 [id number] [id number] / [id number] / [id number] documented as of this encounter Advance Directives [...] the patient have Health Care Power of Lawn Maintenance Worker? No Code Status History Code Status Date Activated Date Inactivated Comments Full Code 08/13/2018 6:42 AM 08/13/2018 6:33 PM Thi s order reflects the patients wishes and were consensually agreed upon. Full Code 07/08/2018 10:45 PM 07/09/2018 9:37 PM This order reflects the patients wishes and were consensually agreed upon. Care Teams Congressional Assistant Relationship Specialty Start Date End Date Dangelo Juárez, DO [address] [facility] [place] [address] PCP - General Family Medicine 07/19/18 documented as of this encounter
--- OUTSIDE RECORDS SUMMARY | 2023-08-15 23:43 | External Medical Summary ---
Author Name Unknown Address Unknown Organization [id number]:LAB[facility]ATORY [facility] - [address] [facility] [address] Laboratory Report Ordering Provider Test Date Status PRECIOUSJUAN JOSE 02/21/2023 15:27:11 Final Observation Date Value Abnormality Reference (Units ) Status WBC, Total 02/21/2023 15:27:11 7.59 4.00-10.8 0 (K/uL) Final RBC 02/21/2023 15:27:11 5.35 4.50-5.25 (M/uL) Final Hemoglobin 02/21/2023 15:27:11 16.5 14.0-16.8 (g/dL) Final Anemia reflex testing trigge rs on a HGB < 12.0 for Females and HGB < 13.0 for Males in accordance with the WHO Anemia Guidelines
Anemia reflex testing triggers on a HGB < 12.0 for Females and HGB < 13.0 for Males in accordance with the WHO Anemia Guidelines HCT 02/21/2023 15:27:11 47.4 40.0-48.4 (%) Final MCV 02/21/2023 15:27:11 88.6 82.0-99.5 (fL) Final MCH 02/21/2023 15:27:11 30.8 27.0-34.0 (pg) Final MCHC 02/21/2023 15:27:11 34.8 32.0-36.0 (g/dL) Final RDW 02/21/2023 15:27:11 11.9 11.5-15.5 (%) Final Platelets 02/21/2023 15:27:11 231 140-400 (K /uL) Final MPV 02/21/2023 15:27:11 10.8 6.6-11.1 ( fL) Final Nucleated erythrocytes/100 leukocytes [Ratio] in Blood by Automated count 02/21/2023 15:27:11 0 <=0 (/100 WBCs) Fi [facility] Performing Location [facility] - [address] [facility] [address]
--- OUTSIDE RECORDS SUMMARY | 2023-08-15 23:43 | External Medical Summary ---
Author Name Unknown Address Unknown Organization [id number]:[facility]ATORY [place] [address] [facility] [address] Laboratory Report Ordering Provider Test Date Status JUAN JOSE LANG 02/21/2023 15:27:11 Final Observation Date Value Abnormality Reference (Units ) Status Nuclear IgG Ab [Ratio] in Serum by Immunoassay 02/21/2023 15:27:11 Negative Negative Final DNA double strand Ab [Presence] in Serum 02/21/2023 15:27:11 Negative Negative Final DOUBLE STRANDED DNA VALUE - [facility] 02/21/2023 15:27:11 1.1 <20 (IU/mL) Final Extractable nuclear Ab [Presence] in Serum 02/21/2023 15:27:11 Negative Negative Final Nuclear IgG Ab [Ratio] in Serum by Immunoassay 02/21/2023 15:27:11 0.1 <0.7 (Ratio) Final Screening is based on detect ion of the following antibodies: dsDNA, U1-CUSTOMER ACCOUNT SPECIALIST (RNP70, A, C), SS-A/Ro, SS-B / La, [...] with Rheumatology Department.
Methodology: Fluorescent Enzyme Immunoassay. Performing Location LABORATORY [address] [facility] [address]
--- OUTSIDE RECORDS SUMMARY | 2023-08-15 23:43 | External Medical Summary ---
Author Name Unknown Address Unknown Organization [id number]:[facility] - [address] [facility] [address] Laboratory Report Ordering Provider Test Date Status JUAN JOSE LANG 02/21/2023 15:27:11 Final Observation Date Value Abnormality Reference (Units ) Status SYNC LEUKOCYTES IN BLOOD BY AUTOMATED COUNT 02/21/2023 15:27:11 7.59 4.00-10.80 (K/uL) Final Segs 02/21/2023 15:27:11 56.7 40.0-75.0 (%) Final Lymphs % 02/21/2023 15:27:11 30.0 18.0-42.0 (%) Final Monos 02/21/2023 15:27:11 10.1 1.0-11.0 (%) Final Eosinophils 02/21/2023 15:27:11 2.0 0.0-6.0 (%) Final Basos 02/21/2023 15:27:11 0.7 0.0-2.0 (%) Final Immature Granulocyte, Percent 02/21/2023 15:27:11 0.5 0.0-2.0 (%) Final Absolute Segs 02/21/2023 15:27:11 4.30 1.80-7.70 (K/uL) Final Lymphs, absolute 02/21/2023 15:27:11 2.28 1.00-4.80 (K/ul) Final Monos, Abs 02/21/2023 15:27:11 0.77 0.00-1.10 (K/uL) Final Eos, Abs 02/21/2023 15:27:11 0.15 0.00-0.70 (K/uL) Final Basos, Abs 02/21/2023 15:27:11 0.05 0.00-0.20 (K/uL) Final Immature Granulocytes, Number 02/21/2023 15:27:11 0.04 0.00-0.20 (K/uL) Final Performing Location LABORATORY [facility] - [address] [facility] [address]
--- OUTSIDE RECORDS SUMMARY | 2023-08-15 23:43 | External Medical Summary ---
Author Name Unknown Address Unknown Organization [id number][facility] [place] [address] [facility] [address] Laboratory Report Ordering Provider Test Date Status JUAN JOSE LANG 02/21/2023 15:27:11 Final Observation Date Value Abnormality Reference (Units ) Status Erythrocyte sedimentation rate by Photometric method 02/21/2023 15:27:11 8 <15 (mm/hour) Final Performing Location [facility] [place] [address] [facility] [address]
--- OUTSIDE RECORDS SUMMARY | 2023-08-15 23:43 | External Medical Summary ---
Author Name Unknown Address Unknown Organization [id number]:LABORATORY [facility] [place] - [address] [place] [address] Laboratory Report Ordering Provider Test Date Status JUAN JOSE LANG 02/21/2023 15:27:11 Final Observation Date Value Abnormality Reference (Units ) Status Levetiracetam level 02/21/2023 15:27:11 8 3-63 (ug/mL) Final Performing Location [facility] - [address] [place] [address]
--- OUTSIDE RECORDS SUMMARY | 2023-08-15 23:43 | External Medical Summary ---
Author Name Unknown Address Unknown Organization K01[facility] [place] [address] [facility] [address] Laboratory Report Ordering Provider Test Date Status JUAN JOSE LANG 02/21/2023 15:27:11 Final Observation Date Value Abnormality Reference (Units ) Status HbA1C 02/21/2023 15:27:11 5.4 4.0-5.6 (% ) Final The use of HbA1c to monitor glycemic status is based on normal hemoglobin and HbA composition. This test should not be used in patients with abnormal hemoglobin that affects the half life of the red blood cell or the in vivo glycation rates. Glucose, estimated average 02/21/2023 15:27:11 108 <126 (mg/dL) Final Performing Location [facility] - [address] [facility] [address]
--- OUTSIDE RECORDS SUMMARY | 2023-08-15 23:43 | External Medical Summary ---
Author Name Unknown Address Unknown Organization K01[facility] [place] [address] [facility] [address] Laboratory Report Ordering Provider Test Date Status JUAN JOSE LANG 02/21/2023 15:27:11 Final Observation Date Value Abnormality Reference (Units ) Status Borrelia burgdorferi IgG and IgM [Interpretation] in Serum by Immunoassay 02/21/2023 15:27:11 Negative Negative Final Lyme screen negative, per CD C guidelines Western blot testing not ordered. Performing Location [facility] [address] [facility] [address]
--- OUTSIDE RECORDS SUMMARY | 2023-08-16 00:38 | External Medical Summary | Summary of Care ---
Author Name Unknown Organization [facility] Address [address] [place] [address] Phone [phone] Care Team Providers Care Pick Pulling Machine Tender Name Role Phone MarkusDangelo davis Primary Care Provider [phone] Reason for Visit * Reason Comments Medication Management Encounter Details Date Type Department Care Team (Late st Contact Info) Description 08/13/2023 3:30 PM [facility] Pharmacy Pharmacy Hematology Oncology [facility] [address] [place] [address] [facility] Hem/Onc [address] [place], [place] [id number] Oligodendroglioma (HCC)* Allergies No known active allergiesdocumented as of this encounter (statuses as of 08/13/2023) Medications Medication Sig Dispensed Refills Start Date [...] as of this encounter (statuses as of 08/13/2023) Active Problems Problem Noted Date Diagnosed Date [...] follow-up with Neurosurgery/Neuropsychology 08/13/2018 for awake 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 OBESITY, PEDS, BMI 99TH PERCENTL OR GREATER 11/30 Overview: Per Obesity Taxonomy 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 gait 03/23/2000 documented as of this encounter (statuses as of 08/13/2023) Resolved Problems Problem Noted Date Diagnosed Date Resolved Date Overweight (BMI 25.0-29.9) 12/13/2005 0 12/23/2009 Overview: Per Obesity Taxonomy Routine child health exam documented as of this encounter (statuses as of 08/13/2023) Immunizations Name Administration Dates Next Due Meningococcal Conjugate Vaccine (Menactra/Menveo ) 02/12/2007 Seasonal Influenza, Split, IIV3, With Preserve, Inj 08/24/2010,07/12/2009 TDAP (age 10 and older)(Boostrix) 02/21/2023,08/2013 Varicella Vaccine (Chicken Pox) 02/17/2008 documented as of this encounter Social History Tobacco Use Types Packs/Day Years Used Date Smoking Tobacco: Former Cigarettes 1.8 12 Q uit: 08/03/2023 Smokeless Tobacco: Former Comments:Quit a couple days ago when started [...] or making decisions? (5 years old or older) No 08/13/2018 documented as of this encounter Progress Notes * Viktoriya Brewer, [facility] - 08/13/2023 3:29 PM EST When speaking with patient, he reports he has not been feeling well. Reports cough, lightheadedness, shortness of breath that has occurring for the last day and a half. Advised patient to report to emergency room for further evaluation. Inquired if patient needed transportation (ambulance) to get to emergency room. Patient reports he has family and friends that can transport him there. Lomustine and procarbazine do have risk of pulmonary toxicity. Symptoms may also be related to pulmonary embolism. Discussed this with patient and discussed the importance of presenting to emergency room for further evaluation. PLT 96K. Patient is aware to HOLD procarbazine and that labs will be repeated on 08/16/23. sent to scheduling to reschedule missed OV from today. Viktoriya Brewer, PharmD, BCOP Ambulatory Clinical Pharmacist | Oral Chemotherapy Clinic [facility] 08/13/2023, 3:31 PM Time Spent on Encounter: > 31 minutes Encounter Group: Neuro-Oncology Encounter Interventions Item Category: Oral Chemotherapy Procarbazine Problem/Rationale: Safety: Needs additional monitoring - Medication Requires monitoring Pharmacist Intervention(s): Care coordination, Clarification with Provider, Lab monitoring, Lab work requested, Medication held, and Toxicity monitoring Magnitude of Intervention: Refer patient to ER/Urgent care for immediate management (Level 5) Second Item Second Item Category: Oral Chemotherapy Lomustine Problem/Rationale: Safety: Needs additional monitoring - Medication Requires monitoring Pharmacist Intervention(s): Care coordination, Clarification with Provider, Lab monitoring, Lab work requested, and Toxicity monitoring Magnitude of Intervention: Refer patient to ER/Urgent care for immediate management (Level 5) * Erum Herzog, PHARM Student - 08/13/2023 1:05 PM EST MEDICATION THERAPY MANAGEMENT PROCARBAZINE AND LOMUSTINE TREATMENT PROGRESS NOTE Jose Luis Wall [phone] Patient Phone Numbers Mobile (sister) [phone] Preferred Lab: [facility] Pharmacy: [facility] [place] for lomustine; [facility] for procarbazine Communication: Spoke to: Patient Treatment: Medication: Procarbazine (Matulane) Dose Basis: 60 mg/m2 Dose: 150 mg PO daily for days 8-21 every 42 days Administration: at bedtime Medication: Lomustine (CCNU, Gleostine) Dose Basis: 90 mg/m2 Dose: 200 mg PO on day 1 every 42 days Administration: empty stomach at bedtime Indication/Staging/Diagnosis Code: Oligodendroma Start Date: 07/30/23 Primary Quality Assurance Representative/Oncologist: Dr. Clifford Supportive Care Meds: Ondansetron 8 [...] clinic if he needs nicotine replacement therapy 07/31/23 - Patient confirms taking lomustine dose on [...] hasn't had to take the prochlorperazine yet Discussed dosing/administration and that prochlorperazine can be used for nausea unrelieved with use of ondansetron Noted Category C DDI (Monitor Therapy) with prochlorperazine and procarbazine that can lower seizure threshold and enhance APPLIANCE PAINTER AND REFINISHER depression. There is no data on coadministration of prochlorperazine andother agents with seizure lowering potential. Per UpToDate, Data evaluating coadministration of prochlorperazine and other agents with seizure threshold lowering potential are not available." Will monitor use of prochlorperazine (limit excessive use) Per previous [facility] discussion with Dr. Clifford, can consider use of Olanzapine for CINV Same drug interaction applies as with prochlorperazine and procarbazine If Olanzapine is started, would recommend to stop prochlorperazine to limit seizure threshold lowering Advised contacting clinic if nausea/vomiting worsens or if experiencing s/sx of dehydration Changes to medication list since last visit? No Assessment and Plan: PFTs completed on 08/08 FEV/FVC 81% PLT decreased from 180K to 96K Not currently meeting parameters for treatment of PLT >/=100K Otherwise weekly labs are WNL Per discussion with Dr. Clifford, hold procarbazine and repeat labs on 08/16 to see if procarbazine can be resumed Message sent to [facility] requesting labs on 08/16, labs also scheduled for 08/20 Assessment of compliance: compliant Assessment of adverse effects attributed to drug therapy: Nausea/vomiting- present Dose adjustment needed based on lab or adverse drug reaction? No Follow up: 1 week Erum Herzog, PHARM Student Monitoring Parameters: Estimated CrCl Serum creatinine: 1.1 mg/dL 08/13/23 0726 Estimated creatinine clearance: 133.5 mL/min Hepatitis panel 07/26/23 - negative, not immune Suggested lab monitoring Weekly CBCd and CMP Treatment Parameters Please refer to PI Pertinent Labs: Latest Reference Range & Units 07/26/23 12:26 08/06/23 08:06 08/13/23 07:26 WBC 4.00 - 10.80 K/uL 6.12 6.71 8.43 HGB 14.0 - 16.8 g/dL 16.1 15.7 15.3 HCT 40.0 - 48.4 % 44.7 44.7 42.9 MCV 82.0 - 99.5 fL 86.6 89.6 89.7 PLT 140 - 400 K/uL 203 180 96 (L) Absolute Neutrophils 1.80 - 7.70 K/uL 3.47 3.75 5.81 Absolute Lymphocytes 1.00 - 4.80 K/ul 1.93 1.97 1.39 (L): Data is abnormally low Latest Reference Range & Units 07/26/23 12:26 08/06/23 08:06 08/13/23 07:26 Albumin 3.8 - 5.0 g/dL 4.5 4.7 4.4 AST 10 - 50 U/L 30 29 22 ALT 10 - 50 U/L 47 49 37 Alkaline Phosphatase 35 - 130 U/L 99 100 102 Bilirubin, Total <=1.2 mg/dL 0.5 0.5 0.7 Time Spent on Encounter: 16 - 20 minutes Encounter Group: Neuro-Oncology Encounter Interventions Item Category: Oral Chemotherapy Lomustine Problem/Rationale: Safety: Needs additional monitoring - Medication Requires monitoring Pharmacist Intervention(s): Lab monitoring and Toxicity monitoring Magnitude of Intervention: Monitoring with direction (Level 1) Second Item Second Item Category: Oral Chemotherapy Procarbazine Problem/Rationale: Safety: Needs additional monitoring - Medication Requires monitoring Pharmacist Intervention(s): Care coordination, Clarification with Provider, Lab monitoring, Lab work requested, and Medication held Magnitude of Intervention: Modification of medication for asymtomatic patients (Level 2) documented in this encounter Plan of Treatment Upcoming Encounters Date Type Department Care Team (Late st Contact Info) Description 08/16/2023 3:30 PM EST Pharmacy Pharmacy Hematology Oncology [facility] [address] [place] [address] [facility], [facility] Hem/Onc [address] [place] [address] 08/20/2023 9:30 AM EST Laboratory Lab Mobile Phlebotomy [facility] [place] [facility] [address] [place] [address] [facility], [facility] Home Draw [address] [place] [address] 08/27/2023 9:30 AM EST Laboratory Lab Mobile Phlebotomy C [address] [place] [address] [facility], [facility] Home Draw [address] [place] [address] 09/03/2023 9:30 AM EST Laboratory Lab Mobile Phlebotomy C [address] [place] [address] Gm, Gml [facility] Home Draw [address] [place] [address] 09/10/2023 9:30 AM EST Laboratory Lab Mobile Phlebotomy [facility] [address] [place] [address] [facility], [facility] Draw [address] [place] [address] 09/17/2023 9:30 AM EST Laboratory Lab Mobile Phlebotomy [facility] [address] [place] [address] [facility], [facility] Home Draw [address] [place] [address] 03/26/2024 3:00 PM EDT Office Visit Family Practice [facility] [address] [facility] [place] [address] Dangelo Juárez, DO [address] [place] [address] Health Maintenance Due Date Last Done Comments [...] this encounter Medical Devices Implanted Type Area [employer] Architect Device Identifier Shelf Expiration Date Model / Serial / Lot Graft Lyoplant 10.0x12.5cm 4x5 - [id number] Implanted:Qty: 1 on 08/13/2018 by Bacilio Romero MD at OR [facility] [place] [facility] B STANLEY : AESCULAP 12/29/2022 [id number] / [id number] / [id number] documented as of this encounter Visit Diagnoses [...] the patient have Health Care Power of Application Penetration Tester? No Code Status History Code Status Date Activated Date Inactivated Comments Full Code 08/13/2018 6:42 AM 08/13/2018 6:33 PM Thi s order reflects the patients wishes and were consensually agreed upon. Full Code 07/08/2018 10:45 PM 07/09/2018 9:37 PM This order reflects the patients wishes and were consensually agreed upon. Care Teams Pick Pulling Machine Tender Relationship Specialty Start Date End Date Dangelo Juárez DO [address] [facility] [place] [place] [address] PCP - General Family Medicine 07/19/18 documented as of this encounter
[2023-08-16] MEDS: PIPERACILLIN/TAZOBACTAM 4.5 GM in DEXTROSE 5% MINI-B 100 ML IV SCH ×2 (01:52→09:57)
[2023-08-16 05:32] LABS: Basophils # (auto) 0.04 K/uL (0.00-0.20); Basophils % (auto) 0.9 %; Eosinophils # (auto) 0.08 K/uL (0.00-0.50); Eosinophils % (auto) 1.7 %; Hematocrit (blood only) 35.7 % (42.0-52.0); Immature Granulocytes # (auto) 0.01 K/uL (0.01-0.20); Immature Granulocytes % (auto) 0.2 %; Lymphocytes # (auto) 1.31 K/uL (1.20-3.40); Mean Corpuscular Hemoglobin 31.3 pg (25.0-34.0); Mean Corpuscular Hgb Conc 36.4 g/dL (32.0-36.0); Mean Corpuscular Volume 85.8 fL (80.0-100.0); Mean Platelet Volume 10.9 fL (9.4-12.4); Monocytes # (auto) 0.98 K/uL (0.11-0.59); Monocytes % (auto) 20.9 %; Neutrophils # (auto) 2.26 K/uL (1.40-6.50); Neutrophils % (auto) 48.3 %; Platelet Count 85 K/uL (130-400); RDW Coefficient of Variation 12.1 % (11.5-14.5); RDW Standard Deviation 37.4 fL (36.4-46.3); Red Blood Count 4.16 M/uL (4.70-6.10); White Blood Count 4.68 K/ul (4.8-10.8)
[2023-08-16 05:33] LABS: BUN Creatinine Ratio 12.5 (10-20); Calcium 8.9 mg/dl (8.6-10.3); Creatinine Clr Calc Pharmacy 139.2 ml/min; Est GFR (African American) 110.4 ml/min; Est GFR (Non-African American) 95.2 ml/min; Magnesium 2.1 mg/dl (1.7-2.4); Potassium 3.6 mmol/L (3.5-5.1)
[2023-08-16] MEDS: DOXYCYCLINE HYCLATE 100 MG in DEXTROSE 5% MINI-B 100 ML IV SCH (05:37)
--- NOTE | 2023-08-16 08:42 | Electrocardiogram Report ---
Test Reason : Blood Pressure : / mmHG Vent. Rate : 106 BPM Atrial Rate : 106 BPM P-R Int : 134 ms QRS Dur : 080 ms QT Int : 314 ms P-R-T Axes : 052 018 009 degrees QTc Int : 417 ms Sinus tachycardia Otherwise normal ECG When compared with ECG of 08-JUL-2018 11:42, Vent. rate has increased BY 53 BPM Confirmed by Kavon Reece ([id number]) on 08/16/2023 8:42:01 AM Referred By: NO PCP Confirmed By:Kavon Reece
[2023-08-16] MEDS: DOCUSATE SODIUM SYRUP 100 MG/10 ML UDC PO SCH ×2 (08:50→09:31)
[2023-08-16] MEDS: levETIRAcetam ORAL SOLN 100MG/ML PO SCH (08:50)
[2023-08-16] MEDS: ENOXAPARIN INJ 40 MG/0.4 ML SYR SQ SCH (08:51)
[2023-08-16] MEDS: PANTOprazole 40 MG TAB PO SCH (08:51)
[2023-08-16] MEDS: ADVANCED PROBIOTIC 1250 MG CAPSULE PO SCH (09:57)
--- NOTE | 2023-08-16 14:25 | Hospitalist Progress Note ---
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 Multifocal pneumonia Immunocompromise state --Chest CTA: No pulmonary embolism. Multifocal pneumonia. There is an ill- defined mass within hepatic segment 8 measuring 4.5 cm. Consider characteri zation with dedicated MRI of the abdomen with contrast. --Negative Biofire -- Blood cultures negative to date --Sputum cultures moderate normal faraz Continue Zosyn, doxycycline Received IV fluids Transition to p.o. antibiotics to complete the antibiotic course Oligodendroglioma S/p surgery Currently chemo on hold for thrombocytopenia Follow-up with heme-onc Ill-defined hepatic mass Incidental finding on CT Advised to follow-up with oncology upon discharge Hypertension ? Situational Monitor BP Blood pressure improved without any medications Partial complex seizures On Keppra DVT prophylaxis Lovenox SQ CODE STATUS full code Disposition Home Admission and Anticipated Discharge Date Admission Date: August 14, 2023 Subjective Patient is seen and examined at bedside States having minimal sore throat Cough much improved Denies any dyspnea, dizziness, chest pain, nausea, vomiting, abdominal pain Afebrile today No other complaints Plan to be discharged home today Review of Systems Review of Systems: All systems reviewed & are unremarkable except as noted in Subjective Physical Exam Physical Exam: Physical Exam: Vitals signs as noted above General Appearance:Obese, no apparent distress Head: normocephalic, Atraumatic Eyes: normal inspection, EOMI Neck: supple, Trachea midline Respiratory/Chest: Normal breath sounds, CTA, No accessory muscle use Cardiovascular: S1, S2, No murmur Abdomen/GI:Soft, Non tender, Bowel sounds present Extremities/Musculoskeletal:normal inspection, no edema Neurologic/Psych:AAOX3, grossly no focal neurological deficits Skin: normal color, warm,+ healed surgical scar on scalp Results & Data Results & Data Vital Signs (Past 12 Hours) Vital Signs Temp Pulse Pulse Resp BP Pulse Ox O2 Del Method 08/16/23 11:21 36.3 C L 65 16 125/83 96 Room Air 08/16/23 07:54 36.8 C 54 L 16 119/82 94 Room Air 08/16/23 07:11 61 08/16/23 03:53 36.5 C 57 L 18 149/92 H 93 Room Air Laboratory Results Short CBC 08/16/23 Range/Units 04:53 WBC 4.68 L (4.8-10.8) K/ul Hgb 13.0 L (14.0-18.0) g/dl Hct 35.7 L (42.0-52.0) % Plt Count 85 L (130-400) K/uL BMP 08/16/23 04:53 Sodium 139 Potassium 3.6 Chloride 106 Carbon Dioxide 26 BUN 13 Creatinine 1.04 Glucose 102 H Calcium 8.9
--- NOTE | 2023-08-16 14:31 | Discharge Summary ---
Date of Service August 16, 2023 Admission HPI Per Admitting Provider 33-year-old male with past medical history significant for oligodendroglioma s/p surgery currently on chemo and yesterday was told to hold chemo as his platelets are low, history of GERD, history of partial complex seizures, comes because of ongoing cough, shortness of breath, fevers and chest pain with coughing for last 2 days and found to have multifocal pneumonia. Patient was feeling dizzy. Denies any headache. Vision is somewhat blurry. Has some runny nose. Has some sore throat from coughing. No nausea. No abdominal pain. Normal bowel and bladder movements. Currently resting comfortably and hemodynamics stable. Past medical history. As mentioned above. Past surgical history. 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 Quit smoking in August 2023. Smoked 1.75 packs a day for 12 years. Alcohol occasional. No drug use. Family history. Mother had prothrombin [id number]. Diabetes. Aunt and uncle has limb-girdle muscular dystrophy Admission Exam Per Admitting Provider General- not in distress Head- atraumatic Eyes- PERRL. ENT- oropharynx clear Neck- supple, no JVD. Lungs- clear to auscultation no wheezing or crackles. Heart- regular rhythm; no murmur, no gallop. Abdomen- normal bowel sounds, soft, nontender, no distension. Extremities- no pretibial edema, no erythema seen. Neuro- alert, oriented x 3; PERRL, no facial palsy; no dysarthria; Skin- warm & dry Principal Diagnosis Multifocal pneumonia Immunocompromise state Liver Mass Hypertension Discharge Data Allergies Allergy/AdvReac Type Severity Reaction Status Date / Time No Known Allergies Allergy Unverified 08/13/23 20:35 Consultations 08/13/23 23:49 ED Decision to Admit Stat Procedures Performed Laboratory Results WBC 4.68 K/ul (4.8-10.8) L 08/16/23 04:53 RBC 4.16 M/uL (4.70-6.10) L 08/16/23 04:53 Hgb 13.0 g/dl (14.0-18.0) L 08/16/23 04:53 Hct 35.7 % (42.0-52.0) L 08/16/23 04:53 MCV 85.8 fL (80.0-100.0) 08/16/23 04:53 MCH 31.3 pg (25.0-34.0) 08/16/23 04:53 MCHC 36.4 g/dL (32.0-36.0) H 08/16/23 04:53 RDW Std Deviation 37.4 fL (36.4-46.3) 08/16/23 04:53 RDW Coeff of [place] 12.1 % (11.5-14.5) 08/16/23 04:53 Plt Count 85 K/uL (130-400) L 08/16/23 04:53 MPV 10.9 fL (9.4-12.4) 08/16/23 04:53 Immature Gran % (Auto) 0.2 % 08/16/23 04:53 Neut % (Auto) 48.3 % 08/16/23 04:53 Lymph % (Auto) 28.0 % 08/16/23 04:53 Noble % (Auto) 20.9 % 08/16/23 04:53 Eos % (Auto) 1.7 % 08/16/23 04:53 Baso % (Auto) 0.9 % 08/16/23 04:53 Neut # (Auto) 2.26 K/uL (1.40-6.50) 08/16/23 04:53 Lymph # (Auto) 1.31 K/uL (1.20-3.40) 08/16/23 04:53 Noble # (Auto) 0.98 K/uL (0.11-0.59) H 08/16/23 04:53 Eos # (Auto) 0.08 K/uL (0.00-0.50) 08/16/23 04:53 Baso # (Auto) 0.04 K/uL (0.00-0.20) 08/16/23 04:53 Immature Gran # (Auto) 0.01 K/uL (0.01-0.20) 08/16/23 04:53 Platelet Estimate Decreased (Normal) L 08/13/23 20:19 PT 11.1 Seconds (9.0-12.0) 08/13/23 20:19 INR 1.0 (0.9-1.1) 08/13/23 20:19 APTT 31.1 Seconds (21.0-31.0) H 08/13/23 20:19 PTT Ratio 1.1 08/13/23 20:19 Sodium 139 mmol/L (136-145) 08/16/23 04:53 Potassium 3.6 mmol/L (3.5-5.1) 08/16/23 04:53 Chloride 106 mmol/L (98-107) 08/16/23 04:53 Carbon Dioxide 26 mmol/L (21-32) 08/16/23 04:53 Anion Gap 7 (3-11) 08/16/23 04:53 BUN 13 mg/dl (6-23) 08/16/23 04:53 Creatinine 1.04 mg/dl (0.6-1.4) 08/16/23 04:53 Est Cr Clr Drug Dosing 139.2 ml/min 08/16/23 04:53 Est GFR ( Amer) 110.4 ml/min 08/16/23 04:53 Est GFR (Non-Af Amer) 95.2 ml/min 08/16/23 04:53 BUN/Creatinine Ratio 12.5 (10-20) 08/16/23 04:53 Glucose 102 mg/dl (70-99(Fasting)) H 08/16/23 04:53 Lactate 1.3 mmol/L (0.4-2.0) 08/13/23 21:11 Calcium 8.9 mg/dl (8.6-10.3) 08/16/23 04:53 Magnesium 2.1 mg/dl (1.7-2.4) 08/16/23 04:53 Total Bilirubin 1.1 mg/dl (0.2-1.0) H 08/13/23 20:19 AST 21 U/L (13-39) 08/13/23 20:19 ALT 32 U/L (7-52) 08/13/23 20:19 Alkaline Phosphatase 90 U/L (34-104) 08/13/23 20:19 Troponin I High Sens 29.3 pg/ml (0-20) H 08/13/23 22:34 B-Natriuretic Peptide 4 pg/ml (0-100) 08/13/23 20:19 Total Protein 7.8 gm/dl (6.0-8.3) 08/13/23 20:19 Albumin 4.6 gm/dl (3.4-5.0) 08/13/23 20:19 Globulin 3.2 gm/dl (2.5-4.0) 08/13/23 20:19 Albumin/Globulin Ratio 1.4 (0.9-2) 08/13/23 20:19 Lipase 6 U/L (11-82) L 08/13/23 20:19 Procalcitonin < 0.05 ng/ml (0-0.5) 08/13/23 20:19 Urine Color Yellow 08/14/23 05:15 Urine Appearance Clear (Clear) 08/14/23 05:15 Urine pH 5.0 (4.5-7.5) 08/14/23 05:15 Ur Specific [place] 1.041 (1.000-1.030) H 08/14/23 05:15 Urine Protein Trace (Negative) H 08/14/23 05:15 Urine Glucose (UA) Negative (Negative) 08/14/23 05:15 Urine Ketones Negative (Negative) 08/14/23 05:15 Urine Blood Negative (Negative) 08/14/23 05:15 Urine Nitrite Negative (Negative) 08/14/23 05:15 Urine Bilirubin Negative (Negative) 08/14/23 05:15 Urine Urobilinogen Negative (Negative) 08/14/23 05:15 Ur Leukocyte Esterase Negative (Negative) 08/14/23 05:15 Urine WBC (Auto) 1-5 /hpf (0-5) 08/14/23 05:15 Urine RBC (Auto) 0-4 /hpf (0-4) 08/14/23 05:15 U Hyaline Cast (Auto) 1-5 /lpf (0-5) 08/14/23 05:15 U Epithel Cells (Auto) 10-20 /lpf (0-5) H 08/14/23 05:15 Urine Bacteria (Auto) Negative (Negative) 08/14/23 05:15 Adenovirus (PCR) Not Detected (NotDetected) 08/13/23 20:20 B. pertussis DNA (PCR) Not Detected (NotDetected) 08/13/23 20:20 B.parapertussis DNA PCR Not Detected (NotDetected) 08/13/23 20:20 C. pneumoniae DNA (PCR) Not Detected (NotDetected) 08/13/23 20:20 Coronavirus OC43 (PCR) Not Detected (NotDetected) 08/13/23 20:20 Coronavirus HKU1 (PCR) Not Detected (NotDetected) 08/13/23 20:20 Coronavirus 229E (PCR) Not Detected (NotDetected) 08/13/23 20:20 SARS-CoV-2 (PCR) Not Detected (NotDetected) 08/13/23 20:20 Coronavirus NL63 (PCR) Not Detected (NotDetected) 08/13/23 20:20 Human Metapneumovir PCR Not Detected (NotDetected) 08/13/23 20:20 Influenza Type A (PCR) Not Detected (NotDetected) 08/13/23 20:20 Influenza Type B (PCR) Not Detected (NotDetected) 08/13/23 20:20 M. pneumoniae (PCR) Not Detected (NotDetected) 08/13/23 20:20 Parainfluenza 1 (PCR) Not Detected (NotDetected) 08/13/23 20:20 Parainfluenza 2 (PCR) Not Detected (NotDetected) 08/13/23 20:20 Parainfluenza 3 (PCR) Not Detected (NotDetected) 08/13/23 20:20 Parainfluenza 4 (PCR) Not Detected (NotDetected) 08/13/23 20:20 RSV (PCR) Not Detected (NotDetected) 08/13/23 20:20 Entero/Rhino (PCR) Not Detected (NotDetected) 08/13/23 20:20 Impressions Chest X-Ray 08/13/23 19:56 XR chest 1V portable HISTORY: 33 years-old Male Chest pain, nonspecific COMPARISON: CTA chest of same day TECHNIQUE: AP view of the chest FINDINGS: Cardiomediastinal and hilar silhouettes are within normal limits. There is no pneumothorax, pleural effusion or pulmonary edema. Mild patchy airspace opacities throughout the right lung. Bones appear grossly intact. IMPRESSION: Mild patchy likely infectious or inflammatory right lung predominant opacities are better seen on the comparison CTA chest exam of same day. ACT 112: Negative or not required by law. The above report was generated using voice recognition software. It may contain grammatical, syntax or spelling errors. Electronically signed by: Vik Castro M.D. 08/14/2023 7:43 AM Chest CTA 08/13/23 21:04 Exam(s): CTA CHEST IV Amt: 112 ml optiray 320 EXAM: CT Angiography Chest With Intravenous Contrast CLINICAL HISTORY: Reason for exam: PE. TECHNIQUE: Axial computed tomographic angiography images of the chest with intravenous contrast. CTDI is 64.54 mGy and DLP is 961.59 mGy-cm. Automated exposure control was utilized for the study. A dose lowering technique was utilized adhering to the principles of ALARA. MIP reconstructed images were created and reviewed. COMPARISON: No relevant prior studies available. FINDINGS: Pulmonary arteries: No pulmonary embolism. Aorta: No acute findings. Normal caliber. No dissection. Lungs: Scattered airspace opacities involving the upper lobes and lower lobes consistent with pneumonia. Pleural space: Unremarkable. Heart: Unremarkable. Bones/joints: No acute fracture. Soft tissues: Unremarkable. Lymph nodes: Unremarkable. Liver: There is an ill-defined mass within hepatic segment 8 measuring 4.5 cm. IMPRESSION: 1. No pulmonary embolism. 2. Multifocal pneumonia. 3. There is an ill-defined mass within hepatic segment 8 measuring 4.5 cm. Consider characterization with dedicated MRI of the abdomen with contrast. Electronically signed by: Roshan Dahl MD 08/13/23 23:[address] 08/13/23 21:04 Exam(s): CT HEAD Without Contrast EXAM: CT Head Without Intravenous Contrast CLINICAL HISTORY: Reason for exam: dizziness; known brain CA. TECHNIQUE: Axial computed tomography images of the head/brain without intravenous contrast. CTDI is 21.37 mGy and DLP is 972.14 mGy-cm. Automated exposure control was utilized for the study. A dose lowering technique was utilized adhering to the principles of ALARA. COMPARISON: [place] [address] 18 FINDINGS: Brain: No intracranial hemorrhage, mass-effect, or cerebral edema. Encephalomalacia and calcifications in the inferior left frontal lobe. Ventricles: Unremarkable. Bones/joints: Chronic left frontotemporal craniotomy. Soft tissues: Unremarkable. Sinuses: No acute sinusitis. Mastoid air cells: Unremarkable as visualized. IMPRESSION: 1. No acute intracranial abnormality. 2. Postsurgical changes in the inferior left frontal lobe. Electronically signed by: Roshan Dahl MD 11/13/23 23:10 PM Ordered Studies 08/13/23 21:04 CT for pulmonary embolism PE [CT angio chest PE protocol] Stat CT head/brain wo con Stat Hospital Course (1) Multifocal pneumonia: 33-year-old male with past medical history significant for oligodendroglioma s/p surgery currently on chemo and yesterday was told to hold chemo as his platelets are low, history of GERD, history of partial complex seizures, comes because of ongoing cough, shortness of breath, fevers and chest pain with coughing for last 2 days and found to have multifocal pneumonia. Multifocal pneumonia Immunocompromise state --Chest CTA: No pulmonary embolism. Multifocal pneumonia. There is an ill- defined mass within hepatic segment 8 measuring 4.5 cm. Consider characterization with dedicated MRI of the abdomen with contrast. --Negative Biofire -- Blood cultures negative to date --Sputum cultures moderate normal faraz Continue Zosyn, doxycycline Received IV fluids Transition to p.o. antibiotics to complete the antibiotic course Oligodendroglioma S/p surgery Currently chemo on hold for thrombocytopenia Follow-up with heme-onc Ill-defined hepatic mass Incidental finding on CT Advised to follow-up with oncology upon discharge Hypertension ? Situational Monitor BP Blood pressure improved without any medications Partial complex seizures On Keppra DVT prophylaxis Lovenox SQ CODE STATUS full code Disposition Home Total Time Total Time Spent Total Time Spent (In Minutes): 55 minutes Discharge Plan Discharge Items Patient Disposition: Home - Self-Care Reason For Visit: SOB, COUGH, MULTIFOCAL PNEUMONIA Discharge Diagnosis: Multifocal pneumonia Immunocompromise state Liver Mass Hypertension Activity: Per Instructions section Exercise/Sports: Wait until after follow-up appointment Non-emergency contact: Primary Care Provider and Oncologist Call non-emergency contact if: you have any medication questions, your symptoms worsen, your pain is concerning for you and you have a fever Follow-up/Referrals: Dangelo Juárez, [Primary Care Provider] - Diet: Heart Healthy Addtl Attending Provider Instructions: Follow-up with your primary care physician in 1 week Follow-up with your oncologist for further evaluation of liver mass as advised. --- Your blood cultures are pending at the time of discharge. Follow-up with your physician for results. --- Complete antibiotic course cefuroxime, doxycycline as prescribed for pneumonia. --Monitor your blood pressure regularly at home. Discuss with your physician regarding possible need for blood pressure medications Seek immediate medical attention if your symptoms reoccur or worsen Please take all medications as instructed on discharge list below. Please call if you have any questions or problems. You can reach a [facility] hospitalist on duty at [facility] 24 hours a day by calling [phone] Pending Studies at Discharge: Yes Studies:: Blood Cultures Stand-Alone Forms: My [facility], Smoking Cessation Medications and DC Order Prescriptions: New Advanced Probiotic 625 mg (10 billion cell) Capsule 2 cap PO DAILY Qty: 30 0RF doxycycline monohydrate 100 mg tablet 100 mg PO BID Qty: 14 0RF cefuroxime axetil 500 mg tablet 500 mg PO BID 7 Days Qty: 14 0RF Continued levetiracetam 750 mg tablet 1,125 mg PO [facility] Rx Instructions: 1.5 tablets in am and hs ondansetron HCl 8 mg tablet 8 mg PO Q8 PRN (Reason: Nausea) prochlorperazine maleate 10 mg tablet 10 mg PO Q6 PRN (Reason: Nausea) [place] 50 mg capsule 150 mg PO UD Rx Instructions: 3 capsule dose at bedtime on days 8 through 21 every 42 days Gleostine 100 mg capsule 200 mg PO .EVERY 6 WEEKS Rx Instructions: take on an empty stomach at bed time. last dispensed 07/19/23 docusate sodium 50 mg Capsule 50 mg PO [facility] omeprazole 40 mg capsule,delayed release(DR/EC) 40 mg PO QAM Discharge Orders: Discharge Order (Routine); Ordered 08/16/23 Ordered By: Shade Orellana Admission Data Admit Date/Time: 08/14/23 01:35 Attending Provider: Shade Orellana Admit Provider: Mynor Bautista Primary Care Provider: Dangelo Juárez Other Providers: Mynor Bautista; Sabra Brown
== END 2023-08-16 15:26 | disposition home or self-care (01) | DRG 194 ==
LOC: ED 19:34 → SUATTDRO 08-14 01:35 → EDINP 08-14 01:35 → 2W 08-14 12:16
DX: G40.209 Localization-related (focal) (partial) symptomatic epilepsy and epileptic syndromes with complex partial seizures, not intractable, without status epilepticus; C71.9 Malignant neoplasm of brain, unspecified; J18.9 Pneumonia, unspecified organism; Z79.899 Other long term (current) drug therapy; D84.81 Immunodeficiency due to conditions classified elsewhere; Z87.891 Personal history of nicotine dependence; R16.0 Hepatomegaly, not elsewhere classified; I10 Essential (primary) hypertension; D69.6 Thrombocytopenia, unspecified